=== PATIENT | female | born 1935 | race Caucasian/White ===

== ENCOUNTER → 2017-01-13 | Outpatient (CLI) | payer MEDICARE, BC ==
[2017-01-13 08:17] LABS: Basophils % (A) 0 %; CH 27.3; CHCM 31.8; Eosinophils # (A) 0.2 k/uL (0-0.7); Eosinophils % (A) 3 %; HCT 35.2 % (34.0-46.0); HDW 2.78; HGB 11.1 gm/dL (11.4-16.0); Hypochromasia Slight; Luc # (Auto) 0.14; Luc % (Auto) 2; Lymphocytes # (A) 0.8 k/uL (1.0-4.8); Lymphocytes % (A) 14 %; MCH 27.1 pg (25.0-35.0); MCHC 31.4 g/dL (31.0-37.0); MCV 86.3 fL (80.0-100.0); Mean Platelet Volume 6.9; Monocytes # (A) 0.5 k/uL (0-1.0); Monocytes % (A) 8 %; Neutrophils # (A) 4.4 k/uL (1.3-7.7); Neutrophils % (A) 73 %; RBC 4.08 m/uL (3.80-5.40); RDW 14.1 % (11.5-15.5); WBC (Perox) 6.35
[2017-01-13 08:51] LABS: ALT 25 U/L (9-52); AST 18 U/L (14-36); Alkaline Phosphatase 53 U/L (38-126); Anion Gap 14 mmol/L; Blood Urea Nitrogen 17 mg/dL (7-17); Calcium 10.2 mg/dL (8.4-10.2); Carbon Dioxide 24 mmol/L (22-30); Chloride 102 mmol/L (98-107); Cholesterol 157 mg/dL (<200); Glucose 101 mg/dL (74-99); HDL Cholesterol 43 mg/dL (40-60); Non-African American GFR(MDRD) 52 (>60 ml/min/1.73 sqM); Potassium 4.6 mmol/L (3.5-5.1); Sodium 140 mmol/L (137-145); Total Bilirubin 0.7 mg/dL (0.2-1.3); Total Protein 7.7 g/dL (6.3-8.2); Triglycerides 155 mg/dL (<150)
== END | disposition home or self-care (01) ==
LOC: LABWHC1 07:13
PROVIDERS: ATTEND Family Medicine
DX: I10 Essential (primary) hypertension (principal)
CPT/HCPCS: 36415; 80053; 80061; 85025

== ENCOUNTER → 2017-02-02 | Outpatient (CLI) | payer MEDICARE, BC ==
--- NOTE | 2017-02-02 10:25 | BD ---
EXAMINATION TYPE: MG DEXA axial skeleton. DATE OF EXAM: 02/02/2017 8:42 AM COMPARISON: 09.08.2009 DEXA bone scan report. CLINICAL HISTORY: Z78.0 ASYMPTOMATIC MENOPAUSAL STATE Height: 62 Weight: 162 FRAX RISK QUESTIONS: Alcohol (3 or more units per day): NO Family History (Parent hip fracture): NO Glucocorticoids (More than 3mos): NO (Ex: prednisone, prednisolone, methylprednisolone, dexamethasone, and hydrocortisone). History of Fracture in Adulthood: NO Secondary Osteoporosis: NO 1. Type 1 Diabetes: NO 2. Hyperthyroidism: NO 3. Menopause before 45: NO 4. Malnutrition: NO 5. Chronic liver disease: NO Rheumatoid Arthritis: NO Current Tobacco Use: NO RISK FACTORS HISTORY OF: Family History of Osteoporosis: NO Smoke tobacco: NO Drink Alcohol: NO Active: FEELS SO Diet low in dairy products/other sources of calcium: NO Postmenopausal woman: YES, HYSTERECTOMY AT AGE 45 Adrenal Insufficiency: NO MEDICATIONS: Additional Medications: BP MEDS, ANTI-ANXIETY MEDS, FISH OIL Additional History: OSTEOARTHRITIS, EXAM MEASUREMENTS: Bone mineral densitometry was performed using the Ch[employer] System. Bone mineral density as measured about the Lumbar spine is: ----- L1-L4(G/cm2): 1.263 T Score Values are as follows: ----- L1: 1.6 ----- L2: -0.2 ----- L3: 1.3 ----- L4: 0.0 ----- L1-L4: 0.7 Bone mineral density has: Increased 2.2% since study of: 09.08.2009 Bone mineral density about the R hip (g/cm2): 1.031 Bone mineral density about the L hip (g/cm2): 1.065 T Score values are as follows: -----R Neck: -0.9 -----L Neck: -0.6 -----R Intertrochanter: 0.1 -----L Intertrochanter: 0.1 Bone mineral density has: Decreased -4.4% since study of: 09.08.2009 FRAX %'S: 11.0% FOR A MAJOR OSTEOPOROTIC FX AND 2.3% FOR A HIP FX.......PROBABILITY OF FX IN 10 YRS TIME IMPRESSION: Normal (Values between +1 and -1 indicate normal bone mass FOR BOTH OF HER SCANS OF BOTH HIPS AND LUMBAR SPINE) NOTE: T-SCORE=SD OF THE YOUNG ADULT MEAN.
--- NOTE | 2017-02-03 12:31 | MM ---
Reason for exam: screening (asymptomatic). Last mammogram was performed 7 months ago. History: Patient is postmenopausal. Physical Findings: A clinical breast exam by your physician is recommended on an annual basis and results should be correlated with mammographic findings. MG 3D Screening Mammo W/Cad Bilateral CC and MLO view(s) were taken. Prior study comparison: June 22, 2016, right breast MG diagnostic mammo RT w CAD. December 17, 2015, right breast MG 3d work up w/cad RT. December 02, 2014, bilateral MG screening mammo w CAD. The breast tissue is heterogeneously dense. This may lower the sensitivity of mammography. Finding: There are vascular calcifications in the upper outer quadrant of the left breast. No significant changes in finding since June 22, 2016, December 17, 2015, and December 02, 2014. ASSESSMENT: Benign, BI-RAD 2 RECOMMENDATION: Routine screening mammogram of both breasts in 1 year.
== END | disposition home or self-care (01) ==
LOC: RADMAMWWP 07:42
PROVIDERS: ATTEND Family Medicine
DX: Z12.31 Encounter for screening mammogram for malignant neoplasm of breast (principal); Z78.0 Asymptomatic menopausal state
CPT/HCPCS: 77080; 77063; G0202

== ENCOUNTER → 2017-02-17 | Outpatient (CLI) | payer MEDICARE, BC ==
--- NOTE | 2017-02-17 11:48 | XR ---
EXAMINATION TYPE: XR chest 2V DATE OF EXAM: 02/17/2017 11:21 AM HISTORY: B34.9 viral infection. REFERENCE: Previous study dated 09/29/2016. FINDINGS: The lungs are mildly overinflated but clear. Pleural space are clear. Heart size is upper l imits of normal. IMPRESSION: 1. COPD. 2. MILD CARDIOMEGALY.
== END | disposition home or self-care (01) ==
LOC: RADXRMAIN 11:08
PROVIDERS: ATTEND Physician Assistant
DX: J44.9 Chronic obstructive pulmonary disease, unspecified (principal); I51.7 Cardiomegaly; B34.9 Viral infection, unspecified
CPT/HCPCS: 71020

== ENCOUNTER 2017-04-01 13:50 | Inpatient (IN) | payer MEDICARE, BC ==
[2017-04-01] MEDS ORDERED: SODIUM CHLORIDE 0.9% 1,000 ML IV STA (15:02)
[2017-04-01] MEDS ORDERED: SODIUM CHLORIDE 0.9% 500 ML IV STA (15:02)
[2017-04-01 15:13] LABS: Basophils % (A) 0 %; CH 27.8; CHCM 32.9; Eosinophils # (A) 0.2 k/uL (0-0.7); Eosinophils % (A) 2 %; HCT 34.6 % (34.0-46.0); HDW 2.71; HGB 11.4 gm/dL (11.4-16.0); Luc % (Auto) 2; Lymphocytes % (A) 15 %; MCH 27.9 pg (25.0-35.0); MCHC 32.8 g/dL (31.0-37.0); MCV 84.9 fL (80.0-100.0); Mean Platelet Volume 6.9; Monocytes # (A) 0.5 k/uL (0-1.0); Monocytes % (A) 8 %; Neutrophils % (A) 73 %; RBC 4.08 m/uL (3.80-5.40); RDW 15.1 % (11.5-15.5); WBC 6.8 k/uL (3.8-10.6); WBC (Perox) 7.63
[2017-04-01 15:24] LABS: ALT 24 U/L (9-52); AST 21 U/L (14-36); Alkaline Phosphatase 58 U/L (38-126); Anion Gap 13 mmol/L; Blood Urea Nitrogen 19 mg/dL (7-17); Calcium 10.4 mg/dL (8.4-10.2); Carbon Dioxide 20 mmol/L (22-30); Chloride 103 mmol/L (98-107); Glucose 123 mg/dL (74-99); Magnesium 1.9 mg/dL (1.6-2.3); Non-African American GFR(MDRD) 60 (>60 ml/min/1.73 sqM); Sodium 136 mmol/L (137-145); Total Bilirubin 0.6 mg/dL (0.2-1.3); Total Protein 7.4 g/dL (6.3-8.2)
[2017-04-01 15:33] LABS: Creatine Kinase 38 U/L (30-135)
[2017-04-01 15:45] LABS: Creatine Kinase MB 0.8 ng/mL (0.0-2.4); Troponin I <0.012 ng/mL (0.000-0.034)
[2017-04-01] MEDS ORDERED: hydrALAZINE HCL 20 MG/ML 1 ML VIAL IVP STA ×2 (16:00→16:53)
--- NOTE | 2017-04-01 16:04 | ED ---
Dizziness HPI - General Chief Complaint: Dizziness Stated Complaint: Dizzy&back pain Time Seen by Provider: 04/01/17 14:22 Source: patient, family, RN notes reviewed Mode of arrival: ambulatory Limitations: no limitations - History of Present Illness Initial Comments: This is a 81-year-old female with a history of hypertension who states she had the onset over last couple days of dizziness with lightheadedness specimen she tries get up to walk. She states her blood pressure markedly elevated systolic 220 over diastolic 79. She denies any fevers chills nausea vomiting sweats any headache blurry vision loss of function to her upper or lower extremities a recent change in health diet or medications. Also no cough no phlegm production no dysuria or hematuria. MD Complaint: dizziness, lightheadedness, other - Related Data Home Medications Medication Instructions Recorded Confirmed Aspirin [Adult Low Dose Aspirin EC] 81 mg PO DAILY 09/29/15 04/01/17 Bumetanide [Bumex] 1 mg PO DAILY 09/29/15 04/01/17 Lisinopril 40 mg PO DAILY 09/29/15 04/01/17 busPIRone HCl [Buspar] 10 mg PO BID 09/29/15 04/01/17 hydrALAZINE HCL [Apresoline] 50 mg PO TID 09/29/15 04/01/17 Atenolol [Tenormin] 50 mg PO BID 09/29/16 04/01/17 [place]-3 Fatty Acids/Fish Oil [Fish 1 cap PO DAILY 09/29/16 04/01/17 Oil 1,000 mg Softgel] Timolol 0.5% Ophth Soln [Timoptic 1 drop BOTH EYES DAILY 09/29/16 04/01/17 0.5% Ophth Soln] Doxazosin Mesylate [Cardura] 8 mg PO DAILY 04/01/17 04/01/17 Allergies Allergy/AdvReac Type Severity Reaction Status Date / Time allopurinol AdvReac Severe Nausea & Verified 04/01/17 14:39 Vomiting amlodipine besylate AdvReac Severe Nausea & Verified 04/01/17 14:39 [From Norvasc] Vomiting celecoxib [From Celebrex] AdvReac Severe Nausea & Verified 04/01/17 14:39 Vomiting clonidine HCl [From Catapres] AdvReac Severe Nausea & Verified 04/01/17 14:39 Vomiting diclofenac AdvReac Severe Nausea & Verified 04/01/17 14:39 Vomiting isosorbide AdvReac Severe Nausea & Verified 04/01/17 14:39 Vomiting methylprednisolone AdvReac Severe Nausea & Verified 04/01/17 14:39 Vomiting metoprolol tartrate AdvReac Severe Nausea & Verified 04/01/17 14:39 [From Lopressor] Vomiting misoprostol AdvReac Severe Nausea & Verified 04/01/17 14:39 Vomiting rabeprazole sodium AdvReac Severe Nausea & Verified 04/01/17 14:39 [From Aciphex] Vomiting Sulfa (Sulfonamide AdvReac Severe Nausea & Verified 04/01/17 14:39 Antibiotics) Vomiting Review of Systems ROS Statement: Those systems with pertinent positive or pertinent negative responses have been documented in the HPI. ROS Other: All systems not noted in ROS Statement are negative. Past Medical History Past Medical History: Hypertension History of Any Multi-Drug Resistant Organisms: None Reported Past Surgical History: Appendectomy Past Psychological History: No Psychological Hx Reported Smoking Status: Never smoker Past Alcohol Use History: None Reported Past Drug Use History: None Reported General Exam - General Exam Comments Initial Comments: This is a well-developed well-nourished awake alert oriented 3 female Limitations: no limitations General appearance: alert, anxious Head exam: Present: atraumatic, normocephalic, normal inspection Eye exam: Present: normal appearance, PERRL, EOMI. Absent: scleral icterus, conjunctival injection, periorbital swelling ENT exam: Present: mucous membranes dry Neck exam: Present: normal inspection. Absent: tenderness, meningismus, lymphadenopathy Respiratory exam: Present: normal lung sounds bilaterally. Absent: respiratory distress, wheezes, rales, rhonchi, stridor Cardiovascular Exam: Present: regular rate, normal rhythm, normal heart sounds. Absent: systolic murmur, diastolic murmur, rubs, gallop, clicks GI/Abdominal exam: Present: soft, normal bowel sounds. Absent: distended, tenderness, guarding, rebound, rigid Extremities exam: Present: normal inspection, full ROM, normal capillary refill. Absent: tenderness, pedal edema, joint swelling, calf tenderness Back exam: Present: normal inspection Neurological exam: Present: alert, oriented X3, CN II-XII intact Psychiatric exam: Present: normal affect, normal mood Skin exam: Present: warm, dry, intact, normal color. Absent: rash Course Vital Signs 04/01/17 04/01/17 04/01/17 14:15 15:19 16:14 Temperature 97.3 F L Pulse Rate 60 62 65 Respiratory 18 20 20 Rate Blood Pressure 220/79 220/139 227/100 O2 Sat by Pulse 97 95 91 L Oximetry 04/01/17 04/01/17 16:41 17:12 Temperature Pulse Rate 60 71 Respiratory 18 14 Rate Blood Pressure 216/91 198/84 O2 Sat by Pulse 94 L 91 L Oximetry - Reevaluation(s) Reevaluation #1: 04/01/17 16:04 The patient later complain of back pain and hip pain. This is not an initially presented at the first encounter. EKG Findings - EKG Results: EKG: interpreted by CHENG (Sinus rhythm rate 66 ME interval 194 QRS duration 88 daily since QTC of 404/423 PVCs noted) Medical Decision Making - Medical Decision Making I did discuss the findings with the patient patient blood pressure 5 responded though she has been having difficulty with walking those no neurological deficits. Her motor strength is equal and strong bilaterally. Patient will be admitted for evaluation of elevated blood pressure. Patient did relate that she believes part of her blood pressure she was because of her 's recent diagnosis of stomach cancer. - Lab Data Result diagrams: 04/01/17 15:02 04/01/17 15:02 Lab Results 04/01/17 04/01/17 04/01/17 Range/Units 15:02 15:02 15:02 WBC 6.8 (3.8-10.6) k/uL RBC 4.08 (3.80-5.40) m/uL Hgb 11.4 (11.4-16.0) gm/dL Hct 34.6 (34.0-46.0) % MCV 84.9 (80.0-100.0) fL MCH 27.9 (25.0-35.0) pg MCHC 32.8 (31.0-37.0) g/dL RDW 15.1 (11.5-15.5) % Plt Count 291 (150-450) k/uL Neutrophils % 73 % Lymphocytes % 15 % Monocytes % 8 % Eosinophils % 2 % Basophils % 0 % Neutrophils # 5.0 (1.3-7.7) k/uL Lymphocytes # 1.0 (1.0-4.8) k/uL Monocytes # 0.5 (0-1.0) k/uL Eosinophils # 0.2 (0-0.7) k/uL Basophils # 0.0 (0-0.2) k/uL Sodium 136 L (137-145) mmol/L Potassium 4.0 (3.5-5.1) mmol/L Chloride 103 (98-107) mmol/L Carbon Dioxide 20 L (22-30) mmol/L Anion Gap 13 mmol/L BUN 19 H (7-17) mg/dL Creatinine 0.90 (0.52-1.04) mg/dL Est GFR (MDRD) Af Amer >60 (>60 ml/min/1.73 sqM) Est GFR (MDRD) Non-Af 60 (>60 ml/min/1.73 sqM) Glucose 123 H (74-99) mg/dL Calcium 10.4 H (8.4-10.2) mg/dL Magnesium 1.9 (1.6-2.3) mg/dL Total Bilirubin 0.6 (0.2-1.3) mg/dL AST 21 (14-36) U/L ALT 24 (9-52) U/L Alkaline Phosphatase 58 (38-126) U/L Total Creatine Kinase 38 (30-135) U/L CK-MB (CK-2) 0.8 (0.0-2.4) ng/mL CK-MB (CK-2) Rel Index 2.1 Troponin I <0.012 (0.000-0.034) ng/mL Total Protein 7.4 (6.3-8.2) g/dL Albumin 4.0 (3.5-5.0) g/dL Urine Color Urine Appearance (Clear) Urine pH (5.0-8.0) Ur Specific [place] (1.001-1.035) Urine Protein (Negative) Urine Glucose (UA) (Negative) Urine Ketones (Negative) Urine Blood (Negative) Urine Nitrite (Negative) Urine Bilirubin (Negative) Urine Urobilinogen (<2.0) mg/dL Ur Leukocyte Esterase (Negative) Urine RBC (0-5) /hpf Urine WBC (0-5) /hpf 04/01/17 Range/Units 16:11 WBC (3.8-10.6) k/uL RBC (3.80-5.40) m/uL Hgb (11.4-16.0) gm/dL Hct (34.0-46.0) % MCV (80.0-100.0) fL MCH (25.0-35.0) pg MCHC (31.0-37.0) g/dL RDW (11.5-15.5) % Plt Count (150-450) k/uL Neutrophils % % Lymphocytes % % Monocytes % % Eosinophils % % Basophils % % Neutrophils # (1.3-7.7) k/uL Lymphocytes # (1.0-4.8) k/uL Monocytes # (0-1.0) k/uL Eosinophils # (0-0.7) k/uL Basophils # (0-0.2) k/uL Sodium (137-145) mmol/L Potassium (3.5-5.1) mmol/L Chloride (98-107) mmol/L Carbon Dioxide (22-30) mmol/L Anion Gap mmol/L BUN (7-17) mg/dL Creatinine (0.52-1.04) mg/dL Est GFR (MDRD) Af Amer (>60 ml/min/1.73 sqM) Est GFR (MDRD) Non-Af (>60 ml/min/1.73 sqM) Glucose (74-99) mg/dL Calcium (8.4-10.2) mg/dL Magnesium (1.6-2.3) mg/dL Total Bilirubin (0.2-1.3) mg/dL AST (14-36) U/L ALT (9-52) U/L Alkaline Phosphatase (38-126) U/L Total Creatine Kinase (30-135) U/L CK-MB (CK-2) (0.0-2.4) ng/mL CK-MB (CK-2) Rel Index Troponin I (0.000-0.034) ng/mL Total Protein (6.3-8.2) g/dL Albumin (3.5-5.0) g/dL Urine Color Light Yellow Urine Appearance Clear (Clear) Urine pH 6.5 (5.0-8.0) Ur Specific [place] 1.004 (1.001-1.035) Urine Protein Negative (Negative) Urine Glucose (UA) Negative (Negative) Urine Ketones Negative (Negative) Urine Blood Negative (Negative) Urine Nitrite Negative (Negative) Urine Bilirubin Negative (Negative) Urine Urobilinogen <2.0 (<2.0) mg/dL Ur Leukocyte Esterase Small H (Negative) Urine RBC 1 (0-5) /hpf Urine WBC 3 (0-5) /hpf Disposition Clinical Impression: Uncontrolled hypertension, Dehydration, Weakness Disposition: ADMITTED IP TO THIS HOSP Condition: Stable
[2017-04-01 16:23] LABS: Appearance,Urine Clear (Clear); Bilirubin,Urine Negative (Negative); Glucose,Urine (UA) Negative (Negative); Ketones,Urine Negative (Negative); Leukocyte Esterase,Urine Small (Negative); Nitrite,Urine Negative (Negative); PH, Urine 6.5 (5.0-8.0); Particle Count 575; Protein,Urine Negative (Negative); RBC,Urine 1 /hpf (0-5); Specific Gravity,Urine 1.004 (1.001-1.035); UA Billing (MACRO vs. MICRO) MICRO; Urobilinogen,Urine <2.0 mg/dL (<2.0); WBC,Urine 3 /hpf (0-5)
--- NOTE | 2017-04-01 16:38 | XR ---
EXAMINATION TYPE: XR chest 2V DATE OF EXAM: 04/01/2017 4:31 PM COMPARISON: 02/17/2017 HISTORY: Dizziness TECHNIQUE: Frontal and lateral views of the chest are obtained. FINDINGS: There is no heart failure nor confluent pneumonic infiltrate. There are no hilar masses. H eart is slightly enlarged. There is no pleural effusion. There are chest leads. IMPRESSION: Mild cardiomegaly. No heart failure. No significant change compared to old exam.
--- NOTE | 2017-04-01 16:39 | XR ---
EXAMINATION TYPE: XR pelvis AP view DATE OF EXAM: 04/01/2017 4:31 PM COMPARISON: NONE HISTORY: Dizziness back pain TECHNIQUE: Single view FINDINGS: Pelvic ring is intact. Proximal femurs and hip joints are intact. Sacroiliac joints are nor mal. IMPRESSION: Negative pelvis exam.
--- NOTE | 2017-04-01 16:41 | XR ---
EXAMINATION TYPE: XR lumbosacral spine min 4V DATE OF EXAM: 04/01/2017 4:31 PM COMPARISON: NONE HISTORY: Dizziness TECHNIQUE: 5 views FINDINGS: Lumbar vertebra have normal alignment. There is spurring of the endplates. There is no comp ression fracture. Posterior elements are intact. There is mild narrowing at L4-5 L5-S1 disc spaces. S acroiliac joints are normal. IMPRESSION: Spondylotic changes. No fracture.
[2017-04-01] MEDS ORDERED: NALOXONE 0.4 MG/ML 1 ML VIAL IV PRN (17:19)
[2017-04-01] MEDS ORDERED: LORazepam 2 MG/ML SYRINGE IV PRN (17:21)
[2017-04-01] MEDS: SODIUM CHLORIDE 0.9% 1,000 ML IV SCH (17:33)
[2017-04-01] MEDS: busPIRone HCl 10 MG TAB PO SCH (20:19)
[2017-04-01] MEDS: ATENOLOL 50 MG TAB PO SCH (20:19)
[2017-04-01] MEDS: hydrALAZINE HCL 50 MG TAB PO SCH (20:19)
[2017-04-02 00:40] VITALS: BMI 26.2
[2017-04-02] MEDS: hydrALAZINE HCL 50 MG TAB PO SCH ×3 (06:11→21:29)
[2017-04-02] MEDS: DOXAZOSIN 4 MG TAB PO SCH (06:11)
[2017-04-02] MEDS: SODIUM CHLORIDE 0.9% 1,000 ML IV SCH (06:14)
[2017-04-02] MEDS ORDERED: BUMETANIDE 1 MG TAB PO SCH (09:00)
[2017-04-02] MEDS: TIMOLOL 0.5% OPHTH DROPS 5 ML BTL BOTH EYES SCH (10:41)
[2017-04-02] MEDS: ATENOLOL 50 MG TAB PO SCH ×2 (10:42→21:29)
[2017-04-02] MEDS: busPIRone HCl 10 MG TAB PO SCH ×2 (10:42→21:29)
[2017-04-02] MEDS: ASPIRIN 81 MG CHEW PO SCH (10:42)
[2017-04-02] MEDS: LISINOPRIL 20 MG TAB PO SCH (10:42)
[2017-04-02] MEDS: HYDROCHLOROTHIAZIDE 25 MG TAB PO SCH (13:36)
[2017-04-02] MEDS ORDERED: ALPRAZolam 0.25 MG TAB PO PRN (14:23)
[2017-04-02] MEDS ORDERED: ACETAMINOPHEN TAB 500 MG TAB PO PRN (14:23)
[2017-04-02] MEDS: hydrALAZINE HCL 20 MG/ML 1 ML VIAL IVP PRN (17:51)
[2017-04-02] MEDS: MELATONIN 3 MG TABLET PO SCH (21:29)
[2017-04-03] MEDS: hydrALAZINE HCL 20 MG/ML 1 ML VIAL IVP PRN (05:34)
[2017-04-03 08:07] LABS: Basophils % (A) 0 %; CH 27.7; CHCM 32.8; Eosinophils # (A) 0.2 k/uL (0-0.7); Eosinophils % (A) 2 %; HCT 33.9 % (34.0-46.0); HDW 2.63; HGB 11.1 gm/dL (11.4-16.0); Luc # (Auto) 0.09; Luc % (Auto) 1; Lymphocytes # (A) 0.7 k/uL (1.0-4.8); Lymphocytes % (A) 9 %; MCH 27.8 pg (25.0-35.0); MCHC 32.8 g/dL (31.0-37.0); MCV 84.8 fL (80.0-100.0); Mean Platelet Volume 6.8; Monocytes # (A) 0.5 k/uL (0-1.0); Monocytes % (A) 7 %; Neutrophils # (A) 6.3 k/uL (1.3-7.7); Neutrophils % (A) 81 %; RDW 15.1 % (11.5-15.5); WBC 7.8 k/uL (3.8-10.6); WBC (Perox) 8.11
--- NOTE | 2017-04-03 08:11 | HP ---
DATE OF ADMISSION: DATE OF SERVICE: 04/02/2017 CHIEF COMPLAINT: Dizziness and hypertension. HISTORY OF PRESENT ILLNESS: This 81-year-old woman with past medical history of hearing disorder, hypertension, history of degenerative joint disease, history of appendectomy, section, cardiac catheterization, anxiety and depression, being followed by Dr. Lj Sanchez in the outpatient setting, not feeling well. Today the patient had dizziness and patient was found to have hypertension with systolic 220 and the patient was taken to [facility] and admitted for evaluation and treatment. There is no history of fever, rigors. No history of headache, loss of consciousness or seizures. The patient complains of lightheadedness while trying to walk. There is focal weakness also noted. PAST MEDICAL HISTORY: History of hypertension, DJD, history of appendectomy, section, cardiac catheterization, anxiety, depression, not otherwise specified. Medications prior to admission include home medications: 1. Hydralazine 50 mg p.o. t.i.d. 2. BuSpar 10 mg p.o. b.i.d. 3. Timolol 0.5 one drop daily. 4. Fish oil 1 p.o. daily. 5. Lisinopril 40 mg p.o. daily. 6. Cardura 8 mg p.o. daily. 7. Bumex 1 mg p.o. daily. 8. Tenormin 50 mg p.o. b.i.d. 9. Ecotrin 81 mg p.o. daily. ALLERGIES: ZYLOPRIM, AMLODIPINE, CELEBREX, CLONIDINE, DICLOFENAC, ISOSORBIDE, METHYLPREDNISONE, METOPROLOL, ( ), SULFA. FAMILY HISTORY: History of coronary artery disease, history of leukemia, history of cancer. SOCIAL HISTORY: No history smoking, no history of alcohol intake. REVIEW OF SYSTEMS: ENT: Diminished hearing, diminished vision. CARDIOVASCULAR: As mentioned earlier. RESPIRATORY: As mentioned earlier. GI: No nausea. GENITOURINARY: No dysuria. NERVOUS SYSTEM: As mentioned earlier. ALLERGY/IMMUNOLOGY: No asthma or hayfever. MUSCULOSKELETAL: As mentioned earlier. HEMATOLOGY: No history of anemia. ENDOCRINE: No history of diabetes or hypothyroidism. CONSTITUTIONAL: As mentioned earlier. DERMATOLOGY: Negative. RHEUMATOLOGY: Negative. PSYCHIATRY: As mentioned earlier. PHYSICAL EXAMINATION: Alert and oriented x3. Pulse 55, blood pressure 190/91, respirations 18, temperature 98.7, pulse ox 98% on room air. HEENT: Conjunctivae normal. Oral mucosa moist. NECK: No jugular venous distention. No carotid bruit. No lymph node enlargement. CARDIOVASCULAR: S1 and S2, muffled. RESPIRATORY: Breath sounds diminished at the bases. A few scattered rhonchi and crackles. ABDOMEN: Soft, nontender. No mass palpable. LEGS: No edema, no swelling. NERVOUS SYSTEM: Higher function as mentioned. Moves all four limbs. No focal motor deficits. LYMPHATIC: No lymphadenopathy in the neck, axillae or groin. SKIN: No ulcer, rash or bleeding. LABS: CBC within normal limits. Sodium 136. Calcium 10.4. ASSESSMENT: 1. Dizziness, possibly hypertensive urgency. 2. Hyponatremia. 3. Increased creatinine possibly secondary to dehydration. 4. Increased random blood sugar. 5. History of hearing defect. 6. Hypertension. 7. Degenerative joint disease. 8. Appendectomy. 9. History of cardiac catheterization. 10. Anxiety, depression, not otherwise specified. 11. FULL CODE. RECOMMENDATIONS AND DISCUSSION: In this 81-year-old woman who presented with multiple complex medical issues, we will monitor the patient closely. Continue the current medications and symptomatic treatment. Will resume home medications, p.r.n. medication, hydralazine. Otherwise, closely monitor. Cardiology has been consulted. Further recommendations to follow. Dr. Sanchez will follow.
--- NOTE | 2017-04-03 08:38 | P.PN ---
Subjective Principal diagnosis: htn He female admitted with the hypertension. Symptoms or dizziness. She denies any headaches blurring of vision chest discomfort undue shortness of breath. She is lying comfortably in bed. Denies any recent falls Not sure why the pelvis x-ray and the lumbar x-ray was done. No fractures noted EKG shows sinus rhythm with PACs no definite ST segment abdomen is Labs are reviewed from yesterday electrolytes are normal, liver functions are normal hemoglobin 11.1, cardiac enzyme normal On examination her blood pressure still fluctuates 198/66 this morning, 149/60 151/58 She was given IV hydralazine Heart sounds S1 and S2 are normal no murmurs or gallops Breath sounds are normal no rhonchi no crackles Extremities warm no edema Abdomen soft nontender No JVD Impression: Elderly female with Uncontrolled hypertension, essential with associated dizziness Suggest Stop IV hydralazine. Stop atenolol, she is bradycardic in the 40s Switched to clonidine patch TTS 2 starting today I discussed this with the nurse TSH level and cortisol I would use a combination of hydrochlorothiazide with potassium sparing diuretic and stop Bumex If her blood pressure is not controlled with multiple medications evaluate renal arteries/ Objective - Vital Signs Vital signs: Vital Signs Temp 98.6 F 04/03/17 07:17 Pulse 58 L 04/03/17 07:17 Resp 18 04/03/17 07:17 BP 149/60 04/03/17 07:17 Pulse Ox 96 04/03/17 07:17 Intake & Output 04/02/17 04/03/17 04/03/17 18:59 06:59 18:59 Intake Total 440 590 Balance 440 590 Weight 71.668 kg Intake: Oral 440 590 Other: Voiding Method Toilet Toilet Diaper Diaper # Voids 1 1 - Labs CBC & Chem 7: 04/03/17 07:47 04/01/17 15:02 Labs: Abnormal Lab Results - Last 24 Hours (Table) 04/03/17 Range/Units 07:47 Hgb 11.1 L (11.4-16.0) gm/dL Hct 33.9 L (34.0-46.0) % Lymphocytes # 0.7 L (1.0-4.8) k/uL
[2017-04-03] MEDS ORDERED: cloNIDine 0.2 MG/24HR PATCH 1 PATCH PATCH TRANSDERM SCH ×2 (09:00→20:00)
[2017-04-03] MEDS: DOXAZOSIN 4 MG TAB PO SCH (09:08)
[2017-04-03] MEDS: HYDROCHLOROTHIAZIDE 25 MG TAB PO SCH (09:09)
[2017-04-03] MEDS: hydrALAZINE HCL 50 MG TAB PO SCH ×3 (09:09→23:05)
[2017-04-03] MEDS: busPIRone HCl 10 MG TAB PO SCH ×2 (09:09→21:21)
[2017-04-03] MEDS: ASPIRIN 81 MG CHEW PO SCH (09:09)
[2017-04-03] MEDS: LISINOPRIL 20 MG TAB PO SCH (09:09)
[2017-04-03] MEDS: TIMOLOL 0.5% OPHTH DROPS 5 ML BTL BOTH EYES SCH (09:10)
[2017-04-03 09:12] LABS: Anion Gap 10 mmol/L; Blood Urea Nitrogen 18 mg/dL (7-17); Calcium 9.9 mg/dL (8.4-10.2); Carbon Dioxide 23 mmol/L (22-30); Chloride 102 mmol/L (98-107); Glucose 117 mg/dL (74-99); Non-African American GFR(MDRD) 58 (>60 ml/min/1.73 sqM); Potassium 3.7 mmol/L (3.5-5.1); Sodium 135 mmol/L (137-145)
[2017-04-03] MEDS: SPIRONOLACTONE 25 MG TAB PO SCH (09:46)
--- NOTE | 2017-04-03 11:11 | CONS ---
DATE OF CONSULTATION: Ms. Alcaraz is an 81-year-old female with a history of hypertension with multiple allergies to several medications was admitted through the emergency room with complaints of dizziness and lightheadedness. Patient also has been having high blood pressures with systolics of 220. Patient denied any chest pain, nausea, vomiting. He denies any blurred vision. Patient does not appear to be in any acute distress. Her blood pressure is still fluctuating in the range of 200. The patient is allergic to AMLODIPINE and also CLONIDINE. Her past medical history seems to be significant for hypertension. No history of previous myocardial infarction or strokes. Her medications prior to admission include: 1. Aspirin. 2. Lisinopril 40 mg. 3. BuSpar. 4. Hydralazine 50 mg p.o. t.i.d. 5. Atenolol 50 mg p.o. b.i.d. 6. [place] fatty acid. Her allergies include ALLOPURINOL, AMLODIPINE, CLONIDINE, ISOSORBIDE, METHYLPREDNISOLONE, METOPROLOL, and SULFA. Physical examination at this time reveals an elderly female who is alert, oriented, does not appear to be in acute distress. Neck is supple. No JVD. HEART: S1 and S2 heard. No significant murmurs or gallops heard. Lungs appear to be clear. ABDOMEN: Soft. EXTREMITIES: No significant edema. FINAL IMPRESSION: 1. Dizziness, could be related to hypertension. 2. Hypertension. PLAN: We will continue current medical therapy. We will add hydrochlorothiazide 25 mg p.o. daily. Further recommendations will depend upon the clinical course.
--- NOTE | 2017-04-03 20:39 | PN ---
DATE OF SERVICE: 04/03/2017 This 81 -year-old woman who was admitted with dizziness and possible hypertensive urgency. The patient is being closely monitor. The patient has got fluctuating blood pressures. Cardiology is following the patient. No fever. No cough. On examination, alert and oriented times three. Pulse 60. Blood pressure 133/64. Respiratory rate 16. Temperature 97.7. Pulse ox 94% on room air. HEENT: Conjunctivae normal. NECK: No jugular venous distention. CARDIOVASCULAR: S1, S2 muffled. RESPIRATORY: Breath sounds diminished at the bases. A few scattered rhonchi, no crackles. ABDOMEN: Soft, nontender. LEGS: No edema. No swelling. CENTRAL NERVOUS SYSTEM: No focal deficits. LABS: Hemoglobin 11.1, white count 7.8. Sodium is 135. Glucose 117. ASSESSMENT: 1. Dizziness, possible hypertensive urgency. 2. Hyponatremia. 3. Increased creatinine, possibly secondary dehydration with mild acute renal failure. 4. Increased random blood sugar. 5. History of hearing defect. 6. Hypertension, essential. 7. Degenerative joint disease. 8. History of appendectomy. 9. History of cardiac catheterization. 10. History of anxiety, depression, not otherwise specified. 11. FULL CODE. RECOMMENDATIONS AND DISCUSSION: In this 81-year-old woman who presented with multiple complex medical issues, we will monitor the patient closely. Otherwise monitor blood pressure closely. Closely follow with cardiology. Guarded prognosis. Further recommendations to follow. Medications will be adjusted. Dr. Lj Sanchez will follow.
[2017-04-03 21:07] LABS: Glucose,Whole Blood 107 mg/dL (75-99)
[2017-04-03] MEDS: MELATONIN 3 MG TABLET PO SCH (21:21)
[2017-04-04 06:11] LABS: Glucose,Whole Blood 113 mg/dL (75-99)
[2017-04-04 07:14] LABS: Anion Gap 12 mmol/L; Blood Urea Nitrogen 20 mg/dL (7-17); Calcium 9.6 mg/dL (8.4-10.2); Carbon Dioxide 23 mmol/L (22-30); Chloride 99 mmol/L (98-107); Glucose 115 mg/dL (74-99); Non-African American GFR(MDRD) 57 (>60 ml/min/1.73 sqM); Potassium 3.6 mmol/L (3.5-5.1); Sodium 134 mmol/L (137-145)
[2017-04-04 07:17] LABS: Basophils % (A) 0 %; CH 27.7; CHCM 33.2; Eosinophils # (A) 0.2 k/uL (0-0.7); Eosinophils % (A) 2 %; HCT 32.9 % (34.0-46.0); HDW 2.66; HGB 10.8 gm/dL (11.4-16.0); Luc # (Auto) 0.12; Luc % (Auto) 2; Lymphocytes # (A) 0.8 k/uL (1.0-4.8); Lymphocytes % (A) 10 %; MCH 27.4 pg (25.0-35.0); MCHC 32.7 g/dL (31.0-37.0); MCV 83.6 fL (80.0-100.0); Mean Platelet Volume 7.1; Monocytes # (A) 0.6 k/uL (0-1.0); Monocytes % (A) 8 %; Neutrophils # (A) 5.9 k/uL (1.3-7.7); Neutrophils % (A) 78 %; RBC 3.94 m/uL (3.80-5.40); RDW 15.1 % (11.5-15.5); WBC 7.6 k/uL (3.8-10.6); WBC (Perox) 7.53
[2017-04-04] MEDS: ASPIRIN 81 MG CHEW PO SCH (07:42)
[2017-04-04] MEDS: TIMOLOL 0.5% OPHTH DROPS 5 ML BTL BOTH EYES SCH (07:42)
[2017-04-04] MEDS: LISINOPRIL 20 MG TAB PO SCH (07:42)
[2017-04-04] MEDS: SPIRONOLACTONE 25 MG TAB PO SCH (07:43)
[2017-04-04] MEDS: HYDROCHLOROTHIAZIDE 25 MG TAB PO SCH (07:43)
[2017-04-04] MEDS: hydrALAZINE HCL 50 MG TAB PO SCH ×3 (07:43→21:35)
[2017-04-04] MEDS: busPIRone HCl 10 MG TAB PO SCH ×2 (07:44→21:35)
[2017-04-04] MEDS: DOXAZOSIN 4 MG TAB PO SCH (07:44)
--- NOTE | 2017-04-04 10:50 | P.PN ---
Subjective Patient sitting at side of bed family present. Cardiology is treating hypertension improvement noted Objective - Vital Signs Vital signs: Vital Signs Temp 96.6 F L 04/04/17 07:48 Pulse 77 04/04/17 07:49 Resp 16 04/04/17 07:49 BP 150/60 04/04/17 07:48 Pulse Ox 96 04/04/17 09:44 Intake & Output 04/03/17 04/04/17 04/04/17 18:59 06:59 18:59 Intake Total 240 0 180 Output Total 600 Balance 240 -600 180 Weight 68.9 kg Intake: IV 0 0.9 0 Oral 240 180 Output: Urine 600 Other: Voiding Method Toilet Toilet Toilet Diaper Diaper Diaper # Voids 1 1 - Constitutional General appearance: Present: average body habitus - EENT Eyes: Present: PERRLA Ears: bilateral: normal - Neck Neck: Present: normal ROM - Respiratory Respiratory: bilateral: CTA - Cardiovascular Rhythm: regular - Gastrointestinal General gastrointestinal: Present: soft - Neurologic Neurologic: Present: CNII-XII intact - Musculoskeletal Musculoskeletal: Present: generalized weakness - Psychiatric Psychiatric: Present: A&O x's 3, appropriate affect, intact judgment & insight - Labs CBC & Chem 7: 04/04/17 06:30 04/04/17 06:30 Labs: Abnormal Lab Results - Last 24 Hours (Table) 04/03/17 04/04/17 04/04/17 Range/Units 21:05 06:10 06:30 Hgb 10.8 L (11.4-16.0) gm/dL Hct 32.9 L (34.0-46.0) % Lymphocytes # 0.8 L (1.0-4.8) k/uL Sodium (137-145) mmol/L BUN (7-17) mg/dL Glucose (74-99) mg/dL POC Glucose (mg/dL) 107 H 113 H (75-99) mg/dL 04/04/17 Range/Units 06:30 Hgb (11.4-16.0) gm/dL Hct (34.0-46.0) % Lymphocytes # (1.0-4.8) k/uL Sodium 134 L (137-145) mmol/L BUN 20 H (7-17) mg/dL Glucose 115 H (74-99) mg/dL POC Glucose (mg/dL) (75-99) mg/dL - Imaging and Cardiology Chest x-ray: report reviewed Assessment and Plan Plan: Assessment Dizziness hypertensive urgency Back and hip pain nontraumatic Hyponatremia Mild dehydration acute renal failure Hearing deficit Hypertension essential Degenerative joint disease Anxiety depression Plan Continue hypertension control with cardiology consultation Monitoring medication adjustment
[2017-04-04 11:42] LABS: Glucose,Whole Blood 118 mg/dL (75-99)
--- NOTE | 2017-04-04 15:39 | P.PN ---
Subjective Principal diagnosis: Hypertension This is an 81-year-old female admitted to the hospital with symptoms of dizziness, she was significantly hypertensive and medication adjustments were made yesterday by Dr. Mcmanus. At the time of her examination today, blood pressure 140/50. Heart rate in the 60s. 99% on room air. Patient was educated regarding the importance of reducing salt intake in her diet. Cortisol level 24. Objective - Vital Signs Vital signs: Vital Signs Temp 96.7 F L 04/04/17 15:13 Pulse 73 04/04/17 15:13 Resp 16 04/04/17 15:13 BP 176/74 04/04/17 15:13 Pulse Ox 98 04/04/17 15:13 Intake & Output 04/03/17 04/04/17 04/04/17 18:59 06:59 18:59 Intake Total 240 0 360 Output Total 600 300 Balance 240 -600 60 Weight 68.9 kg Intake: IV 0 0.9 0 Oral 240 360 Output: Urine 600 300 Other: Voiding Method Toilet Toilet Toilet Diaper Diaper Diaper # Voids 1 1 1 - Exam PHYSICAL EXAMINATION: HEENT: Head is atraumatic, normocephalic. Pupils equal, round. Neck is supple. There is no elevated jugular venous pressure. HEART EXAMINATION: Heart S1, S2 normal. No murmur or gallop heard. CHEST EXAMINATION: Lungs are clear to auscultation and precussion. No chest wall tenderness is noted on palpation or with deep breathing. ABDOMEN: Soft, nontender. Bowel sounds are heard. No organomegaly noted. EXTREMITIES: 2+ peripheral pulses with no evidence of peripheral edema and no calf tenderness noted. NEUROLOGIC patient is awake, alert and oriented -3. . - Labs CBC & Chem 7: 04/04/17 06:30 04/04/17 06:30 Labs: Abnormal Lab Results - Last 24 Hours (Table) 04/03/17 04/04/17 04/04/17 Range/Units 21:05 06:10 06:30 Hgb 10.8 L (11.4-16.0) gm/dL Hct 32.9 L (34.0-46.0) % Lymphocytes # 0.8 L (1.0-4.8) k/uL Sodium (137-145) mmol/L BUN (7-17) mg/dL Glucose (74-99) mg/dL POC Glucose (mg/dL) 107 H 113 H (75-99) mg/dL 17 04/04/17 Range/Units 06:30 11:41 Hgb (11.4-16.0) gm/dL Hct (34.0-46.0) % Lymphocytes # (1.0-4.8) k/uL Sodium 134 L (137-145) mmol/L BUN 20 H (7-17) mg/dL Glucose 115 H (74-99) mg/dL POC Glucose (mg/dL) 118 H (75-99) mg/dL Assessment and Plan (1) Dizziness Status: Acute (2) Uncontrolled hypertension Status: Acute Plan: Cardiology's perspective, we'll continue the patient on her current medications here. Continue to monitor blood pressure closely. Patient also has been educated regarding the importance of decreasing the amount of sodium intake in her diet. DNP note has been reviewed, I agree with a documented findings and plan of care. Patient was seen and examined.
[2017-04-04] MEDS: MELATONIN 3 MG TABLET PO SCH (21:35)
[2017-04-05 06:54] LABS: Basophils % (A) 0 %; CH 27.8; CHCM 33.1; Eosinophils # (A) 0.2 k/uL (0-0.7); Eosinophils % (A) 2 %; HCT 33.5 % (34.0-46.0); HDW 2.78; HGB 11.1 gm/dL (11.4-16.0); Luc # (Auto) 0.15; Luc % (Auto) 3; Lymphocytes # (A) 0.6 k/uL (1.0-4.8); Lymphocytes % (A) 9 %; MCH 27.9 pg (25.0-35.0); MCV 84.3 fL (80.0-100.0); Mean Platelet Volume 6.7; Monocytes # (A) 0.6 k/uL (0-1.0); Monocytes % (A) 9 %; Neutrophils # (A) 4.8 k/uL (1.3-7.7); Neutrophils % (A) 77 %; RBC 3.97 m/uL (3.80-5.40); RDW 14.6 % (11.5-15.5); WBC 6.2 k/uL (3.8-10.6); WBC (Perox) 6.25
[2017-04-05 07:13] LABS: Anion Gap 10 mmol/L; Blood Urea Nitrogen 20 mg/dL (7-17); Calcium 9.9 mg/dL (8.4-10.2); Carbon Dioxide 24 mmol/L (22-30); Chloride 101 mmol/L (98-107); Glucose 125 mg/dL (74-99); Non-African American GFR(MDRD) >60 (>60 ml/min/1.73 sqM); Potassium 3.9 mmol/L (3.5-5.1); Sodium 135 mmol/L (137-145)
[2017-04-05] MEDS: hydrALAZINE HCL 50 MG TAB PO SCH ×3 (08:47→21:07)
[2017-04-05] MEDS: busPIRone HCl 10 MG TAB PO SCH ×2 (08:55→21:07)
[2017-04-05] MEDS: ASPIRIN 81 MG CHEW PO SCH (08:55)
[2017-04-05] MEDS: TIMOLOL 0.5% OPHTH DROPS 5 ML BTL BOTH EYES SCH (08:55)
[2017-04-05] MEDS: HYDROCHLOROTHIAZIDE 25 MG TAB PO SCH (08:56)
[2017-04-05] MEDS: SPIRONOLACTONE 25 MG TAB PO SCH (08:56)
[2017-04-05] MEDS: DOXAZOSIN 4 MG TAB PO SCH (08:56)
--- NOTE | 2017-04-05 09:38 | ECHOF ---
Referral Reason:htn MEASUREMENTS -------- HEIGHT: 165.1 cm WEIGHT: 68.5 kg BP: 136/58 RVIDd: 2.7 cm (< 3.3) IVSd: 1.2 cm (0.6 - 1.1) LVIDd: 4.1 cm (3.9 - 5.3) LVPWd: 1.5 cm (0.6 - 1.1) IVSs: 1.7 cm LVIDs: 2.5 cm LVPWs: 1.8 cm LA Diam: 3.8 cm (2.7 - 3.8) LAESV Index (A-L): 37.28 ml/m Ao Diam: 2.9 cm (2.0 - 3.7) AV Cusp: 1.5 cm (1.5 - 2.6) LA Diam: 3.7 cm (2.7 - 3.8) MV EXCURSION: 17.007 mm (> 18.000) MV EF SLOPE: 48 mm/s (70 - 150) EPSS: 0.2 cm MV E Alexx: 0.60 m/s MV DecT: 276 ms MV A Alexx: 0.77 m/s MV E/A Ratio: 0.79 RAP: 5.00 mmHg RVSP: 26.90 mmHg FINDINGS -------- Sinus rhythm. This was a technically adequate study. There is mild concentric left ventricular hypertrophy. Overall left ventricular systolic function is low-normal with, an EF between 50 - 55 %. The right ventricle is normal in size. LA is moderately dilated 34-39 ml/m2 The right atrial size is normal. There is mild aortic valve sclerosis. There is no evidence of aortic regurgitation. Mild mitral annular calcification present. Mild mitral regurgitation is present. Mild tricuspid regurgitation present. There is no evidence of pulmonary hypertension. The right ventricular systolic pressure, as measured by Doppler, is 26.90mmHg. There is no pulmonic regurgitation present. The aortic root size is normal. There is a trivial pericardial effusion present. CONCLUSIONS -------- 1. There is mild concentric left ventricular hypertrophy. 2. There is a trivial pericardial effusion present. 3. Overall left ventricular systolic function is low-normal with, an EF between 50 - 55 %. 4. LA is moderately dilated 34-39 ml/m2 5. There is mild aortic valve sclerosis. 6. Mild mitral annular calcification present. 7. Mild mitral regurgitation is present. 8. Mild tricuspid regurgitation present. 9. There is no evidence of pulmonary hypertension. 10. The right ventricular systolic pressure, as measured by Doppler, is 26.90mmHg. HYDRAULIC ROCKBREAKER OPERATOR: Soledad Adler RDCS
[2017-04-05] MEDS: LISINOPRIL 20 MG TAB PO SCH (11:39)
--- NOTE | 2017-04-05 14:13 | P.PN ---
Subjective Patient resting in bed complains of some dizziness. Blood pressure labile. We' ll hold patient one more day Objective - Vital Signs Vital signs: Vital Signs Temp 97.0 F L 04/05/17 11:40 Pulse 60 04/05/17 11:40 Resp 16 04/05/17 11:40 BP 136/64 04/05/17 11:40 Pulse Ox 97 04/05/17 11:40 Intake & Output 04/04/17 04/05/17 04/05/17 18:59 06:59 18:59 Intake Total 540 310 660 Output Total 300 900 Balance 240 -590 660 Weight 68.7 kg Intake: IV 10 0.9 10 Oral 540 300 660 Output: Urine 300 900 Other: Voiding Method Toilet Toilet Toilet Diaper Diaper Diaper # Voids 1 1 3 - Constitutional General appearance: Present: mild distress - EENT Eyes: Present: PERRLA Ears: bilateral: normal - Neck Neck: Present: normal ROM - Respiratory Respiratory: negative: CTA - Cardiovascular Rhythm: regular - Gastrointestinal General gastrointestinal: Present: soft - Integumentary Integumentary: Present: normal - Neurologic Neurologic: Present: CNII-XII intact - Musculoskeletal Musculoskeletal: Present: generalized weakness - Psychiatric Psychiatric: Present: A&O x's 3, appropriate affect, intact judgment & insight - Labs CBC & Chem 7: 04/05/17 06:17 04/05/17 06:17 Labs: Abnormal Lab Results - Last 24 Hours (Table) 04/05/17 04/05/17 Range/Units 06:17 06:17 Hgb 11.1 L (11.4-16.0) gm/dL Hct 33.5 L (34.0-46.0) % Lymphocytes # 0.6 L (1.0-4.8) k/uL Sodium 135 L (137-145) mmol/L BUN 20 H (7-17) mg/dL Glucose 125 H (74-99) mg/dL - Imaging and Cardiology Chest x-ray: report reviewed Assessment and Plan Plan: Assessment Hypertensive urgency Hyponatremia Mild acute renal failure Hypertension Degenerative joint disease back and hip pain Anxiety/depression Plan Monitor for stable blood pressure anticipated discharge tomorrow
--- NOTE | 2017-04-05 14:31 | P.PN ---
Subjective Principal diagnosis: Hypertension This is an 81-year-old female admitted to the hospital with symptoms of dizziness, she was significantly hypertensive and medication adjustments were made by Dr. Mcmanus. At the time of her examination today, blood pressure 136/50. Heart rate in the 60s. 97% on room air. Blood pressure earlier today 108/47. We'll continue the current medications that the patient is on, however we will decrease the dose of Catapres patch to 0.1 mg. Continue other medications. Follow-up with Dr. Campos on discharge. Objective - Vital Signs Vital signs: Vital Signs Temp 97.0 F L 04/05/17 11:40 Pulse 60 04/05/17 11:40 Resp 16 04/05/17 11:40 BP 136/64 04/05/17 11:40 Pulse Ox 97 04/05/17 11:40 Intake & Output 04/04/17 04/05/17 04/05/17 18:59 06:59 18:59 Intake Total 540 310 660 Output Total 300 900 Balance 240 -590 660 Weight 68.7 kg Intake: IV 10 0.9 10 Oral 540 300 660 Output: Urine 300 900 Other: Voiding Method Toilet Toilet Toilet Diaper Diaper Diaper # Voids 1 1 3 - Exam PHYSICAL EXAMINATION: HEENT: Head is atraumatic, normocephalic. Pupils equal, round. Neck is supple. There is no elevated jugular venous pressure. HEART EXAMINATION: Heart S1, S2 normal. No murmur or gallop heard. CHEST EXAMINATION: Lungs are clear to auscultation and precussion. No chest wall tenderness is noted on palpation or with deep breathing. ABDOMEN: Soft, nontender. Bowel sounds are heard. No organomegaly noted. EXTREMITIES: 2+ peripheral pulses with no evidence of peripheral edema and no calf tenderness noted. NEUROLOGIC patient is awake, alert and oriented -3. . - Labs CBC & Chem 7: 04/05/17 06:17 04/05/17 06:17 Labs: Abnormal Lab Results - Last 24 Hours (Table) 04/05/17 04/05/17 Range/Units : 06:17 Hgb 11.1 L (11.4-16.0) gm/dL Hct 33.5 L (34.0-46.0) % Lymphocytes # 0.6 L (1.0-4.8) k/uL Sodium 135 L (137-145) mmol/L BUN 20 H (7-17) mg/dL Glucose 125 H (74-99) mg/dL Assessment and Plan (1) Dizziness Status: Acute (2) Uncontrolled hypertension Status: Acute Plan: Cardiology's perspective, we'll crease a Catapres to 0.1 continue other current medications. Follow-up appointment will be made with Dr. Campos on discharge. DNP note has been reviewed, I agree with a documented findings and plan of care. Patient was seen and examined.
[2017-04-05] MEDS ORDERED: cloNIDine 0.2 MG/24HR PATCH 1 PATCH PATCH TRANSDERM SCH (15:00)
[2017-04-05] MEDS: MELATONIN 3 MG TABLET PO SCH (21:07)
[2017-04-06 07:30] VITALS: BP 138/76; PULSE 61; RESP 20; TEMP 97.2
[2017-04-06] MEDS: LISINOPRIL 20 MG TAB PO SCH (08:13)
[2017-04-06] MEDS: ASPIRIN 81 MG CHEW PO SCH (08:13)
[2017-04-06] MEDS: TIMOLOL 0.5% OPHTH DROPS 5 ML BTL BOTH EYES SCH (08:13)
[2017-04-06] MEDS: busPIRone HCl 10 MG TAB PO SCH (08:13)
[2017-04-06] MEDS: hydrALAZINE HCL 50 MG TAB PO SCH (08:13)
[2017-04-06] MEDS: HYDROCHLOROTHIAZIDE 25 MG TAB PO SCH (08:14)
[2017-04-06] MEDS: SPIRONOLACTONE 25 MG TAB PO SCH (08:14)
[2017-04-06] MEDS: DOXAZOSIN 4 MG TAB PO SCH (08:14)
[2017-04-06 09:18] LABS: Basophils % (A) 0 %; CH 27.4; CHCM 32.8; Eosinophils # (A) 0.2 k/uL (0-0.7); Eosinophils % (A) 3 %; HCT 34.7 % (34.0-46.0); HDW 2.64; HGB 11.6 gm/dL (11.4-16.0); Luc # (Auto) 0.09; Luc % (Auto) 2; Lymphocytes # (A) 0.7 k/uL (1.0-4.8); Lymphocytes % (A) 11 %; MCH 27.9 pg (25.0-35.0); MCHC 33.2 g/dL (31.0-37.0); MCV 83.8 fL (80.0-100.0); Mean Platelet Volume 7.1; Monocytes # (A) 0.3 k/uL (0-1.0); Monocytes % (A) 5 %; Neutrophils # (A) 4.7 k/uL (1.3-7.7); Neutrophils % (A) 79 %; RBC 4.15 m/uL (3.80-5.40); RDW 14.7 % (11.5-15.5); WBC (Perox) 6.06
[2017-04-06 09:38] LABS: Calcium 9.9 mg/dL (8.4-10.2)
--- NOTE | 2017-04-06 12:20 | P.DS ---
Providers Date of admission: 04/03/17 08:50 Expected date of discharge: 04/06/17 Attending physician: Lj Sanchez Consults: 04/01/17 17:20 Consult Physician Routine Consulting Provider: Tab Noel Consult Reason/Comments: Hypertension Do you want consulting provider notified?: Yes Primary care physician: Lj Sanchez [facility] Course: 81-year-old female was brought to the emergency room with complaints of dizziness found to have hypertensive urgency. The patient was admitted and evaluated by cardiology medication adjustment. Blood pressures stable at this time patient requesting discharge home Assessment Dizziness hypertensive urgency Increased creatinine mild acute renal failure Hypertension essential degenerative joint disease back and hip pain Anxiety/depression Plan Blood pressure medication adjusted discharge home follow-up with family physician and cardiology Patient Condition at Discharge: Stable Plan - Discharge Summary New Discharge Prescriptions: cloNIDine 0.2 MG/24HR PATCH [Catapres-TTS] 1 patch TRANSDERM Q7D #4 patch Hydrochlorothiazide [Hydrodiuril] 25 mg PO DAILY #30 tab Spironolactone [Aldactone] 25 mg PO DAILY #30 tab Discharge Medication List Aspirin [Adult Low Dose Aspirin EC] 81 mg PO DAILY 09/29/15 [History] Lisinopril 40 mg PO DAILY 09/29/15 [History] busPIRone HCl [Buspar] 10 mg PO BID 09/29/15 [History] hydrALAZINE HCL [Apresoline] 50 mg PO TID 09/29/15 [History] [place]-3 Fatty Acids/Fish Oil [Fish Oil 1,000 mg Softgel] 1 cap PO DAILY [History] Timolol 0.5% Ophth Soln [Timoptic 0.5% Ophth Soln] 1 drop BOTH EYES DAILY [History] Doxazosin Mesylate [Cardura] 8 mg PO DAILY 04/01/17 [History] Hydrochlorothiazide [Hydrodiuril] 25 mg PO DAILY #30 tab 04/03/17 [Rx] Spironolactone [Aldactone] 25 mg PO DAILY #30 tab 04/03/17 [Rx] cloNIDine 0.2 MG/24HR PATCH [Catapres-TTS] 1 patch TRANSDERM Q7D #4 patch [Rx] Follow up Appointment(s)/Referral(s): Lj Sanchez MD [Primary Care Provider] - 3 Days Activity/Diet/Wound Care/Special Instructions: Pending cardiology clearance. Confirm cardiology follow-up appointment prior to discharge. Diet: Cardiac Activity: Limited to follow up
[2017-04-10] MEDS ORDERED: cloNIDine 0.2 MG/24HR PATCH 1 PATCH PATCH TRANSDERM SCH (09:00)
== END 2017-04-06 12:55 | disposition home or self-care (01) | DRG 305 ==
LOC: EC 13:50 → 3SUR 17:19 → 3OBS 04-03 07:49 → OBSVTOIN 04-03 08:50 → 6SEL 04-03 19:11 → 4MS4W 04-05 14:26
PROVIDERS: ADMIT Family Medicine; ATTEND Family Medicine
DX: I16.0 Hypertensive urgency (principal); N17.9 Acute kidney failure, unspecified; E87.1 Hypo-osmolality and hyponatremia; E86.0 Dehydration; R00.1 Bradycardia, unspecified; H91.90 Unspecified hearing loss, unspecified ear; I10 Essential (primary) hypertension; M25.559 Pain in unspecified hip; M54.9 Dorsalgia, unspecified; F41.9 Anxiety disorder, unspecified; F32.9 Major depressive disorder, single episode, unspecified; H54.7 Unspecified visual loss; R73.9 Hyperglycemia, unspecified; Z79.82 Long term (current) use of aspirin; Z79.899 Other long term (current) drug therapy; Z88.8 Allergy status to other drugs, medicaments and biological substances; Z88.2 Allergy status to sulfonamides; Z82.49 Family history of ischemic heart disease and other diseases of the circulatory system
CPT/HCPCS: 36415; 71020; 72110; 72170; 80048; 80053; 81001; 82533; 82550; 82553; 83735; 84443; 84484; 85025; 93005; 93306; 94760; 96361; 96374; 96375; 96376; 99285

== ENCOUNTER 2017-04-17 19:29 | Inpatient (IN) | payer MEDICARE, BC ==
--- NOTE | 2017-04-17 19:38 | ED ---
General Adult HPI - General Chief complaint: Chest Pain Stated complaint: Chest pain Time Seen by Provider: 04/17/17 19:34 Source: patient, family, RN notes reviewed, old records reviewed Mode of arrival: wheelchair Limitations: no limitations - History of Present Illness Initial comments: This is an 81-year-old female here for evaluation. This patient comes in for evaluation of chest pain, not feeling well. Patient is a poor historian. Patient's states patient had a recent hospital admission for exact similar symptoms other blood pressure not feeling well. - Related Data Home Medications Medication Instructions Recorded Confirmed Aspirin [Adult Low Dose Aspirin EC] 81 mg PO DAILY 09/29/15 04/17/17 Lisinopril 40 mg PO DAILY 09/29/15 04/17/17 busPIRone HCl [Buspar] 10 mg PO BID 09/29/15 04/17/17 hydrALAZINE HCL [Apresoline] 50 mg PO TID 09/29/15 04/17/17 [place]-3 Fatty Acids/Fish Oil [Fish 1 cap PO DAILY 09/29/16 04/17/17 Oil 1,000 mg Softgel] Timolol 0.5% Ophth Soln [Timoptic 1 drop BOTH EYES DAILY 09/29/16 04/17/17 0.5% Ophth Soln] Doxazosin Mesylate [Cardura] 8 mg PO HS 04/01/17 04/17/17 Previous Rx's Medication Instructions Recorded Hydrochlorothiazide [Hydrodiuril] 25 mg PO DAILY #30 tab 04/03/17 Spironolactone [Aldactone] 25 mg PO DAILY #30 tab 04/03/17 Allergies Allergy/AdvReac Type Severity Reaction Status Date / Time adhesive tape AdvReac Severe Skin Verified 04/17/17 20:07 Irritation/Peeling allopurinol AdvReac Severe Nausea & Verified 04/17/17 19:33 Vomiting amlodipine besylate AdvReac Severe Nausea & Verified 04/17/17 19:33 [From Norvasc] Vomiting celecoxib [From Celebrex] AdvReac Severe Nausea & Verified 04/17/17 19:33 Vomiting clonidine HCl [From Catapres] AdvReac Severe Nausea & Verified 04/17/17 19:33 Vomiting diclofenac AdvReac Severe Nausea & Verified 04/17/17 19:33 Vomiting isosorbide AdvReac Severe Nausea & Verified 04/17/17 19:33 Vomiting methylprednisolone AdvReac Severe Nausea & Verified 04/17/17 19:33 Vomiting metoprolol tartrate AdvReac Severe Nausea & Verified 04/17/17 19:33 [From Lopressor] Vomiting misoprostol AdvReac Severe Nausea & Verified 04/17/17 19:33 Vomiting rabeprazole sodium AdvReac Severe Nausea & Verified 04/17/17 19:33 [From Aciphex] Vomiting Sulfa (Sulfonamide AdvReac Severe Nausea & Verified 04/17/17 19:33 Antibiotics) Vomiting Review of Systems ROS Statement: Those systems with pertinent positive or pertinent negative responses have been documented in the HPI. ROS Other: All systems not noted in ROS Statement are negative. Past Medical History Past Medical History: Hearing Disorder / Deafness, Hypertension, Osteoarthritis (OA) History of Any Multi-Drug Resistant Organisms: None Reported Past Surgical History: Appendectomy, Section, Heart Catheterization, Hysterectomy, Tonsillectomy Past Anesthesia/Blood Transfusion Reactions: No Reported Reaction Past Psychological History: Anxiety, Depression Smoking Status: Never smoker Past Alcohol Use History: None Reported Past Drug Use History: None Reported - Past Family History Father Family Medical History: Coronary Artery Disease (CAD) Mother Family Medical History: Coronary Artery Disease (CAD), Myocardial Infarction (AL ) Brother(s) Family Medical History: Cancer Additional Family Medical History / Comment(s): one brother leukemia. another brother CA all over internally General Exam Limitations: no limitations General appearance: alert, in no apparent distress Head exam: Present: atraumatic, normocephalic, normal inspection Eye exam: Present: normal appearance, PERRL, EOMI. Absent: scleral icterus, conjunctival injection, periorbital swelling ENT exam: Present: normal exam, mucous membranes moist Neck exam: Present: normal inspection. Absent: tenderness, meningismus, lymphadenopathy Respiratory exam: Present: normal lung sounds bilaterally. Absent: respiratory distress, wheezes, rales, rhonchi, stridor Cardiovascular Exam: Present: regular rate, normal rhythm, normal heart sounds. Absent: systolic murmur, diastolic murmur, rubs, gallop, clicks GI/Abdominal exam: Present: soft, normal bowel sounds. Absent: distended, tenderness, guarding, rebound, rigid Extremities exam: Present: normal inspection, full ROM, normal capillary refill. Absent: tenderness, pedal edema, joint swelling, calf tenderness Back exam: Present: normal inspection Neurological exam: Present: alert, oriented X3, CN II-XII intact Psychiatric exam: Present: normal affect, normal mood Skin exam: Present: warm, dry, intact, normal color. Absent: rash Course Vital Signs 04/17/17 04/17/17 19:30 20:05 Temperature 98 F Pulse Rate 73 Pulse Rate [ 65 Php Mysql Web Developer ] Respiratory 18 Rate Blood Pressure 211/89 O2 Sat by Pulse 97 Oximetry - Reevaluation(s) Reevaluation #1: 04/17/17 21:52 Prior hospitalization is reviewed, similar symptoms Reevaluation #2: 04/17/17 21:52 At this time blood pressure showing better control EKG Findings - EKG Comments: EKG Findings:: EKG shows sinus rhythm rate of 71, [place] 202, QRS 100, QTC 419 Medical Decision Making - Medical Decision Making 81 female here for evaluation of chest pain. Patient presents here today for evaluation of chest, chest pain, dizziness, not feeling well. Patient found to be having elevated blood pressure, blood pressure is controlled in the ER which does improve her pain, still feeling dizzy, patient be admitted for blood pressure control, patient's troponin is elevated which we will trend. Cardiology evaluation - Lab Data Result diagrams: 04/17/17 19:40 04/17/17 19:40 Lab Results 04/17/17 04/17/17 04/17/17 Range/Units 19:40 19:40 19:40 WBC 6.7 (3.8-10.6) k/uL RBC 4.00 (3.80-5.40) m/uL Hgb 11.2 L (11.4-16.0) gm/dL Hct 33.5 L (34.0-46.0) % MCV 83.6 (80.0-100.0) fL MCH 27.9 (25.0-35.0) pg MCHC 33.3 (31.0-37.0) g/dL RDW 14.9 (11.5-15.5) % Plt Count 301 (150-450) k/uL Neutrophils % 73 % Lymphocytes % 16 % Monocytes % 7 % Eosinophils % 3 % Basophils % 0 % Neutrophils # 4.9 (1.3-7.7) k/uL Lymphocytes # 1.0 (1.0-4.8) k/uL Monocytes # 0.5 (0-1.0) k/uL Eosinophils # 0.2 (0-0.7) k/uL Basophils # 0.0 (0-0.2) k/uL PT (9.0-12.0) sec INR (<1.1) APTT (22.0-30.0) sec Sodium 133 L (137-145) mmol/L Potassium 3.8 (3.5-5.1) mmol/L Chloride 101 (98-107) mmol/L Carbon Dioxide 22 (22-30) mmol/L Anion Gap 10 mmol/L BUN 21 H (7-17) mg/dL Creatinine 0.91 (0.52-1.04) mg/dL Est GFR (MDRD) Af Amer >60 (>60 ml/min/1.73 sqM) Est GFR (MDRD) Non-Af 59 (>60 ml/min/1.73 sqM) Glucose 125 H (74-99) mg/dL Calcium 10.0 (8.4-10.2) mg/dL Magnesium 1.8 (1.6-2.3) mg/dL Total Bilirubin 0.5 (0.2-1.3) mg/dL AST 16 (14-36) U/L ALT 26 (9-52) U/L Alkaline Phosphatase 62 (38-126) U/L Total Creatine Kinase 26 L (30-135) U/L CK-MB (CK-2) 0.6 (0.0-2.4) ng/mL CK-MB (CK-2) Rel Index 2.3 Troponin I 0.043 H* (0.000-0.034) ng/mL NT-Pro-B Natriuret Pep pg/mL Total Protein 7.2 (6.3-8.2) g/dL Albumin 4.0 (3.5-5.0) g/dL Lipase 241 (23-300) U/L 04/17/17 04/17/17 Range/Units 19:40 19:40 WBC (3.8-10.6) k/uL RBC (3.80-5.40) m/uL Hgb (11.4-16.0) gm/dL Hct (34.0-46.0) % MCV (80.0-100.0) fL MCH (25.0-35.0) pg MCHC (31.0-37.0) g/dL RDW (11.5-15.5) % Plt Count (150-450) k/uL Neutrophils % % Lymphocytes % % Monocytes % % Eosinophils % % Basophils % % Neutrophils # (1.3-7.7) k/uL Lymphocytes # (1.0-4.8) k/uL Monocytes # (0-1.0) k/uL Eosinophils # (0-0.7) k/uL Basophils # (0-0.2) k/uL PT 10.4 (9.0-12.0) sec INR 1.0 (<1.1) APTT 25.0 (22.0-30.0) sec Sodium (137-145) mmol/L Potassium (3.5-5.1) mmol/L Chloride (98-107) mmol/L Carbon Dioxide (22-30) mmol/L Anion Gap mmol/L BUN (7-17) mg/dL Creatinine (0.52-1.04) mg/dL Est GFR (MDRD) Af Amer (>60 ml/min/1.73 sqM) Est GFR (MDRD) Non-Af (>60 ml/min/1.73 sqM) Glucose (74-99) mg/dL Calcium (8.4-10.2) mg/dL Magnesium (1.6-2.3) mg/dL Total Bilirubin (0.2-1.3) mg/dL AST (14-36) U/L ALT (9-52) U/L Alkaline Phosphatase (38-126) U/L Total Creatine Kinase (30-135) U/L CK-MB (CK-2) (0.0-2.4) ng/mL CK-MB (CK-2) Rel Index Troponin I (0.000-0.034) ng/mL NT-Pro-B Natriuret Pep 648 pg/mL Total Protein (6.3-8.2) g/dL Albumin (3.5-5.0) g/dL Lipase (23-300) U/L - Radiology Data Radiology results: report reviewed (Chest x-ray is negative for acute disease), image reviewed Critical Care Time Critical Care Time: Yes Total Critical Care Time: 31 Disposition Clinical Impression: Uncontrolled hypertension, Dizziness, Chest pain, NSTEMI (non-ST elevated myocardial infarction) Disposition: ADMITTED IP TO THIS [facility] Condition: Fair Referrals: Lj Sanchez MD [Primary Care Provider] - 1-2 days
[2017-04-17] MEDS ORDERED: ENALAPRILAT 1.25 MG/ML 1 ML VIAL IVP STA (19:54)
[2017-04-17 19:55] LABS: Basophils % (A) 0 %; CHCM 33.6; Eosinophils # (A) 0.2 k/uL (0-0.7); Eosinophils % (A) 3 %; HCT 33.5 % (34.0-46.0); HDW 2.63; HGB 11.2 gm/dL (11.4-16.0); Luc # (Auto) 0.12; Luc % (Auto) 2; Lymphocytes % (A) 16 %; MCH 27.9 pg (25.0-35.0); MCHC 33.3 g/dL (31.0-37.0); MCV 83.6 fL (80.0-100.0); Monocytes # (A) 0.5 k/uL (0-1.0); Monocytes % (A) 7 %; Neutrophils # (A) 4.9 k/uL (1.3-7.7); Neutrophils % (A) 73 %; RDW 14.9 % (11.5-15.5); WBC 6.7 k/uL (3.8-10.6); WBC (Perox) 6.86
[2017-04-17 20:04] LABS: ALT 26 U/L (9-52); AST 16 U/L (14-36); Alkaline Phosphatase 62 U/L (38-126); Anion Gap 10 mmol/L; Blood Urea Nitrogen 21 mg/dL (7-17); Carbon Dioxide 22 mmol/L (22-30); Chloride 101 mmol/L (98-107); Glucose 125 mg/dL (74-99); Magnesium 1.8 mg/dL (1.6-2.3); Non-African American GFR(MDRD) 59 (>60 ml/min/1.73 sqM); Potassium 3.8 mmol/L (3.5-5.1); Sodium 133 mmol/L (137-145); Total Bilirubin 0.5 mg/dL (0.2-1.3); Total Protein 7.2 g/dL (6.3-8.2)
--- NOTE | 2017-04-17 20:06 | XR ---
EXAMINATION TYPE: XR chest 2V DATE OF EXAM: 04/17/2017 7:59 PM COMPARISON: 04/01/2017 HISTORY: Chest pain TECHNIQUE: Frontal and lateral views of the chest are obtained. FINDINGS: There is no heart failure nor confluent pneumonic infiltrate. There is some coarsening of interstitial markings. There are chest leads. Costophrenic angles are clear. IMPRESSION: No active cardiopulmonary disease. Inspiration is less than last exam.
[2017-04-17 20:07] LABS: Prothrombin Time 10.4 sec (9.0-12.0)
[2017-04-17] MEDS ORDERED: ONDANSETRON 4 MG/2 ML VIAL IVP STA (20:12)
[2017-04-17] MEDS ORDERED: PANTOPRAZOLE 40 MG/10 ML VIAL IVP STA (20:12)
[2017-04-17 20:28] LABS: Creatine Kinase MB 0.6 ng/mL (0.0-2.4)
[2017-04-17 20:39] LABS: Troponin I 0.043 ng/mL (0.000-0.034)
[2017-04-17] MEDS ORDERED: ASPIRIN 81 MG CHEW PO STA (21:49)
[2017-04-17] MEDS ORDERED: NITROGLYCERIN SL TABS 0.4 MG TAB SUBLINGUAL PRN (21:49)
[2017-04-17] MEDS ORDERED: HEPARIN SODIUM,PORCINE 5,000 UNIT/ML 1 ML VIAL IV ONE (21:49)
[2017-04-17] MEDS ORDERED: HEPARIN SODIUM,PORCINE 5,000 UNIT/ML 1 ML VIAL IV PRN (21:49)
[2017-04-17] MEDS ORDERED: hydrALAZINE HCL 20 MG/ML 1 ML VIAL IVP PRN (21:50)
[2017-04-17] MEDS ORDERED: HEPARIN SODIUM,PORCINE/D5W PMX 25,000 UNIT in DEXTROSE/WATER 1 500ML.BAG IV SCH (22:00)
[2017-04-18 03:00] LABS: Creatine Kinase MB 16.6 ng/mL (0.0-2.4); Troponin I 4.03 ng/mL (0.000-0.034)
[2017-04-18 07:39] LABS: Mean Platelet Volume 7.1
[2017-04-18] MEDS ORDERED: ONDANSETRON 4 MG/2 ML VIAL IVP PRN (07:53)
[2017-04-18 08:04] LABS: Cholesterol 144 mg/dL (<200); HDL Cholesterol 43 mg/dL (40-60); Triglycerides 156 mg/dL (<150)
[2017-04-18 08:26] LABS: Creatine Kinase MB 23.3 ng/mL (0.0-2.4)
[2017-04-18 08:27] LABS: Troponin I 5.98 ng/mL (0.000-0.034)
[2017-04-18] MEDS ORDERED: ALPRAZolam 0.25 MG TAB PO PRN (08:36)
[2017-04-18] MEDS ORDERED: SODIUM CHLORIDE 0.9% 1,000 ML in EMPTY BAG 1 BAG IV ONE (08:36)
[2017-04-18] MEDS ORDERED: ASPIRIN 325 MG TAB PO STA (08:36)
[2017-04-18] MEDS ORDERED: ALPRAZolam 0.5 MG TAB PO PRN (08:36)
[2017-04-18] MEDS ORDERED: ATORVASTATIN 80 MG TAB PO STA (08:36)
[2017-04-18] MEDS ORDERED: NITROGLYCERIN SL TABS 0.4 MG TAB SUBLINGUAL PRN (08:36)
[2017-04-18] MEDS ORDERED: LIDOCAINE 2% INJ 20 MG/ML SQ ONE ×2 (08:43→11:10)
[2017-04-18] MEDS ORDERED: ASPIRIN 325 MG TAB PO SCH (09:00)
--- NOTE | 2017-04-18 09:06 | CONS ---
DATE OF CONSULTATION: CHIEF COMPLAINT: Chest pain. Kelsey is an 81-year-old lady with history of hypertension who presented to the hospital complaining of chest pain. She was getting ready to go to bed last night and had precordial chest pressure 5 out 10 intensity, came on at rest with some radiation to left arm. She was concerned, came to the ER had elevated blood pressures and was admitted to hospital. Initial EKG was normal. Subsequent EKG showed anterolateral T-wave changes suggestive of myocardial ischemia. She has had cardiac enzymes that came back elevated at 4 and 5.9. At the time of my evaluation this morning, she is pain free and hemodynamically stable. Her past medical history is significant for hypertension, chronic anxiety. Medications at home include: 1. Apresoline. 2. Aldactone. 3. Lisinopril. 4. HydroDIURIL. 5. Cardura. 6. Aspirin. SHE HAS MULTIPLE ALLERGIES CHARTED AND I REVIEWED THEM. FAMILY HISTORY: Negative for premature coronary artery disease. SOCIAL HISTORY: Negative for smoking, ETOH abuse, or drug abuse. REVIEW OF SYSTEMS: HEENT: Unremarkable. CARDIAC: As described above. RESPIRATORY: Negative. GI: Negative. DERM: Negative. GENITOURINARY: Negative. MUSCULOSKELETAL: Significant for arthritis. PSYCHOSOCIAL: Negative. CONSTITUTIONAL: Negative. Oncological: Negative. MUSCULOSKELETAL: Significant joint pain. Rest of the system review is not relevant. On exam, comfortable at rest, afebrile. Heart rate is 68, blood pressure one 50%, respirations 18, O2 sat is 98%. There is no jugular venous distention. Carotid upstroke is normal. There is no bruit. Chest exam reveals good air entry bilaterally. Heart exam reveals first and second heart sounds. No gallop. No murmur, no rub. ABDOMEN: Soft, nontender. Exam of the extremities did not reveal any edema. Peripheral pulses are felt. BUSINESS ARCHITECT exam did not reveal focal neurological deficits. Labs show a hemoglobin of 11.2. Creatinine is 0.9. Tropes are elevated at 0.44 and 5.9. LDL cholesterol is 70. ASSESSMENT: 1. Non-ST segment elevation myocardial infarction. 2. Uncontrolled hypertension. PLAN: I advised the patient undergo cardiac catheterization to evaluate her coronary anatomy. She had been explained of risks, benefits, and alternatives, understood and accepted. I am also going to perform a 2-D echo to evaluate LV function.
[2017-04-18] MEDS ORDERED: IV FLUID CONTINUATION 1,000 ML IV ONE ×2 (09:25→10:54)
[2017-04-18] MEDS ORDERED: MIDAZOLAM 2 MG/2 ML VIAL IV ONE (09:41)
[2017-04-18] MEDS ORDERED: IODIXANOL 320 MG/ML 100 ML INTRAARTER ONE ×2 (10:03→12:00)
--- NOTE | 2017-04-18 10:19 | CC ---
DATE OF SERVICE: INDICATION: Non-ST segment elevation GA. PROCEDURE NOTE: After obtaining informed consent, left heart catheterization and coronary angiogram are performed via the right femoral artery using standard Dario catheters. Patient tolerated the procedure well without any obvious immediate complications. FINDINGS: 1. HEMODYNAMICS: Left ventricular end-diastolic pressure is 16 mm. There is no significant gradient across the aortic valve. 2. LEFT VENTRICULOGRAM: Left ventriculogram is not performed. 3. ANGIOGRAPHIC DATA: LEFT MAIN CORONARY ARTERY: Left main coronary artery is a normal size vessel and is free of stenosis. It divides into left anterior descending coronary artery and circumflex coronary artery. Circumflex coronary artery is a small, nondominant vessel and has mild disease. LAD is a large vessel that gives off a large-caliber diagonal branch. Proximal LAD shows a 95% stenosis. In the mid to distal LAD, there is another 70% stenosis. Diagonal branch has a 90% ostial stenosis. Right coronary artery is a large dominant vessel that shows mild to moderate atherosclerotic plaque in the proximal and distal portion and the PDA has a 40% to 50% stenosis. CONCLUSION: Three-vessel coronary artery disease as described above with critical stenosis involving proximal left anterior descending, ostial diagonal and mid left anterior descending coronary artery. PLAN: Patient will undergo angioplasty with stent placement of the LAD. 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 She is really not a candidate for surgical revascularization at this time. We will do catheter-based revascularization and see how her symptoms evolve.
[2017-04-18] MEDS ORDERED: BIVALIRUDIN BOLUS 250 MG/50 ML IV ONE (11:13)
[2017-04-18] MEDS ORDERED: BIVALIRUDIN 250 MG in SODIUM CHLORIDE 0.9% 50 ML IV ONE (11:14)
[2017-04-18] MEDS: NITROGLYCERIN 1000MCG/10ML SYRINGE INTRACORON ONE ×2 (11:42→11:58)
[2017-04-18] MEDS ORDERED: ZOLPIDEM 5 MG TAB PO PRN (12:06)
[2017-04-18] MEDS ORDERED: ATROPINE SULFATE 0.1 MG/ML 10ML SYRINGE IV PRN (12:06)
[2017-04-18] MEDS ORDERED: RX INFO: IV CONTRAST WAS GIVEN 1 EACH MISC MISCELLANE PRN (12:06)
[2017-04-18] MEDS ORDERED: MAG HYDROX/AL HYDROX/SIMETH 30 ML CUP PO PRN (12:06)
[2017-04-18] MEDS ORDERED: CLOPIDOGREL 75 MG TAB PO ONE (12:08)
[2017-04-18 14:25] VITALS: BMI 26.0
[2017-04-18] MEDS: SODIUM CHLORIDE 0.9% 1,000 ML IV SCH ×2 (14:37→20:53)
[2017-04-18] MEDS ORDERED: MELATONIN 5 MG TABLET PO PRN (14:58)
[2017-04-18] MEDS: hydrALAZINE HCL 50 MG TAB PO SCH ×2 (15:45→20:52)
--- NOTE | 2017-04-18 19:27 | HP ---
DATE OF ADMISSION: 04/17/2017 I am covering for Dr. Lj Sanchez. CHIEF COMPLAINT: Chest pain. HISTORY OF PRESENT ILLNESS: This 81-year-old woman with a past medical history of multiple medical problems, admitted with complaints of chest pain, felt in the anterior part of the chest. The patient was evaluated closely. The pain was not radiating anywhere. The patient was not feeling well. There is no symptoms and the patient was evaluated. Troponin was found to be 0.043, 0.03 and 5.0 indicating acute non-ST elevation myocardial infarction. The patient admitted to the hospital for further evaluation and treatment. The patient underwent a cardiac catheterization and stents at this time. The details are being awaited. There is no history of fever, rigors or chills. No history of headache, loss of consciousness or seizures. PAST MEDICAL HISTORY: History of hearing defect, history of hypertension, history of history of cardiac catheterization, history of anxiety, depression not otherwise specified. Medications prior to admission include home medications are: 1. Alprazolam 50 mg p.o. t.i.d. 2. BuSpar 10 mg p.o. b.i.d. 3. Timoptic 0.5/one drop daily. 4. Aldactone 25 mg p.o. daily. 5. Fish oil 1 capsule p.o. daily. 6. Lisinopril 40 mg daily. 7. HydroDIURIL 25 mg p.o. daily. 8. Cardura 8 mg at bedtime. 9. Ecotrin 81 p.o. daily. ALLERGIES: MULTIPLE, ADHESIVE TAPES, ALLOPURINOL, AMLODIPINE, CELEBREX, CLONIDINE, DICLOFENAC, ISOSORBIDE AND METHYLPREDNISOLONE, METOPROLOL, ( ), ACIPHEX AND SULFA. FAMILY HISTORY: History of coronary artery disease one brother leukemia and another brother cancer. SOCIAL HISTORY: No history of smoking, no history of alcohol. REVIEW OF SYSTEMS: ENT: Diminishing hearing. Diminished vision. CARDIOVASCULAR SYSTEM: As mentioned earlier. RESPIRATORY: As mentioned earlier. GI: No nausea. : No dysuria. Nervous system: No numbness or weakness. Allergy/immunology: No asthma or hayfever. MUSCULOSKELETAL: As mentioned earlier. HEMATOLOGY/ONCOLOGY: No history of anemia. ENDOCRINE: No history of diabetes or hypothyroidism. CONSTITUTIONAL: As mentioned earlier. DERMATOLOGY: Negative. RHEUMATOLOGY: Negative. PSYCHIATRY: As mentioned earlier. PHYSICAL EXAMINATION: The patient is alert and oriented times three. Pulse is 58, blood pressure 130/68, respiratory rate 18, temperature 97.8, pulse ox 94% on room air. HEENT: Conjunctivae normal. NECK: No jugular venous distention. CARDIOVASCULAR: S1, S2 muffled. RESPIRATORY: Breath sounds diminished at the bases. A few scattered rhonchi and crackles. ABDOMEN: Soft, nontender. No mass palpable. LEGS: No edema. No swelling. Nervous system: Higher functions as mentioned earlier. Moves all four limbs. LYMPHATICS: No lymph nodes palpable in the neck, axillae or groin. SKIN: No ulcer, rash or bleeding. LABS: WBC 6.7. Hemoglobin 11.7, Sodium 133, troponins ntd ASSESSMENT: 1. Acute non-ST segment elevation myocardial infarction status post cardiac catheterization and stenting. 2. Hyponatremia. 3. Increased random blood sugar. 4. Anemia, normocytic anemia of chronic disease. 5. History of hearing disorder, deafness. 6. Hypertension. 7. History of degenerative joint disease. 8. History of section. 9. History of anxiety, depression, not otherwise specified. 10. FULL CODE. RECOMMENDATIONS AND DISCUSSION: In this 81-year-old woman who presented with the multiple complex medical issues, we will monitor the patient closely. Continue the current medications, continue with the symptomatic treatment. Continue antiplatelet agents, continue with raj inhibitors, beta blockers. Closely follow with cardiology. DVT prophylaxis, post stent protocol. Further recommendations to follow. See orders for further details. Home medications were reviewed and reconciled. Copy of dictation being forwarded to Dr. Lj Sanchez who is the primary physician. ABEL
[2017-04-18] MEDS: busPIRone HCl 10 MG TAB PO SCH (20:52)
[2017-04-18] MEDS: METOPROLOL TARTRATE 12.5 MG TAB PO SCH (20:52)
[2017-04-18] MEDS ORDERED: DOXAZOSIN 4 MG TAB PO SCH (21:00)
[2017-04-19 06:47] LABS: Basophils % (A) 0 %; CH 27.9; CHCM 32.9; Eosinophils # (A) 0.1 k/uL (0-0.7); Eosinophils % (A) 2 %; HCT 30.4 % (34.0-46.0); HDW 2.58; HGB 9.8 gm/dL (11.4-16.0); Luc # (Auto) 0.07; Luc % (Auto) 1; Lymphocytes # (A) 0.6 k/uL (1.0-4.8); Lymphocytes % (A) 9 %; MCH 27.4 pg (25.0-35.0); MCHC 32.2 g/dL (31.0-37.0); MCV 85.1 fL (80.0-100.0); Mean Platelet Volume 6.7; Monocytes # (A) 0.5 k/uL (0-1.0); Monocytes % (A) 7 %; Neutrophils # (A) 5.7 k/uL (1.3-7.7); Neutrophils % (A) 81 %; RBC 3.57 m/uL (3.80-5.40); RDW 14.9 % (11.5-15.5); WBC (Perox) 7.47
[2017-04-19 06:54] LABS: Anion Gap 5 mmol/L; Blood Urea Nitrogen 17 mg/dL (7-17); Calcium 9.2 mg/dL (8.4-10.2); Carbon Dioxide 24 mmol/L (22-30); Chloride 105 mmol/L (98-107); Glucose 90 mg/dL (74-99); Non-African American GFR(MDRD) 55 (>60 ml/min/1.73 sqM); Potassium 4.1 mmol/L (3.5-5.1); Sodium 134 mmol/L (137-145)
--- NOTE | 2017-04-19 06:59 | PTCA ---
DATE OF SERVICE: 04/18/2017 PROCEDURE: 1. PTCA and stenting of 2 complex lesions in the proximal and mid left anterior descending coronary artery. 2. PTCA of major diagonal branch. PERFORMED BY: Dr. Pavan Elliott. CLINICAL INFORMATION: Mrs. Kelsey Alcaraz is a 81-year-old lady with a history of hypertension, hyperlipidemia who presented to the hospital with chest pain and had troponin elevation suggestive of a non-ST elevation [place]. She underwent cardiac cath performed by Dr. Noel, which revealed a 95% proximal LAD lesion and 90% diagonal lesion and the origin of the diagonal seem to be before the LAD lesion. There was also another mid LAD lesion of about 80% to 85% after the second diagonal branch. There was one diagonal branch that was probably occluded, seen as a stump. The entire LAD beyond the 2 lesions had mild diffuse disease. She had a nondominant circumflex system, which had only minor irregularities. The right coronary artery did not have significant lesions. PROCEDURE NOTE: The existing 6 Tajik introducer in the right femoral artery was used to perform the procedure. A 3.5 curved left Dario-type guide catheter of 6 Tajik caliber was used to cannulate the left coronary artery. A BMW wire was used to cross the lesion in the LAD and wire was kept distally. Another BMW wire was used and advanced and positioned in the first diagonal branch. A [place] Trek balloon of 2.5 caliber, 8 mm length was used to dilate the proximal LAD lesion. The same balloon was used to dilate the mid LAD lesion as well. I then used a 2.75 caliber, 8 mm long Xience stent and deployed this in the proximal LAD with excellent angiographic result. I then used a 2.5 caliber, 12 mm long Xience stent and deployed this in the mid LAD lesion with excellent angiographic result. I used a 2.25 caliber, 12 mm balloon and dilated the diagonal branch that seemed to come off from the LAD just before the proximal lesion. Good angiographic result was achieved of the diagonal. I gave the patient Angiomax bolus and infusion as per protocol and 600 mg of Plavix was also given. The patient tolerated procedure well. Excellent angiographic result without complication was achieved. The sheath was taken out and Angio-Seal device used to secure hemostasis and she was sent to the room in a stable condition. There was no family members available immediately for me to talk to, but however, after the procedure when the family members came to the home the findings were discussed by the pharmaceutical laboratory technician supervisor air conditioning installer and images were also reviewed. This patient tolerated the procedure well without complication. Conscious sedation was provided for a total duration of 45 minutes with a combination of Versed and Benadryl. Oxygen saturation was monitored closely. The patient received Angiomax and bolus as per protocol. Excellent angiographic result without complication was achieved.
--- NOTE | 2017-04-19 07:03 | LTR ---
April 18, 2017 LJ BYERS MD RE: Kelsey Alcaraz Dear Lj: Thank you for the opportunity to participate in the care of Mrs. Kelsey Alcaraz. This lady underwent stenting of 2 lesions in the LAD with a drug-eluting stent and I dilated the diagonal branch. Excellent angiographic result was achieved. She presented with a non-ST elevation PA. Please find enclosed my cardiac cath report and PTCA report for your records. If she remains stable, she will be discharged in next 24 to 48 hours. Thank you for your referral and please call for questions. With kindest regards. Sincerely yours, SAM ALEXANDER MD
[2017-04-19] MEDS: busPIRone HCl 10 MG TAB PO SCH (08:43)
[2017-04-19] MEDS: hydrALAZINE HCL 50 MG TAB PO SCH (08:43)
[2017-04-19] MEDS: METOPROLOL TARTRATE 12.5 MG TAB PO SCH (08:44)
[2017-04-19] MEDS ORDERED: NON-FORMULARY DRUG (Aspirin [Adult Low Dose Aspirin Ec] 81 MG) PO SCH (09:00)
[2017-04-19] MEDS ORDERED: ASPIRIN 81 MG CHEW PO SCH (09:00)
[2017-04-19] MEDS ORDERED: HYDROCHLOROTHIAZIDE 25 MG TAB PO SCH (09:00)
[2017-04-19] MEDS ORDERED: ASPIRIN 325 MG TAB PO SCH (09:00)
[2017-04-19] MEDS ORDERED: NON-FORMULARY DRUG (Omega-3 Fatty Acids/Fish Oil [Fish Oil 1,000 Mg Softgel] 1 CAP) PO SCH (09:00)
[2017-04-19] MEDS ORDERED: LISINOPRIL 20 MG TAB PO SCH (09:00)
[2017-04-19] MEDS ORDERED: TIMOLOL 0.5% OPHTH DROPS 5 ML BTL BOTH EYES SCH (09:00)
[2017-04-19] MEDS ORDERED: SPIRONOLACTONE 25 MG TAB PO SCH (09:00)
[2017-04-19] MEDS ORDERED: CLOPIDOGREL 75 MG TAB PO SCH (12:00)
[2017-04-19 12:16] VITALS: BP 170/72; PULSE 69; RESP 18; TEMP 96.2
--- NOTE | 2017-04-19 14:26 | P.PN ---
Subjective Principal diagnosis: non-STEMI this is an 81-year-old female with history of hypertension, who presented to the hospital with a non-Q-wave myocardial infarction. She was taken to the cardiac catheterization lab or she underwent angioplasty and stenting of the LAD as well as PTCA of the diuretic.. The patient was seen and examined this morning, denies any chest pain or difficulty in breathing. Hemodynamically stable. EKG shows normal sinus rhythm with anterior lateral T- wave inversions. Objective - Vital Signs Vital signs: Vital Signs Temp 96.2 F L 04/19/17 12:10 Pulse 69 04/19/17 12:10 Resp 18 04/19/17 12:10 BP 170/72 04/19/17 12:10 Pulse Ox 96 04/19/17 12:10 Intake & Output 04/18/17 04/19/17 04/19/17 18:59 06:59 18:59 Intake Total 663.48 825 480 Output Total 200 300 Balance 463.48 525 480 Weight 68.9 kg 69.4 kg Intake: IV 443.48 825 0.9 210 825 Heparin Sodium,Porcine/ 24.48 D5w Pmx 25,000 unit In Dextrose/Water 1 500ml. bag @ 12 UNITS/KG/HR 16. 32 mls/hr IV .Q24H ALICE Rx #:[id number] Oral 220 480 Output: Urine 200 300 Other: Voiding Method Toilet # Voids 1 - Exam PHYSICAL EXAMINATION: HEENT: [Head is atraumatic, normocephalic. Pupils equal, round. Neck is supple. There is no elevated jugular venous pressure.] HEART EXAMINATION: [Heart S1, S2 normal. No murmur or gallop heard.] CHEST EXAMINATION:[ Lungs are clear to auscultation and precussion. No chest wall tenderness is noted on palpation or with deep breathing.] ABDOMEN: [ Soft, nontender. Bowel sounds are heard. No organomegaly noted]. right groin soft, no evidence of any hematoma. EXTREMITIES:[ 2+ peripheral pulses with no evidence of peripheral edema and no calf tenderness noted]. NEUROLOGIC [patient is awake, alert and oriented -3.] . - Labs CBC & Chem 7: 04/19/17 05:58 04/19/17 05:58 Labs: Abnormal Lab Results - Last 24 Hours (Table) 04/19/17 04/19/17 Range/Units 05:58 05:58 RBC 3.57 L (3.80-5.40) m/uL Hgb 9.8 L (11.4-16.0) gm/dL Hct 30.4 L (34.0-46.0) % Lymphocytes # 0.6 L (1.0-4.8) k/uL Sodium 134 L (137-145) mmol/L Assessment and Plan (1) HTN (hypertension) Status: Acute (2) Presence of stent in LAD coronary artery Status: Acute (3) NSTEMI (non-ST elevated myocardial infarction) Status: Acute Plan: patient presented to the hospital with a non-ST elevation [place], underwent angioplasty with stenting of the LAD as well as PTCA of the Diag. She may be able to be discharged home today from cardiology's perspective. A follow-up appointment will be made with Dr. Noel in the office in one week.patient will be discharged home on aspirin 81 mg daily, Lipitor 80 mg daily, Plavix 75 mg daily, hydralazine 50 mg 3 times a day, hydrochlorothiazide 25 mg daily, Zestril 40 mg daily, metoprolol tartrate 12-1/2 mg by mouth twice a day, and sublingual nitroglycerin as needed for chest pain. Patient has been provided prescriptions for all of the above medications. DNP note has been reviewed, I agree with a documented findings and plan of care. Patient was seen and examined.
--- NOTE | 2017-04-19 18:35 | P.DS ---
Providers Date of admission: 04/17/17 21:49 Attending physician: Vinicius Munoz Consults: 04/17/17 21:49 Consult Physician Urgent Consulting Provider: Santiago Polanco Consult Reason/Comments: cp,htn Do you want consulting provider notified?: Yes 04/18/17 12:06 Consult Physician Routine Consulting Provider: [facility] Consult Reason/Comments: Post Interventional patient Do you want consulting provider notified?: Already Contacted Primary care physician: Lj Sanchez Hospital Course: 81-year-old female with history of hypertension, who presented to the hospital with a non-Q-wave myocardial infarction. She was taken to the cardiac catheterization lab or she underwent angioplasty and stenting of the LAD as well as PTCA of the diuretic.. The patient was seen and examined this morning, denies any chest pain or difficulty in breathing. Hemodynamically stable. EKG shows normal sinus rhythm with anterior lateral T-wave inversions. On the day of discharge was ambulating well no abnormal telemetry events were noted groin appeared birnak - Exam PHYSICAL EXAMINATION: HEENT: [Head is atraumatic, normocephalic. Pupils equal, round. Neck is supple. There is no elevated jugular venous pressure.] HEART EXAMINATION: [Heart S1, S2 normal. No murmur or gallop heard.] CHEST EXAMINATION:[ Lungs are clear to auscultation and precussion. No chest wall tenderness is noted on palpation or with deep breathing.] ABDOMEN: [ Soft, nontender. Bowel sounds are heard. No organomegaly noted]. right groin soft, no evidence of any hematoma. EXTREMITIES:[ 2+ peripheral pulses with no evidence of peripheral edema and no calf tenderness noted]. NEUROLOGIC [patient is awake, alert and oriented -3.] . Assessment and Plan (1) HTN (hypertension), accelerated. Status: Acute (2) Presence of stent in LAD coronary artery Status: Acute (3) NSTEMI (non-ST elevated myocardial infarction) Plan: MEdications were reconciled DAPT, ACEI, B poly Anti HTN medications statin discharged home in a stable condition. Patient Condition at Discharge: Fair Plan - Discharge Summary New Discharge Prescriptions: New Atorvastatin [Lipitor] 40 mg PO HS #30 tab Clopidogrel [Plavix] 75 mg PO DAILY #30 tab Metoprolol Tartrate [Lopressor] 12.5 mg PO BID #60 tab Nitroglycerin Sl Tabs [Nitrostat] 0.4 mg SUBLINGUAL Q5M PRN #25 tab PRN Reason: Chest Pain Continue busPIRone HCl [Buspar] 10 mg PO BID Lisinopril 40 mg PO DAILY Aspirin [Adult Low Dose Aspirin EC] 81 mg PO DAILY hydrALAZINE HCL [Apresoline] 50 mg PO TID Timolol 0.5% Ophth Soln [Timoptic 0.5% Ophth Soln] 1 drop BOTH EYES DAILY [place]-3 Fatty Acids/Fish Oil [Fish Oil 1,000 mg Softgel] 1 cap PO DAILY Doxazosin Mesylate [Cardura] 8 mg PO HS Spironolactone [Aldactone] 25 mg PO DAILY #30 tab Discontinued Hydrochlorothiazide [Hydrodiuril] 25 mg PO DAILY #30 tab Discharge Medication List Aspirin [Adult Low Dose Aspirin EC] 81 mg PO DAILY 09/29/15 [History] Lisinopril 40 mg PO DAILY 09/29/15 [History] busPIRone HCl [Buspar] 10 mg PO BID 09/29/15 [History] hydrALAZINE HCL [Apresoline] 50 mg PO TID 09/29/15 [History] [place]-3 Fatty Acids/Fish Oil [Fish Oil 1,000 mg Softgel] 1 cap PO DAILY [History] Timolol 0.5% Ophth Soln [Timoptic 0.5% Ophth Soln] 1 drop BOTH EYES DAILY [History] Doxazosin Mesylate [Cardura] 8 mg PO HS 04/01/17 [History] Spironolactone [Aldactone] 25 mg PO DAILY #30 tab 04/03/17 [Rx] Atorvastatin [Lipitor] 40 mg PO HS #30 tab 04/19/17 [Rx] Clopidogrel [Plavix] 75 mg PO DAILY #30 tab 04/19/17 [Rx] Metoprolol Tartrate [Lopressor] 12.5 mg PO BID #60 tab 04/19/17 [Rx] Nitroglycerin Sl Tabs [Nitrostat] 0.4 mg SUBLINGUAL Q5M PRN #25 tab 04/19/17 [Rx ] Follow up Appointment(s)/Referral(s): Lj Sanchez MD [Primary Care Provider] - 04/20/17 8:30 am Tab Noel MD [STAFF PHYSICIAN] - 04/25/17 5:00 pm Patient Instructions/Handouts: *Surgery [facility] - After Heart Catheterization - Telecommunication Lines Repairer Instructions, Angina (DC), Myocardial Infarction (DC) Discharge Disposition: HOME SELF-CARE
[2017-04-19] MEDS ORDERED: ATORVASTATIN 40 MG TAB PO SCH (21:00)
== END 2017-04-19 15:13 | disposition home or self-care (01) | DRG 247 ==
LOC: EC 19:29 → 6SEL 21:49
PROVIDERS: ADMIT Hospitalist; ATTEND Hospitalist
PROC: B2111ZZ Fluoroscopy of Multiple Coronary Arteries using Low Osmolar Contrast (ICD-10-PCS; principal; 2017-04-18 09:30)
PROC: 4A023N7 Measurement of Cardiac Sampling and Pressure, Left Heart, Percutaneous Approach (ICD-10-PCS; principal; 2017-04-18 09:30)
PROC: 027035Z Dilation of Coronary Artery, One Artery with Two Drug-eluting Intraluminal Devices, Percutaneous Approach (ICD-10-PCS; 2017-04-18 11:00)
DX: I21.4 Non-ST elevation (NSTEMI) myocardial infarction (principal); E87.1 Hypo-osmolality and hyponatremia; D63.8 Anemia in other chronic diseases classified elsewhere; E78.5 Hyperlipidemia, unspecified; H91.90 Unspecified hearing loss, unspecified ear; I10 Essential (primary) hypertension; I25.10 Atherosclerotic heart disease of native coronary artery without angina pectoris; Z79.82 Long term (current) use of aspirin; Z79.899 Other long term (current) drug therapy; Z82.49 Family history of ischemic heart disease and other diseases of the circulatory system; Z88.2 Allergy status to sulfonamides; Z88.8 Allergy status to other drugs, medicaments and biological substances
CPT/HCPCS: 36415; 71020; 80048; 80053; 80061; 82550; 82553; 83690; 83735; 83880; 84484; 85025; 85049; 85610; 85730; 92921; 93005; 93458; 96374; 96375; 96376; 99291

== ENCOUNTER → 2017-07-19 | Outpatient (CLI) | payer MEDICARE, BC ==
[2017-07-19 07:44] LABS: Basophils % (A) 1 %; CH 27.7; CHCM 32.9; Eosinophils # (A) 0.2 k/uL (0-0.7); Eosinophils % (A) 4 %; HCT 33.3 % (34.0-46.0); HDW 2.73; HGB 11.1 gm/dL (11.4-16.0); Luc # (Auto) 0.14; Luc % (Auto) 3; Lymphocytes # (A) 0.6 k/uL (1.0-4.8); Lymphocytes % (A) 11 %; MCH 28.3 pg (25.0-35.0); MCHC 33.4 g/dL (31.0-37.0); MCV 84.8 fL (80.0-100.0); Mean Platelet Volume 7.1; Monocytes # (A) 0.5 k/uL (0-1.0); Monocytes % (A) 10 %; Neutrophils # (A) 3.8 k/uL (1.3-7.7); Neutrophils % (A) 72 %; RBC 3.93 m/uL (3.80-5.40); RDW 14.4 % (11.5-15.5); WBC 5.3 k/uL (3.8-10.6); WBC (Perox) 5.35
[2017-07-19 07:59] LABS: ALT 45 U/L (9-52); AST 26 U/L (14-36); Alkaline Phosphatase 68 U/L (38-126); Anion Gap 10 mmol/L; Blood Urea Nitrogen 14 mg/dL (7-17); Carbon Dioxide 24 mmol/L (22-30); Chloride 102 mmol/L (98-107); Cholesterol 99 mg/dL (<200); Glucose 106 mg/dL (74-99); HDL Cholesterol 43 mg/dL (40-60); Non-African American GFR(MDRD) 58 (>60 ml/min/1.73 sqM); Potassium 4.1 mmol/L (3.5-5.1); Sodium 136 mmol/L (137-145); Total Bilirubin 0.8 mg/dL (0.2-1.3); Total Protein 7.1 g/dL (6.3-8.2)
[2017-07-19 08:44] LABS: Hemoglobin A1C 6.1 % (4.2-6.1)
== END | disposition home or self-care (01) ==
LOC: LABWHC1 06:36
PROVIDERS: ATTEND Family Medicine
DX: R73.9 Hyperglycemia, unspecified (principal); I10 Essential (primary) hypertension
CPT/HCPCS: 36415; 80053; 80061; 83036; 85025

== ENCOUNTER 2018-01-28 05:18 | Inpatient (IN) | payer MEDICARE, BC ==
--- NOTE | 2018-01-28 05:48 | ED ---
General Adult HPI - General Chief complaint: Chest Pain Stated complaint: Chest Pain Time Seen by Provider: 01/28/18 05:23 Source: patient, RN notes reviewed, old records reviewed Mode of arrival: ambulatory Limitations: no limitations - History of Present Illness Initial comments: This is an 82-year-old female to the ER for evaluation patient presents today for evaluation regards to chest pain severe left-sided chest pain. Patient is recent history of stents, multiple recent admissions for chest pain. Patient states that he was left-sided but minimal. No nausea vomiting no diaphoresis. Patient became concerned for the chest pain was persistent. At this time patient has no patient has no chest pain - Related Data Home Medications Medication Instructions Recorded Confirmed busPIRone HCl [Buspar] 10 mg PO BID 09/29/15 01/28/18 Timolol 0.5% Ophth Soln [Timoptic 1 drop BOTH EYES DAILY 09/29/16 01/28/18 0.5% Ophth Soln] Previous Rx's Medication Instructions Recorded Atorvastatin [Lipitor] 40 mg PO HS #30 tab 04/19/17 Clopidogrel [Plavix] 75 mg PO DAILY #30 tab 04/19/17 Acetaminophen Tab [Tylenol] 650 mg PO Q6HR PRN tab 11/03/17 Doxazosin [Cardura] 4 mg PO DAILY #30 tab 11/03/17 hydrALAZINE HCL [Apresoline] 100 mg PO QID #0 11/03/17 Apixaban [Eliquis] 2.5 mg PO BID #60 tab 11/16/17 Famotidine [Pepcid] 20 mg PO DAILY #30 tab 11/16/17 Losartan [Cozaar] 50 mg PO BID #30 tab 11/16/17 Magnesium Oxide [Mag-Ox] 400 mg PO DAILY #30 tab 11/16/17 Metoprolol Tartrate [Lopressor] 12.5 mg PO DAILY #30 tab 11/16/17 Spironolactone [Aldactone] 25 mg PO BID@0900,1600 #30 tab 11/16/17 cloNIDine HCL [Catapres] 0.2 mg PO TID #30 tab 11/16/17 Allergies Allergy/AdvReac Type Severity Reaction Status Date / Time adhesive tape AdvReac Severe Skin Verified 11/12/17 07:08 Irritation/Peeling allopurinol AdvReac Severe Nausea & Verified 11/12/17 07:08 Vomiting amlodipine besylate AdvReac Severe Nausea & Verified 11/12/17 07:08 [From Norvasc] Vomiting celecoxib [From Celebrex] AdvReac Severe Nausea & Verified 11/12/17 07:08 Vomiting clonidine HCl [From Catapres] AdvReac Severe Nausea & Verified 11/12/17 07:08 Vomiting diclofenac AdvReac Severe Nausea & Verified 11/12/17 07:08 Vomiting isosorbide AdvReac Severe Nausea & Verified 11/12/17 07:08 Vomiting methylprednisolone AdvReac Severe Nausea & Verified 11/12/17 07:08 Vomiting metoprolol tartrate AdvReac Severe Nausea & Verified 11/12/17 07:08 [From Lopressor] Vomiting misoprostol AdvReac Severe Nausea & Verified 11/12/17 07:08 Vomiting rabeprazole sodium AdvReac Severe Nausea & Verified 11/12/17 07:08 [From Aciphex] Vomiting Sulfa (Sulfonamide AdvReac Severe Nausea & Verified 11/12/17 07:08 Antibiotics) Vomiting Review of Systems ROS Statement: Those systems with pertinent positive or pertinent negative responses have been documented in the HPI. ROS Other: All systems not noted in ROS Statement are negative. Past Medical History Past Medical History: Hearing Disorder / Deafness, Hypertension, Osteoarthritis (OA) Additional Past Medical History / Comment(s): left ear deaf History of Any Multi-Drug Resistant Organisms: None Reported Past Surgical History: Appendectomy, Section, Heart Catheterization, Hysterectomy, Tonsillectomy Past Anesthesia/Blood Transfusion Reactions: No Reported Reaction Past Psychological History: Anxiety, Depression Smoking Status: Never smoker - Past Family History Father Family Medical History: Coronary Artery Disease (CAD) Mother Family Medical History: Coronary Artery Disease (CAD), Myocardial Infarction ([place] ) Brother(s) Family Medical History: Cancer Additional Family Medical History / Comment(s): one brother leukemia. another brother CA all over internally General Exam Limitations: no limitations General appearance: alert, in no apparent distress, anxious Head exam: Present: atraumatic, normocephalic, normal inspection Eye exam: Present: normal appearance, PERRL, EOMI. Absent: scleral icterus, conjunctival injection, periorbital swelling ENT exam: Present: normal exam, mucous membranes moist Neck exam: Present: normal inspection. Absent: tenderness, meningismus, lymphadenopathy Respiratory exam: Present: normal lung sounds bilaterally. Absent: respiratory distress, wheezes, rales, rhonchi, stridor Cardiovascular Exam: Present: regular rate, normal rhythm, normal heart sounds. Absent: systolic murmur, diastolic murmur, rubs, gallop, clicks GI/Abdominal exam: Present: soft, normal bowel sounds. Absent: distended, tenderness, guarding, rebound, rigid Extremities exam: Present: normal inspection, full ROM, normal capillary refill. Absent: tenderness, pedal edema, joint swelling, calf tenderness Back exam: Present: normal inspection Neurological exam: Present: alert, oriented X3, CN II-XII intact Psychiatric exam: Present: normal affect, normal mood Skin exam: Present: warm, dry, intact, normal color. Absent: rash Course Vital Signs 01/28/18 01/28/18 01/28/18 05:20 06:21 07:07 Temperature 98.9 F Pulse Rate 84 65 72 Respiratory 20 18 18 Rate Blood Pressure 196/84 156/68 169/72 O2 Sat by Pulse 96 94 L 92 L Oximetry - Reevaluation(s) Reevaluation #1: 01/28/18 06:37 Patient's chest pain is returned full, significant pain with vomiting EKG Findings - EKG Comments: EKG Findings:: EKG shows sinus rhythm rate of 72, AL 266, QRS 90, QTc 418 Medical Decision Making - Lab Data Result diagrams: 01/28/18 06:02 01/28/18 06:02 Lab Results 01/28/18 01/28/18 01/28/18 Range/Units 06:02 06:02 06:02 WBC 6.3 (3.8-10.6) k/uL RBC 3.29 L (3.80-5.40) m/uL Hgb 9.7 L (11.4-16.0) gm/dL Hct 28.5 L (34.0-46.0) % MCV 86.7 (80.0-100.0) fL MCH 29.6 (25.0-35.0) pg MCHC 34.1 (31.0-37.0) g/dL RDW 14.5 (11.5-15.5) % Plt Count 291 (150-450) k/uL Neutrophils % 80 % Lymphocytes % 8 % Monocytes % 8 % Eosinophils % 3 % Basophils % 0 % Neutrophils # 5.0 (1.3-7.7) k/uL Lymphocytes # 0.5 L (1.0-4.8) k/uL Monocytes # 0.5 (0-1.0) k/uL Eosinophils # 0.2 (0-0.7) k/uL Basophils # 0.0 (0-0.2) k/uL PT (9.0-12.0) sec INR (<1.2) APTT (22.0-30.0) sec Sodium 137 (137-145) mmol/L Potassium 4.0 (3.5-5.1) mmol/L Chloride 104 (98-107) mmol/L Carbon Dioxide 21 L (22-30) mmol/L Anion Gap 12 mmol/L BUN 24 H (7-17) mg/dL Creatinine 0.90 (0.52-1.04) mg/dL Est GFR (CKD-EPI)AfAm 68 (>60 ml/min/1.73 sqM) Est GFR (CKD-EPI)NonAf 59 (>60 ml/min/1.73 sqM) Glucose 129 H (74-99) mg/dL Calcium 10.2 (8.4-10.2) mg/dL Magnesium 1.6 (1.6-2.3) mg/dL Total Bilirubin 0.5 (0.2-1.3) mg/dL AST 20 (14-36) U/L ALT 22 (9-52) U/L Alkaline Phosphatase 85 (38-126) U/L Total Creatine Kinase 21 L (30-135) U/L CK-MB (CK-2) 0.3 (0.0-2.4) ng/mL CK-MB (CK-2) Rel Index 1.4 Troponin I <0.012 (0.000-0.034) ng/mL NT-Pro-B Natriuret Pep pg/mL Total Protein 6.7 (6.3-8.2) g/dL Albumin 3.7 (3.5-5.0) g/dL Lipase 117 (23-300) U/L 01/28/18 01/28/18 Range/Units 06:02 06:02 WBC (3.8-10.6) k/uL RBC (3.80-5.40) m/uL Hgb (11.4-16.0) gm/dL Hct (34.0-46.0) % MCV (80.0-100.0) fL MCH (25.0-35.0) pg MCHC (31.0-37.0) g/dL RDW (11.5-15.5) % Plt Count (150-450) k/uL Neutrophils % % Lymphocytes % % Monocytes % % Eosinophils % % Basophils % % Neutrophils # (1.3-7.7) k/uL Lymphocytes # (1.0-4.8) k/uL Monocytes # (0-1.0) k/uL Eosinophils # (0-0.7) k/uL Basophils # (0-0.2) k/uL PT 10.2 (9.0-12.0) sec INR 1.0 (<1.2) APTT 25.7 (22.0-30.0) sec Sodium (137-145) mmol/L Potassium (3.5-5.1) mmol/L Chloride (98-107) mmol/L Carbon Dioxide (22-30) mmol/L Anion Gap mmol/L BUN (7-17) mg/dL Creatinine (0.52-1.04) mg/dL Est GFR (CKD-EPI)AfAm (>60 ml/min/1.73 sqM) Est GFR (CKD-EPI)NonAf (>60 ml/min/1.73 sqM) Glucose (74-99) mg/dL Calcium (8.4-10.2) mg/dL Magnesium (1.6-2.3) mg/dL Total Bilirubin (0.2-1.3) mg/dL AST (14-36) U/L ALT (9-52) U/L Alkaline Phosphatase (38-126) U/L Total Creatine Kinase (30-135) U/L CK-MB (CK-2) (0.0-2.4) ng/mL CK-MB (CK-2) Rel Index Troponin I (0.000-0.034) ng/mL NT-Pro-B Natriuret Pep 718 pg/mL Total Protein (6.3-8.2) g/dL Albumin (3.5-5.0) g/dL Lipase (23-300) U/L Disposition Clinical Impression: Chest pain Disposition: ADMITTED IP TO THIS HOSP Condition: Undetermined Referrals: Lj Sanchez MD [Primary Care Provider] - 1-2 days
[2018-01-28] MEDS ORDERED: ONDANSETRON 4 MG/2 ML VIAL IVP STA (06:00)
[2018-01-28] MEDS ORDERED: MORPHINE SULFATE 4 MG/ML SYRINGE IVP STA (06:02)
[2018-01-28] MEDS ORDERED: MORPHINE SULFATE 4 MG/ML SYRINGE IVP PRN (06:02)
[2018-01-28] MEDS ORDERED: RX INFO: IV CONTRAST WAS GIVEN 1 EACH MISC MISCELLANE PRN (06:02)
[2018-01-28] MEDS ORDERED: LABETALOL 5 MG/ML VIAL MDV IVP STA (06:03)
[2018-01-28 06:22] LABS: Basophils % (A) 0 %; Eosinophils # (A) 0.2 k/uL (0-0.7); Eosinophils % (A) 3 %; HCT 28.5 % (34.0-46.0); HGB 9.7 gm/dL (11.4-16.0); Lymphocytes # (A) 0.5 k/uL (1.0-4.8); Lymphocytes % (A) 8 %; MCH 29.6 pg (25.0-35.0); MCHC 34.1 g/dL (31.0-37.0); MCV 86.7 fL (80.0-100.0); Monocytes # (A) 0.5 k/uL (0-1.0); Monocytes % (A) 8 %; Neutrophils % (A) 80 %; Platelet Count 291 k/uL (150-450); RBC 3.29 m/uL (3.80-5.40); RDW 14.5 % (11.5-15.5); WBC 6.3 k/uL (3.8-10.6)
[2018-01-28] MEDS ORDERED: SODIUM CHLORIDE 0.9% 500 ML IV ONE (06:25)
[2018-01-28 06:29] LABS: Partial Thromboplastin Time 25.7 sec (22.0-30.0); Prothrombin Time 10.2 sec (9.0-12.0)
[2018-01-28 06:43] LABS: Albumin 3.7 g/dL (3.5-5.0); Calcium 10.2 mg/dL (8.4-10.2); Magnesium 1.6 mg/dL (1.6-2.3); Total Bilirubin 0.5 mg/dL (0.2-1.3); Total Protein 6.7 g/dL (6.3-8.2)
[2018-01-28 06:49] LABS: Creatine Kinase 21 U/L (30-135)
[2018-01-28 07:01] LABS: Creatine Kinase MB 0.3 ng/mL (0.0-2.4); Troponin I <0.012 ng/mL (0.000-0.034)
[2018-01-28] MEDS ORDERED: NITROGLYCERIN SL TABS 0.4 MG TAB SUBLINGUAL PRN (07:13)
[2018-01-28] MEDS ORDERED: ASPIRIN 81 MG PO STA (07:13)
--- NOTE | 2018-01-28 07:32 | CT ---
EXAMINATION TYPE: CT angio chest DATE OF EXAM: 01/28/2018 COMPARISON: NONE HISTORY: chest pain CT DLP: 392.30 mGycm. Automated Exposure Control for Dose Reduction was Utilized. CONTRAST: CTA scan of the thorax is performed with IV Contrast, patient injected with 67 mL of Omnipaque 350, p ulmonary embolism protocol. MIP Images are created on CT scanner and reviewed. FINDINGS: LUNGS: The lungs are predominantly clear as there is some dependent atelectasis in both lower lobes. There is no suspicious focal consolidation. No suspicious parenchymal nodule or mass is present bilat erally. No pleural effusion or pneumothorax is seen. Tracheobronchial tree is patent. MEDIASTINUM: There is satisfactory enhancement of the pulmonary artery and its branches, there is no CT evidence for pulmonary embolism. There are no greater than 1 cm hilar or mediastinal lymph nodes. No significant pericardial effusion is seen. There is cardiomegaly with moderate biatrial dilatati on. There are enlarged right and left pulmonary arteries, CT finding suggesting underlying pulmonary artery hypertension. There is calcification at level of mitral valve. There is fairly moderate to sev ere coronary artery calcifications most prominent in the LAD, which is noted marker for coronary justice ry disease OTHER: Some cortical thinning in both kidneys is present. Spine is straightened on sagittal images. IMPRESSION: 1. No CTA evidence for pulmonary embolism. 2. Cardiomegaly without suspicious acute pulmonary process.
[2018-01-28 12:26] LABS: Creatine Kinase MB 2.2 ng/mL (0.0-2.4)
[2018-01-28 12:30] LABS: Troponin I 0.499 ng/mL (0.000-0.034)
[2018-01-28] MEDS: hydrALAZINE HCL 50 MG TAB PO SCH ×2 (13:38→16:46)
--- NOTE | 2018-01-28 14:23 | P.CRDCN ---
History of Present Illness History of present illness: Patient presenting with left-sided shoulder pain and left arm numbness. Today she started developing chest discomfort with left-sidedsymptoms On examination pulse rate in the 50s, blood pressure 134/58 mmHg No JVD no thyromegaly no carotid bruits Heart sounds S1 and S2 normal no murmurs or gallops no rub Breath sounds are normal no rhonchi no crackles Abdomen soft nontender Extremities are warm no edema This twelve-lead ECG shows ST depression in leads V4-V6 as well as leads 1 and aVL and on the second EKG, this has resolved Impression Chest discomfort consistent with angina Abnormal cardiac enzymes up to 0.499 consistent with acute myocardial injury Known CAD status post coronary stenting History of atrial fibrillation on ELIQUIS Suggest IV heparin, nitroglycerin, statins, aspirin Hypertension management Past Medical History Past Medical History: Hearing Disorder / Deafness, Hypertension, Osteoarthritis (OA) Additional Past Medical History / Comment(s): left ear deaf History of Any Multi-Drug Resistant Organisms: None Reported Past Surgical History: Appendectomy, Section, Heart Catheterization, Hysterectomy, Tonsillectomy Past Anesthesia/Blood Transfusion Reactions: No Reported Reaction Past Psychological History: Anxiety, Depression Smoking Status: Never smoker - Past Family History Father Family Medical History: Coronary Artery Disease (CAD) Mother Family Medical History: Coronary Artery Disease (CAD), Myocardial Infarction (MS ) Brother(s) Family Medical History: Cancer Additional Family Medical History / Comment(s): one brother leukemia. another brother CA all over internally Medications and Allergies Home Medications Medication Instructions Recorded Confirmed Type busPIRone HCl [Buspar] 10 mg PO BID 09/29/15 01/28/18 History Timolol 0.5% Ophth Soln [Timoptic 1 drop BOTH EYES DAILY 09/29/16 01/28/18 History 0.5% Ophth Soln] Atorvastatin [Lipitor] 40 mg PO HS #30 tab 04/19/17 01/28/18 Rx Clopidogrel [Plavix] 75 mg PO DAILY #30 tab 04/19/17 01/28/18 Rx Acetaminophen Tab [Tylenol] 650 mg PO Q6HR PRN tab 11/03/17 01/28/18 Rx Doxazosin [Cardura] 4 mg PO DAILY #30 tab 11/03/17 01/28/18 Rx hydrALAZINE HCL [Apresoline] 100 mg PO QID #0 11/03/17 01/28/18 Rx Apixaban [Eliquis] 2.5 mg PO BID #60 tab 11/16/17 01/28/18 Rx Famotidine [Pepcid] 20 mg PO DAILY #30 tab 11/16/17 01/28/18 Rx Losartan [Cozaar] 50 mg PO BID #30 tab 11/16/17 01/28/18 Rx Magnesium Oxide [Mag-Ox] 400 mg PO DAILY #30 tab 11/16/17 01/28/18 Rx Metoprolol Tartrate [Lopressor] 12.5 mg PO DAILY #30 tab 11/16/17 01/28/18 Rx Spironolactone [Aldactone] 25 mg PO BID@0900,1600 #30 tab 11/16/17 01/28/18 Rx cloNIDine HCL [Catapres] 0.2 mg PO TID #30 tab 11/16/17 01/28/18 Rx Allergies Allergy/AdvReac Type Severity Reaction Status Date / Time adhesive tape AdvReac Severe Skin Verified 01/28/18 07:37 Irritation/Peeling allopurinol AdvReac Severe Nausea & Verified 01/28/18 07:37 Vomiting amlodipine besylate AdvReac Severe Nausea & Verified 01/28/18 07:37 [From Norvasc] Vomiting celecoxib [From Celebrex] AdvReac Severe Nausea & Verified 01/28/18 07:37 Vomiting clonidine HCl [From Catapres] AdvReac Severe Nausea & Verified 01/28/18 07:37 Vomiting diclofenac AdvReac Severe Nausea & Verified 01/28/18 07:37 Vomiting isosorbide AdvReac Severe Nausea & Verified 01/28/18 07:37 Vomiting methylprednisolone AdvReac Severe Nausea & Verified 01/28/18 07:37 Vomiting metoprolol tartrate AdvReac Severe Nausea & Verified 01/28/18 07:37 [From Lopressor] Vomiting misoprostol AdvReac Severe Nausea & Verified 01/28/18 07:37 Vomiting rabeprazole sodium AdvReac Severe Nausea & Verified 01/28/18 07:37 [From Aciphex] Vomiting Sulfa (Sulfonamide AdvReac Severe Nausea & Verified 01/28/18 07:37 Antibiotics) Vomiting Physical Exam Vitals: Vital Signs Temp Pulse Resp BP Pulse Ox 01/28/18 13:51 50 L 18 170/76 98 01/28/18 12:44 56 L 18 124/60 98 01/28/18 11:48 50 L 20 134/58 97 01/28/18 10:04 55 L 18 161/71 98 01/28/18 07:07 72 18 169/72 92 L 01/28/18 06:21 65 18 156/68 94 L 01/28/18 05:20 98.9 F 84 20 196/84 96 Intake and Output 01/27/18 01/28/18 01/28/18 21:59 06:59 14:59 Other: Weight Results 01/28/18 06:02 01/28/18 06:02 Cardiac Enzymes 01/28/18 01/28/18 01/28/18 Range/Units 06:02 06:02 11:33 AST 20 (14-36) U/L CK-MB (CK-2) 0.3 2.2 (0.0-2.4) ng/mL Troponin I <0.012 0.499 H* (0.000-0.034) ng/mL Coagulation 01/28/18 Range/Units 06:02 PT 10.2 (9.0-12.0) sec APTT 25.7 (22.0-30.0) sec CBC 01/28/18 Range/Units 06:02 WBC 6.3 (3.8-10.6) k/uL RBC 3.29 L (3.80-5.40) m/uL Hgb 9.7 L (11.4-16.0) gm/dL Hct 28.5 L (34.0-46.0) % Plt Count 291 (150-450) k/uL Comprehensive Metabolic Panel 01/28/18 Range/Units 06:02 Sodium 137 (137-145) mmol/L Potassium 4.0 (3.5-5.1) mmol/L Chloride 104 (98-107) mmol/L Carbon Dioxide 21 L (22-30) mmol/L BUN 24 H (7-17) mg/dL Creatinine 0.90 (0.52-1.04) mg/dL Glucose 129 H (74-99) mg/dL Calcium 10.2 (8.4-10.2) mg/dL AST 20 (14-36) U/L ALT 22 (9-52) U/L Alkaline Phosphatase 85 (38-126) U/L Total Protein 6.7 (6.3-8.2) g/dL Albumin 3.7 (3.5-5.0) g/dL Current Medications Generic Name Dose Route Start Last Admin Trade Name Freq PRN Reason Stop Dose Admin Apixaban 2.5 mg 01/28/18 21:00 Eliquis PO BID [facility] Aspirin 325 mg 01/29/18 09:00 Aspirin PO DAILY [facility] Atorvastatin Calcium 40 mg 01/28/18 21:00 Lipitor PO HS [facility] Buspirone HCl 10 mg 01/28/18 21:00 Buspar PO BID [facility] Clonidine 0.2 mg 01/28/18 16:00 Catapres PO TID [facility] Clopidogrel Bisulfate 75 mg 01/29/18 09:00 Plavix PO DAILY [facility] Doxazosin Mesylate 4 mg 01/29/18 09:00 Cardura PO DAILY [facility] Famotidine 20 mg 01/29/18 09:00 Pepcid PO DAILY [facility] Hydralazine HCl 100 mg 01/28/18 13:00 01/28/18 13:38 Apresoline PO Not Given QID [facility] Losartan Potassium 50 mg 01/28/18 21:00 Cozaar PO BID [facility] Magnesium Oxide 400 mg 01/29/18 09:00 Mag-Ox PO DAILY [facility] Metoprolol Tartrate 12.5 mg 01/29/18 09:00 Lopressor PO DAILY [facility] Miscellaneous Information 1 each 01/28/18 06:02 01/28/18 06:26 Rx Info: Iv Contrast Was Given MISCELLANE 01/30/18 06:02 1 each DAILY PRN Administration Per Protocol Morphine Sulfate 4 mg 01/28/18 06:02 Morphine Sulfate (Inj) IVP Q4HR PRN Pain Nitroglycerin 0.4 mg 01/28/18 07:13 Nitrostat SUBLINGUAL Q5M PRN Chest Pain Spironolactone 25 mg 01/28/18 21:00 Aldactone PO BID [facility] Timolol Maleate 1 drops 01/29/18 09:00 Timoptic BOTH EYES DAILY [facility] Intake and Output 01/27/18 01/28/18 01/28/18 21:59 06:59 14:59 Other: Weight 01/28/18 06:02 01/28/18 06:02
[2018-01-28] MEDS: cloNIDine HCL 0.2 MG TAB PO SCH (16:46)
[2018-01-28] MEDS: SPIRONOLACTONE 25 MG TAB PO SCH (16:46)
[2018-01-28 18:24] LABS: Creatine Kinase MB 3.3 ng/mL (0.0-2.4)
[2018-01-28 18:25] LABS: Troponin I 1.1 ng/mL (0.000-0.034)
--- NOTE | 2018-01-28 18:32 | HP ---
HISTORY AND PHYSICAL DATE OF SERVICE: 01/28/2018. CHIEF COMPLAINT: Chest pain. BRIEF HISTORY: An 82-year-old female patient with past medical history of hypertension, presents to the ED with complaint of chest pain which is graded at severe left-sided chest pain. Patient does have history of coronary artery disease and has had stent placement with multiple admissions with further chest pain. She claimed the pain was getting progressively worse so she decided to come to the ED. PAST MEDICAL HISTORY: Significant for deafness, hypertension, osteoarthritis. PAST SURGICAL HISTORY: Significant for appendectomy, section, heart catheterization, hysterectomy, tonsillectomy. SOCIAL HISTORY: Patient denies any history of smoking or alcohol abuse. FAMILY HISTORY: Significant for coronary artery disease in both parents and history of leukemia in 1 brother. MEDICATIONS: 1. Patient is on Buspar 10 mg b.i.d. 2. Lipitor 40 mg at bedtime. 3. Plavix 75 mg daily. 4. Tylenol 650 mg every 6 hours p.r.n. 5. Cardura 4 mg p.o. daily. 6. Hydralazine 100 mg p.o. q.i.d. 7. Eliquis 2.5 mg b.i.d. 8. Pepcid 20 mg daily. 9. Losartan 50 mg b.i.d. 10.Mag-Ox 400 mg daily. 11.Metoprolol 12.5 mg daily. 12.Aldactone 25 mg b.i.d. 13.Clonidine 0.2 mg t.i.d. ALLERGIES: ADHESIVE TAPE. REVIEW OF SYSTEMS: HEENT: Patient denies any deafness or vision changes. Constitutional: No fever or chills. CVS: No chest pain or palpitations. Respiratory: No shortness of breath. No cough. Abdomen/GI: No nausea, vomiting, diarrhea. Genitourinary: No hematuria and dysuria. Extremities/musculoskeletal: No skin, joint, or muscle deformities. Neurological: Patient is alert and oriented x3. No gross motor or sensory deficits. Cranial nerves 2-12 grossly intact. Psychiatric examination: Normal affect and mood. LABS: CBC: White blood count of 6.3, hemoglobin 9.7 hematocrit 28.5, and platelet count of 291,000. Chemical profile: Sodium 137, potassium 4.2, chloride 104, bicarb 29, BUN 24, creatinine 0.9, glucose 129. CK of 21, CK-MB 0.3. Troponin bumped up to 0.49. ASSESSMENT: 1. Chest pain, unstable angina, possible acute myocardial infarction. 2. History of coronary artery disease, status post stenting. 3. History of atrial fibrillation. Patient is on Eliquis. The patient is started on IV heparin and nitroglycerin, statins and aspirin are reinstated. 4. Hypertension. PLAN: Continue to monitor blood pressure closely and adjust medications if needed. Consult Cardiology for further recommendation. Schedule 2D echocardiogram or any further testing per Cardiology recommendations. MMODL / IJN: [id number] /
[2018-01-28] MEDS ORDERED: APIXABAN 2.5 MG TABLET PO SCH (21:00)
[2018-01-28] MEDS ORDERED: SPIRONOLACTONE 25 MG TAB PO SCH (21:00)
[2018-01-28] MEDS: ATORVASTATIN 40 MG TAB PO SCH (21:18)
[2018-01-28] MEDS: busPIRone HCl 10 MG TAB PO SCH (21:18)
[2018-01-28] MEDS: LOSARTAN 50 MG TAB PO SCH (21:19)
[2018-01-29] MEDS ORDERED: HEPARIN SODIUM,PORCINE 5,000 UNIT/ML 1 ML VIAL IV ONE (00:24)
[2018-01-29] MEDS ORDERED: HEPARIN SODIUM,PORCINE 5,000 UNIT/ML 1 ML VIAL IV PRN (00:24)
[2018-01-29] MEDS: HEPARIN SOD,PORK IN 0.45% NACL 25,000 UNIT in 0.45% NACL 1 500ML.BAG IV SCH (00:42)
[2018-01-29 00:59] LABS: Basophils % (A) 0 %; Eosinophils # (A) 0.1 k/uL (0-0.7); Eosinophils % (A) 3 %; HCT 27.7 % (34.0-46.0); Lymphocytes # (A) 0.6 k/uL (1.0-4.8); Lymphocytes % (A) 11 %; MCH 28.9 pg (25.0-35.0); MCHC 32.3 g/dL (31.0-37.0); MCV 89.6 fL (80.0-100.0); Mean Platelet Volume 8.2; Monocytes # (A) 0.5 k/uL (0-1.0); Monocytes % (A) 10 %; Neutrophils % (A) 75 %; Platelet Count 263 k/uL (150-450); RBC 3.09 m/uL (3.80-5.40); RDW 14.8 % (11.5-15.5); WBC 5.4 k/uL (3.8-10.6)
[2018-01-29] MEDS: hydrALAZINE HCL 50 MG TAB PO SCH ×5 (01:02→22:15)
[2018-01-29] MEDS: cloNIDine HCL 0.2 MG TAB PO SCH ×4 (01:03→22:38)
[2018-01-29 01:10] LABS: INR 1.1 (<1.2); Partial Thromboplastin Time 25.8 sec (22.0-30.0); Prothrombin Time 10.4 sec (9.0-12.0)
[2018-01-29 07:54] LABS: Cholesterol 80 mg/dL (<200); HDL Cholesterol 35 mg/dL (40-60); LDL Cholesterol,Calculated 28 mg/dL (0-99); Triglycerides 84 mg/dL (<150)
[2018-01-29] MEDS: TIMOLOL 0.5% OPHTH DROPS 5 ML BTL BOTH EYES SCH (08:27)
[2018-01-29] MEDS: CLOPIDOGREL 75 MG TAB PO SCH (08:28)
[2018-01-29] MEDS: ATORVASTATIN 40 MG TAB PO SCH (08:28)
[2018-01-29] MEDS ORDERED: SODIUM CHLORIDE 0.9% 1,000 ML IV ONE (08:56)
[2018-01-29] MEDS ORDERED: ASPIRIN 325 MG TAB PO SCH (09:00)
[2018-01-29] MEDS ORDERED: MIDAZOLAM 2 MG/2 ML VIAL ONE (09:00)
[2018-01-29] MEDS ORDERED: LIDOCAINE 2% INJ 20 MG/ML (20 ML MDV) ONE (09:04)
[2018-01-29] MEDS ORDERED: MIDAZOLAM 2 MG/2 ML VIAL IVP ONE (09:19)
[2018-01-29] MEDS ORDERED: LIDOCAINE 2% INJ 20 MG/ML SQ ONE (09:20)
[2018-01-29] MEDS ORDERED: ENALAPRILAT 1.25 MG/ML 1 ML VIAL ONE (09:24)
[2018-01-29] MEDS ORDERED: ENALAPRILAT 1.25 MG/ML 1 ML VIAL IVP ONE (09:27)
[2018-01-29] MEDS ORDERED: BIVALIRUDIN BOLUS 250 MG/50 ML IV ONE (09:48)
[2018-01-29] MEDS ORDERED: BIVALIRUDIN 250 MG in SODIUM CHLORIDE 0.9% 50 ML IV ONE (09:48)
[2018-01-29] MEDS: NITROGLYCERIN 1000MCG/10ML SYRINGE INTRACORON ONE ×2 (10:26→10:40)
[2018-01-29] MEDS ORDERED: IOHEXOL 350 MG/ML 125ML BOTTLE INJ ONE (10:55)
[2018-01-29] MEDS ORDERED: ZOLPIDEM 5 MG TAB PO PRN (10:58)
[2018-01-29] MEDS ORDERED: RX INFO: IV CONTRAST WAS GIVEN 1 EACH MISC MISCELLANE PRN (10:58)
[2018-01-29] MEDS ORDERED: NITROGLYCERIN SL TABS 0.4 MG TAB SUBLINGUAL PRN (10:58)
[2018-01-29] MEDS ORDERED: ATROPINE SULFATE 0.1 MG/ML 10ML SYRINGE IV PRN (10:58)
[2018-01-29] MEDS ORDERED: MAG HYDROX/AL HYDROX/SIMETH 30 ML CUP PO PRN (10:58)
[2018-01-29] MEDS ORDERED: CLOPIDOGREL 75 MG TAB ONE (10:59)
[2018-01-29] MEDS ORDERED: CLOPIDOGREL 75 MG TAB PO ONE (11:10)
[2018-01-29] MEDS: METOPROLOL TARTRATE 12.5 MG TAB PO SCH (11:23)
[2018-01-29] MEDS: LOSARTAN 50 MG TAB PO SCH ×2 (11:23→22:15)
[2018-01-29] MEDS: busPIRone HCl 10 MG TAB PO SCH ×2 (11:23→22:38)
[2018-01-29] MEDS: DOXAZOSIN 4 MG TAB PO SCH (11:24)
[2018-01-29] MEDS: SODIUM CHLORIDE 0.9% 1,000 ML IV SCH (11:28)
[2018-01-29] MEDS: SPIRONOLACTONE 25 MG TAB PO SCH ×2 (11:28→16:51)
[2018-01-29] MEDS: FAMOTIDINE 20 MG TAB PO SCH (11:28)
--- NOTE | 2018-01-29 11:36 | CC ---
CARDIAC CATHETERIZATION REPORT INDICATION: Non ST-segment elevation VA. PROCEDURE NOTE: After obtaining informed consent, left heart catheterization and coronary angiogram were performed via the right femoral artery using standard Dario catheters. Patient tolerated the procedure well without any obvious immediate complications. Patient received moderate conscious sedation. Total sedation time was 15 minutes. Patient has known CAD and had prior angioplasty with stent placement of mid LAD and balloon angioplasty of the diagonal branch. FINDINGS: 1. HEMODYNAMICS: Left ventricular end-diastolic pressure is 14 to 16 mm. There is no significant gradient across the aortic valve. 2. LEFT VENTRICULOGRAM: Left ventriculogram is not performed. 3. ANGIOGRAPHIC DATA: 4. LEFT MAIN CORONARY ARTERY: Left main coronary artery is a normal-sized vessel and is free of stenosis. Divides into left anterior descending coronary artery and circumflex coronary artery. 5. CIRCUMFLEX CORONARY ARTERY; This is a small nondominant vessel and is free of significant stenosis. 6. LAD is a large vessel that wraps around the apex of the heart, the is the previously stented segment appears patent. In the proximal LAD, there is irregular ectatic areas at its worse and tight stenosis at its worse seems to be 80% to 90% stenosis. There is a diagonal branch that shows an ostial stenosis 95%. Mid LAD also shows a 60% to 70% stenosis. 7. RIGHT CORONARY ARTERY is a large dominant vessel that shows mild atherosclerotic plaque involving mid and distal RCA. CONCLUSION: Severe coronary artery disease, primarily involving proximal left anterior descending artery and the diagonal branch. PLAN: Angiographic data was reviewed by Dr. Pavan Elliott, the on-call powder truck driver who performed her angioplasty last time. We will attempt angioplasty of the proximal LAD. MMODL / IJN: [id number] /
--- NOTE | 2018-01-29 12:42 | LTR ---
DATE OF SERVICE: 01/29/2018 RE: Lissa Kelsey Dear Lj; Thank you for allowing me to participate in the care of Mrs. Alcaraz. I am pleased to report to you that she had a good angiographic result. Her proximal stent had a restenotic lesion. This was addressed as well as the intervening area was also stented with a slightly larger drug-eluting stent. I expect she will do well and hopefully will be discharged in the next 24 to 48 hours. Thank you for your referral and please call for questions. With kindest regards. Sincerely yours, MD ABRAHAM Infante / ABRANN: [id number] /
--- NOTE | 2018-01-29 13:21 | PTCA ---
PERCUTANEOUSTRANS CORORONARY ANGIOGRAPHY DATE OF SERVICE: 01/29/2018 PROCEDURE: PTCA and stenting of a restenotic lesion in the proximal and mid LAD with drug-eluting stents. PERFORMED BY: Dr. Manuel Elliott. MODERATE CONSCIOUS SEDATION TIME: 69 minutes. CLINICAL INFORMATION: Mrs. Kelsey Alcaraz is an 82-year-old lady with history of hypertension, hyperlipidemia, previous anterior CA in March of 2017 when she presented with a myocardial infarction, underwent stenting of the LAD in 2 areas, both proximal and mid and the diagonal was also jailed at that time with a proximal stent. She presents now with a non-ST elevation CA with a significant lesion involving the proximal portion of the proximal stent. The distal stent was widely patent. She was advised intervention in the same setting that was performed. PROCEDURE NOTE: The existing 6-Azeri introducer in the femoral artery was used to perform procedure. I used a 3.5 left Dario guide catheter of 6-Azeri caliber. Initially, a run-through wire was advanced and positioned in the distal LAD. I tried 2 different wires to get access through the LAD into the diagonal, but was unsuccessful. I then decided to just stent the restenotic lesion as well as another lesion before the distal stent as well. I used 2 wires because of some difficulty in advancing the stents. Predilatation was performed using a 2.25 caliber 12 mm long NC trek balloon. The entire area was pre- dilated. I then advanced a 2.75 caliber 15 mm long Xience stent and deployed this in the distal area with excellent angiographic result. I then used a 3.0 caliber 12 mm long Xience stent and deployed this in the proximal lesion. Excellent angiographic result was achieved without complication. The patient had mild chest discomfort and precordial T-wave prominence. Excellent angiographic result was achieved. She received 225 mg of Plavix additionally. She received Angiomax bolus and infusion as per protocol. The sheath was taken out and Angio-Seal device used to secure hemostasis and she was sent to the room in stable condition. MMODL / IJN: [id number] /
[2018-01-29 13:30] VITALS: BMI 25.7
[2018-01-29] MEDS ORDERED: Acetaminophen-Codeine 300-30mg TAB PO PRN (15:15)
[2018-01-29] MEDS: MAGNESIUM OXIDE 400 MG TAB PO SCH (16:50)
--- NOTE | 2018-01-29 17:16 | P.PN ---
Subjective 82-year-old female is post cardiac cath with angioplasty stent to the LAD. Complains of some nausea improving. Also complained of some right shoulder Objective - Vital Signs Vital signs: Vital Signs Temp 97.8 F 01/29/18 15:33 Pulse 62 01/29/18 15:33 Resp 12 01/29/18 15:33 BP 137/65 01/29/18 15:33 Pulse Ox 99 01/29/18 15:33 Intake & Output 01/28/18 01/29/18 01/29/18 18:59 06:59 18:59 Intake Total 50 1590 Balance 50 1590 Weight 68.492 kg 68.1 kg 68.1 kg Intake: IV 650 Amount of Fluid Infused ( 50 ml) Intake, IV Titration 300 Amount Sodium Chloride 0.9% 1, 300 000 ml @ 75 mls/hr IV . [id number] ALICE Rx#:[id number] Oral 640 Other: # Voids 1 # Bowel Movements 1 - Constitutional General appearance: Present: mild distress - EENT Eyes: Present: PERRLA Ears: bilateral: normal - Neck Neck: Present: normal ROM - Respiratory Respiratory: bilateral: CTA - Cardiovascular Rhythm: regular - Gastrointestinal General gastrointestinal: Present: soft - Integumentary Integumentary: Present: normal - Neurologic Neurologic: Present: CNII-XII intact - Psychiatric Psychiatric: Present: A&O x's 3, appropriate affect, intact judgment & insight - Labs CBC & Chem 7: 01/29/18 00:42 01/28/18 06:02 Labs: Abnormal Lab Results - Last 24 Hours (Table) 01/28/18 01/29/18 01/29/18 Range/Units 17:38 00:42 06:19 RBC 3.09 L (3.80-5.40) m/uL Hgb 9.0 L (11.4-16.0) gm/dL Hct 27.7 L (34.0-46.0) % Lymphocytes # 0.6 L (1.0-4.8) k/uL APTT (22.0-30.0) sec CK-MB (CK-2) 3.3 H* (0.0-2.4) ng/mL Troponin I 1.100 H* (0.000-0.034) ng/mL HDL Cholesterol 35 L (40-60) mg/dL 01/29/18 Range/Units 06:19 RBC (3.80-5.40) m/uL Hgb (11.4-16.0) gm/dL Hct (34.0-46.0) % Lymphocytes # (1.0-4.8) k/uL APTT 72.4 H (22.0-30.0) sec CK-MB (CK-2) (0.0-2.4) ng/mL Troponin I (0.000-0.034) ng/mL HDL Cholesterol (40-60) mg/dL - Imaging and Cardiology CT scan - chest: report reviewed Assessment and Plan Plan: Assessment Chest pain acute myocardial infarction History of coronary disease with stenting Post cardiac cath with stent to LAD History of atrial fibrillation patient requests Hypertension Plan Continued consultation with cardiology
--- NOTE | 2018-01-29 17:21 | CONS ---
CONSULTATION DATE OF SERVICE: 01/28/2018. HISTORY: Kelsey Alcaraz was seen in the emergency room on Monday, I am dictating the final dictation on Monday. I saw her on the January. The patient came in complaining of recurrent left-sided shoulder pain, left arm numbness, and then later developed an uncomfortable sensation in the left side of the chest. PAST HISTORY: Hypertension, CAD, coronary stenting. PAST SURGICAL HISTORY: Appendectomy, section, coronary stenting, hysterectomy, tonsillectomy. SOCIAL HISTORY: No history of smoking or alcohol. FAMILY HISTORY: Coronary artery disease. MEDICATIONS: At home were listed and include Lipitor, Plavix, Cardura, hydralazine, Eliquis, losartan, metoprolol, Aldactone, clonidine. ALLERGIES: ADHESIVE TAPE. REVIEW OF SYSTEMS: No fevers, chills, rigors. No cough or expectoration. No nausea, vomiting, diarrhea, hematuria, dysuria. No strokes, seizures or skin lesions. No musculoskeletal complaints. PHYSICAL EXAMINATION: Heart rate and blood pressure within normal range. Initially on examination her blood pressure was elevated at 156/68 mmHg, pulse rate in the 60s, afebrile. Heart sounds are normal. Breath sounds are clear. Normal S1, normal S2. No murmurs, no gallops. No rub. Abdomen is soft, nontender. Extremities are warm, no edema. LABORATORY DATA: Labs reviewed, troponins are abnormal. IMPRESSION AND PLAN: Please see impression and plan separately. MMODL / IJN: [id number] /
[2018-01-29] MEDS ORDERED: ONDANSETRON 4 MG/2 ML VIAL IVP PRN (19:07)
[2018-01-30] MEDS: HEPARIN SOD,PORK IN 0.45% NACL 25,000 UNIT in 0.45% NACL 1 500ML.BAG IV SCH (01:59)
[2018-01-30] MEDS: SODIUM CHLORIDE 0.9% 1,000 ML IV SCH (02:14)
[2018-01-30 07:10] LABS: Basophils % (A) 0 %; Eosinophils # (A) 0.1 k/uL (0-0.7); Eosinophils % (A) 1 %; HCT 24.4 % (34.0-46.0); HGB 7.7 gm/dL (11.4-16.0); Lymphocytes # (A) 0.6 k/uL (1.0-4.8); Lymphocytes % (A) 8 %; MCH 28.8 pg (25.0-35.0); MCHC 31.7 g/dL (31.0-37.0); MCV 90.8 fL (80.0-100.0); Mean Platelet Volume 7.6; Monocytes # (A) 0.7 k/uL (0-1.0); Monocytes % (A) 10 %; Neutrophils # (A) 5.5 k/uL (1.3-7.7); Neutrophils % (A) 79 %; Platelet Count 251 k/uL (150-450); RBC 2.69 m/uL (3.80-5.40); RDW 14.7 % (11.5-15.5)
[2018-01-30 07:22] LABS: Calcium 9.2 mg/dL (8.4-10.2); Potassium 4.3 mmol/L (3.5-5.1)
[2018-01-30] MEDS: LOSARTAN 50 MG TAB PO SCH ×2 (08:00→20:12)
[2018-01-30] MEDS: DOXAZOSIN 4 MG TAB PO SCH (08:00)
[2018-01-30] MEDS: CLOPIDOGREL 75 MG TAB PO SCH (08:00)
[2018-01-30] MEDS: hydrALAZINE HCL 50 MG TAB PO SCH ×4 (08:00→20:12)
[2018-01-30] MEDS: FAMOTIDINE 20 MG TAB PO SCH (08:00)
[2018-01-30] MEDS: ASPIRIN 81 MG PO SCH (08:01)
[2018-01-30] MEDS: METOPROLOL TARTRATE 12.5 MG TAB PO SCH (08:01)
[2018-01-30] MEDS: TIMOLOL 0.5% OPHTH DROPS 5 ML BTL BOTH EYES SCH (08:01)
[2018-01-30] MEDS: SPIRONOLACTONE 25 MG TAB PO SCH ×2 (08:01→15:43)
[2018-01-30] MEDS: busPIRone HCl 10 MG TAB PO SCH ×2 (08:01→20:12)
--- NOTE | 2018-01-30 09:00 | CDI ---
Last Revision, October 2017 Documentation Clarification Form Date: 01/30/18 0857 From: Shalonda Kumar RN, CCDS Admit Date: 01/28/2018 7:13:00 AM Patient Name: Lissa Monk Visit Number: [id number] ATTENTION: The Clinical Documentation Specialists (CDI) and [facility] Coding Staff appreciate your assistance in clarifying documentation. Please respond to the clarification below the line at the bottom and electronically sign. The CDI & [facility] Coding staff will review the response and follow-up if needed. Please note: Queries are made part of the Legal Health Record. If you have any questions, please contact the author of this message via ITS. Dr. Lj Sanchez/ Kateryna IRWIN Atrial fibrillation is documented in the H&P and requires further Specificity. History/Risk Factors: HTN, Atrial Fib Clinical Indicators: 01/28 H&P: History of atrial fibrillation. Patient is on Eliquis. The patient is started on IV heparin and nitroglycerin, statins and aspirin are reinstated. " EKG/telemetry: 01/28 EC Note: "EKG shows sinus rhythm rate of 72, MO 266, QRS 90, QTc 418." Treatment: Consults: Cardiology Eliquis 2.5 mg PO BID Cardura 4 mg PO QD Lopressor 12.5 mg PO QD In your professional opinion, can you please clarify the type of atrial fibrillation, if known? Chronic/Permanent Paroxysmal Persistent Other, please specify Unable to determine Please continue to document in your progress notes and discharge summary in order to capture severity of illness and risk of mortality. Include clinical findings that support your diagnosis. MTDD
--- NOTE | 2018-01-30 11:01 | P.PN ---
Subjective Patient is doing well. No chest discomfort no shortness of breath groin is healed well She's afebrile 97% degrees Fahrenheit pulse rate in the 80s afebrile Blood pressure 121/56. His mercury Heart sounds S1 and S2 are normal Soft systolic murmur no gallop Abdomen is soft nontender Extremities are warm no edema Impression Non-Q wave myocardial infarction Status post coronary stenting Hypertension Continue medical treatment for CAD and hypertension May go home from a cardiac standpoint in the next 24-48 hours and follow up with Dr. Ritchie Objective - Vital Signs Vital signs: Vital Signs Temp 97.7 F 01/30/18 08:03 Pulse 88 01/30/18 08:03 Resp 16 01/30/18 08:03 BP 168/70 01/30/18 08:03 Pulse Ox 95 01/30/18 08:03 Intake & Output 01/29/18 01/30/18 01/30/18 18:59 06:59 18:59 Intake Total 1710 0 180 Output Total 600 1200 Balance 1110 -1200 180 Weight 68.1 kg 68.5 kg Intake: IV 650 Intake, IV Titration 300 Amount Sodium Chloride 0.9% 1, 300 000 ml @ 75 mls/hr IV . [id number] [facility]ICE Rx#:[id number] Oral 760 0 180 Output: Urine 600 1200 Other: # Voids 1 1 # Bowel Movements 1 1 - Labs CBC & Chem 7: 01/30/18 06:19 01/30/18 06:19 Labs: Abnormal Lab Results - Last 24 Hours (Table) 01/30/18 01/30/18 Range/Units 06:19 06:19 RBC 2.69 L (3.80-5.40) m/uL Hgb 7.7 L (11.4-16.0) gm/dL Hct 24.4 L (34.0-46.0) % Lymphocytes # 0.6 L (1.0-4.8) k/uL Chloride 108 H (98-107) mmol/L BUN 27 H (7-17) mg/dL Creatinine 1.27 H (0.52-1.04) mg/dL Glucose 105 H (74-99) mg/dL
--- NOTE | 2018-01-30 11:17 | P.PN ---
Subjective Patient resting in bed without complaint. States right shoulder pain improved. States nausea improved. Consult from cardiology states she should be able to be released in 24-48 hours Objective - Vital Signs Vital signs: Vital Signs Temp 97.7 F 01/30/18 08:03 Pulse 88 01/30/18 08:03 Resp 16 01/30/18 08:03 BP 168/70 01/30/18 08:03 Pulse Ox 95 01/30/18 08:03 Intake & Output 01/29/18 01/30/18 01/30/18 18:59 06:59 18:59 Intake Total 1710 0 180 Output Total 600 1200 Balance 1110 -1200 180 Weight 68.1 kg 68.5 kg Intake: IV 650 Intake, IV Titration 300 Amount Sodium Chloride 0.9% 1, 300 000 ml @ 75 mls/hr IV . [id number] [facility] Rx#:[id number] Oral 760 0 180 Output: Urine 600 1200 Other: # Voids 1 1 # Bowel Movements 1 1 - Constitutional General appearance: Present: average body habitus - EENT Eyes: Present: PERRLA Ears: bilateral: normal - Neck Neck: Present: normal ROM - Respiratory Respiratory: bilateral: CTA - Cardiovascular Rhythm: regular - Gastrointestinal General gastrointestinal: Present: soft - Integumentary Integumentary: Present: normal - Neurologic Neurologic: Present: CNII-XII intact - Musculoskeletal Musculoskeletal: Present: generalized weakness - Psychiatric Psychiatric: Present: A&O x's 3, appropriate affect, intact judgment & insight - Labs CBC & Chem 7: 01/30/18 06:19 01/30/18 06:19 Labs: Abnormal Lab Results - Last 24 Hours (Table) 01/30/18 01/30/18 Range/Units 06:19 06:19 RBC 2.69 L (3.80-5.40) m/uL Hgb 7.7 L (11.4-16.0) gm/dL Hct 24.4 L (34.0-46.0) % Lymphocytes # 0.6 L (1.0-4.8) k/uL Chloride 108 H (98-107) mmol/L BUN 27 H (7-17) mg/dL Creatinine 1.27 H (0.52-1.04) mg/dL Glucose 105 H (74-99) mg/dL Assessment and Plan Plan: Assessment Chest pain acute ID non-Q wave Post cardiac cath with stents to LAD History of atrial fibrillation intermittent paroxysmal on Eliquis Hypertension Plan Continue with cardiology consultation hopeful discharge in 24-48 hours
[2018-01-30] MEDS: cloNIDine HCL 0.2 MG TAB PO SCH ×3 (11:33→20:13)
[2018-01-30] MEDS: MAGNESIUM OXIDE 400 MG TAB PO SCH (11:34)
[2018-01-30] MEDS ORDERED: MORPHINE ORAL SOLN 10 MG/5 ML CUP PO PRN (15:39)
[2018-01-30] MEDS: ATORVASTATIN 40 MG TAB PO SCH (20:12)
[2018-01-30 20:46] LABS: Glucose,Whole Blood 198 mg/dL (75-99)
[2018-01-30] MEDS ORDERED: ENALAPRILAT 1.25 MG/ML 1 ML VIAL IVP PRN (22:19)
[2018-01-31] MEDS: HEPARIN SOD,PORK IN 0.45% NACL 25,000 UNIT in 0.45% NACL 1 500ML.BAG IV SCH (04:52)
[2018-01-31] MEDS: cloNIDine HCL 0.2 MG TAB PO SCH ×3 (06:31→22:41)
[2018-01-31] MEDS: METOPROLOL TARTRATE 12.5 MG TAB PO SCH (06:55)
[2018-01-31] MEDS: DOXAZOSIN 4 MG TAB PO SCH (06:55)
[2018-01-31] MEDS: hydrALAZINE HCL 50 MG TAB PO SCH ×4 (06:55→22:41)
[2018-01-31] MEDS: LOSARTAN 50 MG TAB PO SCH ×2 (06:55→20:12)
[2018-01-31 07:28] LABS: Basophils % (A) 0 %; Eosinophils # (A) 0.1 k/uL (0-0.7); Eosinophils % (A) 2 %; HCT 24.5 % (34.0-46.0); HGB 7.8 gm/dL (11.4-16.0); Lymphocytes # (A) 0.4 k/uL (1.0-4.8); Lymphocytes % (A) 7 %; MCH 28.6 pg (25.0-35.0); MCHC 31.8 g/dL (31.0-37.0); MCV 89.7 fL (80.0-100.0); Mean Platelet Volume 7.7; Monocytes # (A) 0.5 k/uL (0-1.0); Monocytes % (A) 8 %; Neutrophils # (A) 4.9 k/uL (1.3-7.7); Neutrophils % (A) 81 %; Platelet Count 245 k/uL (150-450); RBC 2.73 m/uL (3.80-5.40); RDW 14.6 % (11.5-15.5)
[2018-01-31] MEDS: FAMOTIDINE 20 MG TAB PO SCH (07:31)
[2018-01-31] MEDS: SPIRONOLACTONE 25 MG TAB PO SCH ×2 (07:31→16:08)
[2018-01-31] MEDS: ASPIRIN 81 MG PO SCH (07:31)
[2018-01-31] MEDS: busPIRone HCl 10 MG TAB PO SCH ×2 (07:31→20:12)
[2018-01-31] MEDS: CLOPIDOGREL 75 MG TAB PO SCH (07:31)
[2018-01-31] MEDS: TIMOLOL 0.5% OPHTH DROPS 5 ML BTL BOTH EYES SCH (07:32)
[2018-01-31] MEDS: MAGNESIUM OXIDE 400 MG TAB PO SCH (07:32)
--- NOTE | 2018-01-31 11:43 | P.PN ---
Subjective Patient is lying comfortably in bed. She is upset that she cannot go home. Her blood pressure is elevated she underwent coronary stenting successfully. On examination pulse rate is in the 70s and 80s, blood pressure 166/74, 186/78 and 201/79 mmHg Afebrile normal respirations Breath sounds are clear no rhonchi no crackles Abdomen soft nontender No lower extremity edema Normal heart sounds are normal S1 normal S2 soft systolic murmur no gallops Impression Coronary artery disease Non-Q wave myocardial infarction Status post coronary stenting Hypertension Plan Continue aspirin and statins Switched from metoprolol to carvedilol for better blood pressure control Increase losartan to 75 mg twice daily Continue current medications Avoid IV Vasotec Control of blood pressure prior to discharge Objective - Vital Signs Vital signs: Vital Signs Temp 97.6 F 01/31/18 07:33 Pulse 80 01/31/18 07:33 Resp 16 01/31/18 07:33 BP 201/79 01/31/18 07:33 Pulse Ox 97 01/31/18 07:33 Intake & Output 01/30/18 01/31/18 01/31/18 18:59 06:59 18:59 Intake Total 360 Output Total 0 Balance 360 Weight 68.6 kg Intake: Oral 360 Output: Urine 0 Other: # Voids 1 2 - Labs CBC & Chem 7: 01/31/18 06:58 01/30/18 06:19 Labs: Abnormal Lab Results - Last 24 Hours (Table) 01/30/18 01/31/18 Range/Units 20:43 06:58 RBC 2.73 L (3.80-5.40) m/uL Hgb 7.8 L (11.4-16.0) gm/dL Hct 24.5 L (34.0-46.0) % Lymphocytes # 0.4 L (1.0-4.8) k/uL POC Glucose (mg/dL) 198 H (75-99) mg/dL
--- NOTE | 2018-01-31 11:51 | P.PN ---
Subjective Patient persists with hypertension. Changes were made to medication through cardiology. Hopeful discharge when a blood pressure controlled. Patient denies any headache chest pain comfortable at this time Objective - Vital Signs Vital signs: Vital Signs Temp 97.6 F 01/31/18 07:33 Pulse 80 01/31/18 07:33 Resp 16 01/31/18 07:33 BP 201/79 01/31/18 07:33 Pulse Ox 97 01/31/18 07:33 Intake & Output 01/30/18 01/31/18 01/31/18 18:59 06:59 18:59 Intake Total 360 Output Total 0 Balance 360 Weight 68.6 kg Intake: Oral 360 Output: Urine 0 Other: # Voids 1 2 - Constitutional General appearance: Present: obese - EENT Eyes: Present: PERRLA Ears: bilateral: normal - Neck Neck: Present: normal ROM - Respiratory Respiratory: right: wheezing, bilateral: CTA - Cardiovascular Rhythm: regular - Gastrointestinal General gastrointestinal: Present: soft - Integumentary Integumentary: Present: normal - Neurologic Neurologic: Present: CNII-XII intact - Musculoskeletal Musculoskeletal: Present: generalized weakness - Psychiatric Psychiatric: Present: A&O x's 3, appropriate affect, intact judgment & insight - Labs CBC & Chem 7: 01/31/18 06:58 01/30/18 06:19 Labs: Abnormal Lab Results - Last 24 Hours (Table) 01/30/18 01/31/18 Range/Units 20:43 06:58 RBC 2.73 L (3.80-5.40) m/uL Hgb 7.8 L (11.4-16.0) gm/dL Hct 24.5 L (34.0-46.0) % Lymphocytes # 0.4 L (1.0-4.8) k/uL POC Glucose (mg/dL) 198 H (75-99) mg/dL Assessment and Plan Plan: Assessment Chest pain acute myocardial infarction post cardiac cath with stents LAD History of intermittent paroxysmal atrial fibrillation on no requests Hypertension Plan Continue consultation with cardiology regarding hypertension
[2018-01-31] MEDS: CARVEDILOL 3.125 MG TAB PO SCH (16:08)
[2018-01-31] MEDS: ATORVASTATIN 40 MG TAB PO SCH (20:12)
[2018-01-31 21:31] VITALS: PULSE 74
[2018-02-01 06:20] LABS: Basophils % (A) 0 %; Eosinophils # (A) 0.2 k/uL (0-0.7); Eosinophils % (A) 3 %; HCT 23.6 % (34.0-46.0); HGB 7.7 gm/dL (11.4-16.0); Lymphocytes # (A) 0.5 k/uL (1.0-4.8); Lymphocytes % (A) 10 %; MCH 29.1 pg (25.0-35.0); MCHC 32.8 g/dL (31.0-37.0); MCV 88.8 fL (80.0-100.0); Mean Platelet Volume 7.1; Monocytes # (A) 0.5 k/uL (0-1.0); Monocytes % (A) 9 %; Neutrophils # (A) 4.1 k/uL (1.3-7.7); Neutrophils % (A) 76 %; Platelet Count 241 k/uL (150-450); RBC 2.66 m/uL (3.80-5.40); RDW 14.3 % (11.5-15.5); WBC 5.3 k/uL (3.8-10.6)
[2018-02-01] MEDS: CARVEDILOL 3.125 MG TAB PO SCH (06:33)
[2018-02-01] MEDS: FAMOTIDINE 20 MG TAB PO SCH (07:29)
[2018-02-01] MEDS: CLOPIDOGREL 75 MG TAB PO SCH (07:29)
[2018-02-01] MEDS: ASPIRIN 81 MG PO SCH (07:29)
[2018-02-01] MEDS: DOXAZOSIN 4 MG TAB PO SCH (07:29)
[2018-02-01] MEDS: busPIRone HCl 10 MG TAB PO SCH (07:30)
[2018-02-01] MEDS: cloNIDine HCL 0.2 MG TAB PO SCH (07:30)
[2018-02-01] MEDS: hydrALAZINE HCL 50 MG TAB PO SCH ×2 (07:30→11:47)
[2018-02-01] MEDS: SPIRONOLACTONE 25 MG TAB PO SCH (07:30)
[2018-02-01] MEDS: MAGNESIUM OXIDE 400 MG TAB PO SCH (07:30)
[2018-02-01] MEDS: TIMOLOL 0.5% OPHTH DROPS 5 ML BTL BOTH EYES SCH (07:30)
[2018-02-01 07:39] VITALS: RESP 19
[2018-02-01] MEDS: LOSARTAN 50 MG TAB PO SCH (08:37)
--- NOTE | 2018-02-01 12:00 | P.PN ---
Subjective Progress Note Date: 02/01/18 Principal diagnosis: Non-STEMI, hypertension This is a pleasant 82-year-old female who presented to the hospital with a non-ST elevation myocardial infarction. She was taken to the cardiac catheterization lab by Dr. Noel, subsequently underwent PTCA and stenting of a restenotic lesion in the proximal and mid LAD. Postprocedure, patient was doing well, denies any chest pain or difficulty in breathing. She was significantly hypertensive, medication adjustments were made yesterday and for this reason her discharge was held until today. This morning she was seen and evaluated, denied any chest discomfort, breathing overall is stable. Initial blood pressure before her medications were given this morning was 170/75, repeat blood pressure after medication administration 128/54 with a heart rate in the 70s, 96% on room air. White blood cell count 5.3, hemoglobin 7.7, platelet count 241. Objective - Vital Signs Vital signs: Vital Signs Temp 97.7 F 02/01/18 07:34 Pulse 74 02/01/18 07:34 Resp 19 02/01/18 07:34 BP 128/54 02/01/18 09:02 Pulse Ox 96 02/01/18 07:34 Intake & Output 01/31/18 02/01/18 02/01/18 18:59 06:59 18:59 Intake Total 180 120 Output Total 375 Balance -195 120 Weight 68.5 kg Intake: Oral 180 120 Output: Urine 375 Other: Voiding Method Toilet Toilet # Voids 1 1 - Exam PHYSICAL EXAMINATION: HEENT: Head is atraumatic, normocephalic. Pupils equal, round. Neck is supple. There is no elevated jugular venous pressure. HEART EXAMINATION: Heart S1, S2 normal. No murmur or gallop heard. CHEST EXAMINATION: Lungs are clear to auscultation and precussion. No chest wall tenderness is noted on palpation or with deep breathing. ABDOMEN: Soft, nontender. Bowel sounds are heard. No organomegaly noted. EXTREMITIES: 2+ peripheral pulses with no evidence of peripheral edema and no calf tenderness noted. NEUROLOGIC patient is awake, alert and oriented -3. . - Labs CBC & Chem 7: 02/01/18 05:54 01/30/18 06:19 Labs: Abnormal Lab Results - Last 24 Hours (Table) 02/01/18 Range/Units 05:54 RBC 2.66 L (3.80-5.40) m/uL Hgb 7.7 L (11.4-16.0) gm/dL Hct 23.6 L (34.0-46.0) % Lymphocytes # 0.5 L (1.0-4.8) k/uL Assessment and Plan Plan: Assessment and plan #1 non-ST elevation myocardial infarction, status post angioplasty and stenting of a restenotic lesion in the LAD. #2 known CAD with prior stenting #3 paroxysmal atrial fibrillation on Eliquis for anticoagulation #4 accelerated hypertension # 5 hyperlipidemia Plan From cardiology's perspective, patient may be able to be discharged home today. We'll make her a follow-up appointment to see Dr. Noel in the office post discharge. Patient will be discharged home on aspirin 81 mg daily, Lipitor 40 mg daily, Coreg 3.125 mg twice a day, clonidine 0.2 mg 3 times a day, Plavix 75 mg daily, Cardura 4 mg daily, losartan 75 mg by mouth twice a day, Aldactone 25 mg one tablet by mouth twice a day and sublingual nitroglycerin as needed for chest pain. DNP note has been reviewed, I agree with a documented findings and plan of care. Patient was seen and examined.
--- NOTE | 2018-02-01 12:01 | P.DS ---
Providers Date of admission: 01/28/18 07:13 Expected date of discharge: 02/01/18 Attending physician: Lj Sanchez Consults: 01/28/18 07:13 Consult Physician Urgent Consulting Provider: David Mejia Consult Reason/Comments: cp Do you want consulting provider notified?: Yes 01/29/18 10:58 Consult Physician Routine Consulting Provider: [facility] Consult Reason/Comments: Post Interventional patient Do you want consulting provider notified?: Already Contacted Primary care physician: Lj Sanchez Hospital Course: 82-year-old female was admitted to the emergency room with complaints of chest pain. Patient was taken to the Protective Services Case Worker and send it to the LAD. Patient was diagnosed as acute myocardial infarction. Hypertension uncontrolled medication adjustment per cardiology. Assessment chest pain acute myocardial infarction post cardiac cath was stent to LAD history of atrial fibrillation paroxysmal hypertension Plan discharge home with follow up to cardiology and family physician Dr. Sanchez medication adjusted for hypertension Patient Condition at Discharge: Stable Plan - Discharge Summary Discharge Rx Participant: Yes New Discharge Prescriptions: New Aspirin 81 mg PO DAILY chew Carvedilol [Coreg] 3.125 mg PO BID-W/MEALS 30 Days #60 tab Continue busPIRone HCl [Buspar] 10 mg PO BID Timolol 0.5% Ophth Soln [Timoptic 0.5% Ophth Soln] 1 drop BOTH EYES DAILY Atorvastatin [Lipitor] 40 mg PO HS #30 tab Clopidogrel [Plavix] 75 mg PO DAILY #30 tab Acetaminophen Tab [Tylenol] 650 mg PO Q6HR PRN tab PRN Reason: Fever And/ Or Pain Doxazosin [Cardura] 4 mg PO DAILY #30 tab hydrALAZINE HCL [Apresoline] 100 mg PO QID #0 cloNIDine HCL [Catapres] 0.2 mg PO TID #30 tab Famotidine [Pepcid] 20 mg PO DAILY #30 tab Losartan [Cozaar] 50 mg PO BID #30 tab Magnesium Oxide [Mag-Ox] 400 mg PO DAILY #30 tab Spironolactone [Aldactone] 25 mg PO BID@0900,1600 #30 tab Discontinued Metoprolol Tartrate [Lopressor] 12.5 mg PO DAILY #30 tab Apixaban [Eliquis] 2.5 mg PO BID #60 tab Discharge Medication List busPIRone HCl [Buspar] 10 mg PO BID 09/29/15 [History] Timolol 0.5% Ophth Soln [Timoptic 0.5% Ophth Soln] 1 drop BOTH EYES DAILY [History] Atorvastatin [Lipitor] 40 mg PO HS #30 tab 04/19/17 [Rx] Clopidogrel [Plavix] 75 mg PO DAILY #30 tab 04/19/17 [Rx] Acetaminophen Tab [Tylenol] 650 mg PO Q6HR PRN tab 11/03/17 [Rx] Doxazosin [Cardura] 4 mg PO DAILY #30 tab 11/03/17 [Rx] hydrALAZINE HCL [Apresoline] 100 mg PO QID #0 11/03/17 [Rx] Famotidine [Pepcid] 20 mg PO DAILY #30 tab 11/16/17 [Rx] Losartan [Cozaar] 50 mg PO BID #30 tab 11/16/17 [Rx] Magnesium Oxide [Mag-Ox] 400 mg PO DAILY #30 tab 11/16/17 [Rx] Spironolactone [Aldactone] 25 mg PO BID@0900,1600 #30 tab 11/16/17 [Rx] cloNIDine HCL [Catapres] 0.2 mg PO TID #30 tab 11/16/17 [Rx] Aspirin 81 mg PO DAILY chew 02/01/18 [Rx] Carvedilol [Coreg] 3.125 mg PO BID-W/MEALS 30 Days #60 tab 02/01/18 [Rx] Follow up Appointment(s)/Referral(s): Lj Sanchez MD [Primary Care Provider] - 02/08/18 9:30 am () Tab Noel MD [STAFF PHYSICIAN] - 02/06/18 3:45 pm (monday) Patient Instructions/Handouts: *Surgery [facility] - After Heart Catheterization - [employer]er Instructions, Heart Healthy Diet (DC), Coronary Intravascular Stent Placement (DC)
[2018-02-01 13:19] VITALS: BP 143/63; TEMP 97.6
== END 2018-02-01 13:52 | disposition home or self-care (01) | DRG 247 ==
LOC: EC 05:18 → OBSVTOIN 07:13 → 3OBS 07:13 → 6SEL 12:38
PROVIDERS: ADMIT Family Medicine; ATTEND Family Medicine
PROC: B2111ZZ Fluoroscopy of Multiple Coronary Arteries using Low Osmolar Contrast (ICD-10-PCS; 2018-01-29)
PROC: 027035Z Dilation of Coronary Artery, One Artery with Two Drug-eluting Intraluminal Devices, Percutaneous Approach (ICD-10-PCS; principal; 2018-01-29 08:45)
PROC: 4A023N7 Measurement of Cardiac Sampling and Pressure, Left Heart, Percutaneous Approach (ICD-10-PCS; 2018-01-29 08:45)
DX: I21.4 Non-ST elevation (NSTEMI) myocardial infarction (principal); T82.855A Stenosis of coronary artery stent, initial encounter; I48.0 Paroxysmal atrial fibrillation; E78.5 Hyperlipidemia, unspecified; H91.92 Unspecified hearing loss, left ear; I10 Essential (primary) hypertension; I25.2 Old myocardial infarction; F32.9 Major depressive disorder, single episode, unspecified; F41.9 Anxiety disorder, unspecified; M19.90 Unspecified osteoarthritis, unspecified site; R01.1 Cardiac murmur, unspecified; I25.10 Atherosclerotic heart disease of native coronary artery without angina pectoris; Z79.01 Long term (current) use of anticoagulants; Z79.02 Long term (current) use of antithrombotics/antiplatelets; Z79.899 Other long term (current) drug therapy; Z88.1 Allergy status to other antibiotic agents; Z88.8 Allergy status to other drugs, medicaments and biological substances; Z91.048 Other nonmedicinal substance allergy status; Z90.710 Acquired absence of both cervix and uterus; Z82.49 Family history of ischemic heart disease and other diseases of the circulatory system
CPT/HCPCS: 36415; 71275; 80048; 80053; 80061; 82550; 82553; 83690; 83735; 83880; 84484; 85025; 85610; 85730; 93005; 93458; 96361; 96374; 96375; 99285

== ENCOUNTER → 2018-02-27 | Outpatient (CLI) | payer MEDICARE, BC ==
--- NOTE | 2018-03-02 09:16 | MM ---
Reason for exam: screening (asymptomatic). Last mammogram was performed 1 year and 1 month ago. History: Patient is postmenopausal. Physical Findings: A clinical breast exam by your physician is recommended on an annual basis and results should be correlated with mammographic findings. MG 3D Screening Mammo W/Cad Bilateral CC and MLO view(s) were taken. Prior study comparison: February 02, 2017, bilateral MG 3d screening mammo w/cad. June 22, 2016, right breast MG diagnostic mammo RT w CAD. The breast tissue is heterogeneously dense. This may lower the sensitivity of mammography. Finding: There are typically benign dystrophic, round, diffuse/scattered and grouped calcifications in both breasts. There is a chronic nodularity in the right breast. There is no discrete abnormality. Grouped indeterminate calcifications middle depth outer aspect left breast. New finding and increase in number of calcifications since February 02, 2017 and June 22, 2016. ASSESSMENT: Incomplete: need additional imaging evaluation, BI-RAD 0 RECOMMENDATION: Special view mammogram of the left breast. [facility] will attempt to contact patient to return for supplemental views.
== END | disposition home or self-care (01) ==
LOC: RADMAMWWP 08:47
PROVIDERS: ATTEND Family Medicine
DX: Z12.31 Encounter for screening mammogram for malignant neoplasm of breast (principal)
CPT/HCPCS: 77063; 77067

== ENCOUNTER → 2018-03-12 | Outpatient (CLI) | payer MEDICARE, BC ==
--- NOTE | 2018-03-13 08:56 | MM ---
Reason for exam: additional evaluation requested from abnormal screening. Last mammogram was performed less than 1 month ago. History: Patient is postmenopausal. Physical Findings: Nurse did not find any significant physical abnormalities on exam. MG 3D Work Up W/Cad LT CC with magnification, ML with magnification, and ML view(s) were taken of the left breast. Prior study comparison: February 27, 2018, bilateral MG 3d screening mammo w/cad. February 02, 2017, bilateral MG 3d screening mammo w/cad. The breast tissue is heterogeneously dense. This may lower the sensitivity of mammography. There is a 3mm group of coarse heterogeneous calcifications in the lower outer quadrant at middle depth unchanged from 02/02/17 but new from 06/22/16. These results were verbally communicated with the patient and result sheet given to the patient on 03/12/18. ASSESSMENT: Probably benign, BI-RAD 3 RECOMMENDATION: Follow-up diagnostic mammogram of the left breast in 6 months. (mag views)
== END | disposition home or self-care (01) ==
LOC: RADMAMWWP 09:10
PROVIDERS: ATTEND Family Medicine
DX: R92.8 Other abnormal and inconclusive findings on diagnostic imaging of breast (principal)
CPT/HCPCS: 77065; G0279

== ENCOUNTER 2018-06-25 13:53 | Emergency (ER) | payer MEDICARE, BC ==
[2018-06-25] MEDS ORDERED: hydrALAZINE HCL 20 MG/ML 1 ML VIAL IVP STA ×2 (15:45→17:22)
[2018-06-25 16:03] LABS: Albumin 4.4 g/dL (3.5-5.0); Calcium 10.1 mg/dL (8.4-10.2); Potassium 4.6 mmol/L (3.5-5.1); Total Bilirubin 0.4 mg/dL (0.2-1.3); Total Protein 7.4 g/dL (6.3-8.2)
[2018-06-25 16:06] LABS: Basophils % (A) 0 %; Creatine Kinase 46 U/L (30-135); Eosinophils # (A) 0.1 k/uL (0-0.7); Eosinophils % (A) 2 %; HGB 9.2 gm/dL (11.4-16.0); Lymphocytes # (A) 0.4 k/uL (1.0-4.8); Lymphocytes % (A) 6 %; MCH 27.4 pg (25.0-35.0); MCHC 31.6 g/dL (31.0-37.0); MCV 86.6 fL (80.0-100.0); Mean Platelet Volume 6.9; Monocytes # (A) 0.5 k/uL (0-1.0); Monocytes % (A) 8 %; Neutrophils # (A) 5.1 k/uL (1.3-7.7); Neutrophils % (A) 82 %; Platelet Count 270 k/uL (150-450); RBC 3.35 m/uL (3.80-5.40); RDW 14.2 % (11.5-15.5); WBC 6.2 k/uL (3.8-10.6)
[2018-06-25 16:12] LABS: INR 1.1 (<1.2); Prothrombin Time 10.4 sec (9.0-12.0)
--- NOTE | 2018-06-25 16:12 | ED ---
General Adult HPI - General Chief complaint: Recheck/Abnormal Lab/Rx Stated complaint: High BP/not feeling well-sent by Time Seen by Provider: 06/25/18 15:44 Source: patient, RN notes reviewed Mode of arrival: wheelchair Limitations: no limitations - History of Present Illness Initial comments: 83-year-old female presents to the emergency for multiple complaints. Patient states she had high blood pressure and her doctor sent her over. Patient also states her upper legs have felt cold since last night. Patient states her feet feel warm however. Patient states this happened once last week and resolved until last night. Patient denies any trauma to the legs. Patient also admits to mild nausea. Patient denies vomiting. Patient denies nausea at this time. Patient has no other complaints at this time including shortness of breath, chest pain, abdominal pain, nausea or vomiting, headache, or visual changes. - Related Data Home Medications Medication Instructions Recorded Confirmed busPIRone HCl [Buspar] 10 mg PO BID 09/29/15 06/25/18 Timolol 0.5% Ophth Soln [Timoptic 1 drop BOTH EYES DAILY 09/29/16 06/25/18 0.5% Ophth Soln] Apixaban [Eliquis] 2.5 mg PO BID 02/01/18 06/25/18 Carvedilol [Coreg] 3.125 mg PO AC-BID 06/25/18 06/25/18 Previous Rx's Medication Instructions Recorded Atorvastatin [Lipitor] 40 mg PO HS #30 tab 04/19/17 Clopidogrel [Plavix] 75 mg PO DAILY #30 tab 04/19/17 Acetaminophen Tab [Tylenol] 650 mg PO Q6HR PRN tab 11/03/17 Doxazosin [Cardura] 4 mg PO DAILY #30 tab 11/03/17 hydrALAZINE HCL [Apresoline] 100 mg PO QID #0 11/03/17 Famotidine [Pepcid] 20 mg PO DAILY #30 tab 11/16/17 Losartan [Cozaar] 50 mg PO BID #30 tab 11/16/17 Magnesium Oxide [Mag-Ox] 400 mg PO DAILY #30 tab 11/16/17 Spironolactone [Aldactone] 25 mg PO BID@0900,1600 #30 tab 11/16/17 cloNIDine HCL [Catapres] 0.2 mg PO TID #30 tab 12/28/17 Aspirin 81 mg PO DAILY chew 02/01/18 Allergies Allergy/AdvReac Type Severity Reaction Status Date / Time clindamycin Allergy Unknown Verified 06/25/18 16:13 prednisone Allergy Unknown Verified 06/25/18 16:13 adhesive tape AdvReac Severe Skin Verified 06/25/18 16:13 Irritation/Peeling allopurinol AdvReac Severe Nausea & Verified 06/25/18 16:13 Vomiting amlodipine besylate AdvReac Severe Nausea & Verified 06/25/18 16:13 [From Norvasc] Vomiting celecoxib [From Celebrex] AdvReac Severe Nausea & Verified 06/25/18 16:13 Vomiting clonidine HCl [From Catapres] AdvReac Severe Nausea & Verified 06/25/18 16:13 Vomiting diclofenac AdvReac Severe Nausea & Verified 06/25/18 16:13 Vomiting isosorbide AdvReac Severe Nausea & Verified 06/25/18 16:13 Vomiting methylprednisolone AdvReac Severe Nausea & Verified 06/25/18 16:13 Vomiting metoprolol tartrate AdvReac Severe Nausea & Verified 06/25/18 16:13 [From Lopressor] Vomiting misoprostol AdvReac Severe Nausea & Verified 06/25/18 16:13 Vomiting rabeprazole sodium AdvReac Severe Nausea & Verified 06/25/18 16:13 [From Aciphex] Vomiting Sulfa (Sulfonamide AdvReac Severe Nausea & Verified 06/25/18 16:13 Antibiotics) Vomiting Review of Systems ROS Statement: Those systems with pertinent positive or pertinent negative responses have been documented in the HPI. ROS Other: All systems not noted in ROS Statement are negative. Past Medical History Past Medical History: Hearing Disorder / Deafness, Hypertension, Osteoarthritis (OA) Additional Past Medical History / Comment(s): left ear deaf History of Any Multi-Drug Resistant Organisms: None Reported Past Surgical History: Appendectomy, Section, Heart Catheterization, Hysterectomy, Tonsillectomy Past Anesthesia/Blood Transfusion Reactions: No Reported Reaction Past Psychological History: Anxiety, Depression Smoking Status: Never smoker Past Alcohol Use History: None Reported Past Drug Use History: None Reported - Past Family History Father Family Medical History: Coronary Artery Disease (CAD) Mother Family Medical History: Coronary Artery Disease (CAD), Myocardial Infarction ([place] ) Brother(s) Family Medical History: Cancer Additional Family Medical History / Comment(s): one brother leukemia. another brother CA all over internally General Exam Limitations: no limitations General appearance: alert, in no apparent distress Head exam: Present: atraumatic, normocephalic, normal inspection Eye exam: Present: normal appearance. Absent: scleral icterus, conjunctival injection ENT exam: Present: normal exam, normal oropharynx, mucous membranes moist, TM's normal bilaterally, normal external ear exam Neck exam: Present: normal inspection, full ROM. Absent: tenderness, meningismus, lymphadenopathy Respiratory exam: Present: normal lung sounds bilaterally. Absent: respiratory distress, wheezes, rales, rhonchi, stridor Cardiovascular Exam: Present: regular rate, normal rhythm, normal heart sounds. Absent: systolic murmur, diastolic murmur, rubs, gallop, clicks GI/Abdominal exam: Present: soft, normal bowel sounds. Absent: distended, tenderness, guarding, rebound, rigid Extremities exam: Present: full ROM (Full range of motion of lower extremities bilaterally), normal capillary refill (Capillary refill less than 2 seconds and pedal pulse 2+ in lower extremities bilaterally. Both legs feel warm to touch) , other (Sensation intact in lower extremities bilaterally). Absent: tenderness (No tenderness in the lower extremities bilaterally), pedal edema, joint swelling, calf tenderness Course Vital Signs 06/25/18 06/25/18 14:19 16:35 Temperature 97.7 F 97.7 F Pulse Rate 67 60 Respiratory 20 18 Rate Blood Pressure 216/72 191/82 O2 Sat by Pulse 96 97 Oximetry EKG Findings - EKG Comments: EKG Findings:: NSR with 1st degree AV block, vent rate 69, pr interval 214, QRS duration 96 Medical Decision Making - Medical Decision Making 83-year-old female presents to the emergency department for a chief complaint of high blood pressure and legs feeling cold. Patient denies any headache shortness of breath or chest pain at this time. On exam patient has warm extremities bilaterally with pedal pulses 2+. EKG shows sinus rhythm with a first-degree block. No evidence of ST elevation or depression. Patient has a hemoglobin of 9.2 which is increased from last month. Creatinine 1.35 which is also consistent with past readings. BNP 750. Troponin less than 0.012 and cardiac profile negative. No evidence of infection in the urine. Patient's blood pressure decreased from 216/72-174/76 with hydralazine. At this time patient's blood pressure is more controlled. Patient denies any headache shortness of breath or chest pain. She will follow up with primary care in 1-2 days. She is to continue her blood pressure medications until that time. She is to return to the emergency department if she has any worsening symptoms. - Lab Data Result diagrams: 06/25/18 15:38 06/25/18 15:38 Lab Results 06/25/18 06/25/18 06/25/18 Range/Units 15:38 15:38 15:38 WBC 6.2 (3.8-10.6) k/uL RBC 3.35 L (3.80-5.40) m/uL Hgb 9.2 L (11.4-16.0) gm/dL Hct 29.0 L (34.0-46.0) % MCV 86.6 (80.0-100.0) fL MCH 27.4 (25.0-35.0) pg MCHC 31.6 (31.0-37.0) g/dL RDW 14.2 (11.5-15.5) % Plt Count 270 (150-450) k/uL Neutrophils % 82 % Lymphocytes % 6 % Monocytes % 8 % Eosinophils % 2 % Basophils % 0 % Neutrophils # 5.1 (1.3-7.7) k/uL Lymphocytes # 0.4 L (1.0-4.8) k/uL Monocytes # 0.5 (0-1.0) k/uL Eosinophils # 0.1 (0-0.7) k/uL Basophils # 0.0 (0-0.2) k/uL PT (9.0-12.0) sec INR (<1.2) APTT (22.0-30.0) sec Sodium 133 L (137-145) mmol/L Potassium 4.6 (3.5-5.1) mmol/L Chloride 103 (98-107) mmol/L Carbon Dioxide 19 L (22-30) mmol/L Anion Gap 11 mmol/L BUN 33 H (7-17) mg/dL Creatinine 1.35 H (0.52-1.04) mg/dL Est GFR (CKD-EPI)AfAm 42 (>60 ml/min/1.73 sqM) Est GFR (CKD-EPI)NonAf 36 (>60 ml/min/1.73 sqM) Glucose 118 H (74-99) mg/dL Calcium 10.1 (8.4-10.2) mg/dL Total Bilirubin 0.4 (0.2-1.3) mg/dL AST 21 (14-36) U/L ALT 28 (9-52) U/L Alkaline Phosphatase 74 (38-126) U/L Total Creatine Kinase 46 (30-135) U/L CK-MB (CK-2) 0.9 (0.0-2.4) ng/mL CK-MB (CK-2) Rel Index 2.0 Troponin I <0.012 (0.000-0.034) ng/mL NT-Pro-B Natriuret Pep pg/mL Total Protein 7.4 (6.3-8.2) g/dL Albumin 4.4 (3.5-5.0) g/dL Amylase 56 (30-110) U/L Lipase 233 (23-300) U/L Urine Color Urine Appearance (Clear) Urine pH (5.0-8.0) Ur Specific Dewey (1.001-1.035) Urine Protein (Negative) Urine Glucose (UA) (Negative) Urine Ketones (Negative) Urine Blood (Negative) Urine Nitrite (Negative) Urine Bilirubin (Negative) Urine Urobilinogen (<2.0) mg/dL Ur Leukocyte Esterase (Negative) Urine RBC (0-5) /hpf Urine WBC (0-5) /hpf Urine Mucus (None) /hpf 06/25/18 06/25/18 06/25/18 Range/Units 15:38 15:38 17:47 WBC (3.8-10.6) k/uL RBC (3.80-5.40) m/uL Hgb (11.4-16.0) gm/dL Hct (34.0-46.0) % MCV (80.0-100.0) fL MCH (25.0-35.0) pg MCHC (31.0-37.0) g/dL RDW (11.5-15.5) % Plt Count (150-450) k/uL Neutrophils % % Lymphocytes % % Monocytes % % Eosinophils % % Basophils % % Neutrophils # (1.3-7.7) k/uL Lymphocytes # (1.0-4.8) k/uL Monocytes # (0-1.0) k/uL Eosinophils # (0-0.7) k/uL Basophils # (0-0.2) k/uL PT 10.4 (9.0-12.0) sec INR 1.1 (<1.2) APTT 29.0 (22.0-30.0) sec Sodium (137-145) mmol/L Potassium (3.5-5.1) mmol/L Chloride (98-107) mmol/L Carbon Dioxide (22-30) mmol/L Anion Gap mmol/L BUN (7-17) mg/dL Creatinine (0.52-1.04) mg/dL Est GFR (CKD-EPI)AfAm (>60 ml/min/1.73 sqM) Est GFR (CKD-EPI)NonAf (>60 ml/min/1.73 sqM) Glucose (74-99) mg/dL Calcium (8.4-10.2) mg/dL Total Bilirubin (0.2-1.3) mg/dL AST (14-36) U/L ALT (9-52) U/L Alkaline Phosphatase (38-126) U/L Total Creatine Kinase (30-135) U/L CK-MB (CK-2) (0.0-2.4) ng/mL CK-MB (CK-2) Rel Index Troponin I (0.000-0.034) ng/mL NT-Pro-B Natriuret Pep 750 pg/mL Total Protein (6.3-8.2) g/dL Albumin (3.5-5.0) g/dL Amylase (30-110) U/L Lipase (23-300) U/L Urine Color Light Yellow Urine Appearance Clear (Clear) Urine pH 5.5 (5.0-8.0) Ur Specific [place]wey 1.007 (1.001-1.035) Urine Protein Negative (Negative) Urine Glucose (UA) Negative (Negative) Urine Ketones Negative (Negative) Urine Blood Negative (Negative) Urine Nitrite Negative (Negative) Urine Bilirubin Negative (Negative) Urine Urobilinogen <2.0 (<2.0) mg/dL Ur Leukocyte Esterase Trace H (Negative) Urine RBC 1 (0-5) /hpf Urine WBC 2 (0-5) /hpf Urine Mucus Rare H (None) /hpf Disposition Clinical Impression: Hypertension Disposition: HOME SELF-CARE Condition: Good Instructions: Hypertension (ED), Low Sodium Diet (ED) Additional Instructions: Please continue to take blood pressure medications as directed, including tonight. Please follow-up with primary care provider in one to 2 days. Return to the emergency department if you have any worsening symptoms. Is patient prescribed a controlled substance at d/c from ED?: No Referrals: Lj Sanchez MD [Primary Care Provider] - 1-2 days Time of Disposition: 18:53
[2018-06-25 16:19] LABS: Creatine Kinase MB 0.9 ng/mL (0.0-2.4); Troponin I <0.012 ng/mL (0.000-0.034)
[2018-06-25 18:07] LABS: Appearance,Urine Clear (Clear); Bilirubin,Urine Negative (Negative); Blood,Urine Negative (Negative); Color,Urine Light Yellow; Glucose,Urine (UA) Negative (Negative); Ketones,Urine Negative (Negative); Leukocyte Esterase,Urine Trace (Negative); Mucus,Urine Rare /hpf; Nitrite,Urine Negative (Negative); PH, Urine 5.5 (5.0-8.0); Protein,Urine Negative (Negative); RBC,Urine 1 /hpf (0-5); Specific Gravity,Urine 1.007 (1.001-1.035); Urobilinogen,Urine <2.0 mg/dL (<2.0); WBC,Urine 2 /hpf (0-5)
--- NOTE | 2018-06-25 18:54 | XR ---
EXAMINATION: XR chest 2V DATE AND TIME: 06/25/2018 6:01 PM ORDERING PROVIDER: Maik Mcarthur CLINICAL INDICATION: Pain TECHNIQUE: AP and lateral COMPARISON: 11/12/2017 DESCRIPTION: The lungs are clear. The pleural spaces are negative. The cardiac silhouette is not enlarged. The mediastinal and pleural silhouettes are unremarkable. The skeletal structures are intact without focal findings. The soft tissues are unremarkable. IMPRESSION: NO ACUTE PROCESS.
[2018-06-25 19:15] VITALS: BP 170/78; PULSE 82; RESP 16; TEMP 98.2
== END 2018-06-25 19:00 | disposition home or self-care (01) ==
LOC: EC 13:53
DX: I10 Essential (primary) hypertension (principal); I44.0 Atrioventricular block, first degree; H91.90 Unspecified hearing loss, unspecified ear; F41.9 Anxiety disorder, unspecified; F32.9 Major depressive disorder, single episode, unspecified; Z79.01 Long term (current) use of anticoagulants; Z79.899 Other long term (current) drug therapy; Z88.1 Allergy status to other antibiotic agents; Z88.2 Allergy status to sulfonamides; Z88.6 Allergy status to analgesic agent; Z88.8 Allergy status to other drugs, medicaments and biological substances; Z91.048 Other nonmedicinal substance allergy status; Z82.49 Family history of ischemic heart disease and other diseases of the circulatory system
CPT/HCPCS: 36415; 93005; 83880; 80053; 82150; 82550; 82553; 83690; 84484; 85025; 85610; 85730; 81001; 71046; 99284; 96374; J0360

== ENCOUNTER 2018-09-13 07:43 | Observation (INO) | payer MEDICARE, BC ==
[2018-09-13] MEDS ORDERED: ONDANSETRON 4 MG/2 ML VIAL IVP STA (08:01)
[2018-09-13] MEDS ORDERED: ASPIRIN 81 MG PO STA (08:01)
--- NOTE | 2018-09-13 08:07 | ED ---
General Adult HPI - General Chief complaint: Shortness of Breath Stated complaint: SOB Time Seen by Provider: 09/13/18 07:53 Source: patient, family Mode of arrival: ambulatory Limitations: no limitations - History of Present Illness Initial comments: Patient is a pleasant 83-year-old female presenting to the emergency department with complaints of left arm feel funny. Onset of symptoms was this morning. Patient denies any chest discomfort. Patient did have similar arm, leg years ago associated with her heart attack however she had chest discomfort at that time. Patient does admit to having some associated nausea. Patient states sometimes he feels nauseous from taking her medications. Patient did take some of her medications this morning. Patient has been having exertional dyspnea for the past couple of months. No dyspnea at rest. No leg pain or leg swelling. No fevers or cough. - Related Data Home Medications Medication Instructions Recorded Confirmed busPIRone HCl [Buspar] 10 mg PO BID 09/29/15 09/13/18 Timolol 0.5% Ophth Soln [Timoptic 1 drop BOTH EYES DAILY 09/29/16 09/13/18 0.5% Ophth Soln] Apixaban [Eliquis] 2.5 mg PO BID 02/01/18 09/13/18 Carvedilol [Coreg] 3.125 mg PO AC-BID 06/25/18 09/13/18 Previous Rx's Medication Instructions Recorded Atorvastatin [Lipitor] 40 mg PO HS #30 tab 04/19/17 Clopidogrel [Plavix] 75 mg PO DAILY #30 tab 04/19/17 Doxazosin [Cardura] 4 mg PO DAILY #30 tab 11/03/17 hydrALAZINE HCL [Apresoline] 100 mg PO QID #0 11/03/17 Famotidine [Pepcid] 20 mg PO DAILY #30 tab 11/16/17 Losartan [Cozaar] 50 mg PO BID #30 tab 11/16/17 Magnesium Oxide [Mag-Ox] 400 mg PO DAILY #30 tab 11/16/17 Spironolactone [Aldactone] 25 mg PO BID@0900,1600 #30 tab 11/16/17 cloNIDine HCL [Catapres] 0.2 mg PO TID #30 tab 11/16/17 Aspirin 81 mg PO DAILY chew 02/01/18 Allergies Allergy/AdvReac Type Severity Reaction Status Date / Time clindamycin Allergy Unknown Verified 09/13/18 08:53 prednisone Allergy Unknown Verified 09/13/18 08:53 adhesive tape AdvReac Severe Skin Verified 09/13/18 08:53 Irritation/Peeling allopurinol AdvReac Severe Nausea & Verified 09/13/18 08:53 Vomiting amlodipine besylate AdvReac Severe Nausea & Verified 09/13/18 08:53 [From Norvasc] Vomiting celecoxib [From Celebrex] AdvReac Severe Nausea & Verified 09/13/18 08:53 Vomiting clonidine HCl [From Catapres] AdvReac Severe Nausea & Verified 09/13/18 08:53 Vomiting diclofenac AdvReac Severe Nausea & Verified 09/13/18 08:53 Vomiting isosorbide AdvReac Severe Nausea & Verified 09/13/18 08:53 Vomiting methylprednisolone AdvReac Severe Nausea & Verified 09/13/18 08:53 Vomiting metoprolol tartrate AdvReac Severe Nausea & Verified 09/13/18 08:53 [From Lopressor] Vomiting misoprostol AdvReac Severe Nausea & Verified 09/13/18 08:53 Vomiting rabeprazole sodium AdvReac Severe Nausea & Verified 09/13/18 08:53 [From Aciphex] Vomiting Sulfa (Sulfonamide AdvReac Severe Nausea & Verified 09/13/18 08:53 Antibiotics) Vomiting oseltamivir AdvReac Unknown Verified 09/13/18 08:53 Review of Systems ROS Statement: Those systems with pertinent positive or pertinent negative responses have been documented in the HPI. ROS Other: All systems not noted in ROS Statement are negative. Constitutional: Denies: fever Eyes: Denies: eye pain ENT: Denies: ear pain Respiratory: Reports: dyspnea (Exertional). Denies: cough Cardiovascular: Denies: chest pain Endocrine: Denies: fatigue Gastrointestinal: Reports: nausea. Denies: abdominal pain Genitourinary: Denies: dysuria Musculoskeletal: Denies: back pain Skin: Denies: rash Neurological: Denies: weakness Past Medical History Past Medical History: Coronary Artery Disease (CAD), Hearing Disorder / Deafness , Hypertension, Osteoarthritis (OA) Additional Past Medical History / Comment(s): left ear deaf History of Any Multi-Drug Resistant Organisms: None Reported Past Surgical History: Appendectomy, Section, Heart Catheterization, Heart Catheterization With Stent, Hysterectomy, Tonsillectomy Past Anesthesia/Blood Transfusion Reactions: No Reported Reaction Past Psychological History: Anxiety, Depression Smoking Status: Never smoker Past Alcohol Use History: None Reported Past Drug Use History: None Reported - Past Family History Father Family Medical History: Coronary Artery Disease (CAD) Mother Family Medical History: Coronary Artery Disease (CAD), Myocardial Infarction ([place] ) Brother(s) Family Medical History: Cancer Additional Family Medical History / Comment(s): one brother leukemia. another brother CA all over internally General Exam Limitations: no limitations General appearance: alert, in no apparent distress Head exam: Present: atraumatic Eye exam: Present: normal appearance, PERRL, EOMI ENT exam: Present: normal oropharynx Neck exam: Present: normal inspection Respiratory exam: Present: normal lung sounds bilaterally. Absent: chest wall tenderness Cardiovascular Exam: Present: regular rate, irregular rhythm Expanded Peripheral pulses: 2+: Radial (R), Radial (L), Posterior Tibialis (R), Posterior Tibialis (L) GI/Abdominal exam: Present: soft, normal bowel sounds. Absent: distended, tenderness, pulsatile mass Extremities exam: Present: normal inspection. Absent: pedal edema, calf tenderness Neurological exam: Present: alert, oriented X3, CN II-XII intact. Absent: motor sensory deficit Expanded Cranial nerves: EOM's Intact: Normal Sensory exam: Upper Extremity Light Touch: Normal, Lower Extremity Light Touch: Normal Motor strength exam: RUE: 5, LUE: 5, RLE: 5, LLE: 5 Eye Response: (4) open spontaneously Motor Response: (6) obeys commands Verbal Response: (5) oriented Psychiatric exam: Present: normal affect, normal mood Skin exam: Present: normal color Course Vital Signs 09/13/18 09/13/18 07:46 08:30 Temperature 97.6 F Pulse Rate 78 70 Respiratory 16 25 H Rate Blood Pressure 195/77 152/78 O2 Sat by Pulse 98 98 Oximetry EKG Findings - EKG Comments: EKG Findings:: A. fib with rate of 81. QRS 84. QT 372. QTC 432. Normal axis. Normal QRS. No acute ST change. Medical Decision Making - Medical Decision Making Patient reevaluated and updated. Case discussed with linda Avendaño for Dr. Sanchez, who will admit for cardiac evaluation. - Lab Data Result diagrams: 09/13/18 09:01 09/13/18 08:04 Lab Results 09/13/18 09/13/18 09/13/18 Range/Units 08:04 08:04 08:04 WBC (3.8-10.6) k/uL RBC (3.80-5.40) m/uL Hgb (11.4-16.0) gm/dL Hct (34.0-46.0) % MCV (80.0-100.0) fL MCH (25.0-35.0) pg MCHC (31.0-37.0) g/dL RDW (11.5-15.5) % Plt Count (150-450) k/uL Neutrophils % % Lymphocytes % % Monocytes % % Eosinophils % % Basophils % % Neutrophils # (1.3-7.7) k/uL Lymphocytes # (1.0-4.8) k/uL Monocytes # (0-1.0) k/uL Eosinophils # (0-0.7) k/uL Basophils # (0-0.2) k/uL PT 10.2 (9.0-12.0) sec INR 1.0 (<1.2) APTT 26.5 (22.0-30.0) sec Sodium 135 L (137-145) mmol/L Potassium (3.5-5.1) mmol/L Chloride 107 (98-107) mmol/L Carbon Dioxide 17 L (22-30) mmol/L Anion Gap 11 mmol/L BUN 31 H (7-17) mg/dL Creatinine 1.29 H (0.52-1.04) mg/dL Est GFR (CKD-EPI)AfAm 44 (>60 ml/min/1.73 sqM) Est GFR (CKD-EPI)NonAf 38 (>60 ml/min/1.73 sqM) Glucose 104 H (74-99) mg/dL Calcium 10.2 (8.4-10.2) mg/dL Magnesium 1.7 (1.6-2.3) mg/dL Total Bilirubin 0.5 (0.2-1.3) mg/dL AST 23 (14-36) U/L ALT 28 (9-52) U/L Alkaline Phosphatase 65 (38-126) U/L Total Creatine Kinase 29 L (30-135) U/L CK-MB (CK-2) 0.7 (0.0-2.4) ng/mL CK-MB (CK-2) Rel Index 2.4 Troponin I <0.012 (0.000-0.034) ng/mL NT-Pro-B Natriuret Pep pg/mL Total Protein 7.6 (6.3-8.2) g/dL Albumin 4.1 (3.5-5.0) g/dL Amylase 69 (30-110) U/L Lipase 203 (23-300) U/L 09/13/18 09/13/18 Range/Units 09:01 09:01 WBC 7.0 (3.8-10.6) k/uL RBC 3.16 L (3.80-5.40) m/uL Hgb 9.1 L (11.4-16.0) gm/dL Hct 28.5 L (34.0-46.0) % MCV 90.3 (80.0-100.0) fL MCH 28.7 (25.0-35.0) pg MCHC 31.8 (31.0-37.0) g/dL RDW 14.6 (11.5-15.5) % Plt Count 295 (150-450) k/uL Neutrophils % 81 % Lymphocytes % 8 % Monocytes % 7 % Eosinophils % 2 % Basophils % 0 % Neutrophils # 5.7 (1.3-7.7) k/uL Lymphocytes # 0.6 L (1.0-4.8) k/uL Monocytes # 0.5 (0-1.0) k/uL Eosinophils # 0.1 (0-0.7) k/uL Basophils # 0.0 (0-0.2) k/uL PT (9.0-12.0) sec INR (<1.2) APTT (22.0-30.0) sec Sodium (137-145) mmol/L Potassium (3.5-5.1) mmol/L Chloride (98-107) mmol/L Carbon Dioxide (22-30) mmol/L Anion Gap mmol/L BUN (7-17) mg/dL Creatinine (0.52-1.04) mg/dL Est GFR (CKD-EPI)AfAm (>60 ml/min/1.73 sqM) Est GFR (CKD-EPI)NonAf (>60 ml/min/1.73 sqM) Glucose (74-99) mg/dL Calcium (8.4-10.2) mg/dL Magnesium (1.6-2.3) mg/dL Total Bilirubin (0.2-1.3) mg/dL AST (14-36) U/L ALT (9-52) U/L Alkaline Phosphatase (38-126) U/L Total Creatine Kinase (30-135) U/L CK-MB (CK-2) (0.0-2.4) ng/mL CK-MB (CK-2) Rel Index Troponin I (0.000-0.034) ng/mL NT-Pro-B Natriuret Pep 2210 pg/mL Total Protein (6.3-8.2) g/dL Albumin (3.5-5.0) g/dL Amylase (30-110) U/L Lipase (23-300) U/L - Radiology Data Radiology results: image reviewed (Chest x-ray shows no acute process) Disposition Clinical Impression: Exertional dyspnea Disposition: ADMITTED IP TO THIS HOSP Is patient prescribed a controlled substance at d/c from ED?: No Referrals: Lj Sanchez MD [Primary Care Provider] - 1-2 days Decision Time: 10:27
[2018-09-13 09:01] LABS: Partial Thromboplastin Time 26.5 sec (22.0-30.0); Prothrombin Time 10.2 sec (9.0-12.0)
--- NOTE | 2018-09-13 09:02 | XR ---
EXAMINATION TYPE: XR chest 2V DATE OF EXAM: 09/13/2018 COMPARISON: June 25, 2018 HISTORY: Shortness of breath TECHNIQUE: Frontal and lateral views of the chest are obtained. FINDINGS: Scattered senescent parenchymal changes noted. No evidence for infiltrate. No evidence for atelectasis. Heart size is stable. Mediastinal structures are stable and grossly unremarkable. No evidence for hilar prominence. Degenerative changes dorsal spine. IMPRESSION: 1. No evidence for acute pulmonary disease.
[2018-09-13 09:16] LABS: Basophils % (A) 0 %; Eosinophils # (A) 0.1 k/uL (0-0.7); Eosinophils % (A) 2 %; HCT 28.5 % (34.0-46.0); HGB 9.1 gm/dL (11.4-16.0); Lymphocytes # (A) 0.6 k/uL (1.0-4.8); Lymphocytes % (A) 8 %; MCH 28.7 pg (25.0-35.0); MCHC 31.8 g/dL (31.0-37.0); MCV 90.3 fL (80.0-100.0); Mean Platelet Volume 6.7; Monocytes # (A) 0.5 k/uL (0-1.0); Monocytes % (A) 7 %; Neutrophils # (A) 5.7 k/uL (1.3-7.7); Neutrophils % (A) 81 %; Platelet Count 295 k/uL (150-450); RBC 3.16 m/uL (3.80-5.40); RDW 14.6 % (11.5-15.5)
[2018-09-13 09:25] LABS: Creatine Kinase 29 U/L (30-135)
[2018-09-13 09:38] LABS: Creatine Kinase MB 0.7 ng/mL (0.0-2.4); Troponin I <0.012 ng/mL (0.000-0.034)
[2018-09-13 09:39] LABS: Albumin 4.1 g/dL (3.5-5.0); Calcium 10.2 mg/dL (8.4-10.2); Magnesium 1.7 mg/dL (1.6-2.3); Total Bilirubin 0.5 mg/dL (0.2-1.3); Total Protein 7.6 g/dL (6.3-8.2)
[2018-09-13] MEDS: hydrALAZINE HCL 50 MG TAB PO SCH ×3 (12:33→22:32)
--- NOTE | 2018-09-13 12:53 | P.CONS ---
History of Present Illness - History of Present Illness 83-year-old female presented to family practice physician with complaints of left arm pain and nausea. Patient has a history of atrial fibrillation coronary disease with stents Review of Systems Respiratory: Reports dyspnea Gastrointestinal: Reports nausea Musculoskeletal: Reports arm numbness/tingling Past Medical History Past Medical History: Coronary Artery Disease (CAD), Eye Disorder, Hearing Disorder / Deafness, Hyperlipidemia, Hypertension, Myocardial Infarction ([place]), Osteoarthritis (OA) Additional Past Medical History / Comment(s): Bilateral glaucoma, left ear deaf Last Myocardial Infarction Date:: 01/29/18 History of Any Multi-Drug Resistant Organisms: None Reported Past Surgical History: Appendectomy, Section, Heart Catheterization, Heart Catheterization With Stent, Hysterectomy, Tonsillectomy Additional Past Surgical History / Comment(s): PCI with stent 01/29/18, colonoscopy Past Anesthesia/Blood Transfusion Reactions: Postoperative Nausea & Vomiting ( PONV) Date of Last Stent Placement:: 01/29/18 Smoking Status: Never smoker - Past Family History Father Family Medical History: Coronary Artery Disease (CAD) Additional Family Medical History / Comment(s): Father was healthy. He after his spouse's "he just gave up on life." Mother Family Medical History: Coronary Artery Disease (CAD), Myocardial Infarction ([place] ) Additional Family Medical History / Comment(s): Mother of a Mi at the age of 62 or 63yrs. Brother(s) Family Medical History: Cancer Additional Family Medical History / Comment(s): one brother leukemia. another brother metastatic CA Medications and Allergies Home Medications Medication Instructions Recorded Confirmed Type busPIRone HCl [Buspar] 10 mg PO BID 09/29/15 09/13/18 History Timolol 0.5% Ophth Soln [Timoptic 1 drop BOTH EYES DAILY 09/29/16 09/13/18 History 0.5% Ophth Soln] Atorvastatin [Lipitor] 40 mg PO HS #30 tab 04/19/17 09/13/18 Rx Clopidogrel [Plavix] 75 mg PO DAILY #30 tab 04/19/17 09/13/18 Rx Doxazosin [Cardura] 4 mg PO DAILY #30 tab 11/03/17 09/13/18 Rx hydrALAZINE HCL [Apresoline] 100 mg PO QID #0 11/03/17 09/13/18 Rx Famotidine [Pepcid] 20 mg PO DAILY #30 tab 11/16/17 09/13/18 Rx Losartan [Cozaar] 50 mg PO BID #30 tab 11/16/17 09/13/18 Rx Magnesium Oxide [Mag-Ox] 400 mg PO DAILY #30 tab 11/16/17 09/13/18 Rx Spironolactone [Aldactone] 25 mg PO BID@0900,1600 #30 tab 11/16/17 09/13/18 Rx cloNIDine HCL [Catapres] 0.2 mg PO TID #30 tab 11/16/17 09/13/18 Rx Apixaban [Eliquis] 2.5 mg PO BID 02/01/18 09/13/18 History Aspirin 81 mg PO DAILY chew 02/01/18 09/13/18 Rx Carvedilol [Coreg] 3.125 mg PO AC-BID 06/25/18 09/13/18 History Allergies Allergy/AdvReac Type Severity Reaction Status Date / Time clindamycin Allergy Unknown Verified 09/13/18 08:53 prednisone Allergy Unknown Verified 09/13/18 08:53 adhesive tape AdvReac Severe Skin Verified 09/13/18 08:53 Irritation/Peeling allopurinol AdvReac Severe Nausea & Verified 09/13/18 08:53 Vomiting amlodipine besylate AdvReac Severe Nausea & Verified 09/13/18 08:53 [From Norvasc] Vomiting celecoxib [From Celebrex] AdvReac Severe Nausea & Verified 09/13/18 08:53 Vomiting clonidine HCl [From Catapres] AdvReac Severe Nausea & Verified 09/13/18 08:53 Vomiting diclofenac AdvReac Severe Nausea & Verified 09/13/18 08:53 Vomiting isosorbide AdvReac Severe Nausea & Verified 09/13/18 08:53 Vomiting methylprednisolone AdvReac Severe Nausea & Verified 09/13/18 08:53 Vomiting metoprolol tartrate AdvReac Severe Nausea & Verified 09/13/18 08:53 [From Lopressor] Vomiting misoprostol AdvReac Severe Nausea & Verified 09/13/18 08:53 Vomiting rabeprazole sodium AdvReac Severe Nausea & Verified 09/13/18 08:53 [From Aciphex] Vomiting Sulfa (Sulfonamide AdvReac Severe Nausea & Verified 09/13/18 08:53 Antibiotics) Vomiting oseltamivir AdvReac Unknown Verified 09/13/18 08:53 Physical Exam Vitals: Vital Signs Temp Pulse Pulse Resp BP BP Pulse Ox 09/13/18 11:47 97.6 F 78 16 151/69 99 09/13/18 11:11 97.1 F L 71 18 144/73 98 09/13/18 10:30 89 15 148/78 98 09/13/18 10:00 80 16 150/70 09/13/18 09:30 74 13 143/78 09/13/18 08:30 70 25 H 152/78 98 09/13/18 07:46 97.6 F 78 16 195/77 98 Intake and Output 09/12/18 09/13/18 09/13/18 22:59 06:59 14:59 Other: Voiding Method Toilet Weight 69.4 kg - Constitutional General appearance: mild distress - EENT Eyes: PERRLA ENT: hard of hearing - Neck Neck: normal ROM - Respiratory Respiratory: bilateral: CTA - Cardiovascular Rhythm: irregularly irregular - Gastrointestinal General gastrointestinal: soft - Integumentary Integumentary: normal - Neurologic Neurologic: CNII-XII intact - Musculoskeletal Musculoskeletal: generalized weakness - Psychiatric Psychiatric: A&O x's 3, appropriate affect, intact judgment & insight Results CBC & Chem 7: 09/13/18 09:01 09/13/18 08:04 Labs: Abnormal Lab Results - Last 24 Hours (Table) 09/13/18 09/13/18 09/13/18 Range/Units 08:04 08:04 09:01 RBC 3.16 L (3.80-5.40) m/uL Hgb 9.1 L (11.4-16.0) gm/dL Hct 28.5 L (34.0-46.0) % Lymphocytes # 0.6 L (1.0-4.8) k/uL Sodium 135 L (137-145) mmol/L Carbon Dioxide 17 L (22-30) mmol/L BUN 31 H (7-17) mg/dL Creatinine 1.29 H (0.52-1.04) mg/dL Glucose 104 H (74-99) mg/dL Total Creatine Kinase 29 L (30-135) U/L Chest x-ray: report reviewed Assessment and Plan Plan: Assessment Exertional dyspnea History of atrial fibrillation Coronary disease with stents Patient's hard of hearing Hypertension Osteoarthritis Plan Cardiology consultation
[2018-09-13 14:05] LABS: Creatine Kinase 24 U/L (30-135)
--- NOTE | 2018-09-13 14:11 | P.CRDCN ---
History of Present Illness History of present illness: Mrs. Alcaraz is a pleasant 83-year-old male past medical history significant for coronary artery disease s/p stenting 01/2018, dyslipidemia, hypertension, paroxysmal atrial fibrillation on lobsterman anticoagulation and gastroesophageal reflux disease. Earlier this year, 01/2018, she underwent catheterization which revealed in-stent restenosis of proximal and mid LAD segments that were originally stented 03/2017. She underwent repeat angioplasty at that time. She follows with Dr. Noel in the office. We have been asked to see her in consultation for exertional dyspnea. She states for the previous 2-3 months she has noticed her breathing becoming more and more labored with exertion. For example when she walks up the stairs she has to stop to take a breath skilled nursing up, which is new for her. She also complains of a burning sensation in the epigastric region with some associated nausea. The symptoms of burning are not associated with oral intake. She denies actual vomiting. She denies chest pain, palpitations or dizziness. She also denies PND or orthopnea. EKG reveals atrial fibrillation with controlled ventricular response. Chest x-ray is negative for acute cardiopulmonary process. Laboratory data reviewed, hemoglobin 9.1, WBC 7, platelets 295, sodium 135, creatinine 1.29, magnesium 1.7, cardiac enzymes negative 1, NT proBNP 2210. Current cardiac medications include Plavix 75 mg daily, aspirin 81 mg daily, Eliquis 2.5 mg twice a day, hydralazine 100 mg 4 times a day, clonidine 0.2 mg 3 times a day, Aldactone 25 mg twice a day, losartan 50 mg twice a day, doxazosin 4 mg daily, carvedilol 3.125 mg twice a day atorvastatin 40 mg daily. Most recent echocardiogram obtained in the office March 2018 reveals preserved left ventricular systolic function with ejection fraction 60%, mild to moderate MR and a moderately dilated left atrium. At the time of my exam: CONSTITUTIONAL: Denies fever. Denies chills. EYES: Denies blurred vision. Denies vision changes. Denies eye pain. EARS, NOSE, MOUTH & THROAT: Denies headache. Denies sore throat. Denies ear pain. CARDIOVASCULAR: Denies chest pain. Denies shortness of breath. Denies orthopnea. Denies PND. Denies palpitations. RESPIRATORY: Denies cough. GASTROINTESTINAL: Complains of epigastric discomfort. Denies abdominal pain. Denies diarrhea. Denies constipation. Denies nausea. Denies vomiting. MUSCULOSKELETAL: Denies myalgias. INTEGUMENTARY: Denies pruitis. Denies rash. NEUROLOGIC: Denies numbness. Denies tingling. Denies weakness. PSYCHIATRIC: Denies anxiety. Denies depression. ENDOCRINE: Denies fatigue. Denies weight change. Denies polydipsia. Denies polyurina. GENITOURINARY: Denies burning, hematuria or urgency with micturation. HEMATOLOGIC: Denies history of anemia. Denies bleeding. Blood pressure 151/69 heart rate 78 afebrile maintaining oxygen saturation on room air GENERAL: This is a 83-year-old female in no apparent distress at the time of my examination. HEENT: Head is atraumatic, normocephalic. Pupils are equal, round. Sclerae anicteric. Conjunctivae are clear. Mucous membranes of the mouth are moist. Neck is supple. There is no jugular venous distention. No carotid bruit is heard. LUNGS: Clear to auscultation no wheezes, rales or rhonchi. No chest wall tenderness is noted on palpation or with deep breathing. HEART: Irregular rate and rhythm with systolic ejection murmurs apex, no rubs or gallops. S1 and S2 heard. ABDOMEN: Soft, nontender. Bowel sounds are heard. No organomegaly noted. EXTREMITIES: No evidence of peripheral edema and no calf tenderness noted. VASCULAR: Radial and dorsalis pedis pulses palpated, no evidence of clubbing. NEUROLOGIC: Patient is awake, alert and oriented x3. ASSESSMENT Exertional dyspnea with epigastric discomfort. History of coronary artery disease status post angioplasty January 2018, currently on dual antiplatelet therapy Paroxysmal atrial fibrillation on long-term anticoagulation Hypertension Dyslipidemia Mitral insufficiency PLAN Continue to obtain serial cardiac enzymes to rule out an acute coronary event. Symptoms are not suggestive of angina or acute coronary syndrome. Obtain 2-D echocardiogram and Doppler study to assess cardiac structure and function. She is currently receiving aspirin 81 mg daily, Plavix 75 mg daily and Eliquis 2.5 mg twice a day. Aspirin can be discontinued and Plavix and Eliquis should be continued. Further recommendations to follow based upon clinical course. Thank you kindly for this consultation. Nurse Practitioner note has been reviewed, I agree with a documented findings and plan of care. Patient was seen and examined. Past Medical History Past Medical History: Coronary Artery Disease (CAD), Eye Disorder, Hearing Disorder / Deafness, Hyperlipidemia, Hypertension, Myocardial Infarction ([place]), Osteoarthritis (OA) Additional Past Medical History / Comment(s): Bilateral glaucoma, left ear deaf Last Myocardial Infarction Date:: 01/29/18 History of Any Multi-Drug Resistant Organisms: None Reported Past Surgical History: Appendectomy, Section, Heart Catheterization, Heart Catheterization With Stent, Hysterectomy, Tonsillectomy Additional Past Surgical History / Comment(s): PCI with stent 01/29/18, colonoscopy Past Anesthesia/Blood Transfusion Reactions: Postoperative Nausea & Vomiting ( PONV) Date of Last Stent Placement:: 01/29/18 Smoking Status: Never smoker - Past Family History Father Family Medical History: Coronary Artery Disease (CAD) Additional Family Medical History / Comment(s): Father was healthy. He after his spouse's "he just gave up on life." Mother Family Medical History: Coronary Artery Disease (CAD), Myocardial Infarction (CT ) Additional Family Medical History / Comment(s): Mother of a Mi at the age of 62 or 63yrs. Brother(s) Family Medical History: Cancer Additional Family Medical History / Comment(s): one brother leukemia. another brother metastatic CA Medications and Allergies Home Medications Medication Instructions Recorded Confirmed Type busPIRone HCl [Buspar] 10 mg PO BID 09/29/15 09/13/18 History Timolol 0.5% Ophth Soln [Timoptic 1 drop BOTH EYES DAILY 09/29/16 09/13/18 History 0.5% Ophth Soln] Atorvastatin [Lipitor] 40 mg PO HS #30 tab 04/19/17 09/13/18 Rx Clopidogrel [Plavix] 75 mg PO DAILY #30 tab 04/19/17 09/13/18 Rx Doxazosin [Cardura] 4 mg PO DAILY #30 tab 11/03/17 09/13/18 Rx hydrALAZINE HCL [Apresoline] 100 mg PO QID #0 11/03/17 09/13/18 Rx Famotidine [Pepcid] 20 mg PO DAILY #30 tab 11/16/17 09/13/18 Rx Losartan [Cozaar] 50 mg PO BID #30 tab 12/28/17 10/25/18 Rx Magnesium Oxide [Mag-Ox] 400 mg PO DAILY #30 tab 11/16/17 09/13/18 Rx Spironolactone [Aldactone] 25 mg PO BID@0900,1600 #30 tab 11/16/17 09/13/18 Rx cloNIDine HCL [Catapres] 0.2 mg PO TID #30 tab 11/16/17 09/13/18 Rx Apixaban [Eliquis] 2.5 mg PO BID 02/01/18 09/13/18 History Aspirin 81 mg PO DAILY chew 02/01/18 09/13/18 Rx Carvedilol [Coreg] 3.125 mg PO AC-BID 06/25/18 09/13/18 History Allergies Allergy/AdvReac Type Severity Reaction Status Date / Time clindamycin Allergy Unknown Verified 09/13/18 08:53 prednisone Allergy Unknown Verified 09/13/18 08:53 adhesive tape AdvReac Severe Skin Verified 09/13/18 08:53 Irritation/Peeling allopurinol AdvReac Severe Nausea & Verified 09/13/18 08:53 Vomiting amlodipine besylate AdvReac Severe Nausea & Verified 09/13/18 08:53 [From Norvasc] Vomiting celecoxib [From Celebrex] AdvReac Severe Nausea & Verified 09/13/18 08:53 Vomiting clonidine HCl [From Catapres] AdvReac Severe Nausea & Verified 09/13/18 08:53 Vomiting diclofenac AdvReac Severe Nausea & Verified 09/13/18 08:53 Vomiting isosorbide AdvReac Severe Nausea & Verified 09/13/18 08:53 Vomiting methylprednisolone AdvReac Severe Nausea & Verified 09/13/18 08:53 Vomiting metoprolol tartrate AdvReac Severe Nausea & Verified 09/13/18 08:53 [From Lopressor] Vomiting misoprostol AdvReac Severe Nausea & Verified 09/13/18 08:53 Vomiting rabeprazole sodium AdvReac Severe Nausea & Verified 09/13/18 08:53 [From Aciphex] Vomiting Sulfa (Sulfonamide AdvReac Severe Nausea & Verified 09/13/18 08:53 Antibiotics) Vomiting oseltamivir AdvReac Unknown Verified 09/13/18 08:53 Physical Exam Vitals: Vital Signs Temp Pulse Pulse Resp BP BP Pulse Ox 09/13/18 11:47 97.6 F 78 16 151/69 99 09/13/18 11:11 97.1 F L 71 18 144/73 98 09/13/18 10:30 89 15 148/78 98 09/13/18 10:00 80 16 150/70 09/13/18 09:30 74 13 143/78 09/13/18 08:30 70 25 H 152/78 98 09/13/18 07:46 97.6 F 78 16 195/77 98 Intake and Output 09/12/18 09/13/18 09/13/18 22:59 06:59 14:59 Other: Voiding Method Toilet Weight 69.4 kg Results 09/13/18 09:01 09/13/18 08:04 Cardiac Enzymes 09/13/18 09/13/18 Range/Units 08:04 08:04 AST 23 (14-36) U/L CK-MB (CK-2) 0.7 (0.0-2.4) ng/mL Troponin I <0.012 (0.000-0.034) ng/mL Coagulation 09/13/18 Range/Units 08:04 PT 10.2 (9.0-12.0) sec APTT 26.5 (22.0-30.0) sec CBC 09/13/18 Range/Units 09:01 WBC 7.0 (3.8-10.6) k/uL RBC 3.16 L (3.80-5.40) m/uL Hgb 9.1 L (11.4-16.0) gm/dL Hct 28.5 L (34.0-46.0) % Plt Count 295 (150-450) k/uL Comprehensive Metabolic Panel 09/13/18 Range/Units 08:04 Sodium 135 L (137-145) mmol/L Potassium (3.5-5.1) mmol/L Chloride 107 (98-107) mmol/L Carbon Dioxide 17 L (22-30) mmol/L BUN 31 H (7-17) mg/dL Creatinine 1.29 H (0.52-1.04) mg/dL Glucose 104 H (74-99) mg/dL Calcium 10.2 (8.4-10.2) mg/dL AST 23 (14-36) U/L ALT 28 (9-52) U/L Alkaline Phosphatase 65 (38-126) U/L Total Protein 7.6 (6.3-8.2) g/dL Albumin 4.1 (3.5-5.0) g/dL Current Medications Generic Name Dose Route Start Last Admin Trade Name Michelle PRN Reason Stop Dose Admin Apixaban 2.5 mg 09/13/18 21:00 Eliquis PO BID [facility] Aspirin 81 mg 09/14/18 09:00 Aspirin PO DAILY [facility] Atorvastatin Calcium 40 mg 09/13/18 21:00 Lipitor PO HS [facility] Buspirone HCl 10 mg 09/13/18 21:00 Buspar PO BID [facility] Carvedilol 3.125 mg 09/13/18 17:30 Coreg PO AC-BID [facility] Clonidine 0.2 mg 09/13/18 16:00 Catapres PO TID [facility] Doxazosin Mesylate 4 mg 09/14/18 09:00 Cardura PO DAILY [facility] Famotidine 20 mg 09/14/18 09:00 Pepcid PO DAILY [facility] Hydralazine HCl 100 mg 09/13/18 13:00 09/13/18 12:33 Apresoline PO Not Given QID [facility] Losartan Potassium 50 mg 09/13/18 21:00 Cozaar PO BID [facility] Magnesium Oxide 400 mg 09/14/18 09:00 Mag-Ox PO DAILY [facility] Sodium Chloride 10 ml 09/13/18 21:00 Saline Flush IV BID [facility] Spironolactone 25 mg 09/13/18 16:00 Aldactone PO BID@0900,1600 [facility] Timolol Maleate 1 drops 09/14/18 09:00 Timoptic BOTH EYES DAILY [facility] Intake and Output 09/12/18 09/13/18 09/13/18 22:59 06:59 14:59 Other: Voiding Method Toilet Weight 69.4 kg Patient Weight 09/14/18 06:59 Weight 69.4 kg 09/13/18 09:01 09/13/18 08:04
[2018-09-13 14:27] LABS: Creatine Kinase MB 0.7 ng/mL (0.0-2.4); Troponin I <0.012 ng/mL (0.000-0.034)
[2018-09-13] MEDS: SPIRONOLACTONE 25 MG TAB PO SCH (15:53)
[2018-09-13] MEDS: cloNIDine HCL 0.2 MG TAB PO SCH ×2 (15:53→22:32)
[2018-09-13] MEDS: CARVEDILOL 3.125 MG TAB PO SCH (17:07)
--- NOTE | 2018-09-13 19:37 | ECHOF ---
Referral Reason:cp MEASUREMENTS -------- HEIGHT: 160.0 cm WEIGHT: 69.4 kg BP: IVSd: 1.2 cm (0.6 - 1.1) LVIDd: 4.6 cm (3.9 - 5.3) LVPWd: 0.9 cm (0.6 - 1.1) IVSs: 1.6 cm LVIDs: 2.9 cm LVPWs: 1.2 cm LA Diam: 4.6 cm (2.7 - 3.8) LAESV Index (A-L): 57.04 ml/m Ao Diam: 3.1 cm (2.0 - 3.7) LA Diam: 4.1 cm (2.7 - 3.8) AV Cusp: 1.2 cm (1.5 - 2.6) EPSS: 0.3 cm MV E Alexx: 0.99 m/s MV DecT: 207 ms MV A Alexx: 0.31 m/s MV E/A Ratio: 3.22 RAP: 5.00 mmHg RVSP: 22.31 mmHg MV EF SLOPE: 58.27 mm/s (70 - 150) MV EXCURSION: 0.98 cm (> 18.000) FINDINGS -------- Sinus rhythm. This was a technically good study. The left ventricular size is normal. There is mild concentric left ventricular hypertrophy. Overa ll left ventricular systolic function is low-normal with, an EF between 50 - 55 %. The right ventricle is normal in size. The left atrium is markedly dilated. LA is severely dilated >40 ml/m2 The right atrial size is normal. There is mild aortic valve sclerosis. Mild mitral annular calcification present. No mitral regurgitation. Mild tricuspid regurgitation present. There is no evidence of pulmonary hypertension. The right v entricular systolic pressure, as measured by Doppler, is 22.31mmHg. There is no pulmonic regurgitation present. The aortic root size is normal. There is no pericardial effusion. CONCLUSIONS -------- 1. Sinus rhythm. 2. This was a technically good study. 3. The left ventricular size is normal. 4. There is mild concentric left ventricular hypertrophy. 5. Overall left ventricular systolic function is low-normal with, an EF between 50 - 55 %. 6. The right ventricle is normal in size. 7. The left atrium is markedly dilated. 8. LA is severely dilated >40 ml/m2 9. The right atrial size is normal. 10. There is mild aortic valve sclerosis. 11. Mild mitral annular calcification present. 12. No mitral regurgitation. 13. Mild tricuspid regurgitation present. 14. There is no evidence of pulmonary hypertension. 15. The right ventricular systolic pressure, as measured by Doppler, is 22.31mmHg. 16. There is no pulmonic regurgitation present. 17. The aortic root size is normal. 18. There is no pericardial effusion. RADIO STATION OPERATOR: Soledad Adler RDCS
[2018-09-13 21:41] LABS: Creatine Kinase MB 0.5 ng/mL (0.0-2.4); Troponin I 0.012 ng/mL (0.000-0.034)
[2018-09-13] MEDS: LOSARTAN 50 MG TAB PO SCH (22:17)
[2018-09-13] MEDS: ATORVASTATIN 40 MG TAB PO SCH (22:18)
[2018-09-13] MEDS: APIXABAN 2.5 MG TABLET PO SCH (22:32)
[2018-09-13] MEDS: busPIRone HCl 10 MG TAB PO SCH (22:32)
[2018-09-14] MEDS ORDERED: ASPIRIN 81 MG PO SCH (09:00)
[2018-09-14] MEDS ORDERED: ASPIRIN 325 MG TAB PO SCH (09:00)
[2018-09-14] MEDS ORDERED: FAMOTIDINE 20 MG TAB PO SCH (09:00)
[2018-09-14 09:57] LABS: Calcium 10.2 mg/dL (8.4-10.2)
[2018-09-14] MEDS: APIXABAN 2.5 MG TABLET PO SCH ×2 (11:04→20:58)
[2018-09-14] MEDS: SPIRONOLACTONE 25 MG TAB PO SCH ×2 (12:03→16:32)
[2018-09-14] MEDS: CARVEDILOL 3.125 MG TAB PO SCH ×2 (12:03→17:09)
[2018-09-14] MEDS: CLOPIDOGREL 75 MG TAB PO SCH (12:03)
[2018-09-14] MEDS: MAGNESIUM OXIDE 400 MG TAB PO SCH (12:03)
[2018-09-14] MEDS: LOSARTAN 50 MG TAB PO SCH ×2 (12:04→20:59)
[2018-09-14] MEDS: DOXAZOSIN 4 MG TAB PO SCH (12:04)
[2018-09-14] MEDS: busPIRone HCl 10 MG TAB PO SCH ×2 (12:04→20:58)
[2018-09-14] MEDS: cloNIDine HCL 0.2 MG TAB PO SCH ×3 (12:04→20:58)
[2018-09-14] MEDS: hydrALAZINE HCL 50 MG TAB PO SCH ×4 (12:04→20:58)
[2018-09-14] MEDS: TIMOLOL 0.5% OPHTH DROPS 5 ML BTL BOTH EYES SCH (12:11)
--- NOTE | 2018-09-14 13:28 | P.CONS ---
History of Present Illness - Reason for Consult Consult date: 09/14/18 Epigastric discomfort nausea Requesting physician: Micky E Sheet - Chief Complaint Left arm discomfort nausea - History of Present Illness 83-year-old female with a history of paroxysmal atrial fibrillation maintained on Eliquis, GERD, CAD with PCI stent January 2018 maintained on ASA/Plavix, dyslipidemia, and hypertension. Patient presents with left arm discomfort as well as nausea. Nausea has been present for about 2 weeks without emesis diarrhea or constipation. Denies hematemesis hematochezia melena fever chills or weight loss. Denies epigastric pain. Appetite has not been affected. No new medications. Does not take GI prophylaxis. No NSAIDs or alcohol. No history of peptic ulcer disease or EGD. Colonoscopy in [address] Tello reported within normal limits. Incidentally patient was noted to be anemic on admission hemoglobin 9.1. MCV 90. Platelet 295. INR 1.0. BUN 31. Creatinine 1.2. Troponin 3 less than 0.012. ProBNP 2210. Amylase lipase within normal limits. Transaminases bilirubin unremarkable. Upon review of medical records patient's hemoglobin has decreased since October 2017 most often in the 8-9 range it was previously in the 11-12 range. Iron indices March 2018 iron 52. TIBC 286. Iron saturation ferritin not obtained. Review of Systems Constitutional: Denies fever, chills, sweats, weight gain, or loss. HEENT: Negative for migraines, blurred vision or loss, earaches, drainage, tinnitus, oral mucosal lesions, dysphagia, or odynophagia. CARDIAC: Negative for chest pain, arrhythmias, or palpitation. RESPIRATORY: Negative for shortness of breath, hemoptysis, cough, or sputum production. GI: See HPI for pertinent findings. : Negative for hematuria, urgency, frequency, polyuria, or dysuria. GYNc: Denies possibility of . Negative vaginal discharge. MUSCULOSKELETAL: Negative for muscle aches, swelling, arthritis, and arthralgias. NEUROLOGIC: Negative for stroke or TIA. ENDOCRINE: Negative for thyroid problems. SKIN: Negative for rash or itching. PSYCHIATRIC: Negative history for depression and anxiety Past Medical History Past Medical History: Coronary Artery Disease (CAD), Eye Disorder, Hearing Disorder / Deafness, Hyperlipidemia, Hypertension, Myocardial Infarction ([place]), Osteoarthritis ([place]) Additional Past Medical History / Comment(s): Bilateral glaucoma, left ear deaf Last Myocardial Infarction Date:: 01/29/18 History of Any Multi-Drug Resistant Organisms: None Reported Past Surgical History: Appendectomy, Section, Heart Catheterization, Heart Catheterization With Stent, Hysterectomy, Tonsillectomy Additional Past Surgical History / Comment(s): PCI with stent 01/29/18, colonoscopy Past Anesthesia/Blood Transfusion Reactions: Postoperative Nausea & Vomiting ( PONV) Date of Last Stent Placement:: 01/29/18 Smoking Status: Never smoker - Past Family History Father Family Medical History: Coronary Artery Disease (CAD) Additional Family Medical History / Comment(s): Father was healthy. He after his spouse's "he just gave up on life." Mother Family Medical History: Coronary Artery Disease (CAD), Myocardial Infarction ([place] ) Additional Family Medical History / Comment(s): Mother of a Mi at the age of 62 or 63yrs. Brother(s) Family Medical History: Cancer Additional Family Medical History / Comment(s): one brother leukemia. another brother metastatic CA Medications and Allergies Home Medications Medication Instructions Recorded Confirmed Type busPIRone HCl [Buspar] 10 mg PO BID 09/29/15 09/13/18 History Timolol 0.5% Ophth Soln [Timoptic 1 drop BOTH EYES DAILY 09/29/16 09/13/18 History 0.5% Ophth Soln] Atorvastatin [Lipitor] 40 mg PO HS #30 tab 04/19/17 09/13/18 Rx Clopidogrel [Plavix] 75 mg PO DAILY #30 tab 04/19/17 09/13/18 Rx Doxazosin [Cardura] 4 mg PO DAILY #30 tab 11/03/17 09/13/18 Rx hydrALAZINE HCL [Apresoline] 100 mg PO QID #0 11/03/17 09/13/18 Rx Famotidine [Pepcid] 20 mg PO DAILY #30 tab 11/16/17 09/13/18 Rx Losartan [Cozaar] 50 mg PO BID #30 tab 11/16/17 09/13/18 Rx Magnesium Oxide [Mag-Ox] 400 mg PO DAILY #30 tab 11/16/17 09/13/18 Rx Spironolactone [Aldactone] 25 mg PO BID@0900,1600 #30 tab 11/16/17 09/13/18 Rx cloNIDine HCL [Catapres] 0.2 mg PO TID #30 tab 11/16/17 09/13/18 Rx Apixaban [Eliquis] 2.5 mg PO BID 02/01/18 09/13/18 History Aspirin 81 mg PO DAILY chew 02/01/18 09/13/18 Rx Carvedilol [Coreg] 3.125 mg PO AC-BID 06/25/18 09/13/18 History Allergies Allergy/AdvReac Type Severity Reaction Status Date / Time clindamycin Allergy Unknown Verified 09/13/18 08:53 prednisone Allergy Unknown Verified 09/13/18 08:53 adhesive tape AdvReac Severe Skin Verified 09/13/18 08:53 Irritation/Peeling allopurinol AdvReac Severe Nausea & Verified 09/13/18 08:53 Vomiting amlodipine besylate AdvReac Severe Nausea & Verified 09/13/18 08:53 [From Norvasc] Vomiting celecoxib [From Celebrex] AdvReac Severe Nausea & Verified 09/13/18 08:53 Vomiting clonidine HCl [From Catapres] AdvReac Severe Nausea & Verified 09/13/18 08:53 Vomiting diclofenac AdvReac Severe Nausea & Verified 09/13/18 08:53 Vomiting isosorbide AdvReac Severe Nausea & Verified 09/13/18 08:53 Vomiting methylprednisolone AdvReac Severe Nausea & Verified 09/13/18 08:53 Vomiting metoprolol tartrate AdvReac Severe Nausea & Verified 09/13/18 08:53 [From Lopressor] Vomiting misoprostol AdvReac Severe Nausea & Verified 09/13/18 08:53 Vomiting rabeprazole sodium AdvReac Severe Nausea & Verified 09/13/18 08:53 [From Aciphex] Vomiting Sulfa (Sulfonamide AdvReac Severe Nausea & Verified 09/13/18 08:53 Antibiotics) Vomiting oseltamivir AdvReac Unknown Verified 09/13/18 08:53 Physical Exam Vitals: Vital Signs Temp Pulse Pulse Resp BP Pulse Ox 09/14/18 12:00 18 09/14/18 11:27 98.1 F 115 H 18 138/58 97 09/14/18 10:28 95 09/14/18 08:00 78 80 16 09/14/18 07:45 98.1 F 80 18 145/72 97 09/14/18 04:00 16 09/14/18 03:59 98.3 F 80 16 113/64 98 09/14/18 00:00 98.7 F 74 16 105/53 98 09/13/18 23:45 16 09/13/18 20:00 98.5 F 66 16 115/60 96 09/13/18 16:00 98.2 F 69 18 137/70 97 Intake and Output 09/13/18 09/14/18 09/14/18 22:59 06:59 14:59 Intake Total 440 Balance 440 Intake: Oral 440 Other: Voiding Method Toilet Toilet Toilet # Voids 2 1 General appearance: The patient is alert, oriented, in no acute distress. HET: Head is normocephalic and atraumatic. Pupils are equal and reactive. Oropharynx is clear without lesions. Neck: Supple without lymphadenopathy. Trachea midline. Heart: S1 S2. Regular rate and rhythm. Lungs: No crackles or wheezes are heard. Abdomen: Soft, nontender, nondistended with bowel sounds. No peritoneal signs. No palpable organomegaly or masses. Extremities: Normal skin color and turgor. No cyanosis, rash, ulceration, clubbing, or edema. Radial and pedal pulses are 2/4 bilaterally. Neurological: No focal deficits. Strength and sensation are grossly intact. Results CBC & Chem 7: 09/13/18 09:01 09/14/18 08:49 Labs: Abnormal Lab Results - Last 24 Hours (Table) 09/13/18 09/13/18 09/14/18 Range/Units 13:00 20:52 08:49 Sodium 135 L (137-145) mmol/L Carbon Dioxide 20 L (22-30) mmol/L BUN 36 H (7-17) mg/dL Creatinine 1.57 H (0.52-1.04) mg/dL Glucose 118 H (74-99) mg/dL Total Creatine Kinase 24 L 21 L (30-135) U/L HDL Cholesterol 31 L (40-60) mg/dL Assessment and Plan (1) Nausea Narrative/Plan: 83-year-old female admitted with left arm discomfort nausea 2 weeks without emesis or bleeding. Possible GERD. Patient has a history of coronary artery disease with PCI stent as well as paroxysmal atrial fibrillation maintained on triple therapy aspirin Plavix Eliquis. Current Visit: Yes Status: Acute Code(s): R11.0 - NAUSEA SNOMED Code(s): 541830315 (2) Anemia Narrative/Plan: Anemia chronic 1 year duration normocytic without overt bleeding. Current Visit: Yes Status: Acute Code(s): D64.9 - ANEMIA, UNSPECIFIED SNOMED Code(s): 276676788 (3) Paroxysmal A-fib Current Visit: Yes Status: Acute Code(s): I48.0 - PAROXYSMAL ATRIAL FIBRILLATION SNOMED Code(s): 513237251 (4) CAD (coronary artery disease) Current Visit: Yes Status: Acute Code(s): I25.10 - ATHSCL HEART DISEASE OF [place] CORONARY ARTERY W/O ANG PCTRS SNOMED Code(s): 83375998 (5) Stented coronary artery Current Visit: Yes Status: Acute Code(s): Z95.5 - PRESENCE OF CORONARY ANGIOPLASTY IMPLANT AND GRAFT SNOMED Code(s): 286512634 Plan: 1. Iron indices. EGD evaluation recommended for anemia colonoscopy 2 years ago reported as normal. Anticoagulation on hold. Will allow a bland healthy heart diet today if tolerated she may be discharged if agreeable with applications consultant staff and follow-up in the outpatient setting next week for outpatient EGD scheduled MondaySeptember 18. May resume Eliquis and hold 48 hours prior to EGD. If patient is unable to tolerate her diet today we'll proceed with EGD evaluation in the a.m. Pepcid 20 mg mg twice daily; ALLERGY to PPI. We'll follow closely with you. The guest relations officer has discussed the risks, benefits and alternative therapies for the above-mentioned procedure and for both sedation/analgesia as well as necessary blood product administration, if indicated, as they pertain to this patient. The patient has indicated understanding and acceptance of the risks and procedures discussed. Thank you for this kind referral and the opportunity to participate in the care of your patient. This consultation was discussed with Dr. Pearson. The impression and plan of care have been directed as dictated.
[2018-09-14] MEDS ORDERED: DEXTROSE 5%-0.9% NACL 1,000 ML IV SCH (14:30)
--- NOTE | 2018-09-14 14:34 | P.PN ---
Subjective On-call hospitalist covering for Dr. Sanchez This is a pleasant 83 years old female with history of coronary artery disease, status post CABG, hypertension, hyperlipidemia, history of chronic atrial fibrillation, history of stroke with no residual weakness, who presents because of left upper extremity numbness. As per patient she came to the hospital because she was feeling funny in her left upper extremity, rather than numbness of 1-2 days duration. Which is gone completely now as per patient. Patient denies chest pain. She denies shortness of breath. Patient told me she got only shortness of breath when she goes upstairs. Usually she can walk and goes to the grocery store without any breathing difficulty or exertional dyspnea, and that the last time she went to her grocery store was about a week ago. Patient when I saw her was alert awake and oriented to time place and person. And she knows why she came to the hospital because of his left upper extremity numbness which is resolved now. Patient denies exertional dyspnea or chest pain. As above patient has been evaluated by home office representative who cleared her for discharge. However he recommended to stop the aspirin upon this chart 12 continue with Plavix and Eliquis. Patient also was free-flowing groggy which comes and goes in her epigastric area. With no overt nausea or vomiting. No epigastric pain or discomfort. No change in bowel or urine habits. And no fever. Patient asked to see a stave cutting supervisor: Recommended EGD/colonoscopy which can be done as inpatient or outpatient as her hemoglobin and vitals were stable although weeks and months. Patient creatinine increased slightly from 1.2 to 1.5, we will start gentle hydration Objective - Vital Signs Vital signs: Vital Signs Temp 98.1 F 09/14/18 11:27 Pulse 115 H 09/14/18 11:27 Resp 18 09/14/18 12:00 BP 138/58 09/14/18 11:27 Pulse Ox 97 09/14/18 11:27 Intake & Output 09/13/18 09/14/18 09/14/18 18:59 06:59 18:59 Intake Total 440 Balance 440 Weight 69.4 kg Intake: Oral 440 Other: Voiding Method Toilet Toilet Toilet # Voids 2 1 - Exam GENERAL: The patient is alert and oriented x3, not in any acute distress. Well developed, well nourished. HEENT: Pupils are round and equally reacting to light. EOMI. No scleral icterus. No conjunctival pallor. Normocephalic, atraumatic. No pharyngeal erythema. No thyromegaly. CARDIOVASCULAR: S1 and S2 present. No murmurs, rubs, or gallops. PULMONARY: Chest is clear to auscultation, no wheezing or crackles. ABDOMEN: Soft, nontender, nondistended, normoactive bowel sounds. No palpable organomegaly. MUSCULOSKELETAL: No joint swelling or deformity. EXTREMITIES: No cyanosis, clubbing, or pedal edema. NEUROLOGICAL: Gross neurological examination did not reveal any focal deficits. SKIN: No rashes. - Labs CBC & Chem 7: 09/13/18 09:01 09/14/18 08:49 Labs: Abnormal Lab Results - Last 24 Hours (Table) 09/13/18 09/14/18 Range/Units 20:52 08:49 Sodium 135 L (137-145) mmol/L Carbon Dioxide 20 L (22-30) mmol/L BUN 36 H (7-17) mg/dL Creatinine 1.57 H (0.52-1.04) mg/dL Glucose 118 H (74-99) mg/dL Total Creatine Kinase 21 L (30-135) U/L HDL Cholesterol 31 L (40-60) mg/dL Assessment and Plan Assessment: Left arm numbness, resolved. Etiology rule out acute coronary event Possible acute kidney injury Possible acute blood loss anem History of atrial fibrillationia History of Coronary disease with stents Patient's hard of hearing Hypertension Osteoarthritis Plan: This is a pleasant 83 years old female who presents with left arm numbness which is resolved, with some nausea suspicious for acute blood loss anemia. Contract Consultant evaluated the patient and planning for EGD/colonoscopy. Patient on Eliquis for A. fib which could be held prior to procedure. Patient continue with Pepcid. Continue with IV fluid. Cardiology and gastroenterology consultation is appreciated.Labs and medication were resumed. Continue same treatment. Continue with symptomatic treatment. Resume home medication. Monitor lytes and vitals. DVT and GI prophylaxis. Further recommendationsof the clinical course of the patient DVT prophylaxis: on eliquis GI Prophylaxis: Pepcid PT/OT: Pending Prognosis is guarded
[2018-09-14] MEDS: FAMOTIDINE 20 MG TAB PO SCH (20:58)
[2018-09-14] MEDS: ATORVASTATIN 40 MG TAB PO SCH (20:58)
[2018-09-15 02:36] LABS: Iron Saturation 21.38 (12.00-45.00)
[2018-09-15 07:41] LABS: Calcium 9.6 mg/dL (8.4-10.2)
[2018-09-15 08:15] LABS: Basophils % (A) 0 %; Eosinophils # (A) 0.2 k/uL (0-0.7); Eosinophils % (A) 4 %; HCT 26.2 % (34.0-46.0); HGB 8.4 gm/dL (11.4-16.0); Hypochromasia Slight; Lymphocytes # (A) 0.7 k/uL (1.0-4.8); Lymphocytes % (A) 14 %; MCH 29.5 pg (25.0-35.0); MCHC 32.2 g/dL (31.0-37.0); MCV 91.7 fL (80.0-100.0); Monocytes # (A) 0.5 k/uL (0-1.0); Monocytes % (A) 9 %; Neutrophils # (A) 3.5 k/uL (1.3-7.7); Neutrophils % (A) 71 %; Platelet Count 291 k/uL (150-450); RBC 2.86 m/uL (3.80-5.40); RDW 14.7 % (11.5-15.5)
--- NOTE | 2018-09-15 08:35 | PN ---
PROGRESS NOTE Mrs. Alcaraz is an 83-year-old female with a known history of coronary artery disease, history of paroxysmal atrial fibrillation and history of hypertension who presented because of symptoms of dyspnea. She is feeling better this morning. Her breathing is stable. She has no symptoms of chest pain. She denies any dizziness or palpitations. She denies any nausea. She continues to be at this time on Eliquis 2.5 mg twice a day, Lipitor 4 mg daily, buspirone, Coreg 3.125 mg twice a day, clonidine 0.2 mg 3 times a day, Plavix 75 mg daily, doxazosin 4 mg daily, Pepcid 20 mg twice a day, hydralazine 100 mg 4 times a day, losartan 50 mg twice a day and spironolactone 25 mg twice a day. PHYSICAL EXAMINATION: Blood pressure running in the 140s to 150s with a heart rate in 70s. LUNGS: Clear. Heart irregularly irregular, S1, S2. No S3 with systolic murmur. No diastolic murmur and no rub. ABDOMEN: Soft nontender. EXTREMITIES: No edema. Echocardiogram revealed a preserved systolic function with no significant valvular disease. LAB DATA: Showed BUN and creatinine 39, 1.51, potassium 5.0. Her cholesterol is 91, LDL of 35. Troponin less than 0.012. IMPRESSION: 1. Symptoms of dyspnea improved. 2. Epigastric discomfort. Workup in progress. 3. History of coronary artery disease. 4. Atrial fibrillation. RECOMMENDATION: From the cardiac standpoint, she should be able to be discharged home today. Her blood pressure will be followed as an outpatient. I have asked to follow her blood pressure home and keep the trend and inform Dr. Noel . She will be seen by Dr. Noel as an outpatient. MMODL / IJN: [id number] / MTDD
[2018-09-15] MEDS: FAMOTIDINE 20 MG TAB PO SCH (08:41)
[2018-09-15] MEDS: cloNIDine HCL 0.2 MG TAB PO SCH (08:41)
[2018-09-15] MEDS: APIXABAN 2.5 MG TABLET PO SCH ×2 (08:41→21:23)
[2018-09-15] MEDS: CLOPIDOGREL 75 MG TAB PO SCH (08:41)
[2018-09-15] MEDS: MAGNESIUM OXIDE 400 MG TAB PO SCH (08:41)
[2018-09-15] MEDS: SPIRONOLACTONE 25 MG TAB PO SCH (08:41)
[2018-09-15] MEDS: busPIRone HCl 10 MG TAB PO SCH ×2 (08:41→21:23)
[2018-09-15] MEDS: CARVEDILOL 3.125 MG TAB PO SCH ×2 (08:42→18:48)
[2018-09-15] MEDS: TIMOLOL 0.5% OPHTH DROPS 5 ML BTL BOTH EYES SCH (08:45)
[2018-09-15] MEDS: hydrALAZINE HCL 50 MG TAB PO SCH (10:45)
[2018-09-15] MEDS: DOXAZOSIN 4 MG TAB PO SCH (11:27)
[2018-09-15] MEDS: LOSARTAN 50 MG TAB PO SCH (11:27)
[2018-09-15 11:34] LABS: Calcium 9.5 mg/dL (8.4-10.2); Potassium 4.6 mmol/L (3.5-5.1)
[2018-09-15] MEDS ORDERED: FAMOTIDINE 20 MG TAB PO SCH (12:50)
--- NOTE | 2018-09-15 14:50 | P.NPCON ---
History of Present Illness - Reason for Consult Consult date: 09/15/18 (Nephrology) acute renal failure - Chief Complaint Left hand numbness - History of Present Illness Coming to the hospital with left hand numbness. Denies history of chronic kidney disease. On admission creatinine was 1.29 MG per DL got worse to 1.5 MG per DL for the last 2 days. Currently on 0.9 and D5 water at 50 ML's an hour. She has history of hypertension on multiple antihypertensive medications including hydralazine 100 mg 4 times a day, losartan 50 mg twice a day, spironolactone 25 twice a day, clonidine 0.2 mg 3 times a day and Coreg 3.125 mg twice a day. She does have history of atrial fibrillation on telemetry course and also has diastolic heart failure. No nausea vomiting diarrhea. No recent contrast studies. No NSAIDs use. During the hospital stay she has low blood pressures with systolics as low as 90s. Feels better today no dizziness lightheadedness or syncopal episodes. Review of Systems Constitutional: Reports as per HPI Past Medical History Past Medical History: Coronary Artery Disease (CAD), Eye Disorder, Hearing Disorder / Deafness, Hyperlipidemia, Hypertension, Myocardial Infarction ([place]), Osteoarthritis (OA) Additional Past Medical History / Comment(s): Bilateral glaucoma, left ear deaf Last Myocardial Infarction Date:: 01/29/18 History of Any Multi-Drug Resistant Organisms: None Reported Past Surgical History: Appendectomy, Section, Heart Catheterization, Heart Catheterization With Stent, Hysterectomy, Tonsillectomy Additional Past Surgical History / Comment(s): PCI with stent 01/29/18, colonoscopy Past Anesthesia/Blood Transfusion Reactions: Postoperative Nausea & Vomiting ( PONV) Date of Last Stent Placement:: 01/29/18 Smoking Status: Never smoker - Past Family History Father Family Medical History: Coronary Artery Disease (CAD) Additional Family Medical History / Comment(s): Father was healthy. He after his spouse's "he just gave up on life." Mother Family Medical History: Coronary Artery Disease (CAD), Myocardial Infarction ([place] ) Additional Family Medical History / Comment(s): Mother of a Mi at the age of 62 or 63yrs. Brother(s) Family Medical History: Cancer Additional Family Medical History / Comment(s): one brother leukemia. another brother metastatic CA Medications and Allergies Home Medications Medication Instructions Recorded Confirmed Type busPIRone HCl [Buspar] 10 mg PO BID 09/29/15 09/13/18 History Timolol 0.5% Ophth Soln [Timoptic 1 drop BOTH EYES DAILY 09/29/16 09/13/18 History 0.5% Ophth Soln] Atorvastatin [Lipitor] 40 mg PO HS #30 tab 04/19/17 09/13/18 Rx Clopidogrel [Plavix] 75 mg PO DAILY #30 tab 04/19/17 09/13/18 Rx Doxazosin [Cardura] 4 mg PO DAILY #30 tab 11/03/17 09/13/18 Rx hydrALAZINE HCL [Apresoline] 100 mg PO QID #0 11/03/17 09/13/18 Rx Famotidine [Pepcid] 20 mg PO DAILY #30 tab 11/16/17 09/13/18 Rx Losartan [Cozaar] 50 mg PO BID #30 tab 11/16/17 09/13/18 Rx Magnesium Oxide [Mag-Ox] 400 mg PO DAILY #30 tab 11/16/17 09/13/18 Rx Spironolactone [Aldactone] 25 mg PO BID@0900,1600 #30 tab 11/16/17 09/13/18 Rx cloNIDine HCL [Catapres] 0.2 mg PO TID #30 tab 11/16/17 09/13/18 Rx Apixaban [Eliquis] 2.5 mg PO BID 02/01/18 09/13/18 History Aspirin 81 mg PO DAILY chew 02/01/18 09/13/18 Rx Carvedilol [Coreg] 3.125 mg PO AC-BID 06/25/18 09/13/18 History Allergies Allergy/AdvReac Type Severity Reaction Status Date / Time clindamycin Allergy Unknown Verified 09/13/18 08:53 prednisone Allergy Unknown Verified 09/13/18 08:53 adhesive tape AdvReac Severe Skin Verified 09/13/18 08:53 Irritation/Peeling allopurinol AdvReac Severe Nausea & Verified 09/13/18 08:53 Vomiting amlodipine besylate AdvReac Severe Nausea & Verified 09/13/18 08:53 [From Norvasc] Vomiting celecoxib [From Celebrex] AdvReac Severe Nausea & Verified 09/13/18 08:53 Vomiting clonidine HCl [From Catapres] AdvReac Severe Nausea & Verified 09/13/18 08:53 Vomiting diclofenac AdvReac Severe Nausea & Verified 09/13/18 08:53 Vomiting isosorbide AdvReac Severe Nausea & Verified 09/13/18 08:53 Vomiting methylprednisolone AdvReac Severe Nausea & Verified 09/13/18 08:53 Vomiting metoprolol tartrate AdvReac Severe Nausea & Verified 09/13/18 08:53 [From Lopressor] Vomiting misoprostol AdvReac Severe Nausea & Verified 09/13/18 08:53 Vomiting rabeprazole sodium AdvReac Severe Nausea & Verified 09/13/18 08:53 [From Aciphex] Vomiting Sulfa (Sulfonamide AdvReac Severe Nausea & Verified 09/13/18 08:53 Antibiotics) Vomiting oseltamivir AdvReac Unknown Verified 09/13/18 08:53 Physical Exam Vitals: Vital Signs Temp Pulse Pulse Pulse Resp BP BP 09/15/18 12:00 97.8 F 66 16 100/55 09/15/18 10:26 117/66 09/15/18 09:00 79 145/59 09/15/18 08:00 98.0 F 88 16 136/72 09/15/18 04:00 98.1 F 70 18 156/71 09/15/18 01:00 145/70 09/14/18 23:36 18 09/14/18 23:33 97.9 F 59 L 18 94/49 09/14/18 20:00 97.8 F 79 16 134/61 09/14/18 15:53 97.9 F 82 18 108/62 09/14/18 15:27 78 18 Pulse Ox 09/15/18 12:00 98 09/15/18 10:26 09/15/18 09:00 09/15/18 08:00 97 09/15/18 04:00 98 09/15/18 01:00 09/14/18 23:36 09/14/18 23:33 95 09/14/18 20:00 98 09/14/18 15:53 98 09/14/18 15:27 Intake and Output 09/14/18 09/15/18 09/15/18 22:59 06:59 14:59 Intake Total 100 Balance 100 Intake: Oral 100 Other: Voiding Method Toilet Toilet Toilet # Voids 1 1 Lying in bed no acute distress S1-S2 heard Lungs clear No edema Results - Lab Results Most recent lab results Calcium 9.5 mg/dL (8.4-10.2) 09/15/18 10:59 Magnesium 1.7 mg/dL (1.6-2.3) 09/13/18 08:04 09/15/18 06:54 09/15/18 10:59 Assessment and Plan Assessment: #1 acute kidney injury suspect hemodynamic ATN from low blood pressures. #2 history of hypertension currently hypotensive #3 left hand numbness #4 metabolic acidosis Plan: #1 stop Aldactone and losartan for now. Decrease hydralazine to 25 mg 3 times a day and clonidine to 0.1 mg twice a day. #2 maintain systolic blood pressure with the goal of 140-150/90. #3 check urine analysis #4 change D5 0.9 2.9 at 75 ML's an hour #5 repeat labs in the morning. Ultrasound for renal size #6 bladder scan to rule out urinary retention
[2018-09-15 16:14] LABS: Appearance,Urine Clear (Clear); Bacteria,Urine Rare /hpf; Bilirubin,Urine Negative (Negative); Blood,Urine Negative (Negative); Color,Urine Light Yellow; Glucose,Urine (UA) Negative (Negative); Ketones,Urine Negative (Negative); Leukocyte Esterase,Urine Small (Negative); Nitrite,Urine Negative (Negative); Protein,Urine Negative (Negative); Specific Gravity,Urine 1.006 (1.001-1.035); Squamous Epithelial Cell,Urine <1 /hpf (0-4); Urobilinogen,Urine <2.0 mg/dL (<2.0); WBC,Urine 5 /hpf (0-5)
--- NOTE | 2018-09-15 16:30 | US ---
EXAMINATION TYPE: US kidneys/renal and bladder DATE OF EXAM: 09/15/2018 COMPARISON: NONE CLINICAL HISTORY: renal failure. EXAM MEASUREMENTS: Right Kidney: 9.8 x 3.4 x 4.1 cm Left Kidney: 10.5 x 3.8 x 4.9 cm Limited due to patient's ability to hold breath and overlying bowel gas. Right Kidney: Decreased corticomedullary differentiation and decreased overall echogenicity. Upper po le: hypoechoic area likely simple cyst (1.5 x 1.3x 1.3cm) Lower pole: hyperechoic area possible angio myolipoma vs other etiology (1.1 x 0.7 x 0.9cm) Left Kidney: Decreased corticomedullary differentiation and decreased overall echogenicity. Cortical Upper pole: hypoechoic area likely simple cyst (1.2 x 1.0 x 1.2 cm) Bladder: wnl Ureteral jets are seen. There is no evidence for hydronephrosis at this point in time. No nephrolithiasis is seen. Some hyp oechoic areas are identified likely cysts. Also an echogenic area that may correlate with an angiomyo lipoma versus other etiology. The urinary bladder is anechoic. Bilateral ureteral jets are seen. IMPRESSION: Small renal cortical cysts. Symmetric renal cortical atrophy. Otherwise negative exam. No obstruction .
[2018-09-15] MEDS: SODIUM CHLORIDE 0.9% 1,000 ML IV SCH (17:28)
--- NOTE | 2018-09-15 17:43 | P.PN ---
Subjective On-call hospitalist covering for Dr. Sanchez This is a pleasant 83 years old female with history of coronary artery disease, status post CABG, hypertension, hyperlipidemia, history of chronic atrial fibrillation, history of stroke with no residual weakness, who presents because of left upper extremity numbness. As per patient she came to the hospital because she was feeling funny in her left upper extremity, rather than numbness of 1-2 days duration. Which is gone completely now as per patient. Patient denies chest pain. She denies shortness of breath. Patient told me she got only shortness of breath when she goes upstairs. Usually she can walk and goes to the grocery store without any breathing difficulty or exertional dyspnea, and that the last time she went to her grocery store was about a week ago. Patient when I saw her was alert awake and oriented to time place and person. And she knows why she came to the hospital because of his left upper extremity numbness which is resolved now. Patient denies exertional dyspnea or chest pain. As above patient has been evaluated by [facility] pp consultant who cleared her for discharge. However he recommended to stop the aspirin upon this chart 12 continue with Plavix and Eliquis. Patient also was free-flowing groggy which comes and goes in her epigastric area. With no overt nausea or vomiting. No epigastric pain or discomfort. No change in bowel or urine habits. And no fever. Patient asked to see a detonator maker: Recommended EGD/colonoscopy which can be done as inpatient or outpatient as her hemoglobin and vitals were stable although weeks and months. Patient creatinine increased slightly from 1.2 to 1.5, we will start gentle hydration 09/15/18 pt looks the same clinically , she looks tired and weak generally . no chest pain or dyspnea , her hb dropped mildly to 8.4 which is within baseline, vital are stable , no abd pain and abd exam is benign. pt has persistant elevated creatine to 1.5 nephrology consult is called and renal US. cold press loader recommended to chagne BP medication for higher BP level. hold aldactone and lisinopril as they may contribute to the HEIDY, check UA and monitor labs Objective - Vital Signs Vital signs: Vital Signs Temp 97.9 F 09/15/18 16:00 Pulse 73 09/15/18 16:00 Resp 18 09/15/18 16:00 BP 159/75 09/15/18 16:00 Pulse Ox 98 09/15/18 16:00 Intake & Output 09/14/18 09/15/18 09/15/18 18:59 06:59 18:59 Intake Total 100 Balance 100 Intake: Oral 100 Other: Voiding Method Toilet Toilet Toilet # Voids 1 1 1 - Exam GENERAL: The patient is alert and oriented x3, not in any acute distress. Well developed, well nourished. HEENT: Pupils are round and equally reacting to light. EOMI. No scleral icterus. No conjunctival pallor. Normocephalic, atraumatic. No pharyngeal erythema. No thyromegaly. CARDIOVASCULAR: S1 and S2 present. No murmurs, rubs, or gallops. PULMONARY: Chest is clear to auscultation, no wheezing or crackles. ABDOMEN: Soft, nontender, nondistended, normoactive bowel sounds. No palpable organomegaly. MUSCULOSKELETAL: No joint swelling or deformity. EXTREMITIES: No cyanosis, clubbing, or pedal edema. NEUROLOGICAL: Gross neurological examination did not reveal any focal deficits. SKIN: No rashes. - Labs CBC & Chem 7: 09/15/18 06:54 09/15/18 10:59 Labs: Abnormal Lab Results - Last 24 Hours (Table) 09/15/18 09/15/18 09/15/18 Range/Units 06:54 06:54 10:59 RBC 2.86 L (3.80-5.40) m/uL Hgb 8.4 L (11.4-16.0) gm/dL Hct 26.2 L (34.0-46.0) % Lymphocytes # 0.7 L (1.0-4.8) k/uL Sodium 135 L 135 L (137-145) mmol/L Chloride 108 H (98-107) mmol/L Carbon Dioxide 18 L 19 L (22-30) mmol/L BUN 39 H 37 H (7-17) mg/dL Creatinine 1.51 H 1.51 H (0.52-1.04) mg/dL Glucose 125 H 131 H (74-99) mg/dL Ur Leukocyte Esterase (Negative) Urine Bacteria (None) /hpf 09/15/18 Range/Units 15:46 RBC (3.80-5.40) m/uL Hgb (11.4-16.0) gm/dL Hct (34.0-46.0) % Lymphocytes # (1.0-4.8) k/uL Sodium (137-145) mmol/L Chloride (98-107) mmol/L Carbon Dioxide (22-30) mmol/L BUN (7-17) mg/dL Creatinine (0.52-1.04) mg/dL Glucose (74-99) mg/dL Ur Leukocyte Esterase Small H (Negative) Urine Bacteria Rare H (None) /hpf Assessment and Plan Assessment: Left arm numbness, resolved. Etiology rule out acute coronary event acute kidney injury Possible acute blood loss anem History of atrial fibrillationia History of Coronary disease with stents Patient's hard of hearing Hypertension, fluctuation , could be realted to blood loss anemia Osteoarthritis Plan: This is a pleasant 83 years old female who presents with left arm numbness which is resolved, with some nausea suspicious for acute blood loss anemia. Shipyard Helper evaluated the patient and planning for EGD/colonoscopy. Patient on Eliquis for A. fib which could be held prior to procedure. Patient continue with Pepcid. Continue with IV fluid. Cardiology and gastroenterology consultation is appreciated.Labs and medication were resumed. Continue same treatment. Continue with symptomatic treatment. Resume home medication. Monitor lytes and vitals. DVT and GI prophylaxis. Further recommendationsof the clinical course of the patient DVT prophylaxis: on eliquis GI Prophylaxis: Pepcid PT/OT: Pending Prognosis is guarded
[2018-09-15 19:53] VITALS: RESP 16
[2018-09-15] MEDS: cloNIDine HCL 0.1 MG TAB PO SCH (20:39)
[2018-09-15] MEDS: hydrALAZINE HCL 25 MG TAB PO SCH (20:39)
[2018-09-15] MEDS: ATORVASTATIN 40 MG TAB PO SCH (20:39)
[2018-09-16] MEDS: SODIUM CHLORIDE 0.9% 1,000 ML IV SCH (04:33)
[2018-09-16 08:06] LABS: Basophils % (A) 0 %; Eosinophils # (A) 0.1 k/uL (0-0.7); Eosinophils % (A) 3 %; HCT 27.5 % (34.0-46.0); HGB 8.9 gm/dL (11.4-16.0); Lymphocytes # (A) 0.5 k/uL (1.0-4.8); Lymphocytes % (A) 13 %; MCH 29.2 pg (25.0-35.0); MCHC 32.3 g/dL (31.0-37.0); MCV 90.5 fL (80.0-100.0); Mean Platelet Volume 7.2; Monocytes # (A) 0.4 k/uL (0-1.0); Monocytes % (A) 10 %; Neutrophils # (A) 3.1 k/uL (1.3-7.7); Neutrophils % (A) 73 %; Platelet Count 280 k/uL (150-450); RBC 3.04 m/uL (3.80-5.40); RDW 14.7 % (11.5-15.5); WBC 4.2 k/uL (3.8-10.6)
[2018-09-16 08:13] LABS: Calcium 9.9 mg/dL (8.4-10.2); Potassium 4.7 mmol/L (3.5-5.1)
[2018-09-16] MEDS: MAGNESIUM OXIDE 400 MG TAB PO SCH (08:23)
[2018-09-16] MEDS: CARVEDILOL 3.125 MG TAB PO SCH (08:23)
[2018-09-16] MEDS: cloNIDine HCL 0.1 MG TAB PO SCH (08:23)
[2018-09-16] MEDS: busPIRone HCl 10 MG TAB PO SCH (08:23)
[2018-09-16] MEDS: CLOPIDOGREL 75 MG TAB PO SCH (08:23)
[2018-09-16] MEDS: hydrALAZINE HCL 25 MG TAB PO SCH (08:23)
[2018-09-16] MEDS: DOXAZOSIN 4 MG TAB PO SCH (08:23)
[2018-09-16] MEDS: TIMOLOL 0.5% OPHTH DROPS 5 ML BTL BOTH EYES SCH (08:42)
--- NOTE | 2018-09-16 08:46 | P.PN ---
Subjective Progress Note Date: 09/16/18 (Nephrology) Principal diagnosis: Acute kidney injury Seen and examined for the follow-up of acute kidney injury. Yesterday her antihypertensive medications were adjusted and she was on normal saline at 75 mL an hour. Feels better today. Blood pressures are around 150-170 systolic. No nausea vomiting or diarrhea. Creatinine decreased from 1.5-1.3 MG per DL. Objective - Vital Signs Vital signs: Vital Signs Temp 98.6 F 09/16/18 08:00 Pulse 99 09/16/18 08:00 Resp 16 09/16/18 08:00 BP 173/74 09/16/18 08:00 Pulse Ox 98 09/16/18 08:00 Intake & Output 09/15/18 09/16/18 09/16/18 18:59 06:59 18:59 Intake Total 300 Balance 300 Intake: IV 300 Sodium Chloride 0.9% 1, 300 000 ml @ 75 mls/hr IV . [id number] [facility] Rx#:[id number] Other: Voiding Method Toilet Toilet # Voids 1 1 - Exam Lying in bed no acute distress S1-S2 heard Lungs clear No edema - Labs CBC & Chem 7: 09/16/18 07:17 09/16/18 07:17 Labs: Abnormal Lab Results - Last 24 Hours (Table) 09/15/18 09/15/18 09/16/18 Range/Units 10:59 15:46 07:17 RBC (3.80-5.40) m/uL Hgb (11.4-16.0) gm/dL Hct (34.0-46.0) % Lymphocytes # (1.0-4.8) k/uL Sodium 135 L (137-145) mmol/L Chloride 110 H (98-107) mmol/L Carbon Dioxide 19 L 18 L (22-30) mmol/L BUN 37 H 27 H (7-17) mg/dL Creatinine 1.51 H 1.30 H (0.52-1.04) mg/dL Glucose 131 H 141 H (74-99) mg/dL Ur Leukocyte Esterase Small H (Negative) Urine Bacteria Rare H (None) /hpf 09/16/18 Range/Units 07:17 RBC 3.04 L (3.80-5.40) m/uL Hgb 8.9 L (11.4-16.0) gm/dL Hct 27.5 L (34.0-46.0) % Lymphocytes # 0.5 L (1.0-4.8) k/uL Sodium (137-145) mmol/L Chloride (98-107) mmol/L Carbon Dioxide (22-30) mmol/L BUN (7-17) mg/dL Creatinine (0.52-1.04) mg/dL Glucose (74-99) mg/dL Ur Leukocyte Esterase (Negative) Urine Bacteria (None) /hpf Assessment and Plan Assessment: #1 acute kidney injury suspect hemodynamic ATN from low blood pressures. -UA [place], ultrasound no hydronephrosis. #2 history of hypertension currently, blood pressure slightly high after adjusting the medications. #3 left hand numbness resolved #4 metabolic acidosis secondary to acute kidney injury Plan: #1 Aldactone and losartan continue to stop at discharge. hydralazine decreased to 25 mg 3 times a day and clonidine to 0.1 mg twice a day. -Continue to maintain on this antihypertensive regimen with a goal blood pressure of 140-150/90. #2 advised to monitor blood pressures at home and follow up in the office for further adjustment of medications and monitoring of kidney function #3 stable from nephrology point of view to be discharged to be followed up with Dr. Garcia/Dr. Paula as outpatient in the office. #4 stop IV fluids
[2018-09-16] MEDS ORDERED: SODIUM BICARBONATE TAB 650 MG TAB PO SCH (09:00)
[2018-09-16 12:06] VITALS: BP 160/64; PULSE 77; TEMP 98.3
[2018-09-16] MEDS: APIXABAN 2.5 MG TABLET PO SCH (12:06)
[2018-09-16] MEDS ORDERED: hydrALAZINE HCL 25 MG TAB PO SCH (16:00)
--- NOTE | 2018-09-16 18:40 | P.DS ---
Providers Date of admission: 09/13/18 10:28 On-call hospitalist covering for Dr. Sanchez This is a pleasant 83 years old female with history of coronary artery disease, status post CABG, hypertension, hyperlipidemia, history of chronic atrial fibrillation, history of stroke with no residual weakness, who presents because of left upper extremity numbness. As per patient she came to the hospital because she was feeling funny in her left upper extremity, rather than numbness of 1-2 days duration. Which is gone completely now as per patient. Patient denies chest pain. She denies shortness of breath. Patient told me she got only shortness of breath when she goes upstairs. Usually she can walk and goes to the grocery store without any breathing difficulty or exertional dyspnea, and that the last time she went to her grocery store was about a week ago. Patient when I saw her was alert awake and oriented to time place and person. And she knows why she came to the hospital because of his left upper extremity numbness which is resolved now. Patient denies exertional dyspnea or chest pain. As above patient has been evaluated by teleprinter installer who cleared her for discharge. However he recommended to stop the aspirin upon this chart 12 continue with Plavix and Eliquis. Patient also was free-flowing groggy which comes and goes in her epigastric area. With no overt nausea or vomiting. No epigastric pain or discomfort. No change in bowel or urine habits. And no fever. Patient asked to see a prime broker: Recommended EGD/colonoscopy which can be done as inpatient or outpatient as her hemoglobin and vitals were stable although weeks and months. Patient creatinine increased slightly from 1.2 to 1.5, we will start gentle hydration , development lead evaluated pt and adjusted her BP medication , her BP and creatinine improved , pt herself felt much better and her weakness improved and felt she can be discharge home. pt was cleared by nephrology for discharge. i had long discussion with pt and family at bed side per pt request ( and daughter) and they understand she will need EGD/Colonoscopy done as outpt and that as per GI note she is scheduled for these procedures on this coming Monday09/18/2018, and I instructed them to call tomorrow and confirm appointment and they agree, also they understand Eliquis needs to be held till the procedure and resume after that after discussing it with her doctor. I explained to them the risks of holding eliquis is thrombosis, stroke, and /or . and they verbalized understanding and acceptance . however i think keeping the eliquis and postponding the EGD has more risks for both bleeding and thrombosis , so I think holding eliquis has more benefits than risks. BP medication are adjusted and pt informed. also they informed of stopping aspirin as per teleprinter installer recommendation and to continue with palix and Eliquis ( except it is on hold temporarily) on the day of discharge pt showed interval improvment , with weakness significantly improved, no chest pain , no dyspnea, no epigastric upset , no n/v , tolerating diet well Pt and family were instructed about the problems and management plan and Pt verbalized understanding and acceptance Pt is found stable and can be discharged to the community but needs follow up as outpt. appointment with nephrology could not be done for weekend and she agrees to make one for herself, however they agree with pcp and GI appointments and timing Discharge exam Gen.: Patient alert awake and oriented X 3, NOT IN DISTRESS CVS: s1-s2, RRR, no murmur CHEST:bilateral CTA, no wheezing or crepitation Abdomen: Soft, no tenderness, no distention, positive bowel sounds Extremities: No leg edema or induration time spent : more than 35 min Attending physician: Lj Sanchez Consults: 09/13/18 10:28 Consult Physician Urgent Consulting Provider: Demian Perez Consult Reason/Comments: Exertional dyspnea, cardiac evaluation Do you want consulting provider notified?: Yes 09/14/18 08:30 Consult Physician Urgent Consulting Provider: Jose Pearson Consult Reason/Comments: nausea/vomiting/abdominal pain Do you want consulting provider notified?: Yes 09/15/18 13:44 Consult Physician Routine Consulting Provider: Alyse Lorenzo Consult Reason/Comments: elevated bun/creatinine Do you want consulting provider notified?: Yes Primary care physician: Lj Sanchez Plan - Discharge Summary Discharge Rx Participant: No New Discharge Prescriptions: New cloNIDine HCL [Catapres] 0.1 mg PO BID #60 tab hydrALAZINE HCL [Apresoline] 25 mg PO TID #90 tab Sodium Bicarbonate Tab 650 mg PO BID #30 tab Continue busPIRone HCl [Buspar] 10 mg PO BID Timolol 0.5% Ophth Soln [Timoptic 0.5% Ophth Soln] 1 drop BOTH EYES DAILY Atorvastatin [Lipitor] 40 mg PO HS #30 tab Clopidogrel [Plavix] 75 mg PO DAILY #30 tab Doxazosin [Cardura] 4 mg PO DAILY #30 tab Famotidine [Pepcid] 20 mg PO DAILY #30 tab Magnesium Oxide [Mag-Ox] 400 mg PO DAILY #30 tab Apixaban [Eliquis] 2.5 mg PO BID Carvedilol [Coreg] 3.125 mg PO AC-BID Discontinued hydrALAZINE HCL [Apresoline] 100 mg PO QID #0 cloNIDine HCL [Catapres] 0.2 mg PO TID #30 tab Losartan [Cozaar] 50 mg PO BID #30 tab Spironolactone [Aldactone] 25 mg PO BID@0900,1600 #30 tab Aspirin 81 mg PO DAILY chew Discharge Medication List busPIRone HCl [Buspar] 10 mg PO BID 09/29/15 [History] Timolol 0.5% Ophth Soln [Timoptic 0.5% Ophth Soln] 1 drop BOTH EYES DAILY [History] Atorvastatin [Lipitor] 40 mg PO HS #30 tab 04/19/17 [Rx] Clopidogrel [Plavix] 75 mg PO DAILY #30 tab 04/19/17 [Rx] Doxazosin [Cardura] 4 mg PO DAILY #30 tab 11/03/17 [Rx] Famotidine [Pepcid] 20 mg PO DAILY #30 tab 11/16/17 [Rx] Magnesium Oxide [Mag-Ox] 400 mg PO DAILY #30 tab 11/16/17 [Rx] Apixaban [Eliquis] 2.5 mg PO BID 02/01/18 [History] Carvedilol [Coreg] 3.125 mg PO AC-BID 06/25/18 [History] Sodium Bicarbonate Tab 650 mg PO BID #30 tab 09/16/18 [Rx] cloNIDine HCL [Catapres] 0.1 mg PO BID #60 tab 09/16/18 [Rx] hydrALAZINE HCL [Apresoline] 25 mg PO TID #90 tab 09/16/18 [Rx] Follow up Appointment(s)/Referral(s): Lj Sanchez MD [Primary Care Provider] - 09/21/18 9:30 am Alyse Lorenzo MD [STAFF PHYSICIAN] - 1 Week (Call office to make appointment with Kidney doctor for follow up) Jose Pearson MD [STAFF PHYSICIAN] - 09/18/18 8:00 am (for EGD/Colonoscopy) Patient Instructions/Handouts: Angina (DC), Upper Endoscopy (DC) Activity/Diet/Wound Care/Special Instructions: Last dose of eliquis on Monday night. continue to hold Eliquis till you have the EGD on Monday09/18/2018, then resume it with the supervision of your doctor Upper endoscopy/EGD scheduled for Monday as outpatient- Dr. Pearson office to call and confirm appointment date and time with patient on Monday 09/17 cardiac diet activity is limited till you see your doctor recheck your Blood pressure with your doctor Discharge Disposition: HOME SELF-CARE
== END 2018-09-16 14:31 | disposition home or self-care (01) ==
LOC: EC 07:43 → 3SCARD 10:28 → 1SOBS 10:57
PROVIDERS: ADMIT Family Medicine; ATTEND Family Medicine
DX: R10.13 Epigastric pain (principal); R20.0 Anesthesia of skin; R06.09 Other forms of dyspnea; R11.0 Nausea; M79.602 Pain in left arm; D64.9 Anemia, unspecified; I95.9 Hypotension, unspecified; E87.2 Acidosis; N17.9 Acute kidney failure, unspecified; I25.10 Atherosclerotic heart disease of native coronary artery without angina pectoris; E78.5 Hyperlipidemia, unspecified; I48.2 Chronic atrial fibrillation; I25.2 Old myocardial infarction; I50.32 Chronic diastolic (congestive) heart failure; I11.0 Hypertensive heart disease with heart failure; I34.0 Nonrheumatic mitral (valve) insufficiency; K21.9 Gastro-esophageal reflux disease without esophagitis; F41.9 Anxiety disorder, unspecified; F32.9 Major depressive disorder, single episode, unspecified; Z95.1 Presence of aortocoronary bypass graft; M19.90 Unspecified osteoarthritis, unspecified site; H91.92 Unspecified hearing loss, left ear; H40.9 Unspecified glaucoma; Z86.73 Personal history of transient ischemic attack (TIA), and cerebral infarction without residual deficits; Z79.01 Long term (current) use of anticoagulants; Z79.02 Long term (current) use of antithrombotics/antiplatelets; Z79.899 Other long term (current) drug therapy; Z79.82 Long term (current) use of aspirin; Z88.1 Allergy status to other antibiotic agents; Z88.2 Allergy status to sulfonamides; Z88.8 Allergy status to other drugs, medicaments and biological substances; Z91.048 Other nonmedicinal substance allergy status; Z95.5 Presence of coronary angioplasty implant and graft; Z80.6 Family history of leukemia; Z80.9 Family history of malignant neoplasm, unspecified
CPT/HCPCS: 96374; 99285; 96361 ×2; 36415; 93005; 93306; 97161; 97165; 83880; 80061; 80053; 80048 ×3; 82728; 82150; 82550; 82553; 83540; 83550; 83690; 83735; 84484; 85025 ×3; 85610; 85730; 81001; 71046; 76770; G0378 ×4; J2405

== ENCOUNTER 2018-09-18 08:08 | Day surgery (SDC) | payer MEDICARE, BC ==
[2018-09-17 08:23] VITALS: BMI 27.1
[~2018-09-18 08:08] MED LIST: LACTATED RINGERS 1,000 ML IV SCH; LIDOCAINE 1% 20 ML VIAL (10MG/ML) FOR IV START INTRADERMA PRN
[2018-09-18 08:25] VITALS: TEMP 97.5
[2018-09-18] MEDS ORDERED: PROPOFOL 10 MG/ML 20 ML VIAL IV ONE (09:21)
[2018-09-18] MEDS ORDERED: LIDOCAINE 1% INJ 10MG/ML (20 ML MDV) ONE (09:21)
[2018-09-18 09:56] VITALS: RESP 16
--- NOTE | 2018-09-18 10:05 | P.PCN ---
Date of Procedure: 09/18/18 Description of Procedure: BRIEF HISTORY: Patient is a 83-year-old, pleasant, with multiple medical comorbidities including coronary artery on Plavix therapy, osteoarthritis, hypertension, dyslipidemia and GERD on Zantac therapy who presents with complaints of nausea. The patient reports frequent episodes of nausea, usually associated with waking up in the morning. The patient denies PPI use and is on an H2 poly. She has multiple ALLERGIC reactions to medications including nausea and vomiting. PROCEDURE PERFORMED: Esophagogastroduodenoscopy with biopsy. PREOPERATIVE DIAGNOSIS: History of GERD, nausea. ESTIMATED BLOOD LOSS: Minimal. IV sedation per anesthesia. PROCEDURE: After informed consent was obtained, the patient was brought into the endoscopy unit. IV sedation was administered by Anesthesia under continuous monitoring. Initially the Olympus GIF-190 video endoscope was inserted into the mouth. Esophagus intubated without any difficulty. It was gradually advanced into the stomach and duodenum and carefully examined. The bulb and the second part of the duodenum appeared grossly normal, however diffuse melanosis of villi was noted. Biopsies were taken of the duodenum. The scope at this time was withdrawn to the stomach, adequately insufflated with air, and upon careful examination, mucosa of the antrum, body, cardia and the fundus appeared grossly normal with no visualized anatomic defects or ulcers. There was moderate diffuse gastritis characterized by superficial erosions in the antrum and body which was biopsied. The scope was then withdrawn into the esophagus. The GE junction was located at 34 cm from the incisors. A small hiatal hernia was noted. The esophagus appeared normal, with the finding of a widely patent distal Schatzki ring. There were no erosions or ulcerations seen and the patient tolerated the procedure well. IMPRESSION: 1. Gastritis, biopsied. 2. Duodenal biopsies. 3. Widely patent Schatzki ring and small hiatal hernia. RECOMMENDATIONS: The findings of this examination were discussed with the patient and her family. Okay for diet. Will discuss increasing Pepcid to twice a day. Would recommend follow-up in gastroenterology clinic if symptoms persist. Okay to restart Eliquis and Plavix tomorrow morning.
[2018-09-18 10:07] VITALS: BP 138/75; PULSE 87
== END 2018-09-18 12:33 | disposition home or self-care (01) ==
LOC: ORWHC2ENDO 08:08
PROVIDERS: ATTEND Internal Medicine
DX: K29.50 Unspecified chronic gastritis without bleeding (principal); K44.9 Diaphragmatic hernia without obstruction or gangrene; L81.4 Other melanin hyperpigmentation; I25.10 Atherosclerotic heart disease of native coronary artery without angina pectoris; I10 Essential (primary) hypertension; K21.9 Gastro-esophageal reflux disease without esophagitis; I25.2 Old myocardial infarction; M19.90 Unspecified osteoarthritis, unspecified site; H40.9 Unspecified glaucoma; D64.9 Anemia, unspecified; I48.91 Unspecified atrial fibrillation; E78.5 Hyperlipidemia, unspecified; Z79.01 Long term (current) use of anticoagulants; Z79.02 Long term (current) use of antithrombotics/antiplatelets; Z79.899 Other long term (current) drug therapy; Z88.1 Allergy status to other antibiotic agents; Z88.2 Allergy status to sulfonamides; Z88.8 Allergy status to other drugs, medicaments and biological substances
CPT/HCPCS: 88305; 88313; 88342; 43239; J2001; J2704

== ENCOUNTER → 2018-09-19 | Outpatient (CLI) | payer MEDICARE, BC ==
--- NOTE | 2018-09-20 09:44 | MM ---
Reason for exam: follow-up at short interval from prior study. Last mammogram was performed 6 months ago. History: Patient is postmenopausal. Physical Findings: Nurse did not find any significant physical abnormalities on exam. MG 3D Diag Mammo W/Cad LT CC, MLO, CC with magnification, and LM with magnification view(s) were taken of the left breast. Prior study comparison: March 12, 2018, left breast MG 3d work up w/cad LT. February 27, 2018, bilateral MG 3d screening mammo w/cad. The breast tissue is heterogeneously dense. This may lower the sensitivity of mammography. Stable microcalcifications lower outer left breast, continued follow up. No significant new findings when compared with previous films. These results were verbally communicated with the patient and result sheet given to the patient on 09/19/18. ASSESSMENT: Probably benign, BI-RAD 3 RECOMMENDATION: Follow-up diagnostic mammogram of both breasts in 6 months.
== END | disposition home or self-care (01) ==
LOC: RADMAMWWP 08:40
PROVIDERS: ATTEND Family Medicine
DX: N64.89 Other specified disorders of breast (principal)
CPT/HCPCS: 77065; G0279; 77061

== ENCOUNTER → 2019-03-21 | Outpatient (CLI) | payer MEDICARE, BC ==
--- NOTE | 2019-03-21 09:20 | MM ---
Reason for exam: follow-up at short interval from prior study. Last mammogram was performed 6 months ago. History: Patient is postmenopausal. Physical Findings: Nurse did not find any significant physical abnormalities on exam. MG 3D Diag Mammo W/Cad XIOMARA Bilateral CC and MLO view(s) were taken. Prior study comparison: September 19, 2018, left breast MG 3d diag mammo w/cad LT. March 12, 2018, left breast MG 3d work up w/cad LT. The breast tissue is heterogeneously dense. This may lower the sensitivity of mammography. The left upper inner quadrant calcifications again appear stable. 1 year follow up diagnostic would satisfy 2 years of stability. If stable on the next exam, these could be considered benign. Other benign appearing bilateral calcifications. These results were verbally communicated with the patient and result sheet given to the patient on 03/21/19. ASSESSMENT: Probably benign, BI-RAD 3 RECOMMENDATION: Follow-up diagnostic mammogram of both breasts in 1 year.
== END ==
LOC: RADMAMWWP 08:08
PROVIDERS: ATTEND Family Medicine
DX: R92.8 Other abnormal and inconclusive findings on diagnostic imaging of breast (principal)
CPT/HCPCS: 77066; G0279; 77062

== ENCOUNTER 2019-03-22 07:19 | Emergency (ER) | payer MEDICARE, BC ==
--- NOTE | 2019-03-22 08:23 | ED ---
ENT HPI - General Chief complaint: ENT Stated complaint: ENT Time Seen by Provider: 03/22/19 08:09 Source: patient, RN notes reviewed Mode of arrival: ambulatory Limitations: no limitations - History of Present Illness Initial comments: 83-year-old female presents emergency from for right ear pain. Patient had difficulty with hearing on-and-off for a while. Patient states that she's had to place her right ear and she has no hearing of her left ear. Patient states that her ear is muffled and she's noticed a small amount of drainage from his had no pain no fever or chills. Denies any pain around her ear no headache no dizziness. Patient states she has an appointment with her ENT coming up. - Related Data Home Medications Medication Instructions Recorded Confirmed busPIRone HCl [Buspar] 10 mg PO BID 09/29/15 03/22/19 Timolol 0.5% Ophth Soln [Timoptic 1 drop BOTH EYES DAILY 09/29/16 03/22/19 0.5% Ophth Soln] Apixaban [Eliquis] 2.5 mg PO BID 02/01/18 03/22/19 Carvedilol [Coreg] 3.125 mg PO AC-BID 06/25/18 03/22/19 cloNIDine HCL [Catapres] 0.1 mg PO TID 03/22/19 03/22/19 Previous Rx's Medication Instructions Recorded Atorvastatin [Lipitor] 40 mg PO HS #30 tab 04/19/17 Clopidogrel [Plavix] 75 mg PO DAILY #30 tab 04/19/17 Doxazosin [Cardura] 4 mg PO DAILY #30 tab 11/03/17 Famotidine [Pepcid] 20 mg PO DAILY #30 tab 11/16/17 Magnesium Oxide [Mag-Ox] 400 mg PO DAILY #30 tab 11/16/17 Sodium Bicarbonate Tab 650 mg PO BID #30 tab 09/16/18 hydrALAZINE HCL [Apresoline] 25 mg PO TID #90 tab 09/16/18 Ofloxacin 0.3% Otic Soln [Floxin 10 drops RIGHT EAR BID #10 ml 03/22/19 0.3% Otic Soln] Allergies Allergy/AdvReac Type Severity Reaction Status Date / Time clindamycin Allergy Unknown Verified 03/22/19 08:10 prednisone Allergy Unknown Verified 03/22/19 08:10 adhesive tape AdvReac Severe Skin Verified 03/22/19 08:10 Irritation/Peeling allopurinol AdvReac Severe Nausea & Verified 03/22/19 08:10 Vomiting amlodipine besylate AdvReac Severe Nausea & Verified 03/22/19 08:10 [From Norvasc] Vomiting celecoxib [From Celebrex] AdvReac Severe Nausea & Verified 03/22/19 08:10 Vomiting clonidine HCl [From Catapres] AdvReac Severe Nausea & Verified 03/22/19 08:10 Vomiting diclofenac AdvReac Severe Nausea & Verified 03/22/19 08:10 Vomiting isosorbide AdvReac Severe Nausea & Verified 03/22/19 08:10 Vomiting methylprednisolone AdvReac Severe Nausea & Verified 03/22/19 08:10 Vomiting metoprolol tartrate AdvReac Severe Nausea & Verified 03/22/19 08:10 [From Lopressor] Vomiting misoprostol AdvReac Severe Nausea & Verified 03/22/19 08:10 Vomiting rabeprazole sodium AdvReac Severe Nausea & Verified 03/22/19 08:10 [From Aciphex] Vomiting Sulfa (Sulfonamide AdvReac Severe Nausea & Verified 03/22/19 08:10 Antibiotics) Vomiting oseltamivir AdvReac Unknown Verified 03/22/19 08:10 Review of Systems ROS Statement: Those systems with pertinent positive or pertinent negative responses have been documented in the HPI. ROS Other: All systems not noted in ROS Statement are negative. Past Medical History Past Medical History: Coronary Artery Disease (CAD), Eye Disorder, GERD/Reflux, Hearing Disorder / Deafness, Hyperlipidemia, Hypertension, Myocardial Infarction ([place]), Osteoarthritis (OA) Additional Past Medical History / Comment(s): Bilateral glaucoma, left ear deaf Last Myocardial Infarction Date:: 01/29/18 History of Any Multi-Drug Resistant Organisms: None Reported Past Surgical History: Appendectomy, Section, Heart Catheterization, Heart Catheterization With Stent, Hysterectomy, Tonsillectomy Additional Past Surgical History / Comment(s): PCI with stent 01/29/18, colonoscopy Past Anesthesia/Blood Transfusion Reactions: Postoperative Nausea & Vomiting (PONV) Date of Last Stent Placement:: 01/29/18 Past Psychological History: Anxiety Smoking Status: Never smoker Past Alcohol Use History: None Reported Past Drug Use History: None Reported - Past Family History Father Family Medical History: Coronary Artery Disease (CAD) Additional Family Medical History / Comment(s): Father was healthy. He after his spouse's "he just gave up on life." Mother Family Medical History: Coronary Artery Disease (CAD), Myocardial Infarction ([place]) Additional Family Medical History / Comment(s): Mother of a Mi at the age of 62 or 63yrs. Brother(s) Family Medical History: Cancer Additional Family Medical History / Comment(s): one brother leukemia. another brother metastatic CA General Exam Limitations: no limitations General appearance: alert, in no apparent distress Head exam: Present: atraumatic, normocephalic, normal inspection Eye exam: Present: normal appearance, PERRL, EOMI. Absent: scleral icterus, conjunctival injection, periorbital swelling ENT exam: Present: normal exam, normal oropharynx, mucous membranes moist, normal external ear exam (Mild cerumen noted in the right EAC), other (No mastoid tenderness no prior record tenderness). Absent: TM's normal bilaterally (Tube noted in the right TM, left unremarkable) Neck exam: Present: normal inspection, full ROM, other. Absent: tenderness, meningismus, lymphadenopathy Respiratory exam: Present: normal lung sounds bilaterally. Absent: respiratory distress, wheezes, rales, rhonchi, stridor Cardiovascular Exam: Present: regular rate, normal rhythm, normal heart sounds. Absent: systolic murmur, diastolic murmur, rubs, gallop, clicks Neurological exam: Present: alert, oriented X3, CN II-XII intact Course Vital Signs 03/22/19 07:28 Temperature 98.6 F Pulse Rate 98 Respiratory 18 Rate Blood Pressure 207/106 O2 Sat by Pulse 98 Oximetry Medical Decision Making - Medical Decision Making 83-year-old female presents emergency from for right ear issues. Patient has cerumen impaction and there is some mild erythema of the before meals with no surrounding tenderness or edema. Patient we given ofloxacin eardrops. Patient will not have irrigation of her right ear canal secondary to prior to placement. Patient will follow-up with ENT for mechanical removal Disposition Clinical Impression: Cerumen impaction, Otitis externa Disposition: HOME SELF-CARE Condition: Stable Instructions (If sedation given, give patient instructions): Cerumen Impaction (ED) Additional Instructions: Follow-up with ENT as directed.Please return to the Emergency Department if symptoms worsen or any other concerns. Prescriptions: Ofloxacin 0.3% Otic Soln [Floxin 0.3% Otic Soln] 10 drops RIGHT EAR BID #10 ml Is patient prescribed a controlled substance at d/c from ED?: No Referrals: Lj Sanchez MD [Primary Care Provider] - 1-2 days Time of Disposition: 08:22
[2019-03-22 08:40] VITALS: BP 179/92; PULSE 79; RESP 20; TEMP 98
== END 2019-03-22 08:40 | disposition home or self-care (01) ==
LOC: EC 07:19
DX: H61.21 Impacted cerumen, right ear (principal); H60.91 Unspecified otitis externa, right ear; H91.92 Unspecified hearing loss, left ear; I25.10 Atherosclerotic heart disease of native coronary artery without angina pectoris; I10 Essential (primary) hypertension; I25.2 Old myocardial infarction; H40.9 Unspecified glaucoma; F41.9 Anxiety disorder, unspecified; Z88.1 Allergy status to other antibiotic agents; Z88.2 Allergy status to sulfonamides; Z88.3 Allergy status to other anti-infective agents; Z88.6 Allergy status to analgesic agent; Z88.8 Allergy status to other drugs, medicaments and biological substances; Z91.048 Other nonmedicinal substance allergy status; Z79.01 Long term (current) use of anticoagulants; Z79.899 Other long term (current) drug therapy; Z95.5 Presence of coronary angioplasty implant and graft; Z96.20 Presence of otological and audiological implant, unspecified
CPT/HCPCS: 99283

== ENCOUNTER 2019-04-19 10:22 | Emergency (ER) | payer MEDICARE, BC ==
[2019-04-19 10:38] VITALS: TEMP 97.4
[2019-04-19] MEDS ORDERED: hydrALAZINE HCL 20 MG/ML 1 ML VIAL IVP STA ×2 (11:13→13:44)
--- NOTE | 2019-04-19 11:15 | ED ---
General Adult HPI - General Chief complaint: Recheck/Abnormal Lab/Rx Stated complaint: High BP Time Seen by Provider: 04/19/19 10:56 Source: patient, RN notes reviewed Mode of arrival: ambulatory Limitations: no limitations - History of Present Illness Initial comments: Patient is a pleasant 83-year-old female presenting to the emergency department with hypertension. Patient did follow-up with her ENT today and blood pressure was high there. Patient then went to her primary care physician and blood pressure was still high. Patient was advised to come to the emergency department. Patient is unclear how high her blood pressure was. Patient denies any new symptoms. Patient denies any headache or confusion or weakness. No chest pain or dyspnea. Patient does have history of chronic hypertension. Patient did take her medications this morning. - Related Data Home Medications Medication Instructions Recorded Confirmed busPIRone HCl [Buspar] 10 mg PO BID 09/29/15 04/19/19 Timolol 0.5% Ophth Soln [Timoptic 1 drop BOTH EYES DAILY 09/29/16 04/19/19 0.5% Ophth Soln] Apixaban [Eliquis] 2.5 mg PO BID 02/01/18 04/19/19 Carvedilol [Coreg] 3.125 mg PO AC-BID 06/25/18 04/19/19 cloNIDine HCL [Catapres] 0.1 mg PO TID 03/22/19 04/19/19 Atorvastatin [Lipitor] 40 mg PO DAILY@1700 04/19/19 04/19/19 Famotidine [Pepcid] 20 mg PO BID 04/19/19 04/19/19 Previous Rx's Medication Instructions Recorded Clopidogrel [Plavix] 75 mg PO DAILY #30 tab 04/19/17 Doxazosin [Cardura] 4 mg PO DAILY #30 tab 11/03/17 Magnesium Oxide [Mag-Ox] 400 mg PO DAILY #30 tab 11/16/17 Sodium Bicarbonate Tab 650 mg PO BID #30 tab 09/16/18 hydrALAZINE HCL [Apresoline] 25 mg PO TID #90 tab 09/16/18 Allergies Allergy/AdvReac Type Severity Reaction Status Date / Time clindamycin Allergy Unknown Verified 04/19/19 11:23 prednisone Allergy Unknown Verified 04/19/19 11:23 adhesive tape AdvReac Severe Skin Verified 04/19/19 11:23 Irritation/Peeling allopurinol AdvReac Severe Nausea & Verified 04/19/19 11:23 Vomiting amlodipine besylate AdvReac Severe Nausea & Verified 04/19/19 11:23 [From Norvasc] Vomiting celecoxib [From Celebrex] AdvReac Severe Nausea & Verified 04/19/19 11:23 Vomiting clonidine HCl [From Catapres] AdvReac Severe Nausea & Verified 04/19/19 11:23 Vomiting diclofenac AdvReac Severe Nausea & Verified 04/19/19 11:23 Vomiting isosorbide AdvReac Severe Nausea & Verified 04/19/19 11:23 Vomiting methylprednisolone AdvReac Severe Nausea & Verified 04/19/19 11:23 Vomiting metoprolol tartrate AdvReac Severe Nausea & Verified 04/19/19 11:23 [From Lopressor] Vomiting misoprostol AdvReac Severe Nausea & Verified 04/19/19 11:23 Vomiting rabeprazole sodium AdvReac Severe Nausea & Verified 04/19/19 11:23 [From Aciphex] Vomiting Sulfa (Sulfonamide AdvReac Severe Nausea & Verified 04/19/19 11:23 Antibiotics) Vomiting oseltamivir AdvReac Unknown Verified 04/19/19 11:23 Review of Systems ROS Statement: Those systems with pertinent positive or pertinent negative responses have been documented in the HPI. ROS Other: All systems not noted in ROS Statement are negative. Constitutional: Denies: fever Eyes: Denies: eye pain ENT: Reports: other (Ringing in her ears that has been persistent for over a month and patient has seen ENT). Denies: ear pain Respiratory: Denies: cough, dyspnea Cardiovascular: Denies: chest pain Endocrine: Denies: fatigue Gastrointestinal: Denies: abdominal pain Genitourinary: Denies: dysuria Musculoskeletal: Denies: back pain Skin: Denies: rash Neurological: Denies: headache, weakness, confusion Past Medical History Past Medical History: Atrial Fibrillation (Paroxysmal), Coronary Artery Disease (CAD), Eye Disorder, GERD/Reflux, Hearing Disorder / Deafness, Hyperlipidemia, Hypertension, Myocardial Infarction ([place]), Osteoarthritis ([place]) Additional Past Medical History / Comment(s): Bilateral glaucoma, left ear deaf Last Myocardial Infarction Date:: 01/29/18 History of Any Multi-Drug Resistant Organisms: None Reported Past Surgical History: Appendectomy, Section, Heart Catheterization, Heart Catheterization With Stent, Hysterectomy, Tonsillectomy Additional Past Surgical History / Comment(s): PCI with stent 01/29/18, colonoscopy Past Anesthesia/Blood Transfusion Reactions: Postoperative Nausea & Vomiting (PONV) Date of Last Stent Placement:: 01/29/18 Past Psychological History: Anxiety Smoking Status: Never smoker Past Alcohol Use History: None Reported Past Drug Use History: None Reported - Past Family History Father Family Medical History: Coronary Artery Disease (CAD) Additional Family Medical History / Comment(s): Father was healthy. He after his spouse's "he just gave up on life." Mother Family Medical History: Coronary Artery Disease (CAD), Myocardial Infarction ([place]) Additional Family Medical History / Comment(s): Mother of a Mi at the age of 62 or 63yrs. Brother(s) Family Medical History: Cancer Additional Family Medical History / Comment(s): one brother leukemia. another brother metastatic CA General Exam Limitations: no limitations General appearance: alert, in no apparent distress Head exam: Present: atraumatic Eye exam: Present: normal appearance, PERRL ENT exam: Present: normal oropharynx Neck exam: Present: normal inspection Respiratory exam: Present: normal lung sounds bilaterally Cardiovascular Exam: Present: regular rate, irregular rhythm Expanded Peripheral pulses: 2+: Radial (R), Radial (L), Posterior Tibialis (R), Posterior Tibialis (L) GI/Abdominal exam: Present: soft. Absent: tenderness Extremities exam: Present: normal inspection. Absent: pedal edema, calf tenderness Neurological exam: Present: alert, CN II-XII intact. Absent: motor sensory de ficit Expanded Cranial nerves: EOM's Intact: Normal Sensory exam: Upper Extremity Light Touch: Normal, Lower Extremity Light Touch: Normal Motor strength exam: RUE: 5, LUE: 5, RLE: 5, LLE: 5 Eye Response: (4) open spontaneously Motor Response: (6) obeys commands Verbal Response: (5) oriented Psychiatric exam: Present: normal affect, normal mood Skin exam: Present: normal color Course Vital Signs 04/19/19 04/19/19 04/19/19 10:35 12:20 13:30 Temperature 97.4 F L Pulse Rate 98 82 93 Respiratory 16 18 Rate Blood Pressure 215/105 203/96 190/88 O2 Sat by Pulse 98 98 Oximetry 04/19/19 14:47 Temperature Pulse Rate 76 Respiratory 18 Rate Blood Pressure 168/85 O2 Sat by Pulse 97 Oximetry EKG Findings - EKG Comments: EKG Findings:: A. fib with a rate of 85. QRS 86. QT 374. QTC 445. Normal axis. Normal QRS. No acute ST change. Medical Decision Making - Medical Decision Making Patient reevaluated and resting comfortably in bed. Blood pressure has improved to 165/89. Patient and family updated on results and need for follow-up. Patient is advised if she checks her blood pressure and it is running high that she may take an additional dose of her hydralazine until follow-up. Patient does have follow-up arty scheduled in the beginning of the week with Dr. Sanchez. - Lab Data Result diagrams: 04/19/19 11:58 04/19/19 11:58 Lab Results 04/19/19 04/19/19 04/19/19 Range/Units 11:58 11:58 12:00 WBC 6.0 (3.8-10.6) k/uL RBC 4.45 (3.80-5.40) m/uL Hgb 11.6 (11.4-16.0) gm/dL Hct 36.9 (34.0-46.0) % MCV 83.0 (80.0-100.0) fL MCH 26.1 (25.0-35.0) pg MCHC 31.5 (31.0-37.0) g/dL RDW 15.7 H (11.5-15.5) % Plt Count 271 (150-450) k/uL Neutrophils % 77 % Lymphocytes % 9 % Monocytes % 8 % Eosinophils % 3 % Basophils % 0 % Neutrophils # 4.6 (1.3-7.7) k/uL Lymphocytes # 0.6 L (1.0-4.8) k/uL Monocytes # 0.5 (0-1.0) k/uL Eosinophils # 0.2 (0-0.7) k/uL Basophils # 0.0 (0-0.2) k/uL Sodium 140 (137-145) mmol/L Potassium 4.3 (3.5-5.1) mmol/L Chloride 108 H (98-107) mmol/L Carbon Dioxide 23 (22-30) mmol/L Anion Gap 9 mmol/L BUN 21 H (7-17) mg/dL Creatinine 0.93 (0.52-1.04) mg/dL Est GFR (CKD-EPI)AfAm 65 (>60 ml/min/1.73 sqM) Est GFR (CKD-EPI)NonAf 57 (>60 ml/min/1.73 sqM) Glucose 129 H (74-99) mg/dL Calcium 10.5 H (8.4-10.2) mg/dL Total Bilirubin 0.8 (0.2-1.3) mg/dL AST 26 (14-36) U/L ALT 30 (9-52) U/L Alkaline Phosphatase 97 (38-126) U/L Total Protein 7.9 (6.3-8.2) g/dL Albumin 4.5 (3.5-5.0) g/dL Urine Color Light Yellow Urine Appearance Clear (Clear) Urine pH 7.0 (5.0-8.0) Ur Specific Rayle 1.007 (1.001-1.035) Urine Protein Negative (Negative) Urine Glucose (UA) Negative (Negative) Urine Ketones Negative (Negative) Urine Blood Negative (Negative) Urine Nitrite Negative (Negative) Urine Bilirubin Negative (Negative) Urine Urobilinogen <2.0 (<2.0) mg/dL Ur Leukocyte Esterase Negative (Negative) - Radiology Data Radiology results: image reviewed (Chest x-ray shows mild cardiomegaly.) Disposition Clinical Impression: Hypertension Disposition: HOME SELF-CARE Condition: Stable Instructions (If sedation given, give patient instructions): Hypertension (ED) Additional Instructions: Please follow-up with Dr. Sanchez in the being the week as planned. If blood p ressure is running high U may take a single extra dose of your hydralazine. Return for headache or confusion, weakness, chest pain, worsening symptoms or other concerns. Is patient prescribed a controlled substance at d/c from ED?: No Referrals: Lj Sanchez MD [Primary Care Provider] - 1-2 days Time of Disposition: 14:59
[2019-04-19 12:20] LABS: Appearance,Urine Clear (Clear); Bilirubin,Urine Negative (Negative); Blood,Urine Negative (Negative); Color,Urine Light Yellow; Glucose,Urine (UA) Negative (Negative); Ketones,Urine Negative (Negative); Leukocyte Esterase,Urine Negative (Negative); Nitrite,Urine Negative (Negative); Protein,Urine Negative (Negative); Specific Gravity,Urine 1.007 (1.001-1.035); Urobilinogen,Urine <2.0 mg/dL (<2.0)
[2019-04-19 12:21] LABS: Basophils % (A) 0 %; Eosinophils # (A) 0.2 k/uL (0-0.7); Eosinophils % (A) 3 %; HCT 36.9 % (34.0-46.0); HGB 11.6 gm/dL (11.4-16.0); Lymphocytes # (A) 0.6 k/uL (1.0-4.8); Lymphocytes % (A) 9 %; MCH 26.1 pg (25.0-35.0); MCHC 31.5 g/dL (31.0-37.0); Mean Platelet Volume 6.7; Monocytes # (A) 0.5 k/uL (0-1.0); Monocytes % (A) 8 %; Neutrophils # (A) 4.6 k/uL (1.3-7.7); Neutrophils % (A) 77 %; Platelet Count 271 k/uL (150-450); RBC 4.45 m/uL (3.80-5.40); RDW 15.7 % (11.5-15.5)
[2019-04-19 12:26] LABS: Albumin 4.5 g/dL (3.5-5.0); Calcium 10.5 mg/dL (8.4-10.2); Potassium 4.3 mmol/L (3.5-5.1); Total Bilirubin 0.8 mg/dL (0.2-1.3); Total Protein 7.9 g/dL (6.3-8.2)
--- NOTE | 2019-04-19 13:02 | XR ---
EXAMINATION TYPE: XR chest 2V DATE OF EXAM: 04/19/2019 COMPARISON: Chest x-ray September 13, 2018 HISTORY: History of hypertension. TECHNIQUE: Frontal and lateral views of the chest are obtained. FINDINGS: Overlying EKG leads are seen. There is no focal air space opacity, pleural effusion, or pne umothorax seen. The cardiac silhouette size is mildly enlarged. The osseous structures are intact. IMPRESSION: Mild cardiomegaly without acute pulmonary process.
[2019-04-19 13:45] VITALS: RESP 18
[2019-04-19 15:31] VITALS: BP 174/79; PULSE 79
== END 2019-04-19 15:27 | disposition home or self-care (01) ==
LOC: EC 10:22
DX: I11.9 Hypertensive heart disease without heart failure (principal); I49.9 Cardiac arrhythmia, unspecified; I25.10 Atherosclerotic heart disease of native coronary artery without angina pectoris; E78.5 Hyperlipidemia, unspecified; H40.9 Unspecified glaucoma; H91.92 Unspecified hearing loss, left ear; K21.9 Gastro-esophageal reflux disease without esophagitis; I25.2 Old myocardial infarction; F41.9 Anxiety disorder, unspecified; Z88.1 Allergy status to other antibiotic agents; Z88.2 Allergy status to sulfonamides; Z88.6 Allergy status to analgesic agent; Z88.8 Allergy status to other drugs, medicaments and biological substances; Z91.048 Other nonmedicinal substance allergy status; Z79.01 Long term (current) use of anticoagulants; Z79.899 Other long term (current) drug therapy; Z95.5 Presence of coronary angioplasty implant and graft; Z82.49 Family history of ischemic heart disease and other diseases of the circulatory system
CPT/HCPCS: 36415; 93005; 80053; 85025; 81003; 71046; 99283; 96374; 96376; J0360

== ENCOUNTER 2019-04-23 07:15 | Emergency (ER) | payer MEDICARE, BC ==
[2019-04-23 07:23] VITALS: RESP 18; TEMP 97.8
[2019-04-23] MEDS ORDERED: ONDANSETRON ODT 4 MG TAB PO STA (07:46)
[2019-04-23] MEDS ORDERED: FAMOTIDINE 20 MG TAB PO STA (07:46)
--- NOTE | 2019-04-23 07:50 | ED ---
General Adult HPI - General Chief complaint: Recheck/Abnormal Lab/Rx Stated complaint: hyptertension, nausea Time Seen by Provider: 04/23/19 07:35 Source: patient, family, RN notes reviewed Mode of arrival: ambulatory Limitations: no limitations - History of Present Illness Initial comments: Patient is a pleasant 83-year-old female presenting to the emergency Department with complaints of nausea. Onset of symptoms was this morning. Patient has been on clindamycin now for 3 days for her right ear. Patient has been having right ear problems for several weeks or months now. Patient has seen ENT and has seen ENT recently with this. Patient did not take her blood pressure medication this morning. Her pressure this morning was 200 systolic. Systolic blood pressure over the weekend was between 150 and 160. No new complaints other than nausea and upset stomach. No abdominal pain. No constipation or diarrhea. No vomiting. No confusion. No weakness. - Related Data Home Medications Medication Instructions Recorded Confirmed busPIRone HCl [Buspar] 10 mg PO BID 09/29/15 04/23/19 Timolol 0.5% Ophth Soln [Timoptic 1 drop BOTH EYES DAILY 09/29/16 04/23/19 0.5% Ophth Soln] Apixaban [Eliquis] 2.5 mg PO BID 02/01/18 04/23/19 Carvedilol [Coreg] 3.125 mg PO AC-BID 06/25/18 04/23/19 cloNIDine HCL [Catapres] 0.1 mg PO TID 03/22/19 04/23/19 Atorvastatin [Lipitor] 40 mg PO DAILY@1700 04/19/19 04/23/19 Famotidine [Pepcid] 20 mg PO BID 04/19/19 04/23/19 Previous Rx's Medication Instructions Recorded Clopidogrel [Plavix] 75 mg PO DAILY #30 tab 04/19/17 Doxazosin [Cardura] 4 mg PO DAILY #30 tab 11/03/17 Magnesium Oxide [Mag-Ox] 400 mg PO DAILY #30 tab 11/16/17 Sodium Bicarbonate Tab 650 mg PO BID #30 tab 09/16/18 hydrALAZINE HCL [Apresoline] 25 mg PO TID #90 tab 09/16/18 Ondansetron Odt [Zofran Odt] 4 mg PO Q8HR PRN #10 tab 04/23/19 Allergies Allergy/AdvReac Type Severity Reaction Status Date / Time clindamycin Allergy Unknown Verified 04/23/19 07:52 prednisone Allergy Unknown Verified 04/23/19 07:52 adhesive tape AdvReac Severe Skin Verified 04/23/19 07:52 Irritation/Peeling allopurinol AdvReac Severe Nausea & Verified 04/23/19 07:52 Vomiting amlodipine besylate AdvReac Severe Nausea & Verified 04/23/19 07:52 [From Norvasc] Vomiting celecoxib [From Celebrex] AdvReac Severe Nausea & Verified 04/23/19 07:52 Vomiting clonidine HCl [From Catapres] AdvReac Severe Nausea & Verified 04/23/19 07:52 Vomiting diclofenac AdvReac Severe Nausea & Verified 04/23/19 07:52 Vomiting isosorbide AdvReac Severe Nausea & Verified 04/23/19 07:52 Vomiting methylprednisolone AdvReac Severe Nausea & Verified 04/23/19 07:52 Vomiting metoprolol tartrate AdvReac Severe Nausea & Verified 04/23/19 07:52 [From Lopressor] Vomiting misoprostol AdvReac Severe Nausea & Verified 04/23/19 07:52 Vomiting rabeprazole sodium AdvReac Severe Nausea & Verified 04/23/19 07:52 [From Aciphex] Vomiting Sulfa (Sulfonamide AdvReac Severe Nausea & Verified 04/23/19 07:52 Antibiotics) Vomiting oseltamivir AdvReac Unknown Verified 04/23/19 07:52 Review of Systems ROS Statement: Those systems with pertinent positive or pertinent negative responses have been documented in the HPI. ROS Other: All systems not noted in ROS Statement are negative. Constitutional: Denies: fever Eyes: Denies: eye pain ENT: Reports: as per HPI, ear pain Respiratory: Denies: cough, dyspnea Cardiovascular: Denies: chest pain Endocrine: Denies: fatigue Gastrointestinal: Reports: nausea. Denies: abdominal pain, vomiting, diarrhea, constipation Genitourinary: Denies: dysuria Musculoskeletal: Denies: back pain Skin: Denies: rash Neurological: Denies: headache, weakness, confusion Past Medical History Past Medical History: Atrial Fibrillation, Coronary Artery Disease (CAD), Eye Disorder, GERD/Reflux, Hearing Disorder / Deafness, Hyperlipidemia, Hypertension, Myocardial Infarction ([place]), Osteoarthritis ([place]) Additional Past Medical History / Comment(s): Bilateral glaucoma, left ear deaf Last Myocardial Infarction Date:: 01/29/18 History of Any Multi-Drug Resistant Organisms: None Reported Past Surgical History: Appendectomy, Section, Heart Catheterization, Heart Catheterization With Stent, Hysterectomy, Tonsillectomy Additional Past Surgical History / Comment(s): PCI with stent 01/29/18, colonoscopy Past Anesthesia/Blood Transfusion Reactions: Postoperative Nausea & Vomiting (PONV) Date of Last Stent Placement:: 01/29/18 Past Psychological History: Anxiety Smoking Status: Never smoker Past Alcohol Use History: None Reported Past Drug Use History: None Reported - Past Family History Father Family Medical History: Coronary Artery Disease (CAD) Additional Family Medical History / Comment(s): Father was healthy. He after his spouse's "he just gave up on life." Mother Family Medical History: Coronary Artery Disease (CAD), Myocardial Infarction ([place]) Additional Family Medical History / Comment(s): Mother of a Mi at the age of 62 or 63yrs. Brother(s) Family Medical History: Cancer Additional Family Medical History / Comment(s): one brother leukemia. another brother metastatic CA General Exam Limitations: no limitations General appearance: alert, in no apparent distress Head exam: Present: atraumatic Eye exam: Present: normal appearance, PERRL ENT exam: Present: normal oropharynx Neck exam: Present: normal inspection Respiratory exam: Present: normal lung sounds bilaterally Cardiovascular Exam: Present: regular rate, normal rhythm GI/Abdominal exam: Present: soft. Absent: distended, tenderness, guarding, rebound, rigid, pulsatile mass Extremities exam: Present: normal inspection Neurological exam: Present: alert. Absent: motor sensory deficit Expanded Motor strength exam: RUE: 5, LUE: 5, RLE: 5, LLE: 5 Psychiatric exam: Present: normal affect, normal mood Skin exam: Present: normal color Course Vital Signs 04/23/19 04/23/19 04/23/19 07:20 07:50 08:10 Temperature 97.8 F Pulse Rate 99 75 Respiratory 18 18 18 Rate Blood Pressure 211/92 200/91 194/95 O2 Sat by Pulse 98 97 96 Oximetry 04/23/19 08:36 Temperature Pulse Rate 77 Respiratory 18 Rate Blood Pressure 174/73 O2 Sat by Pulse 98 Oximetry Medical Decision Making - Medical Decision Making Patient reevaluated and symptom-free. Blood pressure has improved to 149/73. Patient and family updated on results and need for follow-up. Patient does have an appointment with her doctor today at 2. Disposition Clinical Impression: HTN (hypertension), Nausea Disposition: HOME SELF-CARE Condition: Stable Instructions (If sedation given, give patient instructions): Acute Nausea and Vomiting (ED), Hypertension (ED) Additional Instructions: Please follow-up with primary care physician today or 2 as planned. Please continue to check blood pressure and follow-up to regarding this. Prescription for nausea medicine as needed. Return for uncontrolled blood pressure, vomiting, pain, worsening or changing symptoms or other concerns. You may hold clindamycin until follow-up today. Prescriptions: Ondansetron Odt [Zofran Odt] 4 mg PO Q8HR PRN #10 tab PRN Reason: Nausea Is patient prescribed a controlled substance at d/c from ED?: No Referrals: Lj Sanchez MD [Primary Care Provider] - 1-2 days Time of Disposition: 09:17
[2019-04-23 08:36] VITALS: PULSE 77
[2019-04-23 09:36] VITALS: BP 149/87
== END 2019-04-23 09:45 | disposition home or self-care (01) ==
LOC: EC 07:15
DX: I10 Essential (primary) hypertension (principal); R11.0 Nausea; I48.91 Unspecified atrial fibrillation; I25.10 Atherosclerotic heart disease of native coronary artery without angina pectoris; K21.9 Gastro-esophageal reflux disease without esophagitis; E78.5 Hyperlipidemia, unspecified; I25.2 Old myocardial infarction; H91.92 Unspecified hearing loss, left ear; M19.90 Unspecified osteoarthritis, unspecified site; H40.9 Unspecified glaucoma; F41.9 Anxiety disorder, unspecified; Z79.01 Long term (current) use of anticoagulants; Z79.899 Other long term (current) drug therapy; Z88.1 Allergy status to other antibiotic agents; Z88.2 Allergy status to sulfonamides; Z88.8 Allergy status to other drugs, medicaments and biological substances; Z88.6 Allergy status to analgesic agent; Z91.048 Other nonmedicinal substance allergy status; Z95.5 Presence of coronary angioplasty implant and graft
CPT/HCPCS: 99283

== ENCOUNTER → 2019-07-17 | Outpatient (CLI) | payer MEDICARE, BC ==
--- NOTE | 2019-07-17 20:53 | BD ---
EXAMINATION TYPE: Axial Bone Density DATE OF EXAM: 07/17/2019 COMPARISON: 02/02/2017 CLINICAL HISTORY: Height: 61.2 IN Weight: 163 LBS RISK FACTORS HISTORY OF: Active: YES Diet low in dairy products/other sources of calcium: YES Postmenopausal woman: PARTIAL HYST AGE 48 MEDICATIONS: Additional Medications: BLOOD PRESSURE MEDS, HEART MEDS EXAM MEASUREMENTS: Bone mineral densitometry was performed using the [employer]. Bone mineral density as measured about the Lumbar spine is: ----- L1-L4(G/cm2): 1.240 T Score Values are as follows: ----- L2: 0.2 ----- L3: 0.8 ----- L4: -0.3 ----- L1-L4: 0.8 Bone mineral density has: Decreased -1.6% since study of: 02/02/2017 Bone mineral density about the R hip (g/cm2): 0.842 Bone mineral density about the L hip (g/cm2): 0.864 T Score values are as follows: -----R Neck: -1.4 -----L Neck: -1.3 -----R Total: -0.1 -----L Total: 0.1 Bone mineral density has: Decreased -3.8% since study of: 02/02/2017 IMPRESSION: Osteopenia (T Score between -2.5 and -1). There is slightly increased risk of fracture and the patient may be considered for treatment. Re-Screen 2-5 years. NOTE: T-SCORE=SD OF THE YOUNG ADULT MEAN.
== END | disposition home or self-care (01) ==
LOC: RADBDWWP 10:29
PROVIDERS: ATTEND Family Medicine
DX: M85.80 Other specified disorders of bone density and structure, unspecified site (principal); Z78.0 Asymptomatic menopausal state
CPT/HCPCS: 77080

== ENCOUNTER → 2020-08-07 | Outpatient (CLI) | payer MEDICARE, BC ==
[2020-08-07 09:13] LABS: Basophils % (A) 0 %; Eosinophils # (A) 0.2 k/uL (0-0.7); Eosinophils % (A) 3 %; HCT 38.2 % (34.0-46.0); HGB 12.3 gm/dL (11.4-16.0); Lymphocytes # (A) 0.8 k/uL (1.0-4.8); Lymphocytes % (A) 12 %; MCH 27.7 pg (25.0-35.0); MCHC 32.3 g/dL (31.0-37.0); Monocytes # (A) 0.5 k/uL (0-1.0); Monocytes % (A) 8 %; Neutrophils # (A) 4.8 k/uL (1.3-7.7); Neutrophils % (A) 75 %; Platelet Count 267 k/uL (150-450); RBC 4.45 m/uL (3.80-5.40); RDW 15.1 % (11.5-15.5); WBC 6.3 k/uL (3.8-10.6)
[2020-08-07 16:56] LABS: Hemoglobin A1C 7.3 % (4.0-6.0)
[2020-08-07 18:27] LABS: African American GFR (CKD) 58.7 (60.0-200.0); Albumin 4.4 g/dL (3.80-4.90); Albumin/Globulin Ratio 1.76 (1.60-3.17); Anion Gap 10.1 mmol/L (4.00-12.00); Calcium 9.9 mg/dL (8.7-10.3); Carbon Dioxide 22.9 mmol/L (21.6-31.8); Chol/HDL Ratio 2.79; Globulin 2.5 g/dL (1.6-3.3); LDL Cholesterol,Calculated 36.2 mg/dL (0.0-131.0); Non-African American GFR(CKD) 50.6 (60.0-200.0); Potassium 4.1 mmol/L (3.5-5.5); Total Bilirubin 0.9 mg/dL (0.3-1.2); Total Protein 6.9 g/dL (6.2-8.2); VLDL Calculation 22.8 mg/dL (5.00-40.00)
== END | disposition home or self-care (01) ==
LOC: LABWHC1 08:30
PROVIDERS: ATTEND Family Medicine
DX: E11.9 Type 2 diabetes mellitus without complications (principal)
CPT/HCPCS: 36415; 80053; 80061; 83036; 85025

== ENCOUNTER → 2020-11-03 | Outpatient (CLI) | payer MEDICARE, BC ==
[2020-11-03 07:46] LABS: Basophils % (A) 0 %; Eosinophils # (A) 0.2 k/uL (0-0.7); Eosinophils % (A) 3 %; HCT 39.2 % (34.0-46.0); HGB 12.7 gm/dL (11.4-16.0); Lymphocytes # (A) 0.8 k/uL (1.0-4.8); Lymphocytes % (A) 13 %; MCH 27.8 pg (25.0-35.0); MCHC 32.3 g/dL (31.0-37.0); MCV 86.1 fL (80.0-100.0); Mean Platelet Volume 7.3; Monocytes # (A) 0.5 k/uL (0-1.0); Monocytes % (A) 8 %; Neutrophils # (A) 4.7 k/uL (1.3-7.7); Neutrophils % (A) 74 %; Platelet Count 284 k/uL (150-450); RBC 4.55 m/uL (3.80-5.40); RDW 14.6 % (11.5-15.5); WBC 6.3 k/uL (3.8-10.6)
[2020-11-03 13:56] LABS: African American GFR (CKD) 52.3 (60.0-200.0); Albumin 4.6 g/dL (3.80-4.90); Albumin/Globulin Ratio 1.84 (1.60-3.17); Anion Gap 11.1 mmol/L (4.00-12.00); BUN/Creat Ratio 18.18 Ratio (12.00-20.00); Calcium 10.1 mg/dL (8.7-10.3); Carbon Dioxide 21.9 mmol/L (21.6-31.8); Chol/HDL Ratio 2.9; Globulin 2.5 g/dL (1.6-3.3); Non-African American GFR(CKD) 45.1 (60.0-200.0); Potassium 4.6 mmol/L (3.5-5.5); Total Bilirubin 0.8 mg/dL (0.3-1.2); Total Protein 7.1 g/dL (6.2-8.2)
[2020-11-03 15:07] LABS: Hemoglobin A1C 7.2 % (4.0-6.0)
== END | disposition home or self-care (01) ==
LOC: LABWHC1 07:11
PROVIDERS: ATTEND Family Medicine
DX: E11.9 Type 2 diabetes mellitus without complications (principal)
CPT/HCPCS: 36415; 80053; 80061; 83036; 85025

== ENCOUNTER → 2021-03-09 | Outpatient (CLI) | payer MEDICARE, BC ==
[2021-03-09 14:45] LABS: Basophils # (A) 0.02 X 10*3/uL (0.00-0.10); Basophils % (A) 0.3 %; Eosinophils # (A) 0.22 X 10*3/uL (0.04-0.35); Eosinophils % (A) 3.3 %; HCT 38.4 % (37.2-46.3); HGB 11.8 g/dL (12.0-15.0); Lymphocytes # (A) 0.89 X 10*3/uL (0.90-5.00); Lymphocytes % (A) 13.3 %; MCH 26.6 pg (27.0-32.0); MCHC 30.7 g/dL (32.0-37.0); MCV 86.5 fL (80.0-97.0); Mean Platelet Volume 10.5 fL (9.5-12.2); Monocytes # (A) 0.77 X 10*3/uL (0.20-1.00); Monocytes % (A) 11.5 %; Neutrophils # (A) 4.74 X 10*3/uL (1.80-7.70); Neutrophils % (A) 71.2 %; Platelet Count 272 X 10*3/uL (140-440); RBC 4.44 X 10*6/uL (4.10-5.20); RDW 15.1 % (11.5-14.5); WBC 6.67 X 10*3/uL (4.50-10.00)
[2021-03-09 18:30] LABS: Hemoglobin A1C 7.7 % (4.0-6.0)
[2021-03-10 03:47] LABS: African American GFR (CKD) 52.3 (60.0-200.0); Albumin 4.6 g/dL (3.80-4.90); Albumin/Globulin Ratio 1.92 (1.60-3.17); Anion Gap 8.2 mmol/L (4.00-12.00); BUN/Creat Ratio 20.91 Ratio (12.00-20.00); Carbon Dioxide 22.8 mmol/L (21.6-31.8); Globulin 2.4 g/dL (1.6-3.3); Non-African American GFR(CKD) 45.1 (60.0-200.0); Potassium 4.2 mmol/L (3.5-5.5); Total Bilirubin 0.7 mg/dL (0.3-1.2)
== END | disposition home or self-care (01) ==
LOC: LABWHC1 07:21
PROVIDERS: ATTEND Family Medicine
DX: E11.9 Type 2 diabetes mellitus without complications (principal)
CPT/HCPCS: 36415; 80053; 83036; 85025

== ENCOUNTER 2021-06-18 08:09 | Emergency (ER) | payer MEDICARE, BC ==
[2021-06-18 08:13] VITALS: TEMP 98.3
[2021-06-18 08:32] VITALS: RESP 18
--- NOTE | 2021-06-18 08:55 | ED ---
General Adult HPI - General Chief complaint: Abdominal Pain Stated complaint: Unable to Poop Time Seen by Provider: 06/18/21 08:10 Source: patient Mode of arrival: ambulatory Limitations: no limitations - History of Present Illness Initial comments: Patient is an 86-year-old female with past medical history of A. fib, coronary artery disease, hypertension who presents emergency Department stating that she has been constipated. Patient normally goes every few days regularly. Denies frequent constipation. States that she has not had a bowel movement in "a few days. She is starting to feel bloated. She has pain in her rectum. She took a Senna tablet this morning and gave herself an enema. She was not able to pass any stool continues to have discomfort and therefore came into the emergency department for evaluation. Denies any vomiting. No fevers or chills. No anterior abdominal pain. Denies history of bowel obstruction. Denies any a bdominal surgeries however history reports that she has had an appendectomy, hysterectomy. Patient states that she is not passing gas at this time. No other alleviating, precipitating or modifying factors - Related Data Home Medications Medication Instructions Recorded Confirmed busPIRone HCl [Buspar] 10 mg PO BID 09/29/15 04/23/19 Timolol 0.5% Ophth Soln [Timoptic 1 drop BOTH EYES DAILY 09/29/16 04/23/19 0.5% Ophth Soln] Apixaban [Eliquis] 2.5 mg PO BID 02/01/18 04/23/19 carvediloL [Coreg] 3.125 mg PO AC-BID 06/25/18 04/23/19 cloNIDine HCL [Catapres] 0.1 mg PO TID 03/22/19 04/23/19 Atorvastatin [Lipitor] 40 mg PO DAILY@1700 04/19/19 04/23/19 Famotidine [Pepcid] 20 mg PO BID 04/19/19 04/23/19 Previous Rx's Medication Instructions Recorded Clopidogrel [Plavix] 75 mg PO DAILY #30 tab 04/19/17 Doxazosin [Cardura] 4 mg PO DAILY #30 tab 11/03/17 Magnesium Oxide [Mag-Ox] 400 mg PO DAILY #30 tab 11/16/17 Sodium Bicarbonate Tab 650 mg PO BID #30 tab 09/16/18 hydrALAZINE HCL [Apresoline] 25 mg PO TID #90 tab 09/16/18 Ondansetron Odt [Zofran Odt] 4 mg PO Q8HR PRN #10 tab 04/23/19 Allergies Allergy/AdvReac Type Severity Reaction Status Date / Time clindamycin Allergy Unknown Verified 06/18/21 08:14 prednisone Allergy Unknown Verified 06/18/21 08:14 adhesive tape AdvReac Severe Skin Verified 06/18/21 08:14 Irritation/Peeling allopurinol AdvReac Severe Nausea & Verified 06/18/21 08:14 Vomiting amlodipine besylate AdvReac Severe Nausea & Verified 06/18/21 08:14 [From Norvasc] Vomiting celecoxib [From Celebrex] AdvReac Severe Nausea & Verified 06/18/21 08:14 Vomiting clonidine HCl [From Catapres] AdvReac Severe Nausea & Verified 06/18/21 08:14 Vomiting diclofenac AdvReac Severe Nausea & Verified 06/18/21 08:14 Vomiting isosorbide AdvReac Severe Nausea & Verified 06/18/21 08:14 Vomiting methylprednisolone AdvReac Severe Nausea & Verified 06/18/21 08:14 Vomiting metoprolol tartrate AdvReac Severe Nausea & Verified 06/18/21 08:14 [From Lopressor] Vomiting misoprostol AdvReac Severe Nausea & Verified 06/18/21 08:14 Vomiting rabeprazole sodium AdvReac Severe Nausea & Verified 06/18/21 08:14 [From Aciphex] Vomiting Sulfa (Sulfonamide AdvReac Severe Nausea & Verified 06/18/21 08:14 Antibiotics) Vomiting oseltamivir AdvReac Unknown Verified 06/18/21 08:14 Review of Systems ROS Statement: Those systems with pertinent positive or pertinent negative responses have been documented in the HPI. ROS Other: All systems not noted in ROS Statement are negative. Past Medical History Past Medical History: Atrial Fibrillation, Coronary Artery Disease (CAD), Eye Disorder, GERD/Reflux, Hearing Disorder / Deafness, Hyperlipidemia, Hypertension, Myocardial Infarction ([place]), Osteoarthritis (OA) Additional Past Medical History / Comment(s): Bilateral glaucoma, left ear deaf Last Myocardial Infarction Date:: 01/29/18 History of Any Multi-Drug Resistant Organisms: CRE, Other MDRO Date of last positivie culture/infection: 08/11/20 MDRO Source:: MDRO URINE Past Surgical History: Appendectomy, Section, Heart Catheterization, Heart Catheterization With Stent, Hysterectomy, Tonsillectomy Additional Past Surgical History / Comment(s): PCI with stent 01/29/18, colonoscopy Past Anesthesia/Blood Transfusion Reactions: Postoperative Nausea & Vomiting (PONV) Date of Last Stent Placement:: 01/29/18 Past Psychological History: Anxiety Smoking Status: Never smoker Past Alcohol Use History: None Reported Past Drug Use History: None Reported - Past Family History Father Family Medical History: Coronary Artery Disease (CAD) Additional Family Medical History / Comment(s): Father was healthy. He after his spouse's "he just gave up on life." Mother Family Medical History: Coronary Artery Disease (CAD), Myocardial Infarction ([place]) Additional Family Medical History / Comment(s): Mother of a Mi at the age of 62 or 63yrs. Brother(s) Family Medical History: Cancer Additional Family Medical History / Comment(s): one brother leukemia. another brother metastatic CA General Exam Limitations: no limitations General appearance: alert, in no apparent distress Head exam: Present: atraumatic, normocephalic, normal inspection Eye exam: Present: normal appearance, PERRL, EOMI. Absent: scleral icterus, conjunctival injection, periorbital swelling ENT exam: Present: normal exam, mucous membranes moist Neck exam: Present: normal inspection. Absent: tenderness, meningismus, lymphadenopathy Respiratory exam: Present: normal lung sounds bilaterally. Absent: respiratory distress, wheezes, rales, rhonchi, stridor Cardiovascular Exam: Present: regular rate, normal rhythm, normal heart sounds. Absent: systolic murmur, diastolic murmur, rubs, gallop, clicks GI/Abdominal exam: Present: soft, normal bowel sounds. Absent: distended, tenderness, guarding, rebound, rigid Extremities exam: Present: normal inspection, full ROM, normal capillary refill. Absent: tenderness, pedal edema, joint swelling, calf tenderness Back exam: Present: normal inspection Neurological exam: Present: alert, oriented X3, CN II-XII intact Psychiatric exam: Present: normal affect, normal mood Skin exam: Present: warm, dry, intact, normal color. Absent: rash Course Vital Signs 07/30/21 07/30/21 07/30/21 08:11 08:30 10:43 Temperature 98.3 F Pulse Rate 92 89 73 Respiratory 22 18 18 Rate Blood Pressure 204/81 177/87 194/101 O2 Sat by Pulse 99 97 98 Oximetry Medical Decision Making - Medical Decision Making Upon arrival patient is placed into room 21. A thorough history and physical exam was performed. An x-ray is performed of the patient's abdomen which demonstrates that she has moderate stool burden. The patient is given a soapsuds enema. She does have a significant bowel movement. Patient feels comfortable for discharge at this time. I did discuss with the patient that she should take stool softeners to provide more frequent and smooth bowel movements. I recommend Colace. Patient states she will buy [id number]. She is to see her doctor within 2-4 days. She does have some hypertension emergency room for which she is to follow-up with her primary care doctor to have reevaluated. She states her blood pressure is normally very well controlled. If she has any new or worsening symptoms she should return to the emergency room. Patient was discharged home in stable condition Disposition Clinical Impression: Constipation, HTN (hypertension) Disposition: HOME SELF-CARE Condition: Stable Instructions (If sedation given, give patient instructions): Constipation (ED) Additional Instructions: Please follow up with your PCP in 2-4 days. Take Colace daily. Return to the ED for any new or worsening symptoms. Is patient prescribed a controlled substance at d/c from ED?: No Referrals: Lj Sanchez MD [Primary Care Provider] - 1-2 days Time of Disposition: 10:42
--- NOTE | 2021-06-18 09:23 | XR ---
EXAMINATION TYPE: XR KUB DATE OF EXAM: 06/18/2021 Comparison: None Clinical History: 86-year-old female constipation Findings: Lung bases are clear. Scattered moderate stool burden. Calcifications left upper quadrant suggestive of some splenic artery calcifications. Abdominal aortic calcifications also noted in the mid abdomen. No evidence for free intraperitoneal air. No dilated small bowel or air-fluid levels. Mild degenerative change of the left hip. Impression: Moderate stool burden. No evidence for free air or bowel obstruction.
[2021-06-18 10:46] VITALS: BP 194/101; PULSE 73
== END 2021-06-18 10:51 | disposition home or self-care (01) ==
LOC: EC 08:09
DX: K59.00 Constipation, unspecified (principal); I10 Essential (primary) hypertension; R10.9 Unspecified abdominal pain; E78.5 Hyperlipidemia, unspecified; I25.10 Atherosclerotic heart disease of native coronary artery without angina pectoris; I25.2 Old myocardial infarction; I48.91 Unspecified atrial fibrillation; K21.9 Gastro-esophageal reflux disease without esophagitis; M19.90 Unspecified osteoarthritis, unspecified site; Z79.01 Long term (current) use of anticoagulants; Z79.02 Long term (current) use of antithrombotics/antiplatelets; Z88.2 Allergy status to sulfonamides; Z88.6 Allergy status to analgesic agent; Z90.49 Acquired absence of other specified parts of digestive tract; Z95.5 Presence of coronary angioplasty implant and graft; Z88.1 Allergy status to other antibiotic agents; Z88.8 Allergy status to other drugs, medicaments and biological substances; Z91.09 Other allergy status, other than to drugs and biological substances; Z79.899 Other long term (current) drug therapy
CPT/HCPCS: 74018; 99283

== ENCOUNTER 2022-02-14 13:48 | Inpatient (IN) | payer MEDICARE, BC ==
[2022-02-14] MEDS ORDERED: SODIUM CHLORIDE 0.9% 500 ML 500 ML IV STA (14:52)
[2022-02-14] MEDS ORDERED: ONDANSETRON 4 MG/2 ML VIAL IVP STA ×2 (15:06→17:42)
[2022-02-14 15:07] LABS: Basophils % (A) 0 %; Eosinophils # (A) 0.2 k/uL (0-0.7); Eosinophils % (A) 3 %; HCT 39.6 % (34.0-46.0); HGB 12.7 gm/dL (11.4-16.0); Lymphocytes # (A) 0.7 k/uL (1.0-4.8); Lymphocytes % (A) 10 %; MCH 28.1 pg (25.0-35.0); MCHC 32.1 g/dL (31.0-37.0); MCV 87.4 fL (80.0-100.0); Mean Platelet Volume 7.9; Monocytes # (A) 0.6 k/uL (0-1.0); Monocytes % (A) 8 %; Neutrophils # (A) 5.7 k/uL (1.3-7.7); Neutrophils % (A) 78 %; Platelet Count 284 k/uL (150-450); RBC 4.53 m/uL (3.80-5.40); RDW 14.6 % (11.5-15.5); WBC 7.3 k/uL (3.8-10.6)
[2022-02-14] MEDS ORDERED: hydrALAZINE HCL 20 MG/ML 1 ML VIAL IVP STA (15:07)
[2022-02-14 15:15] LABS: Albumin 4.4 g/dL (3.5-5.0); Potassium 4.3 mmol/L (3.5-5.1); Total Protein 7.9 g/dL (6.3-8.2)
[2022-02-14 15:22] LABS: Partial Thromboplastin Time 31.8 sec (22.0-30.0)
--- NOTE | 2022-02-14 15:30 | ED ---
General Adult HPI - General Chief complaint: Abdominal Pain Stated complaint: Nausea Time Seen by Provider: 02/14/22 14:58 Source: patient Mode of arrival: ambulatory Limitations: no limitations - History of Present Illness Initial comments: Patient is an 86-year-old female who presents to the emergency department with a chief complaint of nausea. Patient reports that today she started to feel "warm inside" and nauseous. Patient denies vomiting. Patient has no other concerns at this time including fever, chills, headache, shortness of breath, cough, chest pain, palpitations, dizziness, lightheadedness, abdominal pain, vomiting, and burning with urination. - Related Data Home Medications Medication Instructions Recorded Confirmed busPIRone HCl [Buspar] 10 mg PO BID 09/29/15 02/14/22 Timolol 0.5% Ophth Soln [Timoptic 1 drop BOTH EYES DAILY 09/29/16 02/14/22 0.5% Ophth Soln] Apixaban [Eliquis] 2.5 mg PO BID 02/01/18 02/14/22 carvediloL [Coreg] 3.125 mg PO AC-BID 06/25/18 02/14/22 Atorvastatin [Lipitor] 40 mg PO DAILY 04/19/19 02/14/22 Famotidine [Pepcid] 20 mg PO BID 04/19/19 02/14/22 cloNIDine HCL [Catapres] 0.3 mg PO TID 02/14/22 02/14/22 hydrALAZINE HCL [Apresoline] 50 mg PO TID 02/14/22 02/14/22 metFORMIN HCL [Glucophage] 500 mg PO DAILY 02/14/22 02/14/22 Previous Rx's Medication Instructions Recorded Clopidogrel [Plavix] 75 mg PO DAILY #30 tab 04/19/17 Doxazosin [Cardura] 4 mg PO DAILY #30 tab 11/03/17 Magnesium Oxide [Mag-Ox] 400 mg PO DAILY #30 tab 11/16/17 Sodium Bicarbonate Tab 650 mg PO BID #30 tab 09/16/18 Allergies Allergy/AdvReac Type Severity Reaction Status Date / Time clindamycin Allergy Unknown Verified 02/14/22 17:59 prednisone Allergy Unknown Verified 02/14/22 17:59 adhesive tape AdvReac Severe Skin Verified 02/14/22 17:59 Irritation/Peeling allopurinol AdvReac Severe Nausea & Verified 02/14/22 17:59 Vomiting amlodipine besylate AdvReac Severe Nausea & Verified 02/14/22 17:59 [From Norvasc] Vomiting celecoxib [From Celebrex] AdvReac Severe Nausea & Verified 02/14/22 17:59 Vomiting clonidine HCl [From Catapres] AdvReac Severe Nausea & Verified 02/14/22 17:59 Vomiting diclofenac AdvReac Severe Nausea & Verified 02/14/22 17:59 Vomiting isosorbide AdvReac Severe Nausea & Verified 02/14/22 17:59 Vomiting methylprednisolone AdvReac Severe Nausea & Verified 02/14/22 17:59 Vomiting metoprolol tartrate AdvReac Severe Nausea & Verified 02/14/22 17:59 [From Lopressor] Vomiting misoprostol AdvReac Severe Nausea & Verified 02/14/22 17:59 Vomiting rabeprazole sodium AdvReac Severe Nausea & Verified 02/14/22 17:59 [From Aciphex] Vomiting Sulfa (Sulfonamide AdvReac Severe Nausea & Verified 02/14/22 17:59 Antibiotics) Vomiting oseltamivir AdvReac Unknown Verified 02/14/22 17:59 Review of Systems ROS Statement: Those systems with pertinent positive or pertinent negative responses have been documented in the HPI. ROS Other: All systems not noted in ROS Statement are negative. Past Medical History Past Medical History: Atrial Fibrillation, Coronary Artery Disease (CAD), Eye Disorder, GERD/Reflux, Hearing Disorder / Deafness, Hyperlipidemia, Hypertension, Myocardial Infarction ([place]), Osteoarthritis ([place]) Additional Past Medical History / Comment(s): Bilateral glaucoma, left ear deaf Last Myocardial Infarction Date:: 01/29/18 History of Any Multi-Drug Resistant Organisms: CRE, Other MDRO Date of last positivie culture/infection: 08/11/20 MDRO Source:: MDRO URINE Past Surgical History: Appendectomy, Section, Heart Catheterization, Heart Catheterization With Stent, Hysterectomy, Tonsillectomy Additional Past Surgical History / Comment(s): PCI with stent 01/29/18, colonoscopy Past Anesthesia/Blood Transfusion Reactions: Postoperative Nausea & Vomiting (PONV) Date of Last Stent Placement:: 01/29/18 Past Psychological History: Anxiety Smoking Status: Never smoker Past Alcohol Use History: None Reported Past Drug Use History: None Reported - Past Family History Father Family Medical History: Coronary Artery Disease (CAD) Additional Family Medical History / Comment(s): Father was healthy. He after his spouse's "he just gave up on life." Mother Family Medical History: Coronary Artery Disease (CAD), Myocardial Infarction ([place]) Additional Family Medical History / Comment(s): Mother of a Mi at the age of 62 or 63yrs. Brother(s) Family Medical History: Cancer Additional Family Medical History / Comment(s): one brother leukemia. another brother metastatic CA General Exam Limitations: no limitations General appearance: alert, in no apparent distress Head exam: Present: atraumatic, normocephalic, normal inspection Eye exam: Present: normal appearance, PERRL, EOMI. Absent: scleral icterus, conjunctival injection, periorbital swelling Neck exam: Present: normal inspection, full ROM Respiratory exam: Present: normal lung sounds bilaterally. Absent: respiratory distress, wheezes, rales, rhonchi, stridor Cardiovascular Exam: Present: regular rate, irregular rhythm (Patient has known atrial fibrillation) GI/Abdominal exam: Present: soft, distended, tenderness (epigastric region), normal bowel sounds. Absent: guarding, rebound, rigid Neurological exam: Present: alert, oriented X3, CN II-XII intact Skin exam: Present: warm, dry, intact, normal color. Absent: rash, pallor Course Vital Signs 02/14/22 02/14/22 02/14/22 13:52 15:30 16:23 Temperature 98.6 F Pulse Rate 97 86 96 Respiratory 20 16 16 Rate Blood Pressure 241/130 219/108 196/95 O2 Sat by Pulse 97 96 94 L Oximetry 02/14/22 02/14/22 16:49 17:30 Temperature Pulse Rate 103 H 90 Respiratory 16 16 Rate Blood Pressure 190/80 169/81 O2 Sat by Pulse 95 95 Oximetry EKG Findings - EKG Comments: EKG Findings:: EKG taken at 14:00. Atrial fibrillation, borderline right axis deviation, moderate intraventricular conduction delay. Particular rate 86. QRS duration 113. QTC 389 Medical Decision Making - Medical Decision Making This is an 86-year-old female who presents with nausea. Thorough history and examination were performed. Blood pressure 241/130. The abdomen is distended and patient is tender with palpation of the epigastric region although she denies abdominal pain. She is nauseous with no vomiting. Pulses are present and equal in both upper and lower extremities. She is in atrial fibrillation. Rate is controlled. She has no chest pain. She has an HEIDY. CT of the abdomen and pelvis was ordered without contrast due to acute kidney injury which was unremarkable. Hydralazine, Zofran, and fluid bolus were given. Repeat blood pressure was 196/95. Carvedilol was given. Case discussed with Roxie Winkler NP. Patient will be admitted to her service for hypertension and HEIDY. Results discussed with patient and daughter and I informed them of plan. They're agreeable. Dr. Rea is my attending. - Lab Data Result diagrams: 02/14/22 14:52 02/14/22 14:52 Lab Results 02/14/22 02/14/22 02/14/22 Range/Units 14:52 14:52 14:52 WBC 7.3 (3.8-10.6) k/uL RBC 4.53 (3.80-5.40) m/uL Hgb 12.7 (11.4-16.0) gm/dL Hct 39.6 (34.0-46.0) % MCV 87.4 (80.0-100.0) fL MCH 28.1 (25.0-35.0) pg MCHC 32.1 (31.0-37.0) g/dL RDW 14.6 (11.5-15.5) % Plt Count 284 (150-450) k/uL MPV 7.9 Neutrophils % 78 % Lymphocytes % 10 % Monocytes % 8 % Eosinophils % 3 % Basophils % 0 % Neutrophils # 5.7 (1.3-7.7) k/uL Lymphocytes # 0.7 L (1.0-4.8) k/uL Monocytes # 0.6 (0-1.0) k/uL Eosinophils # 0.2 (0-0.7) k/uL Basophils # 0.0 (0-0.2) k/uL PT 11.0 (9.0-12.0) sec INR 1.0 (<1.2) APTT 31.8 H (22.0-30.0) sec Sodium 132 L (137-145) mmol/L Potassium 4.3 (3.5-5.1) mmol/L Chloride 100 (98-107) mmol/L Carbon Dioxide 22 (22-30) mmol/L Anion Gap 10 mmol/L BUN 21 H (7-17) mg/dL Creatinine 1.43 H (0.52-1.04) mg/dL Est GFR (CKD-EPI)AfAm 38 (>60 ml/min/1.73 sqM) Est GFR (CKD-EPI)NonAf 33 (>60 ml/min/1.73 sqM) Glucose 143 H (74-99) mg/dL Calcium 10.0 (8.4-10.2) mg/dL Total Bilirubin 1.0 (0.2-1.3) mg/dL AST 25 (14-36) U/L ALT 17 (4-34) U/L Alkaline Phosphatase 101 (38-126) U/L Troponin I (0.000-0.034) ng/mL Total Protein 7.9 (6.3-8.2) g/dL Albumin 4.4 (3.5-5.0) g/dL Amylase 60 (30-110) U/L Lipase 159 (23-300) U/L Urine Color Urine Appearance (Clear) Urine pH (5.0-8.0) Ur Specific [place] (1.001-1.035) Urine Protein (Negative) Urine Glucose (UA) (Negative) Urine Ketones (Negative) Urine Blood (Negative) Urine Nitrite (Negative) Urine Bilirubin (Negative) Urine Urobilinogen (<2.0) mg/dL Ur Leukocyte Esterase (Negative) Coronavirus (PCR) (Not Detectd) 02/14/22 02/14/22 02/14/22 Range/Units 14:53 15:19 17:41 WBC (3.8-10.6) k/uL RBC (3.80-5.40) m/uL Hgb (11.4-16.0) gm/dL Hct (34.0-46.0) % MCV (80.0-100.0) fL MCH (25.0-35.0) pg MCHC (31.0-37.0) g/dL RDW (11.5-15.5) % Plt Count (150-450) k/uL MPV Neutrophils % % Lymphocytes % % Monocytes % % Eosinophils % % Basophils % % Neutrophils # (1.3-7.7) k/uL Lymphocytes # (1.0-4.8) k/uL Monocytes # (0-1.0) k/uL Eosinophils # (0-0.7) k/uL Basophils # (0-0.2) k/uL PT (9.0-12.0) sec INR (<1.2) APTT (22.0-30.0) sec Sodium (137-145) mmol/L Potassium (3.5-5.1) mmol/L Chloride (98-107) mmol/L Carbon Dioxide (22-30) mmol/L Anion Gap mmol/L BUN (7-17) mg/dL Creatinine (0.52-1.04) mg/dL Est GFR (CKD-EPI)AfAm (>60 ml/min/1.73 sqM) Est GFR (CKD-EPI)NonAf (>60 ml/min/1.73 sqM) Glucose (74-99) mg/dL Calcium (8.4-10.2) mg/dL Total Bilirubin (0.2-1.3) mg/dL AST (14-36) U/L ALT (4-34) U/L Alkaline Phosphatase (38-126) U/L Troponin I <0.012 (0.000-0.034) ng/mL Total Protein (6.3-8.2) g/dL Albumin (3.5-5.0) g/dL Amylase (30-110) U/L Lipase (23-300) U/L Urine Color Light Yellow Urine Appearance Clear (Clear) Urine pH 7.0 (5.0-8.0) Ur Specific [place] 1.007 (1.001-1.035) Urine Protein Negative (Negative) Urine Glucose (UA) Negative (Negative) Urine Ketones Negative (Negative) Urine Blood Negative (Negative) Urine Nitrite Negative (Negative) Urine Bilirubin Negative (Negative) Urine Urobilinogen <2.0 (<2.0) mg/dL Ur Leukocyte Esterase Negative (Negative) Coronavirus (PCR) Not Detected (Not Detectd) Disposition Clinical Impression: Hypertension, Acute kidney injury Disposition: ADMITTED IP TO THIS [facility] Condition: Good Decision Time: 17:09
[2022-02-14 15:32] LABS: Appearance,Urine Clear (Clear); Bilirubin,Urine Negative (Negative); Blood,Urine Negative (Negative); Color,Urine Light Yellow; Glucose,Urine (UA) Negative (Negative); Ketones,Urine Negative (Negative); Leukocyte Esterase,Urine Negative (Negative); Nitrite,Urine Negative (Negative); Protein,Urine Negative (Negative); Specific Gravity,Urine 1.007 (1.001-1.035); Urobilinogen,Urine <2.0 mg/dL (<2.0)
--- NOTE | 2022-02-14 15:45 | XR ---
EXAMINATION TYPE: XR chest 2V DATE OF EXAM: 02/14/2022 COMPARISON: 04/19/2019 HISTORY: 86-year-old female with chills TECHNIQUE: AP and lateral views FINDINGS: The heart is upper limits of normal in size. Increased interstitial and peribronchial density. There may be some mild patchy right infrahilar opacity. No pleural effusion. IMPRESSION: 1. Borderline heart size. 2. Increased interstitial changes compared to prior exam. Correlate for bronchitis or atypical pneumo nias. 2. Additional possible developing patchy infiltrate right infrahilar region.
--- NOTE | 2022-02-14 16:34 | CT ---
EXAMINATION TYPE: CT abdomen pelvis wo con DATE OF EXAM: 02/14/2022 COMPARISON: Unavailable HISTORY: Epigastric abdominal distention and pain. CT DLP: 497.1 mGycm Automated exposure control for dose reduction was used. TECHNIQUE: Helical acquisition of images was performed from the lung bases through the pelvis. FINDINGS: LUNG BASES: Bilateral basal septal thickening and prominent interstitial lung markings probably relat ed to incomplete lung expansion or pulmonary edema, please correlate clinically. Left atrial enlargem ent. LIVER/GB: Suspected cirrhotic hepatic changes, please correlate with liver function tests and hepatic viral serology. No definite hepatic focal lesion by this nonenhanced CT scan. No signs of acute chol ecystitis. PANCREAS: Small without definite lesion. SPLEEN: No significant abnormality is seen. ADRENALS: Diffusely thickened adrenals, nonspecific. KIDNEYS: Bilateral renal cysts, suboptimally assessed by this CT scan. Bilateral renal cortical thinn ing with prominent renal hilar fat which could be related to chronic medical renal disease. 2 mm nono bstructing calculus at the lower pole of the right kidney. No hydroureter or hydronephrosis. FREE AIR: No free air is visualized RETROPERITONEAL ADENOPATHY: None visualized REPRODUCTIVE ORGANS: Previous hysterectomy. No gross adnexal mass. URINARY BLADDER: Grossly unremarkable. PELVIC ADENOPATHY: None visualized. OSSEOUS STRUCTURES: Degenerative changes at L5-S1 level. No gross aggressive bone lesion. BOWEL: Unremarkable stomach. Suspected second part of the duodenum diverticulum. Subtle abnormality at that location cannot be excluded. Unremarkable remainder of the duodenum and small bowel. Fecal lo ading of the rectum. Diverticulosis most evident involving the sigmoid colon and descending colon wit h wall thickening of the sigmoid colon. No convincing evidence of acute colitis or diverticulitis. OTHER: Arterial atherosclerotic calcifications. No sizable ascites. IMPRESSION: Suspected second part of the duodenum diverticulum. Subtle duodenal abnormality at that location wolfgang ot be excluded. No other definite acute abnormality seen in the abdomen or the pelvis by this nonenha nced CT scan. Incidental findings as detailed above.
[2022-02-14] MEDS ORDERED: carvediloL 3.125 MG TAB PO STA (16:36)
[2022-02-14] MEDS ORDERED: SODIUM CHLORIDE 0.9% 2,000 ML IV STA (16:58)
[2022-02-14] MEDS ORDERED: FAMOTIDINE 20 MG TAB PO SCH (21:00)
[2022-02-14] MEDS: hydrALAZINE HCL 50 MG TAB PO SCH (21:59)
[2022-02-14] MEDS: busPIRone HCl 10 MG TAB PO SCH (21:59)
[2022-02-14] MEDS: SODIUM BICARBONATE TAB 650 MG TAB PO SCH (21:59)
[2022-02-14] MEDS: APIXABAN 2.5 MG TABLET PO SCH (21:59)
[2022-02-14] MEDS: cloNIDine HCL 0.1 MG TAB PO SCH (21:59)
[2022-02-14] MEDS: INSULIN ASPART (NovoLOG) 100 UNIT/ML VIAL SQ SCH (22:03)
[2022-02-14 22:05] LABS: Glucose,Whole Blood 138 mg/dL (75-99)
[2022-02-15] MEDS: hydrALAZINE HCL 50 MG TAB PO SCH ×3 (04:56→21:42)
[2022-02-15 06:50] LABS: Glucose,Whole Blood 173 mg/dL (75-99)
[2022-02-15] MEDS: INSULIN ASPART (NovoLOG) 100 UNIT/ML VIAL SQ SCH ×4 (06:54→21:42)
[2022-02-15] MEDS: carvediloL 3.125 MG TAB PO SCH ×2 (06:54→15:59)
[2022-02-15] MEDS: FAMOTIDINE 20 MG TAB PO SCH (08:10)
[2022-02-15] MEDS: busPIRone HCl 10 MG TAB PO SCH ×2 (08:10→21:42)
[2022-02-15] MEDS: SODIUM BICARBONATE TAB 650 MG TAB PO SCH ×2 (08:10→21:42)
[2022-02-15] MEDS: DOXAZOSIN 4 MG TAB PO SCH (08:10)
[2022-02-15] MEDS: MAGNESIUM OXIDE 400 MG TAB PO SCH (08:10)
[2022-02-15] MEDS: CLOPIDOGREL 75 MG TAB PO SCH (08:10)
[2022-02-15] MEDS: APIXABAN 2.5 MG TABLET PO SCH ×2 (08:10→21:42)
[2022-02-15] MEDS: cloNIDine HCL 0.1 MG TAB PO SCH ×3 (08:10→21:42)
[2022-02-15] MEDS: ATORVASTATIN 40 MG TAB PO SCH (08:10)
[2022-02-15 09:34] LABS: Basophils % (A) 0 %; Eosinophils # (A) 0.2 k/uL (0-0.7); Eosinophils % (A) 3 %; HCT 36.3 % (34.0-46.0); HGB 11.5 gm/dL (11.4-16.0); Lymphocytes # (A) 0.5 k/uL (1.0-4.8); Lymphocytes % (A) 9 %; MCH 28.2 pg (25.0-35.0); MCHC 31.8 g/dL (31.0-37.0); MCV 88.5 fL (80.0-100.0); Mean Platelet Volume 7.5; Monocytes # (A) 0.5 k/uL (0-1.0); Monocytes % (A) 9 %; Neutrophils # (A) 4.3 k/uL (1.3-7.7); Neutrophils % (A) 77 %; Platelet Count 268 k/uL (150-450); RDW 14.6 % (11.5-15.5); WBC 5.6 k/uL (3.8-10.6)
[2022-02-15 09:44] LABS: Calcium 9.3 mg/dL (8.4-10.2); Potassium 3.7 mmol/L (3.5-5.1)
[2022-02-15 11:26] LABS: Glucose,Whole Blood 175 mg/dL (75-99)
[2022-02-15] MEDS: TIMOLOL 0.5% OPHTH DROPS 5 ML BTL BOTH EYES SCH (12:10)
--- NOTE | 2022-02-15 16:14 | P.HPIM ---
History of Present Illness H&P Date: 02/15/22 Chief Complaint: hypertension Patient is a very pleasant 86-year-old female that presented to the emergency room with nausea and elevated blood pressure. Patient has an extensive medical history that includes atrial fib on Eliquis, diabetes type 2, GERD, hypertension, hyperlipidemia, bilateral glaucoma, anxiety, history of coronary artery disease. Chest x-ray showed borderline heart size, increased interstitial changes compared to prior exam. Abdominal CT shows nothing acute. Kidney function was slightly off with at BUN 21 and creatinine 1.4. Troponin was negative. Patient was admitted for hypertension and acute kidney injury. Cardiology was consulted. We'll continue to monitor for nausea and abdominal pain. Repeat labs from today show improvement in kidney function with BUN of 16 and creatinine of 0.9. Awaiting cardiology recommendation for blood pressure control as patient has multiple drug ALLERGIES. Review of Systems Constitutional: Denies chills, Denies fever Ears, nose, mouth and throat: Denies dysphagia, Denies nasal discharge Cardiovascular: Reports high blood pressure, Denies dyspnea on exertion, Denies shortness of breath, Denies syncope Gastrointestinal: Denies abdominal pain, Denies nausea Genitourinary: Denies dysuria, Denies urgency Musculoskeletal: Denies arm numbness/tingling, Denies gait dysfunction, Denies leg numbness/tingling Integumentary: Denies change in hair/nails, Denies wounds Neurological: Denies balance difficulties, Denies visual changes Psychiatric: Reports anxiety, Denies confusion Endocrine: Denies high blood sugars Hematologic/Lymphatic: Denies easy bruising Allergic/Immunologic: Denies wheezing Past Medical History Past Medical History: Atrial Fibrillation, Coronary Artery Disease (CAD), Diabetes Mellitus, Eye Disorder, GERD/Reflux, Hearing Disorder / Deafness, Hyperlipidemia, Hypertension, Myocardial Infarction ([place]), Osteoarthritis (OA) Additional Past Medical History / Comment(s): Bilateral glaucoma, left ear deaf Last Myocardial Infarction Date:: 01/29/18 History of Any Multi-Drug Resistant Organisms: CRE, Other MDRO Date of last positivie culture/infection: 08/11/20 MDRO Source:: MDRO URINE Past Surgical History: Appendectomy, Section, Heart Catheterization, Heart Catheterization With Stent, Hysterectomy, Tonsillectomy Additional Past Surgical History / Comment(s): PCI with stent 01/29/18, colonoscopy Past Anesthesia/Blood Transfusion Reactions: Postoperative Nausea & Vomiting (PONV) Date of Last Stent Placement:: 01/29/18 Past Psychological History: Anxiety Additional Psychological History / Comment(s): Pt resides with her adult daughter. Her in September,. Pt is independent. Her daughter assists her some with her medications. Smoking Status: Never smoker Past Alcohol Use History: None Reported Past Drug Use History: None Reported - Past Family History Father Family Medical History: Coronary Artery Disease (CAD) Additional Family Medical History / Comment(s): Father was healthy. He after his spouse's "he just gave up on life." Mother Family Medical History: Coronary Artery Disease (CAD), Myocardial Infarction ([place]) Additional Family Medical History / Comment(s): Mother of a Mi at the age of 62 or 63yrs. Brother(s) Family Medical History: Cancer Additional Family Medical History / Comment(s): one brother leukemia. another brother metastatic CA Medications and Allergies Home Medications Medication Instructions Recorded Confirmed Type busPIRone HCl [Buspar] 10 mg PO BID 09/29/15 02/14/22 History Timolol 0.5% Ophth Soln [Timoptic 1 drop BOTH EYES DAILY 09/29/16 02/14/22 History 0.5% Ophth Soln] Clopidogrel [Plavix] 75 mg PO DAILY #30 tab 04/19/17 02/14/22 Rx Doxazosin [Cardura] 4 mg PO DAILY #30 tab 11/03/17 02/14/22 Rx Magnesium Oxide [Mag-Ox] 400 mg PO DAILY #30 tab 11/16/17 02/14/22 Rx Apixaban [Eliquis] 2.5 mg PO BID 02/01/18 02/14/22 History carvediloL [Coreg] 3.125 mg PO AC-BID 06/25/18 02/14/22 History Sodium Bicarbonate Tab 650 mg PO BID #30 tab 09/16/18 02/14/22 Rx Atorvastatin [Lipitor] 40 mg PO DAILY 04/19/19 02/14/22 History Famotidine [Pepcid] 20 mg PO BID 04/19/19 02/14/22 History cloNIDine HCL [Catapres] 0.3 mg PO TID 02/14/22 02/14/22 History hydrALAZINE HCL [Apresoline] 50 mg PO TID 02/14/22 02/14/22 History metFORMIN HCL [Glucophage] 500 mg PO DAILY 02/14/22 02/14/22 History Allergies Allergy/AdvReac Type Severity Reaction Status Date / Time clindamycin Allergy Unknown Verified 02/14/22 17:59 prednisone Allergy Unknown Verified 02/14/22 17:59 adhesive tape AdvReac Severe Skin Verified 02/14/22 17:59 Irritation/Peeling allopurinol AdvReac Severe Nausea & Verified 02/14/22 17:59 Vomiting amlodipine besylate AdvReac Severe Nausea & Verified 02/14/22 17:59 [From Norvasc] Vomiting celecoxib [From Celebrex] AdvReac Severe Nausea & Verified 02/14/22 17:59 Vomiting clonidine HCl [From Catapres] AdvReac Severe Nausea & Verified 02/14/22 17:59 Vomiting diclofenac AdvReac Severe Nausea & Verified 02/14/22 17:59 Vomiting isosorbide AdvReac Severe Nausea & Verified 02/14/22 17:59 Vomiting methylprednisolone AdvReac Severe Nausea & Verified 02/14/22 17:59 Vomiting metoprolol tartrate AdvReac Severe Nausea & Verified 02/14/22 17:59 [From Lopressor] Vomiting misoprostol AdvReac Severe Nausea & Verified 02/14/22 17:59 Vomiting rabeprazole sodium AdvReac Severe Nausea & Verified 02/14/22 17:59 [From Aciphex] Vomiting Sulfa (Sulfonamide AdvReac Severe Nausea & Verified 02/14/22 17:59 Antibiotics) Vomiting oseltamivir AdvReac Unknown Verified 02/14/22 17:59 Physical Exam Vitals: Vital Signs Temp Pulse Pulse Resp BP BP BP 02/15/22 11:32 80 18 149/64 02/15/22 09:23 118/64 02/15/22 07:52 97.9 F 95 18 215/91 02/15/22 06:47 185/78 02/15/22 04:15 98 F 74 18 187/69 187/81 02/15/22 00:00 75 18 129/53 02/14/22 20:00 98.3 F 103 H 18 197/66 02/14/22 17:30 90 16 169/81 02/14/22 16:49 103 H 16 190/80 02/14/22 16:23 96 16 196/95 Pulse Ox 02/15/22 11:32 97 02/15/22 09:23 02/15/22 07:52 96 02/15/22 06:47 02/15/22 04:15 97 02/15/22 00:00 98 02/14/22 20:00 95 02/14/22 17:30 95 02/14/22 16:49 95 02/14/22 16:23 94 L Intake and Output 02/15/22 02/15/22 02/15/22 06:59 14:59 22:59 Intake Total 430 Balance 430 Intake: Oral 430 Other: Voiding Method Toilet # Voids 1 1 - Constitutional General appearance: average body habitus, no acute distress - EENT Eyes: EOMI, PERRLA ENT: normal oropharynx Ears: bilateral: normal - Neck Neck: normal ROM - Respiratory Respiratory: bilateral: diminished - Cardiovascular Heart rate: 80 Rhythm: irregularly irregular Heart sounds: normal: S1, S2 radial pulse Peripheral Pulses: bilateral: Normal - Gastrointestinal General gastrointestinal: normal bowel sounds, soft - Integumentary Integumentary: normal - Neurologic Neurologic: CNII-XII intact - Musculoskeletal Musculoskeletal: gait normal - Psychiatric Psychiatric: A&O x's 3, appropriate affect Results CBC & Chem 7: 02/15/22 09:09 02/15/22 09:09 Labs: Abnormal Lab Results - Last 24 Hours (Table) 02/14/22 02/14/22 02/15/22 Range/Units 14:52 22:03 06:48 Lymphocytes # (1.0-4.8) k/uL Sodium (137-145) mmol/L Glucose (74-99) mg/dL POC Glucose (mg/dL) 138 H 173 H (75-99) mg/dL Hemoglobin A1c 7.3 H (0.0-6.0) % 02/15/22 02/15/22 02/15/22 Range/Units 09:09 09:09 11:25 Lymphocytes # 0.5 L (1.0-4.8) k/uL Sodium 135 L (137-145) mmol/L Glucose 127 H (74-99) mg/dL POC Glucose (mg/dL) 175 H (75-99) mg/dL Hemoglobin A1c (0.0-6.0) % Chest x-ray: report reviewed CT scan - abdomen: report reviewed Thrombosis Risk Factor Assmnt - DVT/VTE Prophylaxis DVT/VTE Prophylaxis: Pharmacologic Prophylaxis ordered - Choose All That Apply Any of the Below Risk Factors Present?: No Each Factor Represents 1 point: Obesity (BMI >25) Other Risk Factors: Yes Each Risk Factor Represents 3 Points: Age 75 years or older Thrombosis Risk Factor Assessment Total Risk Factor Score: 4 Thrombosis Risk Factor Assessment Level: Moderate Risk Assessment and Plan Assessment: Uncontrolled hypertension Acute kidney injury, resolved Atrial fibrillation, controlled, on eliquis Type 2 diabetes Hyperlipidemia Anxiety History of coronary artery disease bilateral glaucoma GERD Plan: Kidney function improved, continue to monitor Blood pressure continues to be elevated, cardiology consult Monitor blood glucose ACHS, metformin and sliding scale Continue to monitor for abdominal pain Further recommendations to come based on clinical course Time with Patient: Greater than 30
[2022-02-15 16:30] LABS: Glucose,Whole Blood 141 mg/dL (75-99)
--- NOTE | 2022-02-15 18:40 | XR ---
EXAMINATION TYPE: XR chest 2V DATE OF EXAM: 02/15/2022 COMPARISON: 02/14/2022 HISTORY: Chest pain TECHNIQUE: 2 views FINDINGS: There is some mild pulmonary increased interstitial density. Heart is borderline enlarged. No definite pleural effusion. No pulmonary consolidation. IMPRESSION: There is some mild pulmonary interstitial edema which is increased slightly compared to y esterday. Mild acute heart failure is possible.
[2022-02-15 20:20] LABS: Glucose,Whole Blood 139 mg/dL (75-99)
[2022-02-16] MEDS: carvediloL 3.125 MG TAB PO SCH ×2 (05:11→16:01)
[2022-02-16 06:06] LABS: Glucose,Whole Blood 163 mg/dL (75-99)
[2022-02-16] MEDS: metFORMIN 500 MG TAB PO SCH (06:53)
[2022-02-16] MEDS: INSULIN ASPART (NovoLOG) 100 UNIT/ML VIAL SQ SCH ×4 (06:54→21:36)
[2022-02-16] MEDS: ATORVASTATIN 40 MG TAB PO SCH (08:53)
[2022-02-16] MEDS: MAGNESIUM OXIDE 400 MG TAB PO SCH (08:53)
[2022-02-16] MEDS: APIXABAN 2.5 MG TABLET PO SCH ×2 (08:53→21:36)
[2022-02-16] MEDS: cloNIDine HCL 0.1 MG TAB PO SCH ×3 (08:53→21:36)
[2022-02-16] MEDS: TIMOLOL 0.5% OPHTH DROPS 5 ML BTL BOTH EYES SCH (08:54)
[2022-02-16] MEDS: FAMOTIDINE 20 MG TAB PO SCH (08:54)
[2022-02-16] MEDS: busPIRone HCl 10 MG TAB PO SCH ×2 (08:54→21:36)
[2022-02-16] MEDS: DOXAZOSIN 4 MG TAB PO SCH (08:54)
[2022-02-16] MEDS: SODIUM BICARBONATE TAB 650 MG TAB PO SCH ×2 (08:54→21:36)
[2022-02-16] MEDS: CLOPIDOGREL 75 MG TAB PO SCH (08:54)
[2022-02-16] MEDS: hydrALAZINE HCL 50 MG TAB PO SCH (08:54)
[2022-02-16] MEDS ORDERED: hydrALAZINE HCL 25 MG TAB PO STA (11:23)
--- NOTE | 2022-02-16 11:37 | P.CRDCN ---
History of Present Illness Consult date: 02/16/22 History of present illness: HISTORY OF PRESENT ILLNESS: This is a 86-year-old female with a past medical history significant for coronary artery disease with previous PCI of LAD, paroxysmal atrial fibrillation, hypertension, hyperlipidemia, and valvular heart disease. Patient follows in the office with Dr. Noel. We have been asked to see the patient in consultation for hypertension. Patient examined at the bedside. Patient presented to the hospital with a chief complaint of shaking and not feeling well. Patient was found to have elevated blood pressure and cardiology was consulted for evaluation. The patient has a known history of hypertension that is somewhat poorly controlled. Per Dr. Pettit office note, the patient has a component of white coat hypertension. The patient does report having anxiety and states that anytime she even thinks about having her blood pressure checked she gets anxious and her blood pressure readings are elevated. the patient states she does not check her blood pressure at home. She denies any chest pain or pressure. She denies any shortness of breath. * EKG reveals atrial fibrillation with controlled ventricular rate * Chest xray there is some mild pulmonary interstitial edema which is slightly increased compared to yesterday. Mild acute heart failure is possible. * Laboratory data: WBC 5.6. Hemoglobin 11.5. platelet count 268. Sodium 135. Potassium 3.7. BUN 16. Creatinine 0.90 * Current home cardiac medications include hydralazine 50 mg 3 times a day, clonidine 0.3 mg 3 times a day, carvedilol 3.125 mg twice a day, Cardura 4 mg daily, Plavix 75 mg daily, Lipitor 40 mg daily, and Eliquis 2.5 mg twice a day * Most recent echocardiogram obtained in April 2021 revealed ejection fraction 60%, mild aortic regurgitation, moderate mitral regurgitation, [id number] tricuspid regurgitation * Cardiac catheterization history: 2018 with PCI to the LAD REVIEW OF SYSTEMS: At the time of my exam: CONSTITUTIONAL: Denies fever or chills. HEENT: Denies blurred vision, vision changes, or eye pain. Denies hemoptysis CARDIOVASCULAR: Denies chest pain. Denies orthopnea. Denies PND. Denies palpitations RESPIRATORY: Denies shortness of breath. GASTROINTESTINAL: Denies abdominal pain. Denies nausea or vomiting. HEMATOLOGIC: Denies bleeding disorders. GENITOURINARY: Denies any blood in urine. SKIN: Denies pruitis. Denies rash. PHYSICAL EXAM: VITAL SIGNS: Reviewed. GENERAL: Well-developed in no acute distress. HEENT: Head is normocephalic. Pupils are equal, round. Sclerae anicteric. Mucous membranes of the mouth are moist. Neck supple. No JVD or thyromegaly LUNGS: Respirations even and unlabored. Lungs essentially clear to auscultation bilaterally. HEART: Irregular rate and rhythm. S1 and S2 heard. ABDOMEN: Soft. Nondistended. Nontender. EXTREMITIES: Normal range of motion. No clubbing or cyanosis. Peripheral pulses intact. No lower extremity edema NEUROLOGIC: Awake and alert. Oriented x 3. ASSESSMENT: Generalized malaise Hypertension, poorly controlled Coronary artery disease with previous PCI of LAD Paroxysmal atrial fibrillation Hyperlipidemia Valvular heart disease PLAN: Obtain 2D echo to assess cardiac structure and function Continue current cardiac medications Increase hydralazine to 75 mg 3 times a day Patient has a component of white coat hypertension and reports anxiety at the time of my examination making it difficult to know what her blood pressures typically runs. Recommend patient keep a log of her blood pressures at home and bring with her to her follow up appointment with Dr. Noel and further adjustments can be made at that time Nurse practitioner note has been reviewed by physician. Signing provider agrees with the documented findings, assessment, and plan of care. Past Medical History Past Medical History: Atrial Fibrillation, Coronary Artery Disease (CAD), Diabetes Mellitus, Eye Disorder, GERD/Reflux, Hearing Disorder / Deafness, Hyperlipidemia, Hypertension, Myocardial Infarction ([place]), Osteoarthritis (OA) Additional Past Medical History / Comment(s): Bilateral glaucoma, left ear deaf Last Myocardial Infarction Date:: 01/29/18 History of Any Multi-Drug Resistant Organisms: CRE, Other MDRO Date of last positivie culture/infection: 08/11/20 MDRO Source:: MDRO URINE Past Surgical History: Appendectomy, Section, Heart Catheterization, Heart Catheterization With Stent, Hysterectomy, Tonsillectomy Additional Past Surgical History / Comment(s): PCI with stent 01/29/18, colonoscopy Past Anesthesia/Blood Transfusion Reactions: Postoperative Nausea & Vomiting (PONV) Date of Last Stent Placement:: 01/29/18 Past Psychological History: Anxiety Additional Psychological History / Comment(s): Pt resides with her adult daughter. Her in September,. Pt is independent. Her daughter assists her some with her medications. Smoking Status: Never smoker Past Alcohol Use History: None Reported Past Drug Use History: None Reported - Past Family History Father Family Medical History: Coronary Artery Disease (CAD) Additional Family Medical History / Comment(s): Father was healthy. He after his spouse's "he just gave up on life." Mother Family Medical History: Coronary Artery Disease (CAD), Myocardial Infarction ([place]) Additional Family Medical History / Comment(s): Mother of a Mi at the age of 62 or 63yrs. Brother(s) Family Medical History: Cancer Additional Family Medical History / Comment(s): one brother leukemia. another brother metastatic CA Medications and Allergies Home Medications Medication Instructions Recorded Confirmed Type busPIRone HCl [Buspar] 10 mg PO BID 09/29/15 02/14/22 History Timolol 0.5% Ophth Soln [Timoptic 1 drop BOTH EYES DAILY 09/29/16 02/14/22 History 0.5% Ophth Soln] Clopidogrel [Plavix] 75 mg PO DAILY #30 tab 04/19/17 02/14/22 Rx Doxazosin [Cardura] 4 mg PO DAILY #30 tab 11/03/17 02/14/22 Rx Magnesium Oxide [Mag-Ox] 400 mg PO DAILY #30 tab 11/16/17 02/14/22 Rx Apixaban [Eliquis] 2.5 mg PO BID 02/01/18 02/14/22 History carvediloL [Coreg] 3.125 mg PO AC-BID 06/25/18 02/14/22 History Sodium Bicarbonate Tab 650 mg PO BID #30 tab 09/16/18 02/14/22 Rx Atorvastatin [Lipitor] 40 mg PO DAILY 04/19/19 02/14/22 History Famotidine [Pepcid] 20 mg PO BID 04/19/19 02/14/22 History cloNIDine HCL [Catapres] 0.3 mg PO TID 02/14/22 02/14/22 History hydrALAZINE HCL [Apresoline] 50 mg PO TID 02/14/22 02/14/22 History metFORMIN HCL [Glucophage] 500 mg PO DAILY 02/14/22 02/14/22 History Allergies Allergy/AdvReac Type Severity Reaction Status Date / Time clindamycin Allergy Unknown Verified 02/14/22 17:59 prednisone Allergy Unknown Verified 02/14/22 17:59 adhesive tape AdvReac Severe Skin Verified 02/14/22 17:59 Irritation/Peeling allopurinol AdvReac Severe Nausea & Verified 02/14/22 17:59 Vomiting amlodipine besylate AdvReac Severe Nausea & Verified 02/14/22 17:59 [From Norvasc] Vomiting celecoxib [From Celebrex] AdvReac Severe Nausea & Verified 02/14/22 17:59 Vomiting clonidine HCl [From Catapres] AdvReac Severe Nausea & Verified 02/14/22 17:59 Vomiting diclofenac AdvReac Severe Nausea & Verified 02/14/22 17:59 Vomiting isosorbide AdvReac Severe Nausea & Verified 02/14/22 17:59 Vomiting methylprednisolone AdvReac Severe Nausea & Verified 02/14/22 17:59 Vomiting metoprolol tartrate AdvReac Severe Nausea & Verified 02/14/22 17:59 [From Lopressor] Vomiting misoprostol AdvReac Severe Nausea & Verified 02/14/22 17:59 Vomiting rabeprazole sodium AdvReac Severe Nausea & Verified 02/14/22 17:59 [From Aciphex] Vomiting Sulfa (Sulfonamide AdvReac Severe Nausea & Verified 02/14/22 17:59 Antibiotics) Vomiting oseltamivir AdvReac Unknown Verified 02/14/22 17:59 Physical Exam Vitals: Vital Signs Temp Pulse Resp BP BP Pulse Ox 02/16/22 11:02 98.3 F 68 18 163/72 95 02/16/22 07:34 98 F 74 20 190/76 97 02/16/22 04:45 98 F 65 18 185/70 95 02/15/22 23:35 97.7 F 67 16 130/53 100 02/15/22 20:35 70 18 175/65 97 02/15/22 18:12 156/74 02/15/22 15:57 98 F 82 16 198/79 96 02/15/22 11:32 80 18 149/64 97 Intake and Output 02/15/22 02/16/22 02/16/22 22:59 06:59 14:59 Intake Total 180 240 Balance 180 240 Intake: Oral 180 240 Other: Voiding Method Toilet Toilet # Voids 1 1 Results 02/16/22 12:14 02/16/22 12:14 Current Medications Generic Name Dose Route Start Last Admin Trade Name Michelle PRN Reason Stop Dose Admin Apixaban 2.5 mg 02/14/22 21:00 02/16/22 08:53 Apixaban 2.5 Mg Tablet PO 2.5 mg BID ALICE Administration Protocol Atorvastatin Calcium 40 mg 02/15/22 09:00 02/16/22 08:53 Atorvastatin 40 Mg Tab PO 40 mg DAILY ALICE Administration Buspirone HCl 10 mg 02/14/22 21:00 02/16/22 08:54 Buspirone Hcl 10 Mg Tab PO 10 mg BID ALICE Administration Carvedilol 3.125 mg 02/15/22 07:30 02/16/22 05:11 Carvedilol 3.125 Mg Tab PO 3.125 mg AC-BID ALICE Administration Clonidine 0.3 mg 02/14/22 22:00 02/16/22 08:53 Clonidine Hcl 0.1 Mg Tab PO 0.3 mg TID ALICE Administration Clopidogrel Bisulfate 75 mg 02/15/22 09:00 02/16/22 08:54 Clopidogrel 75 Mg Tab PO 75 mg DAILY ALICE Administration Doxazosin Mesylate 4 mg 02/15/22 09:00 02/16/22 08:54 Doxazosin 4 Mg Tab PO 4 mg DAILY ALICE Administration Famotidine 20 mg 02/15/22 09:00 02/16/22 08:54 Famotidine 20 Mg Tab PO 20 mg DAILY ALICE Administration Hydralazine HCl 75 mg 02/16/22 16:00 Hydralazine Hcl 25 Mg Tab PO TID ALICE Hydralazine HCl 25 mg 02/16/22 11:23 Hydralazine Hcl 25 Mg Tab PO 02/16/22 11:24 ONCE STA Insulin Aspart 0 unit 02/14/22 21:00 02/16/22 06:54 Insulin Aspart (Novolog) 100 Unit/Ml Vial SQ 1 unit ACHS ALICE Administration Protocol Magnesium Oxide 400 mg 02/15/22 09:00 02/16/22 08:53 Magnesium Oxide 400 Mg Tab PO 400 mg DAILY ALICE Administration Metformin HCl 500 mg 02/16/22 07:30 02/16/22 06:53 Metformin 500 Mg Tab PO 500 mg [id number] ALICE Administration Sodium Bicarbonate 650 mg 02/14/22 21:00 02/16/22 08:54 Sodium Bicarbonate Tab 650 Mg Tab PO 650 mg BID ALICE Administration Timolol Maleate 1 drops 02/15/22 09:00 02/16/22 08:54 Timolol 0.5% Ophth Drops 5 Ml Btl BOTH EYES 1 drops DAILY ALICE Administration Intake and Output 02/15/22 02/16/22 02/16/22 22:59 06:59 14:59 Intake Total 180 240 Balance 180 240 Intake: Oral 180 240 Other: Voiding Method Toilet Toilet # Voids 1 1 02/15/22 09:09 02/15/22 09:09
[2022-02-16 11:52] LABS: Glucose,Whole Blood 165 mg/dL (75-99)
--- NOTE | 2022-02-16 11:55 | P.PN ---
Subjective Progress Note Date: 02/16/22 Principal diagnosis: hypertension Patient is a very pleasant 86-year-old female that presented to the emergency room with nausea and elevated blood pressure. Patient has an extensive medical history that includes atrial fib on Eliquis, diabetes type 2, GERD, hypertension, hyperlipidemia, bilateral glaucoma, anxiety, history of coronary artery disease. Chest x-ray showed borderline heart size, increased interstitial changes compared to prior exam. Abdominal CT shows nothing acute. Kidney function was slightly off with at BUN 21 and creatinine 1.4. Troponin was negative. Patient was admitted for hypertension and acute kidney injury. Cardiology was consulted. We'll continue to monitor for nausea and abdominal pain. Repeat labs from today show improvement in kidney function with BUN of 16 and creatinine of 0.9. Awaiting cardiology recommendation for blood pressure control as patient has multiple drug ALLERGIES. 02/16/2022 Patient was seen and assessed at bedside. Patient reports feeling better, but blood pressure continues to be elevated. Patient denies chest pain, shortness of breath, chills. Repeat chest xray shows mild pulmonary interstitial edema whi ch has increased. Echocardiogram was ordered, results pending. Cardiology recommended increasing hydralazine frequency, will continue to follow with recommendations Objective - Vital Signs Vital signs: Vital Signs Temp 98.3 F 02/16/22 11:02 Pulse 68 02/16/22 11:02 Resp 18 02/16/22 11:02 BP 163/72 02/16/22 11:02 Pulse Ox 95 02/16/22 11:02 Intake & Output 02/15/22 02/16/22 02/16/22 18:59 06:59 18:59 Intake Total 610 240 Balance 610 240 Intake: Oral 610 240 Other: Voiding Method Toilet # Voids 1 1 - Constitutional General appearance: Present: average body habitus, no acute distress - EENT Eyes: Present: EOMI, PERRLA ENT: Present: hard of hearing, normal oropharynx - Neck Neck: Present: normal ROM - Respiratory Respiratory: bilateral: diminished - Cardiovascular Heart rate: 70 Rhythm: irregularly irregular Heart sounds: normal: S1, S2 - Peripheral pulses radial pulse Peripheral Pulses: bilateral: Normal - Gastrointestinal General gastrointestinal: Present: normal bowel sounds, soft - Integumentary Integumentary: Present: normal turgor - Neurologic Neurologic: Present: CNII-XII intact - Musculoskeletal Musculoskeletal: Present: gait normal - Psychiatric Psychiatric: Present: A&O x's 3, appropriate affect - Allied health notes Allied health notes reviewed: nursing - Labs CBC & Chem 7: 02/15/22 09:09 02/15/22 09:09 Labs: Abnormal Lab Results - Last 24 Hours (Table) 02/15/22 02/15/22 02/16/22 Range/Units 16:29 20:19 06:05 POC Glucose (mg/dL) 141 H 139 H 163 H (75-99) mg/dL - Imaging and Cardiology Chest x-ray: report reviewed Assessment and Plan Assessment: Uncontrolled hypertension Acute kidney injury, resolved Atrial fibrillation, controlled, on eliquis Type 2 diabetes Hyperlipidemia Anxiety History of coronary artery disease bilateral glaucoma GERD Plan: Kidney function improved, continue to monitor Blood pressure continues to be elevated, cardiology consult Chest xray shows interstitial edema, ECHO results pending Monitor blood glucose ACHS, metformin and sliding scale Continue to monitor vital signs Further recommendations to come based on clinical course Time with Patient: Greater than 30
[2022-02-16 12:56] LABS: HCT 40.3 % (34.0-46.0); HGB 12.3 gm/dL (11.4-16.0); Hypochromasia Slight; MCH 27.3 pg (25.0-35.0); MCHC 30.4 g/dL (31.0-37.0); MCV 89.6 fL (80.0-100.0); Mean Platelet Volume 7.8; Platelet Count 296 k/uL (150-450); RDW 14.5 % (11.5-15.5); WBC 6.9 k/uL (3.8-10.6)
[2022-02-16 13:07] LABS: Albumin 4.2 g/dL (3.5-5.0); Calcium 9.8 mg/dL (8.4-10.2); Magnesium 1.9 mg/dL (1.6-2.3); Potassium 4.1 mmol/L (3.5-5.1); Total Bilirubin 0.8 mg/dL (0.2-1.3); Total Protein 7.4 g/dL (6.3-8.2)
[2022-02-16] MEDS: hydrALAZINE HCL 25 MG TAB PO SCH ×2 (16:00→21:36)
[2022-02-16 16:43] LABS: Glucose,Whole Blood 133 mg/dL (75-99)
[2022-02-16] MEDS: carvediloL 6.25 MG TAB PO SCH (18:16)
[2022-02-16] MEDS: FUROSEMIDE 20 MG TAB PO SCH (18:16)
[2022-02-16 20:18] LABS: Glucose,Whole Blood 163 mg/dL (75-99)
[2022-02-17 04:32] VITALS: RESP 18
[2022-02-17 05:57] LABS: Glucose,Whole Blood 135 mg/dL (75-99)
[2022-02-17] MEDS: metFORMIN 500 MG TAB PO SCH (06:41)
[2022-02-17] MEDS: carvediloL 6.25 MG TAB PO SCH (06:41)
[2022-02-17] MEDS: INSULIN ASPART (NovoLOG) 100 UNIT/ML VIAL SQ SCH ×2 (06:41→12:09)
[2022-02-17 08:42] VITALS: TEMP 98.7
[2022-02-17] MEDS: MAGNESIUM OXIDE 400 MG TAB PO SCH (08:42)
[2022-02-17] MEDS: DOXAZOSIN 4 MG TAB PO SCH (08:42)
[2022-02-17] MEDS: FAMOTIDINE 20 MG TAB PO SCH (08:42)
[2022-02-17] MEDS: ATORVASTATIN 40 MG TAB PO SCH (08:43)
[2022-02-17] MEDS: SODIUM BICARBONATE TAB 650 MG TAB PO SCH (08:43)
[2022-02-17] MEDS: busPIRone HCl 10 MG TAB PO SCH (08:43)
[2022-02-17] MEDS: APIXABAN 2.5 MG TABLET PO SCH (08:43)
[2022-02-17] MEDS: cloNIDine HCL 0.1 MG TAB PO SCH (08:43)
[2022-02-17] MEDS: CLOPIDOGREL 75 MG TAB PO SCH (08:43)
[2022-02-17] MEDS: hydrALAZINE HCL 25 MG TAB PO SCH (08:44)
[2022-02-17] MEDS: FUROSEMIDE 20 MG TAB PO SCH (08:44)
[2022-02-17] MEDS: TIMOLOL 0.5% OPHTH DROPS 5 ML BTL BOTH EYES SCH (08:47)
--- NOTE | 2022-02-17 11:43 | P.DS ---
Providers Date of admission: 02/16/22 16:36 Expected date of discharge: 02/17/22 Attending physician: Lj Sanchez Consults: 02/15/22 12:13 Consult Physician Routine Consulting Provider: Christophe Hamm Consult Reason/Comments: hypertension Do you want consulting provider notified?: Yes Primary care physician: Lj Sanchez [facility] Course: Patient is a very pleasant 86-year-old female that presented to the emergency room with nausea and elevated blood pressure. Patient has an extensive medical history that includes atrial fib on Eliquis, diabetes type 2, GERD, hypert ension, hyperlipidemia, bilateral glaucoma, anxiety, history of coronary artery disease. Chest x-ray showed borderline heart size, increased interstitial changes compared to prior exam. Abdominal CT shows nothing acute. Kidney function was slightly off with at BUN 21 and creatinine 1.4. Troponin was negative. Patient was admitted for hypertension and acute kidney injury. Cardiology was consulted. We'll continue to monitor for nausea and abdominal pain. Repeat labs from today show improvement in kidney function with BUN of 16 and creatinine of 0.9. Awaiting cardiology recommendation for blood pressure control as patient has multiple drug ALLERGIES. 02/16/2022 Patient was seen and assessed at bedside. Patient reports feeling better, but blood pressure continues to be elevated. Patient denies chest pain, shortness of breath, chills. Repeat chest xray shows mild pulmonary interstitial edema which has increased. Echocardiogram was ordered, results pending. Cardiology recommended increasing hydralazine frequency, will continue to follow with recommendations 02/17/2022 Patient was seen and assessed at bedside. Patient reports not sleeping well last night and wants to go home. Patient denies chest pain, shortness of breath, fever. Echocardiogram results still pending. This morning's blood pressure was 187/77 before medication and came down to 126/60 after. Patient will be educated on medication changes. Patient is stable for discharge once cardiology gives clearance Assessment: Hypertension Acute kidney injury, resolved Atrial fibrillation, controlled, on eliquis Type 2 diabetes Hyperlipidemia Anxiety History of coronary artery disease bilateral glaucoma GERD Health Concerns: Multiple coMorbidities Pertinent Studies: Chest xray found mild pulmonary interstitial edema, mild acute heart failure Abd/pelvis ct- no acute findings ECHO- pending Patient Condition at Discharge: Good Plan - Discharge Summary Discharge Rx Participant: Yes New Discharge Prescriptions: New carvediloL [Coreg] 6.25 mg PO BID #60 tablet Furosemide [Lasix] 20 mg PO DAILY #30 tablet hydrALAZINE HCL 75 mg PO TID #270 tablet Continue busPIRone HCl [Buspar] 10 mg PO BID Timolol 0.5% Ophth Soln [Timoptic 0.5% Ophth Soln] 1 drop BOTH EYES DAILY Clopidogrel [Plavix] 75 mg PO DAILY #30 tab Doxazosin [Cardura] 4 mg PO DAILY #30 tab Magnesium Oxide [Mag-Ox] 400 mg PO DAILY #30 tab Apixaban [Eliquis] 2.5 mg PO BID Sodium Bicarbonate Tab 650 mg PO BID #30 tab Atorvastatin [Lipitor] 40 mg PO DAILY Famotidine [Pepcid] 20 mg PO BID metFORMIN HCL [Glucophage] 500 mg PO DAILY cloNIDine HCL [Catapres] 0.3 mg PO TID Discontinued carvediloL [Coreg] 3.125 mg PO AC-BID hydrALAZINE HCL [Apresoline] 50 mg PO TID Discharge Medication List busPIRone HCl [Buspar] 10 mg PO BID 09/29/15 [History] Timolol 0.5% Ophth Soln [Timoptic 0.5% Ophth Soln] 1 drop BOTH EYES DAILY 09/29/16 [History] Clopidogrel [Plavix] 75 mg PO DAILY #30 tab 04/19/17 [Rx] Doxazosin [Cardura] 4 mg PO DAILY #30 tab 11/03/17 [Rx] Magnesium Oxide [Mag-Ox] 400 mg PO DAILY #30 tab 11/16/17 [Rx] Apixaban [Eliquis] 2.5 mg PO BID 02/01/18 [History] Sodium Bicarbonate Tab 650 mg PO BID #30 tab 09/16/18 [Rx] Atorvastatin [Lipitor] 40 mg PO DAILY 04/19/19 [History] Famotidine [Pepcid] 20 mg PO BID 04/19/19 [History] cloNIDine HCL [Catapres] 0.3 mg PO TID 02/14/22 [History] metFORMIN HCL [Glucophage] 500 mg PO DAILY 02/14/22 [History] Furosemide [Lasix] 20 mg PO DAILY #30 tablet 02/17/22 [Rx] carvediloL [Coreg] 6.25 mg PO BID #60 tablet 02/17/22 [Rx] hydrALAZINE HCL 75 mg PO TID #270 tablet 02/17/22 [Rx] Follow up Appointment(s)/Referral(s): Lj Sanchez MD [Primary Care Provider] - 1-2 days Tab Noel MD [STAFF PHYSICIAN] - 1 Week Patient Instructions/Handouts: Heart Healthy Diet (DC) Discharge Disposition: HOME SELF-CARE
[2022-02-17 12:06] LABS: Glucose,Whole Blood 169 mg/dL (75-99)
[2022-02-17 12:13] VITALS: BP 147/71; PULSE 82
--- NOTE | 2022-02-17 13:18 | P.PN ---
Subjective Progress Note Date: 02/17/22 HISTORY OF PRESENT ILLNESS: This is a 86-year-old female with a past medical history significant for coronary artery disease with previous PCI of LAD, paroxysmal atrial fibrillation, hypertension, hyperlipidemia, and valvular heart disease. Patient follows in the office with Dr. Noel. We have been asked to see the patient in consultation for hypertension. Patient examined at the bedside. Patient presented to the hospital with a chief complaint of shaking and not feeling well. Patient was found to have elevated blood pressure and cardiology was consulted for evaluation. The patient has a known history of hypertension that is somewhat poorly controlled. Per Dr. Pettit office note, the patient has a component of white coat hypertension. The patient does report having anxiety and states that anytime she even thinks about having her blood pressure checked she gets anxious and her blood pressure readings are elevated. the patient states she does not check her blood pressure at home. She denies any chest pain or pressure. She denies any shortness of breath. * EKG reveals atrial fibrillation with controlled ventricular rate * Chest xray there is some mild pulmonary interstitial edema which is slightly increased compared to yesterday. Mild acute heart failure is possible. * Laboratory data: WBC 5.6. Hemoglobin 11.5. platelet count 268. Sodium 135. Potassium 3.7. BUN 16. Creatinine 0.90 * Current home cardiac medications include hydralazine 50 mg 3 times a day, clonidine 0.3 mg 3 times a day, carvedilol 3.125 mg twice a day, Cardura 4 mg daily, Plavix 75 mg daily, Lipitor 40 mg daily, and Eliquis 2.5 mg twice a day * Most recent echocardiogram obtained in April 2021 revealed ejection fraction 60%, mild aortic regurgitation, moderate mitral regurgitation, m [id number] tricuspid regurgitation * Cardiac catheterization history: 2018 with PCI to the LAD 02/17/2022 Patient examined this morning at the bedside. Patient denies chest pain or pressure. She denies shortness of breath. Blood pressures remain labile. PHYSICAL EXAM: VITAL SIGNS: Reviewed. GENERAL: Well-developed in no acute distress. HEENT: Head is normocephalic. Pupils are equal, round. Sclerae anicteric. Mucous membranes of the mouth are moist. Neck supple. No JVD or thyromegaly LUNGS: Respirations even and unlabored. Lungs essentially clear to auscultation bilaterally. HEART: Irregular rate and rhythm. S1 and S2 heard. ABDOMEN: Soft. Nondistended. Nontender. EXTREMITIES: Normal range of motion. No clubbing or cyanosis. Peripheral pulses intact. No lower extremity edema NEUROLOGIC: Awake and alert. Oriented x 3. ASSESSMENT: Generalized malaise Hypertension, poorly controlled Coronary artery disease with previous PCI of LAD Paroxysmal atrial fibrillation Hyperlipidemia Valvular heart disease PLAN: 2D echo ordered. Await results. Continue current cardiac medications Monitor blood pressure Recommend patient keep a log of her blood pressures at home and bring with her to her follow up appointment with Dr. Noel and further adjustments can be made at that time Patient may be discharged this afternoon with outpatient follow up with Dr. Noel Nurse practitioner note has been reviewed by physician. Signing provider agrees with the documented findings, assessment, and plan of care. Objective - Vital Signs Vital signs: Vital Signs Temp 98.7 F 02/17/22 08:39 Pulse 82 02/17/22 12:10 Resp 18 02/17/22 12:10 BP 147/71 02/17/22 12:10 Pulse Ox 98 02/17/22 12:10 Intake & Output 02/16/22 02/17/22 02/17/22 18:59 06:59 18:59 Intake Total 980 240 Balance 980 240 Intake: Oral 980 240 Other: Voiding Method Toilet Toilet # Voids 1 - Labs CBC & Chem 7: 02/16/22 12:14 02/16/22 12:14 Labs: Abnormal Lab Results - Last 24 Hours (Table) 02/16/22 02/16/22 02/17/22 Range/Units 16:42 20:14 05:56 POC Glucose (mg/dL) 133 H 163 H 135 H (75-99) mg/dL 02/17/22 Range/Units 11:45 POC Glucose (mg/dL) 169 H (75-99) mg/dL
== END 2022-02-17 13:52 | disposition home or self-care (01) | DRG 305 ==
LOC: EC 13:48 → INTOOBSV 17:46 → 3SCARD 17:46 → OBSVTOIN 02-16 16:36
PROVIDERS: ADMIT Family Medicine; ATTEND Family Medicine
DX: I16.1 Hypertensive emergency (principal); N17.9 Acute kidney failure, unspecified; J81.1 Chronic pulmonary edema; I25.10 Atherosclerotic heart disease of native coronary artery without angina pectoris; I10 Essential (primary) hypertension; K21.9 Gastro-esophageal reflux disease without esophagitis; E11.9 Type 2 diabetes mellitus without complications; E78.5 Hyperlipidemia, unspecified; F41.9 Anxiety disorder, unspecified; I48.0 Paroxysmal atrial fibrillation; Z20.822 Contact with and (suspected) exposure to COVID-19; M19.90 Unspecified osteoarthritis, unspecified site; I08.3 Combined rheumatic disorders of mitral, aortic and tricuspid valves; H40.9 Unspecified glaucoma; H91.92 Unspecified hearing loss, left ear; I25.2 Old myocardial infarction; Z79.01 Long term (current) use of anticoagulants; Z79.02 Long term (current) use of antithrombotics/antiplatelets; Z79.84 Long term (current) use of oral hypoglycemic drugs; Z79.899 Other long term (current) drug therapy; Z80.6 Family history of leukemia; Z82.49 Family history of ischemic heart disease and other diseases of the circulatory system; Z88.9 Allergy status to unspecified drugs, medicaments and biological substances; Z90.710 Acquired absence of both cervix and uterus; Z91.048 Other nonmedicinal substance allergy status; Z95.5 Presence of coronary angioplasty implant and graft; Z88.1 Allergy status to other antibiotic agents; Z88.2 Allergy status to sulfonamides; Z88.8 Allergy status to other drugs, medicaments and biological substances
CPT/HCPCS: 36415; 71046; 74176; 80048; 80053; 81003; 82150; 83036; 83690; 83735; 84484; 85025; 85027; 85610; 85730; 87635; 93005; 93306; 96374; 96375; 99285

== ENCOUNTER → 2022-04-28 | Outpatient (CLI) | payer MEDICARE, BC ==
[2022-04-28 10:42] LABS: Basophils # (A) 0.02 X 10*3/uL (0.00-0.10); Basophils % (A) 0.3 %; Eosinophils # (A) 0.18 X 10*3/uL (0.04-0.35); Eosinophils % (A) 2.9 %; HCT 34.9 % (37.2-46.3); HGB 10.7 g/dL (12.0-15.0); Immature Grans, Automated 0.7 %; Lymphocytes # (A) 0.76 X 10*3/uL (0.90-5.00); Lymphocytes % (A) 12.4 %; MCHC 30.7 g/dL (32.0-37.0); MCV 87.9 fL (80.0-97.0); Mean Platelet Volume 10.4 fL (9.5-12.2); Monocytes # (A) 0.75 X 10*3/uL (0.20-1.00); Monocytes % (A) 12.2 %; NRBC Per 100 WBC 0 /100 WBCS (0.0-0.0); Neutrophils # (A) 4.39 X 10*3/uL (1.80-7.70); Neutrophils % (A) 71.5 %; Platelet Count 262 X 10*3/uL (140-440); RBC 3.97 X 10*6/uL (4.10-5.20); RDW 16.9 % (11.5-14.5); WBC 6.14 X 10*3/uL (4.50-10.00)
[2022-04-28 11:04] LABS: ALT 20 U/L (8-44); AST 19 U/L (13-35); African American GFR (CKD) 58.3 (60.0-200.0); Albumin 4.2 g/dL (3.8-4.9); Albumin/Globulin Ratio 1.45 (1.60-3.17); Alkaline Phosphatase 74 U/L (41-126); Blood Urea Nitrogen 19.8 mg/dL (9.0-27.0); Calcium 9.7 mg/dL (8.7-10.3); Carbon Dioxide 24.2 mmol/L (20.0-27.5); Chloride 102 mmol/L (96-109); Chol/HDL Ratio 2.36 Ratio; Globulin 2.9 g/dL (1.6-3.3); Glucose 153 mg/dL (70-110); LDL Cholesterol,Calculated 24.1 mg/dL (0.0-131.0); Non-African American GFR(CKD) 50.3 (60.0-200.0); Potassium 3.9 mmol/L (3.5-5.5); Sodium 137 mmol/L (135-145); Total Protein 7.1 g/dL (6.2-8.2)
== END | disposition home or self-care (01) ==
LOC: LABWHC1 07:04
PROVIDERS: ATTEND Family Medicine
DX: E11.9 Type 2 diabetes mellitus without complications (principal)
CPT/HCPCS: 36415; 80053; 80061; 83036; 84439; 84443; 85025

== ENCOUNTER → 2022-06-14 | Outpatient (CLI) | payer MEDICARE, BC ==
[2022-06-14 11:07] LABS: HGB 10.1 g/dL (12.0-15.0); MCH 28.9 pg (27.0-32.0); MCHC 32.6 g/dL (32.0-37.0); MCV 88.6 fL (80.0-97.0); Mean Platelet Volume 10.3 fL (9.5-12.2); NRBC Per 100 WBC 0 /100 WBCS (0.0-0.0); Platelet Count 262 X 10*3/uL (140-440); RDW 14.9 % (11.5-14.5); WBC 6.51 X 10*3/uL (4.50-10.00)
[2022-06-14 11:10] LABS: African American GFR (CKD) 57.8 (60.0-200.0); Anion Gap 14.5 mmol/L (10.00-18.00); Blood Urea Nitrogen 23.1 mg/dL (9.0-27.0); Carbon Dioxide 21.5 mmol/L (20.0-27.5); Non-African American GFR(CKD) 49.9 (60.0-200.0); Potassium 3.8 mmol/L (3.5-5.5)
== END | disposition home or self-care (01) ==
LOC: LABWHC1 06:57
PROVIDERS: ATTEND Family Medicine
DX: I10 Essential (primary) hypertension (principal); I25.10 Atherosclerotic heart disease of native coronary artery without angina pectoris
CPT/HCPCS: 36415; 80051; 82565; 84520; 85027

== ENCOUNTER → 2022-07-22 | Outpatient (CLI) | payer MEDICARE, BC ==
[2022-07-22 11:09] LABS: Basophils # (A) 0.02 X 10*3/uL (0.00-0.10); Basophils % (A) 0.3 %; Eosinophils % (A) 3.4 %; HCT 30.9 % (37.2-46.3); Immature Grans, Automated 0.7 %; Lymphocytes # (A) 0.72 X 10*3/uL (0.90-5.00); Lymphocytes % (A) 12.1 %; MCH 29.2 pg (27.0-32.0); MCHC 32.4 g/dL (32.0-37.0); MCV 90.4 fL (80.0-97.0); Mean Platelet Volume 10.2 fL (9.5-12.2); Monocytes # (A) 0.68 X 10*3/uL (0.20-1.00); Monocytes % (A) 11.4 %; NRBC Per 100 WBC 0 /100 WBCS (0.0-0.0); Neutrophils # (A) 4.28 X 10*3/uL (1.80-7.70); Neutrophils % (A) 72.1 %; Platelet Count 276 X 10*3/uL (140-440); RBC 3.42 X 10*6/uL (4.10-5.20); RDW 14.6 % (11.5-14.5); Reticulocyte % 1.81 % (0.10-1.80); WBC 5.94 X 10*3/uL (4.50-10.00)
[2022-07-22 11:40] LABS: % Iron Saturation 23.98 (12.00-45.00); African American GFR (CKD) 52.7 (60.0-200.0); Albumin/Globulin Ratio 1.32 (1.60-3.17); Anion Gap 12.1 mmol/L (10.00-18.00); BUN/Creat Ratio 18.52 Ratio (12.00-20.00); Carbon Dioxide 23.9 mmol/L (20.0-27.5); Non-African American GFR(CKD) 45.5 (60.0-200.0); Total Bilirubin 0.7 mg/dL (0.30-1.20); Total Protein 6.9 g/dL (6.2-8.2)
== END | disposition home or self-care (01) ==
LOC: LABWHC1 07:11
PROVIDERS: ATTEND Family Medicine
DX: E11.9 Type 2 diabetes mellitus without complications (principal); D64.9 Anemia, unspecified
CPT/HCPCS: 36415; 80053; 82607; 82747; 83036; 83540; 83550; 85025; 85045

== ENCOUNTER → 2022-10-20 | Outpatient (CLI) | payer MEDICARE, BC ==
[2022-10-20 10:33] LABS: Basophils # (A) 0.02 X 10*3/uL (0.00-0.10); Basophils % (A) 0.3 %; Eosinophils # (A) 0.17 X 10*3/uL (0.04-0.35); Eosinophils % (A) 2.6 %; HCT 30.4 % (37.2-46.3); HGB 9.6 g/dL (12.0-15.0); Immature Grans, Automated 0.6 %; Lymphocytes # (A) 0.65 X 10*3/uL (0.90-5.00); MCH 28.3 pg (27.0-32.0); MCHC 31.6 g/dL (32.0-37.0); MCV 89.7 fL (80.0-97.0); Mean Platelet Volume 10.2 fL (9.5-12.2); Monocytes # (A) 0.68 X 10*3/uL (0.20-1.00); Monocytes % (A) 10.5 %; NRBC Per 100 WBC 0 /100 WBCS (0.0-0.0); Neutrophils # (A) 4.92 X 10*3/uL (1.80-7.70); Platelet Count 254 X 10*3/uL (140-440); RBC 3.39 X 10*6/uL (4.10-5.20); RDW 14.8 % (11.5-14.5); WBC 6.48 X 10*3/uL (4.50-10.00)
[2022-10-20 10:44] LABS: African American GFR (CKD) 51.5 (60.0-200.0); Albumin 3.9 g/dL (3.8-4.9); Albumin/Globulin Ratio 1.26 (1.60-3.17); Anion Gap 10.7 mmol/L (10.00-18.00); BUN/Creat Ratio 25.45 Ratio (12.00-20.00); Calcium 10.1 mg/dL (8.7-10.3); Carbon Dioxide 24.3 mmol/L (20.0-27.5); Globulin 3.1 g/dL (1.6-3.3); Non-African American GFR(CKD) 44.5 (60.0-200.0); Potassium 4.2 mmol/L (3.5-5.5); Total Bilirubin 0.6 mg/dL (0.30-1.20)
== END | disposition home or self-care (01) ==
LOC: LABWHC1 07:51
PROVIDERS: ATTEND Family Medicine
DX: E11.9 Type 2 diabetes mellitus without complications (principal)
CPT/HCPCS: 36415; 80053; 83036; 85025

== ENCOUNTER 2023-02-27 11:41 | Inpatient (IN) | payer MEDICARE, BC ==
[2023-02-27] MEDS ORDERED: SODIUM CHLORIDE 0.9% 1,000 ML IV STA (12:26)
[2023-02-27 12:53] LABS: Anisocytosis Slight; Basophils % (A) 0 %; Eosinophils # (A) 0.1 k/uL (0-0.7); Eosinophils % (A) 1 %; Lymphocytes # (A) 0.8 k/uL (1.0-4.8); Lymphocytes % (A) 13 %; MCH 28.5 pg (25.0-35.0); MCHC 33.7 g/dL (31.0-37.0); MCV 84.5 fL (80.0-100.0); Mean Platelet Volume 7.5; Monocytes # (A) 0.4 k/uL (0-1.0); Monocytes % (A) 7 %; Neutrophils # (A) 4.9 k/uL (1.3-7.7); Neutrophils % (A) 77 %; Platelet Count 264 k/uL (150-450); RBC 2.21 m/uL (3.80-5.40); RDW 17.5 % (11.5-15.5); WBC 6.3 k/uL (3.8-10.6)
[2023-02-27 13:01] LABS: HCT 18.7 % (34.0-46.0); HGB 6.3 gm/dL (11.4-16.0)
[2023-02-27 13:04] LABS: INR 1.1 (<1.2); Partial Thromboplastin Time 24.3 sec (22.0-30.0); Prothrombin Time 11.5 sec (9.0-12.0)
[2023-02-27 13:10] LABS: Albumin 3.7 g/dL (3.5-5.0); Calcium 9.7 mg/dL (8.4-10.2); Magnesium 1.6 mg/dL (1.6-2.3); Potassium 3.4 mmol/L (3.5-5.1); Total Bilirubin 0.4 mg/dL (0.2-1.3); Total Protein 6.7 g/dL (6.3-8.2)
[2023-02-27 14:08] LABS: Appearance,Urine Clear (Clear); Bilirubin,Urine Negative (Negative); Blood,Urine Negative (Negative); Color,Urine Light Yellow; Glucose,Urine (UA) Negative (Negative); Ketones,Urine Negative (Negative); Leukocyte Esterase,Urine Small (Negative); Mucus,Urine Rare /hpf; Nitrite,Urine Negative (Negative); PH, Urine 6.5 (5.0-8.0); Protein,Urine Negative (Negative); RBC,Urine 1 /hpf (0-5); Specific Gravity,Urine 1.007 (1.001-1.035); Squamous Epithelial Cell,Urine <1 /hpf (0-4); Urobilinogen,Urine <2.0 mg/dL (<2.0); WBC,Urine 1 /hpf (0-5)
[2023-02-27] MEDS ORDERED: POTASSIUM CHLORIDE ER 20 MEQ TAB.ER PO STA (14:48)
--- NOTE | 2023-02-27 15:00 | CT ---
EXAMINATION TYPE: CT brain wo con DATE OF EXAM: 02/27/2023 COMPARISON: 10/28/2017 INDICATION: Syncope DLP: 1114.4 mGycm, Automated exposure control for dose reduction was used. CONTRAST: None CT of the brain is performed utilizing 3 mm thick sections through the posterior fossa and 3 mm thick sections through the remaining calvarium. Study is performed within 24 hours of arrival to the hosp [facility]. No abnormal hyperdensity is present to suggest an acute intracranial hemorrhage. No mass lesion is evident. No acute infarcts are evident. Minimal periventricular white matter hypodensity is present, likely on the basis of chronic white matter ischemic changes. Ventricles and sulci are appropriate for the patient age. Paranasal sinuses and mastoid air cells within the [id number] are clear. IMPRESSIONS: 1. Minimal anechoic appearing periventricular white matter ischemic-type changes.
--- NOTE | 2023-02-27 15:11 | XR ---
EXAMINATION TYPE: XR chest 2V DATE OF EXAM: 02/27/2023 COMPARISON: 02/15/2022 INDICATION: Syncope TECHNIQUE: Frontal and lateral views of the chest are obtained. FINDINGS: The heart size is borderline enlarged. The pulmonary vasculature is normal. The lungs are clear. IMPRESSION: 1. No acute pulmonary process. 2. Borderline cardiomegaly.
--- NOTE | 2023-02-27 15:19 | ED ---
General Adult HPI - General Chief complaint: Syncope Stated complaint: Near Syncope Time Seen by Provider: 02/27/23 11:45 Source: patient, family, EMS, RN notes reviewed, old records reviewed Mode of arrival: EMS - History of Present Illness Initial comments: Patient is an 87-year-old female who presents emergency Department with vague complaints. Has a history of A. fib on blood thinners, CAD, hypertension, diabetes who has been dealing with diarrhea for the last 7 days. Outpatient workup revealed that the patient did test positive for Giardia and had positive fecal occult blood. She has been having more or less daily episodes of this. Denies any blood in her stool. States it is dark brown in color. Denies any hematemesis episodes of emesis or nausea. Is complaining of left lower quadrant abdominal discomfort. Denies chest pain, shortness of breath, fevers, chills, cough. Denies any urinary complaints. Prior to arrival while the patient was at home today she also had a possible syncopal episode. Patient states he she does remember the entire event and denies hitting her head. She felt somewhat lightheaded when she is standing up and her daughter helped her sit down. She then had an episode where her right arm shook a little bit and she seemed to have passed out. This quickly resolved and she had no confusion afterwards. Patient states she does remember hearing voices during this episode but felt weak. Also is complaining of generalized weakness. Presents for further evaluation at this time. - Related Data Home Medications Medication Instructions Recorded Confirmed Timolol 0.5% Ophth Soln [Timoptic 1 drop BOTH EYES DAILY@0800 09/29/16 02/27/23 0.5% Ophth Soln] Apixaban [Eliquis] 2.5 mg PO BID@0800,209902/01/18 02/27/23 Atorvastatin [Lipitor] 40 mg PO DAILY@0800 04/19/19 02/27/23 Famotidine [Pepcid] 20 mg PO BID@0800,209904/19/19 02/27/23 cloNIDine HCL [Catapres] 0.3 mg PO TID@0800,1400,2100 02/14/22 02/27/23 Clopidogrel [Plavix] 75 mg PO DAILY@0800 02/27/23 02/27/23 Doxazosin [Cardura] 4 mg PO DAILY@0800 02/27/23 02/27/23 Furosemide [Lasix] 20 mg PO DAILY@0800 02/27/23 02/27/23 Irbesartan [Avapro] 75 mg PO DAILY@1200 02/27/23 02/27/23 Magnesium Oxide [Mag-Ox] 400 mg PO DAILY@0800 02/27/23 02/27/23 Sodium Bicarbonate Tab 650 mg PO BID@0800,209902/27/23 02/27/23 busPIRone HCL 15 mg PO BID@0800,209902/27/23 02/27/23 carvediloL [Coreg] 6.25 mg PO BID@0800,209902/27/23 02/27/23 hydrALAZINE HCL 25 mg PO TID@0800,1400,209902/27/23 02/27/23 hydrALAZINE HCL [Apresoline] 50 mg PO TID@0800,1400,209902/27/23 02/27/23 metFORMIN HCL ER [Glucophage XR] 1,000 mg PO DAILY@119902/27/23 02/27/23 Allergies Allergy/AdvReac Type Severity Reaction Status Date / Time clindamycin Allergy Unknown Verified 02/27/23 13:05 prednisone Allergy Unknown Verified 02/27/23 13:05 adhesive tape AdvReac Severe Skin Verified 02/27/23 13:05 Irritation/Peeling allopurinol AdvReac Severe Nausea & Verified 02/27/23 13:05 Vomiting amlodipine besylate AdvReac Severe Nausea & Verified 02/27/23 13:05 [From Norvasc] Vomiting celecoxib [From Celebrex] AdvReac Severe Nausea & Verified 02/27/23 13:05 Vomiting clonidine HCl [From Catapres] AdvReac Severe Nausea & Verified 02/27/23 13:05 Vomiting diclofenac AdvReac Severe Nausea & Verified 02/27/23 13:05 Vomiting isosorbide AdvReac Severe Nausea & Verified 02/27/23 13:05 Vomiting methylprednisolone AdvReac Severe Nausea & Verified 02/27/23 13:05 Vomiting metoprolol tartrate AdvReac Severe Nausea & Verified 02/27/23 13:05 [From Lopressor] Vomiting misoprostol AdvReac Severe Nausea & Verified 02/27/23 13:05 Vomiting rabeprazole sodium AdvReac Severe Nausea & Verified 02/27/23 13:05 [From Aciphex] Vomiting Sulfa (Sulfonamide AdvReac Severe Nausea & Verified 02/27/23 13:05 Antibiotics) Vomiting oseltamivir AdvReac Unknown Verified 02/27/23 13:05 Review of Systems ROS Statement: Those systems with pertinent positive or pertinent negative responses have been documented in the HPI. Review of Systems: CONST: Denies fever EYES: Denies blurry vision ENT: Denies nasal congestion C/V: Denies Chest pain RESP: Denies shortness of breath GI: Endorses left lower quadrant abdominal pain : Denies dysuria SKIN: Denies rash. MSK: Denies joint pain. NEURO: Endorses weakness ROS Other: All systems not noted in ROS Statement are negative. Past Medical History Past Medical History: Atrial Fibrillation, Coronary Artery Disease (CAD), Diabetes Mellitus, Eye Disorder, GERD/Reflux, Hearing Disorder / Deafness, Hyperlipidemia, Hypertension, Myocardial Infarction (NH), Osteoarthritis (OA) Additional Past Medical History / Comment(s): Bilateral glaucoma, left ear deaf Last Myocardial Infarction Date:: 01/29/18 History of Any Multi-Drug Resistant Organisms: CRE, Other MDRO Date of last positivie culture/infection: 08/11/20 MDRO Source:: MDRO URINE Past Surgical History: Appendectomy, Section, Heart Catheterization, Heart Catheterization With Stent, Hysterectomy, Tonsillectomy Additional Past Surgical History / Comment(s): PCI with stent 01/29/18, colonoscopy Past Anesthesia/Blood Transfusion Reactions: Postoperative Nausea & Vomiting (PONV) Date of Last Stent Placement:: 01/29/18 Past Psychological History: Anxiety Smoking Status: Never smoker Past Alcohol Use History: None Reported Past Drug Use History: None Reported - Past Family History Father Family Medical History: Coronary Artery Disease (CAD) Additional Family Medical History / Comment(s): Father was healthy. He after his spouse's "he just gave up on life." Mother Family Medical History: Coronary Artery Disease (CAD), Myocardial Infarction (NH) Additional Family Medical History / Comment(s): Mother of a Mi at the age of 62 or 63yrs. Brother(s) Family Medical History: Cancer Additional Family Medical History / Comment(s): one brother leukemia. another brother metastatic CA General Exam - General Exam Comments Initial Comments: General: Appears in no acute distress. HEAD: Normal with no signs of head trauma. EYES: PERRLA, EOMI, conjunctiva normal, no discharge. ENT: Hearing grossly intact, normal oropharynx. RESPIRATORY: Clear breath sounds bilaterally. No wheezes, rales, or rhonchi. C/V: Regular rate and rhythm. S1 and S2 auscultated, no edema, peripheral pulses 2+ and intact throughout ABD: Abdomen is soft, nondistended. Mild tenderness to palpation the left lower quadrant. No guarding. No rebound tenderness to palpation. Rectal exam showed no gross blood. Dark brown stool. EXT: Normal range of motion, no obvious deformity SKIN: No rashes or lesions observed on exposed skin. NEURO: Alert and oriented x 4. Cranial nerves II-XII intact. No focal sensory or strength deficits. GCS of 15. NIH is 0. Course Vital Signs 02/27/23 02/27/23 02/27/23 11:51 11:55 13:30 Temperature 97.8 F Pulse Rate 71 65 Pulse Rate [ 68 Director Of Development And Marketing ] Respiratory 18 17 Rate Blood Pressure 144/65 150/65 O2 Sat by Pulse 98 96 Oximetry 02/27/23 02/27/23 02/27/23 14:39 15:56 16:08 Temperature 97.6 F 97.9 F Pulse Rate 76 66 68 Pulse Rate [ Director Of Development And Marketing ] Respiratory 15 16 17 Rate Blood Pressure 145/62 159/61 143/57 O2 Sat by Pulse 100 100 100 Oximetry 02/27/23 16:28 Temperature 97.6 F Pulse Rate 71 Pulse Rate [ Director Of Development And Marketing ] Respiratory 16 Rate Blood Pressure 140/49 O2 Sat by Pulse 100 Oximetry Medical Decision Making - Medical Decision Making Was pt. sent in by a medical professional or institution (, PA, [employer], urgent care, hospital, or intermediate...) When possible be specific @ -No Did you speak to anyone other than the patient for history (EMS, parent, family, police, friend...)? What history was obtained from this source @ -Spoke with the patient's daughter who assisted in the history of the patient's syncopal type episode. Did you review nursing and triage notes (agree or disagree)? Why? @ -I reviewed and agree with nursing and triage notes Were old charts reviewed (outside hosp., previous admission, EMS record, old EKG, old radiological studies, urgent care reports/EKG's, intermediate records)? Report findings @ -Old labs reviewed from January 2023. Old EKG reviewed from January 2022. Differential Diagnosis (chest pain, altered mental status, abdominal pain women, abdominal pain men, vaginal bleeding, weakness, fever, dyspnea, syncope, headache, dizziness, GI bleed, back pain, seizure, CVA, palpatations, mental health, musculoskeletal)? @ -Differential Syncope: Valvular disease, hypertrophic cardiomyopathy, pulmonary embolism, tamponade, tachycardia, bradycardia, NH, hypovolemia, hemorrhage, dissection, anemia, intracranial hemorrhage, seizure, hypoglycemia, carbon monoxide poisoning, this is not meant to be an all-inclusive list. Differential abdominal pain EKG interpreted by me (3pts min.). @ -As above X-rays interpreted by me (1pt min.). @ -Chest x-ray reveals no obvious acute cardio pulmonary process. CT interpreted by me (1pt min.). @ -CT brain reveals no obvious acute intracranial process. CT and pelvis reveals no evidence of acute intra-abdominal bleed. U/S interpreted by me (1pt. min.). @ -None done What testing was considered but not performed or refused? (CT, X-rays, U/S, labs)? Why? @ -None What meds were considered but not given or refused? Why? @ -None Did you discuss the management of the patient with other professionals (professionals i.e. , PA, [employer], lab, RT, psych nurse, social work specialist, wheel filler, teacher, youth officer, director case)? Give summary @ -Yes, discussed with Dr. Salvador who is agreement with the consult and plan as well as Dr. Nieto who accepted the admission. Was smoking cessation discussed for >3mins.? @ -No Was critical care preformed (if so, how long)? @ -No Were there social determinants of health that impacted care today? How? (Homelessness, low income, unemployed, alcoholism, drug addiction, transportation, low edu. Level, literacy, decrease access to med. care, prison, rehab)? @ -No Was there de-escalation of care discussed even if they declined (Discuss DNR or withdrawal of care, Hospice)? DNR status @ -No What co-morbidities impacted this encounter? (DM, HTN, Smoking, COPD, CAD, Cancer, CVA, ARF, Chemo, Hep., AIDS, mental health diagnosis, sleep apnea, morbid obesity)? @ -None Was patient admitted / discharged? Hospital course, mention meds given and route, prescriptions, significant lab abnormalities, going to OR and other pertinent info. @ -Based on the patient's presentation and physical exam, appear she had possibly a near syncopal episode at home. He is complaining of left lower quadrant abdominal discomfort. Also complaining of generalized weakness. Was seen outpatient and looks that she tested positive for Giardia as well as positive fecal occult blood. However we will obtain laboratory studies, as well as obtain a rectal exam, obtain basic labs, as well as CT imaging the brain and chest x-ray. Patient was in agreement this plan. Vital signs within acceptable limits. There was a delay in obtaining lab results with a good return and were remarkable for CK D. Patient has mild hypokalemia 3.4 which is replenished. Patient is anemic to 6.3. Troponin is undetectable. Urine is unremarkable. CT brain is unremarkable. Chest x-ray is unremarkable. I updated the patient as well as family regarding the results. Rectal exam was performed in the presence of a staff member was negative for any gross blood. Dark brown stool present. At this time we will obtain a CT abdomen and pelvis with contrast due to her abdominal pain. They were in agreement with this plan. She'll be transfused 1 unit of blood. She'll be admitted to the hospital. CT and pelvis reveals no evidence of acute intra-abdominal bleed. No obvious acute process. No evidence of diverticulitis. I updated the family. Patient will be admitted to the hospital at this time. She'll be started on Flagyl to cover her for her Giardia infection. We will hold her blood thinning medication. I spoke with Dr. Salvador of Gen. surgery who was in agreement with being consulted and agreed in agreement with the plan. Clear liquid diet was ordered for the patient at his request. I spoke with the admitting physician, Dr. nieto who is updated and he accepted the patient. Patient was admitted in stable condition. Undiagnosed new problem with uncertain prognosis? @ -No Drug Therapy requiring intensive monitoring for toxicity (Heparin, Nitro, Insulin, Cardizem)? @ -No Were any procedures done? @ -No Diagnosis/symptom? @ -Symptomatic anemia, near syncopal episode Acute, or Chronic, or Acute on Chronic? @ -Acute Uncomplicated (without systemic symptoms) or Complicated (systemic symptoms)? @ -Complicated Side effects of treatment? @ -none Exacerbation, Progression, or Severe Exacerbation] @ -no Poses a threat to life or bodily function? @ -Yes Diagnosis/symptom? @ -Occult blood positive, on blood thinners Acute, or Chronic, or Acute on Chronic? @ -Acute on chronic Uncomplicated (without systemic symptoms) or Complicated (systemic symptoms)? @ -Uncomplicated Side effects of treatment? @ -none Exacerbation, Progression, or Severe Exacerbation] @ -no Poses a threat to life or bodily function? @ -Potential yes Diagnosis/symptom? @ -Hypomagnesemia Acute, or Chronic, or Acute on Chronic? @ -Acute Uncomplicated (without systemic symptoms) or Complicated (systemic symptoms)? @ -Uncomplicated Side effects of treatment? @ -none Exacerbation, Progression, or Severe Exacerbation] @ -no Poses a threat to life or bodily function? @ -no - Lab Data Result diagrams: 02/27/23 12:36 02/27/23 12:36 Lab Results 02/27/23 02/27/23 02/27/23 Range/Units 00:35 12:36 12:36 WBC 6.3 (3.8-10.6) k/uL RBC 2.21 L (3.80-5.40) m/uL Hgb 6.3 L* (11.4-16.0) gm/dL Hct 18.7 L* (34.0-46.0) % MCV 84.5 (80.0-100.0) fL MCH 28.5 (25.0-35.0) pg MCHC 33.7 (31.0-37.0) g/dL RDW 17.5 H (11.5-15.5) % Plt Count 264 (150-450) k/uL MPV 7.5 Neutrophils % 77 % Lymphocytes % 13 % Monocytes % 7 % Eosinophils % 1 % Basophils % 0 % Neutrophils # 4.9 (1.3-7.7) k/uL Lymphocytes # 0.8 L (1.0-4.8) k/uL Monocytes # 0.4 (0-1.0) k/uL Eosinophils # 0.1 (0-0.7) k/uL Basophils # 0.0 (0-0.2) k/uL Anisocytosis Slight PT 11.5 (9.0-12.0) sec INR 1.1 (<1.2) APTT 24.3 (22.0-30.0) sec Sodium (137-145) mmol/L Potassium (3.5-5.1) mmol/L Chloride (98-107) mmol/L Carbon Dioxide (22-30) mmol/L Anion Gap mmol/L BUN (7-17) mg/dL Creatinine (0.52-1.04) mg/dL Est GFR (CKD-EPI)AfAm (>60 ml/min/1.73 sqM) Est GFR (CKD-EPI)NonAf (>60 ml/min/1.73 sqM) Glucose (74-99) mg/dL Calcium (8.4-10.2) mg/dL Magnesium (1.6-2.3) mg/dL Total Bilirubin (0.2-1.3) mg/dL AST (14-36) U/L ALT (4-34) U/L Alkaline Phosphatase (38-126) U/L Troponin I (0.000-0.034) ng/mL Total Protein (6.3-8.2) g/dL Albumin (3.5-5.0) g/dL Urine Color Urine Appearance (Clear) Urine pH (5.0-8.0) Ur Specific [place] (1.001-1.035) Urine Protein (Negative) Urine Glucose (UA) (Negative) Urine Ketones (Negative) Urine Blood (Negative) Urine Nitrite (Negative) Urine Bilirubin (Negative) Urine Urobilinogen (<2.0) mg/dL Ur Leukocyte Esterase (Negative) Urine RBC (0-5) /hpf Urine WBC (0-5) /hpf Ur Squamous Epith Cells (0-4) /hpf Urine Mucus (None) /hpf Coronavirus (PCR) Not Detected (Not Detectd) Blood Type Blood Type Recheck Bld Type Recheck Status Antibody Screen Crossmatch Spec Expiration Date 02/27/23 02/27/23 02/27/23 Range/Units 12:36 12:36 13:23 WBC (3.8-10.6) k/uL RBC (3.80-5.40) m/uL Hgb (11.4-16.0) gm/dL Hct (34.0-46.0) % MCV (80.0-100.0) fL MCH (25.0-35.0) pg MCHC (31.0-37.0) g/dL RDW (11.5-15.5) % Plt Count (150-450) k/uL MPV Neutrophils % % Lymphocytes % % Monocytes % % Eosinophils % % Basophils % % Neutrophils # (1.3-7.7) k/uL Lymphocytes # (1.0-4.8) k/uL Monocytes # (0-1.0) k/uL Eosinophils # (0-0.7) k/uL Basophils # (0-0.2) k/uL Anisocytosis PT (9.0-12.0) sec INR (<1.2) APTT (22.0-30.0) sec Sodium 134 L (137-145) mmol/L Potassium 3.4 L (3.5-5.1) mmol/L Chloride 99 (98-107) mmol/L Carbon Dioxide 24 (22-30) mmol/L Anion Gap 11 mmol/L BUN 54 H (7-17) mg/dL Creatinine 1.11 H (0.52-1.04) mg/dL Est GFR (CKD-EPI)AfAm 51 (>60 ml/min/1.73 sqM) Est GFR (CKD-EPI)NonAf 44 (>60 ml/min/1.73 sqM) Glucose 151 H (74-99) mg/dL Calcium 9.7 (8.4-10.2) mg/dL Magnesium 1.6 (1.6-2.3) mg/dL Total Bilirubin 0.4 (0.2-1.3) mg/dL AST 22 (14-36) U/L ALT 20 (4-34) U/L Alkaline Phosphatase 58 (38-126) U/L Troponin I <0.012 (0.000-0.034) ng/mL Total Protein 6.7 (6.3-8.2) g/dL Albumin 3.7 (3.5-5.0) g/dL Urine Color Light Yellow Urine Appearance Clear (Clear) Urine pH 6.5 (5.0-8.0) Ur Specific [place] 1.007 (1.001-1.035) Urine Protein Negative (Negative) Urine Glucose (UA) Negative (Negative) Urine Ketones Negative (Negative) Urine Blood Negative (Negative) Urine Nitrite Negative (Negative) Urine Bilirubin Negative (Negative) Urine Urobilinogen <2.0 (<2.0) mg/dL Ur Leukocyte Esterase Small H (Negative) Urine RBC 1 (0-5) /hpf Urine WBC 1 (0-5) /hpf Ur Squamous Epith Cells <1 (0-4) /hpf Urine Mucus Rare H (None) /hpf Coronavirus (PCR) (Not Detectd) Blood Type Blood Type Recheck Bld Type Recheck Status Antibody Screen Crossmatch Spec Expiration Date 02/27/23 Range/Units 13:30 WBC (3.8-10.6) k/uL RBC (3.80-5.40) m/uL Hgb (11.4-16.0) gm/dL Hct (34.0-46.0) % MCV (80.0-100.0) fL MCH (25.0-35.0) pg MCHC (31.0-37.0) g/dL RDW (11.5-15.5) % Plt Count (150-450) k/uL MPV Neutrophils % % Lymphocytes % % Monocytes % % Eosinophils % % Basophils % % Neutrophils # (1.3-7.7) k/uL Lymphocytes # (1.0-4.8) k/uL Monocytes # (0-1.0) k/uL Eosinophils # (0-0.7) k/uL Basophils # (0-0.2) k/uL Anisocytosis PT (9.0-12.0) sec INR (<1.2) APTT (22.0-30.0) sec Sodium (137-145) mmol/L Potassium (3.5-5.1) mmol/L Chloride (98-107) mmol/L Carbon Dioxide (22-30) mmol/L Anion Gap mmol/L BUN (7-17) mg/dL Creatinine (0.52-1.04) mg/dL Est GFR (CKD-EPI)AfAm (>60 ml/min/1.73 sqM) Est GFR (CKD-EPI)NonAf (>60 ml/min/1.73 sqM) Glucose (74-99) mg/dL Calcium (8.4-10.2) mg/dL Magnesium (1.6-2.3) mg/dL Total Bilirubin (0.2-1.3) mg/dL AST (14-36) U/L ALT (4-34) U/L Alkaline Phosphatase (38-126) U/L Troponin I (0.000-0.034) ng/mL Total Protein (6.3-8.2) g/dL Albumin (3.5-5.0) g/dL Urine Color Urine Appearance (Clear) Urine pH (5.0-8.0) Ur Specific [place] (1.001-1.035) Urine Protein (Negative) Urine Glucose (UA) (Negative) Urine Ketones (Negative) Urine Blood (Negative) Urine Nitrite (Negative) Urine Bilirubin (Negative) Urine Urobilinogen (<2.0) mg/dL Ur Leukocyte Esterase (Negative) Urine RBC (0-5) /hpf Urine WBC (0-5) /hpf Ur Squamous Epith Cells (0-4) /hpf Urine Mucus (None) /hpf Coronavirus (PCR) (Not Detectd) Blood Type A Negative Blood Type Recheck A Neg Bld Type Recheck Status No Antibody Screen NEGATIVE Crossmatch See Detail Spec Expiration Date 03/02/20232329 - EKG Data -: EKG Interpreted by Me EKG Comments: 12-lead Electrocardiogram Interpretation Note EKG was reviewed and interpreted by myself. 12-lead ECG performed at 1149 is interpreted by me as revealing atrial fibrillation at a rate of 66 beats per minute. [place] is normal. QRS duration is 87 ms, QTc is 411 ms.. There were no ST or T wave abnormalities to suggest myocardial ischemia or injury. R wave progression across the precordium was satisfactory. By my interpretation this EKG is non-diagnostic for acute ischemia. When compared with EKG from 0 02/14/2022, no significant change. Disposition Clinical Impression: Symptomatic anemia, Giardiasis, Diarrhea, Near syncope, History of atrial fibri llation Disposition: ADMITTED IP TO THIS HOSP Condition: Serious Referrals: Lj Sanchez MD [Primary Care Provider] - 1-2 days Time of Disposition: 16:40
--- NOTE | 2023-02-27 15:40 | CT ---
EXAMINATION TYPE: CT abdomen pelvis w con DATE OF EXAM: 02/27/2023 COMPARISON: 02/14/2022 INDICATION: LLQ pain DLP: 805.3 mGycm, Automated exposure control for dose reduction was used. CONTRAST: 80 mL of Isovue 300. Study performed without Oral Contrast TECHNIQUE: Axial images were obtained from above the diaphragm to the pubic rami in the axial plane a t 5 mm thick sections. Reconstructed images are reviewed on the computer in the coronal plane. FINDINGS: Limited CT sections are obtained the lung bases. There is a posterior left lower lobe infiltrate. Co rrelate for atelectasis.. Coronary artery calcification is present. CT ABDOMEN: Liver: There is diffuse mild fatty infiltration to the liver. No discrete masses Spleen: There is a tiny cyst within the spleen. Pancreas: Mildly atrophic Adrenal glands: There is diffuse thickening of the left adrenal gland 1.3 cm. Milder thickening of th e right adrenal gland is present measuring 1.2 cm. Gallbladder: Normal Kidneys: No masses are evident. No hydronephrosis is present. For renal cysts are present bilateral ly. Delayed images were obtained through the kidneys, which remain unremarkable. Aorta: Vascular calcification is within the aorta. Inferior vena cava: Normal. CT PELVIS: Loops of bowel within the abdomen and pelvis are normal. Scattered diverticula within sigmoid colon w ithout acute diverticulitis. This study is without oral contrast limiting bowel evaluation. Appendix: Not identified. No dilated tubular structure or inflammatory change is evident. Urinary bladder: Normal. Genitourinary structures: Uterus and ovaries are not identified. Osseous structures: No suspicious lytic or sclerotic lesions are evident. IMPRESSIONS: 1. Minimal subsegmental atelectasis left lung base. 2. Mild fatty infiltration of the liver. 3. Mild diffuse thickening through the adrenal glands. 4. Diverticulosis without acute diverticulitis left lower quadrant.
[2023-02-27] MEDS ORDERED: NALOXONE 0.4 MG/ML 1 ML VIAL IV PRN (17:03)
[2023-02-27] MEDS: metroNIDAZOLE-NS PMX 500 MG in SALINE 1 100ML.BAG IVPB SCH ×2 (19:02→23:47)
[2023-02-27] MEDS ORDERED: hydrALAZINE HCL 50 MG TAB PO SCH (21:00)
[2023-02-27 21:17] LABS: Glucose,Whole Blood 135 mg/dL (70-110)
[2023-02-27] MEDS: hydrALAZINE HCL 25 MG TAB PO SCH (21:20)
[2023-02-27] MEDS: carvediloL 6.25 MG TAB PO SCH (21:20)
[2023-02-27] MEDS: busPIRone HCl 5 MG TAB PO SCH (21:20)
[2023-02-27] MEDS: FAMOTIDINE 20 MG TAB PO SCH (21:20)
[2023-02-27] MEDS: cloNIDine HCL 0.1 MG TAB PO SCH (21:20)
[2023-02-27] MEDS: SODIUM BICARBONATE TAB 650 MG TAB PO SCH (21:20)
[2023-02-28 06:22] LABS: Glucose,Whole Blood 146 mg/dL (70-110)
[2023-02-28] MEDS ORDERED: PEG 3350 (236 GM/BTL) + LYTES 4,000 ML BOTTLE PO ONE (08:58)
[2023-02-28] MEDS: metroNIDAZOLE-NS PMX 500 MG in SALINE 1 100ML.BAG IVPB SCH ×3 (09:46→23:31)
[2023-02-28] MEDS: FUROSEMIDE 20 MG TAB PO SCH (09:47)
[2023-02-28] MEDS: cloNIDine HCL 0.1 MG TAB PO SCH ×3 (09:47→21:37)
[2023-02-28] MEDS: ATORVASTATIN 40 MG TAB PO SCH (09:47)
[2023-02-28] MEDS: FAMOTIDINE 20 MG TAB PO SCH (09:47)
[2023-02-28] MEDS: carvediloL 6.25 MG TAB PO SCH ×2 (09:48→21:37)
[2023-02-28] MEDS: MAGNESIUM OXIDE 400 MG TAB PO SCH (09:48)
[2023-02-28] MEDS: SODIUM BICARBONATE TAB 650 MG TAB PO SCH ×2 (09:48→21:37)
[2023-02-28] MEDS: hydrALAZINE HCL 25 MG TAB PO SCH ×3 (09:49→21:37)
[2023-02-28] MEDS: DOXAZOSIN 4 MG TAB PO SCH (09:56)
[2023-02-28] MEDS: busPIRone HCl 5 MG TAB PO SCH ×2 (10:08→21:37)
[2023-02-28] MEDS: LACTATED RINGERS 1,000 ML IV SCH ×2 (10:57→11:04)
[2023-02-28] MEDS: TIMOLOL 0.5% OPHTH DROPS 5 ML BTL BOTH EYES SCH (11:03)
[2023-02-28 11:28] LABS: African American GFR (CKD) 49.4 (60.0-200.0); Anion Gap 9.6 mmol/L (10.00-18.00); BUN/Creat Ratio 33.68 Ratio (12.00-20.00); Blood Urea Nitrogen 38.4 mg/dL (9.0-27.0); Calcium 9.4 mg/dL (8.7-10.3); Carbon Dioxide 20.6 mmol/L (20.0-27.5); Non-African American GFR(CKD) 42.6 (60.0-200.0); Potassium 3.9 mmol/L (3.5-5.5)
--- NOTE | 2023-02-28 11:47 | P.GSCN ---
History of Present Illness Consult date: 02/28/23 History of present illness: CHIEF COMPLAINT: Diarrhea and near syncope HISTORY OF PRESENT ILLNESS: This is a 87-year-old female who presented to hospital with complaints of diarrhea for 7 days. She was seen by her PCP and stool was positive for Giardias and stool for occult blood positive. Hemoglobin on admission was 6.3. Patient did receive 1 unit of blood. Repeat hemoglobin is pending. Patient reports that her stools have all been brown. She denies any blood or black stools. Denies any nausea vomiting. Denies any abdominal pain. She had a near syncopal episode at home. She does have a known history of atrial fibrillation and is on Eliquis and also is on Plavix for coronary disease with cardiac stents. She reports her last colonoscopy was several years ago and was negative. EGD was in 2018 revealing gastritis a patent Chesky's ring and a small hiatal hernia. Computed tomography scan abdomen and pelvis had shown diverticulosis without diverticulitis. Patient denies any fever, chills or sweats. PAST MEDICAL HISTORY: See below PAST SURGICAL HISTORY: See below MEDICATIONS: See below ALLERGIES: See below SOCIAL HISTORY: No illicit drug use. REVIEW OF SYSTEMS: CONSTITUTIONAL: Denies fever or chills. HEENT: Denies blurred vision, vision changes, or eye pain. Denies hemoptysis CARDIOVASCULAR: Denies chest pain or pressure. RESPIRATORY: No shortness of breath. GASTROINTESTINAL: See HPI for pertinent findings HEMATOLOGIC: Denies bleeding disorders. GENITOURINARY: Denies any blood in urine or increased urinary frequency. SKIN: Denies pruitis. Denies rash. PHYSICAL EXAM: VITAL SIGNS: Reviewed GENERAL: Well-developed in no acute distress. HEENT: No sclera icterus. Extraocular movements grossly intact. Moist buccal mucosa. Head is atraumatic, normocephalic. No nasal drainage. ABDOMEN: Soft. Nondistended. Nontender NEUROLOGIC: Alert and oriented. Cranial nerves II through XII grossly intact. LABORATORY DATA: WBC is 6.3 Hgb 6.3 platelets 264. Today's CBC is pending INR 1.1 Sodium 133 potassium 3.4 up to 3.9 creatinine 1.1 Urinalysis negative for infection COVID-19 not detected IMAGING: Computed tomography scan abdomen and pelvis minimal subsegmental atelectasis left lung base. Mild fatty infiltration of the liver. Mild diffuse thickening through the adrenal glands. Diverticulosis without acute diverticulitis left lower quadrant. ASSESSMENT: 1. Anemia with stool for occult blood positive in the outpatient setting 2. History of diverticulosis 3. History of being on blood thinners both Eliquis and Plavix. Last taken 02/27. 4. Diarrhea with stool positive for giardias outpatient on antibiotics 5. Hypokalemia corrected PLAN: -Patient scheduled for EGD and colonoscopy tomorrow with Dr. Salvador -Start GoLYTELY bowel prep today -Continue clear liquid diet -Nothing by mouth after midnight -Continue monitor hemoglobin and transfuse as needed -Continue to hold Eliquis and Plavix for procedure Thank you for this consultation Physician Lead Software Architect note has been reviewed by physician. Signing provider agrees with the documented findings, assessment, and plan of care. Past Medical History Past Medical History: Atrial Fibrillation, Coronary Artery Disease (CAD), Diabetes Mellitus, Eye Disorder, GERD/Reflux, Hearing Disorder / Deafness, Hyperlipidemia, Hypertension, Myocardial Infarction ([place]), Osteoarthritis (OA) Additional Past Medical History / Comment(s): Bilateral glaucoma, left ear deaf Last Myocardial Infarction Date:: 01/29/18 History of Any Multi-Drug Resistant Organisms: CRE, Other MDRO Year Discovered:: 08/11/20 MDRO Source:: MDRO URINE Past Surgical History: Appendectomy, Section, Heart Catheterization, Heart Catheterization With Stent, Hysterectomy, Tonsillectomy Additional Past Surgical History / Comment(s): PCI with stent 01/29/18, colono scopy Past Anesthesia/Blood Transfusion Reactions: Postoperative Nausea & Vomiting (PONV) Date of Last Stent Placement:: 01/29/18 Past Psychological History: Anxiety Additional Psychological History / Comment(s): Pt resides with her adult daughter. Her in September,. Pt is independent. Her daughter assists her some with her medications. Smoking Status: Never smoker Past Alcohol Use History: None Reported Past Drug Use History: None Reported - Past Family History Father Family Medical History: Coronary Artery Disease (CAD) Additional Family Medical History / Comment(s): Father was healthy. He after his spouse's "he just gave up on life." Mother Family Medical History: Coronary Artery Disease (CAD), Myocardial Infarction ([place]) Additional Family Medical History / Comment(s): Mother of a Mi at the age of 62 or 63yrs. Brother(s) Family Medical History: Cancer Additional Family Medical History / Comment(s): one brother leukemia. another brother metastatic CA Medications and Allergies Home Medications Medication Instructions Recorded Confirmed Type Timolol 0.5% Ophth Soln [Timoptic 1 drop BOTH EYES DAILY@0800 09/29/16 02/27/23 History 0.5% Ophth Soln] Apixaban [Eliquis] 2.5 mg PO BID@0800,209902/01/18 02/27/23 History Atorvastatin [Lipitor] 40 mg PO DAILY@0800 04/19/19 02/27/23 History Famotidine [Pepcid] 20 mg PO BID@0800,209904/19/19 02/27/23 History cloNIDine HCL [Catapres] 0.3 mg PO TID@0800,1400,209902/14/22 02/27/23 History Clopidogrel [Plavix] 75 mg PO DAILY@0802/27/23 02/27/23 History Doxazosin [Cardura] 4 mg PO DAILY@0800 02/27/23 02/27/23 History Furosemide [Lasix] 20 mg PO DAILY@0800 02/27/23 02/27/23 History Irbesartan [Avapro] 75 mg PO DAILY@119902/27/23 02/27/23 History Magnesium Oxide [Mag-Ox] 400 mg PO DAILY@0800 02/27/23 02/27/23 History Sodium Bicarbonate Tab 650 mg PO BID@0800,209902/27/23 02/27/23 History busPIRone HCL 15 mg PO BID@0800,209902/27/23 02/27/23 History carvediloL [Coreg] 6.25 mg PO BID@0800,209902/27/23 02/27/23 History hydrALAZINE HCL 25 mg PO TID@0800,1400,209902/27/23 02/27/23 History hydrALAZINE HCL [Apresoline] 50 mg PO TID@0800,1400,209902/27/23 02/27/23 History metFORMIN HCL ER [Glucophage XR] 1,000 mg PO DAILY@119902/27/23 02/27/23 History Allergies Allergy/AdvReac Type Severity Reaction Status Date / Time clindamycin Allergy Unknown Verified 02/27/23 13:05 prednisone Allergy Unknown Verified 02/27/23 13:05 adhesive tape AdvReac Severe Skin Verified 02/27/23 13:05 Irritation/Peeling allopurinol AdvReac Severe Nausea & Verified 02/27/23 13:05 Vomiting amlodipine besylate AdvReac Severe Nausea & Verified 02/27/23 13:05 [From Norvasc] Vomiting celecoxib [From Celebrex] AdvReac Severe Nausea & Verified 02/27/23 13:05 Vomiting clonidine HCl [From Catapres] AdvReac Severe Nausea & Verified 02/27/23 13:05 Vomiting diclofenac AdvReac Severe Nausea & Verified 02/27/23 13:05 Vomiting isosorbide AdvReac Severe Nausea & Verified 02/27/23 13:05 Vomiting methylprednisolone AdvReac Severe Nausea & Verified 02/27/23 13:05 Vomiting metoprolol tartrate AdvReac Severe Nausea & Verified 02/27/23 13:05 [From Lopressor] Vomiting misoprostol AdvReac Severe Nausea & Verified 02/27/23 13:05 Vomiting rabeprazole sodium AdvReac Severe Nausea & Verified 02/27/23 13:05 [From Aciphex] Vomiting Sulfa (Sulfonamide AdvReac Severe Nausea & Verified 02/27/23 13:05 Antibiotics) Vomiting oseltamivir AdvReac Unknown Verified 02/27/23 13:05 Surgical - Exam Vital Signs Temp Pulse Resp BP Pulse Ox 97.8 F 71 18 144/65 98 02/27/23 11:51 02/27/23 11:51 02/27/23 11:51 02/27/23 11:51 02/27/23 11:51 Results - Labs 02/27/23 12:36 02/28/23 06:26 Abnormal Lab Results - Last 24 Hours (Table) 02/27/23 02/27/23 02/27/23 Range/Units 12:36 12:36 13:23 RBC 2.21 L (3.80-5.40) m/uL Hgb 6.3 L* (11.4-16.0) gm/dL Hct 18.7 L* (34.0-46.0) % RDW 17.5 H (11.5-15.5) % Lymphocytes # 0.8 L (1.0-4.8) k/uL Sodium 134 L (137-145) mmol/L Potassium 3.4 L (3.5-5.1) mmol/L BUN 54 H (7-17) mg/dL Creatinine 1.11 H (0.52-1.04) mg/dL Glucose 151 H (74-99) mg/dL POC Glucose (mg/dL) (70-110) mg/dL Ur Leukocyte Esterase Small H (Negative) Urine Mucus Rare H (None) /hpf Crossmatch 02/27/23 02/27/23 02/28/23 Range/Units 13:30 21:14 06:20 RBC (3.80-5.40) m/uL Hgb (11.4-16.0) gm/dL Hct (34.0-46.0) % RDW (11.5-15.5) % Lymphocytes # (1.0-4.8) k/uL Sodium (137-145) mmol/L Potassium (3.5-5.1) mmol/L BUN (7-17) mg/dL Creatinine (0.52-1.04) mg/dL Glucose (74-99) mg/dL POC Glucose (mg/dL) 135 H 146 H (70-110) mg/dL Ur Leukocyte Esterase (Negative) Urine Mucus (None) /hpf Crossmatch See Detail Diabetes panel 02/27/23 Range/Units 12:36 Sodium 134 L (137-145) mmol/L Potassium 3.4 L (3.5-5.1) mmol/L Chloride 99 (98-107) mmol/L Carbon Dioxide 24 (22-30) mmol/L BUN 54 H (7-17) mg/dL Creatinine 1.11 H (0.52-1.04) mg/dL Glucose 151 H (74-99) mg/dL Calcium 9.7 (8.4-10.2) mg/dL AST 22 (14-36) U/L ALT 20 (4-34) U/L Alkaline Phosphatase 58 (38-126) U/L Total Protein 6.7 (6.3-8.2) g/dL Albumin 3.7 (3.5-5.0) g/dL Calcium panel 02/27/23 Range/Units 12:36 Calcium 9.7 (8.4-10.2) mg/dL Albumin 3.7 (3.5-5.0) g/dL Pituitary panel 02/27/23 Range/Units 12:36 Sodium 134 L (137-145) mmol/L Potassium 3.4 L (3.5-5.1) mmol/L Chloride 99 (98-107) mmol/L Carbon Dioxide 24 (22-30) mmol/L BUN 54 H (7-17) mg/dL Creatinine 1.11 H (0.52-1.04) mg/dL Glucose 151 H (74-99) mg/dL Calcium 9.7 (8.4-10.2) mg/dL Adrenal panel 02/27/23 Range/Units 12:36 Sodium 134 L (137-145) mmol/L Potassium 3.4 L (3.5-5.1) mmol/L Chloride 99 (98-107) mmol/L Carbon Dioxide 24 (22-30) mmol/L BUN 54 H (7-17) mg/dL Creatinine 1.11 H (0.52-1.04) mg/dL Glucose 151 H (74-99) mg/dL Calcium 9.7 (8.4-10.2) mg/dL Total Bilirubin 0.4 (0.2-1.3) mg/dL AST 22 (14-36) U/L ALT 20 (4-34) U/L Alkaline Phosphatase 58 (38-126) U/L Total Protein 6.7 (6.3-8.2) g/dL Albumin 3.7 (3.5-5.0) g/dL
[2023-02-28 12:09] LABS: Glucose,Whole Blood 153 mg/dL (70-110)
[2023-02-28 12:14] LABS: Basophils # (A) 0.01 X 10*3/uL (0.00-0.10); Basophils % (A) 0.1 %; Eosinophils # (A) 0.07 X 10*3/uL (0.04-0.35); Eosinophils % (A) 0.9 %; HGB 6.8 g/dL (12.0-15.0); Immature Grans, Automated 0.6 %; Lymphocytes # (A) 0.86 X 10*3/uL (0.90-5.00); Lymphocytes % (A) 10.5 %; MCH 27.1 pg (27.0-32.0); MCHC 30.9 g/dL (32.0-37.0); MCV 87.6 fL (80.0-97.0); Mean Platelet Volume 9.9 fL (9.5-12.2); Monocytes # (A) 0.82 X 10*3/uL (0.20-1.00); NRBC Per 100 WBC 0.4 /100 WBCS (0.0-0.0); Neutrophils # (A) 6.35 X 10*3/uL (1.80-7.70); Neutrophils % (A) 77.9 %; Platelet Count 259 X 10*3/uL (140-440); RBC 2.51 X 10*6/uL (4.10-5.20); RDW 18.5 % (11.5-14.5); WBC 8.16 X 10*3/uL (4.50-10.00)
[2023-02-28] MEDS: LOSARTAN 25 MG TAB PO SCH (12:49)
[2023-02-28] MEDS: metFORMIN 500 MG TAB PO SCH ×2 (12:49→21:58)
[2023-02-28 17:32] LABS: Glucose,Whole Blood 150 mg/dL (70-110)
[2023-02-28 20:28] LABS: Glucose,Whole Blood 143 mg/dL (70-110)
--- NOTE | 2023-03-01 01:02 | P.HPIM ---
History of Present Illness H&P Date: 02/28/23 Chief Complaint: Diarrhea Patient is a 87-year-old female with a known history of atrial fibrillation on anticoagulation with Xarelto, coronary artery disease with prior history of stent placement, GERD, diabetes type 2, hypertension, hyperlipidemia, history of [place] and osteoarthritis and anxiety presents ER with complaints of diarrhea for the past 7 days. Patient was seen by her PCP and was tested positive for Giardia in the stool and also stool occult blood was positive. Patient is also complaining of brown-colored stools. Denies any dark-colored stools or blood clots. Denies any nausea or vomiting. Did have lower abdominal pain. No nausea or vomiting. Patient felt so weak and almost passed out while she was walking towards the kitchen.Patient is a poor historian. She reports her last colonoscopy was several years ago and was negative. EGD was in 2018 revealing gastritis a patent Chesky's ring and a small hiatal hernia. Computed tomography scan abdomen and pelvis had shown diverticulosis without diverticulitis. CT head showed minimal anechoic appearing periventricular white matter ischemic type changes. Chest x-ray showed no acute pulmonary disease. Borderline cardiomegaly. EKG showed atrial fibrillation CT of the abdomen pelvis showed minimal subsegmental atelectasis left lung base. Mild fatty infiltration of the liver. Mild diffuse thickening through the abdominal glands. Diverticulosis without acute diverticulitis left lower quadrant. Laboratory data showed WBC 6.3 hemoglobin 6.3, platelets 263 MCV 84.5 Sodium 134 potassium 3.4 chloride 99 bicarb is 24 BUN 54 creatinine 1.1 and blood sugar 151 liver enzymes are not elevated magnesium 1.6 Urinalysis is negative for infection Coronavirus PCR not detected. Review of Systems Constitutional: Patient denies any fever or chills . Patient does have gene ralized weakness and near syncopal episode. Abdomen: Patient denied any nausea or vomiting or abd. pain. Does have diarrhea. Cardiovascular: Patient denies any chest pain or short of breath no palpit ations. Respiratory: patient denied any cough . no sputum production. No shortness of breath Neurologic: Patient denied any numbness or tingling headache. Musculoskeletal: Patient denies any complaints of joint swelling or deformity. Skin: Negative Psychiatric: Negative Endocrine: No heat or cold intolerance. No recent weight gain. Genitourinary: No dysuria or hematuria. All other 14 point ROS negative except the above Past Medical History Past Medical History: Atrial Fibrillation, Coronary Artery Disease (CAD), Diabetes Mellitus, Eye Disorder, GERD/Reflux, Hearing Disorder / Deafness, Hyperlipidemia, Hypertension, Myocardial Infarction ([place]), Osteoarthritis (OA) Additional Past Medical History / Comment(s): Bilateral glaucoma, left ear deaf Last Myocardial Infarction Date:: 01/29/18 History of Any Multi-Drug Resistant Organisms: CRE, Other MDRO Date of last positivie culture/infection: 08/11/20 MDRO Source:: MDRO URINE Past Surgical History: Appendectomy, Section, Heart Catheterization, Heart Catheterization With Stent, Hysterectomy, Tonsillectomy Additional Past Surgical History / Comment(s): PCI with stent 01/29/18, colonoscopy Past Anesthesia/Blood Transfusion Reactions: Postoperative Nausea & Vomiting (PONV) Date of Last Stent Placement:: 01/29/18 Past Psychological History: Anxiety Additional Psychological History / Comment(s): Pt resides with her adult daughter. Her in September,. Pt is independent. Her daughter assists her some with her medications. Smoking Status: Never smoker Past Alcohol Use History: None Reported Past Drug Use History: None Reported - Past Family History Father Family Medical History: Coronary Artery Disease (CAD) Additional Family Medical History / Comment(s): Father was healthy. He after his spouse's "he just gave up on life." Mother Family Medical History: Coronary Artery Disease (CAD), Myocardial Infarction ([place]) Additional Family Medical History / Comment(s): Mother of a Mi at the age of 62 or 63yrs. Brother(s) Family Medical History: Cancer Additional Family Medical History / Comment(s): one brother leukemia. another brother metastatic CA Medications and Allergies Home Medications Medication Instructions Recorded Confirmed Type Timolol 0.5% Ophth Soln [Timoptic 1 drop BOTH EYES DAILY@0800 09/29/16 02/27/23 History 0.5% Ophth Soln] Apixaban [Eliquis] 2.5 mg PO BID@0800,209902/01/18 02/27/23 History Atorvastatin [Lipitor] 40 mg PO DAILY@0800 04/19/19 02/27/23 History Famotidine [Pepcid] 20 mg PO BID@0800,209904/19/19 02/27/23 History cloNIDine HCL [Catapres] 0.3 mg PO TID@0800,1400,209902/14/22 02/27/23 History Clopidogrel [Plavix] 75 mg PO DAILY@0800 02/27/23 02/27/23 History Doxazosin [Cardura] 4 mg PO DAILY@0800 02/27/23 02/27/23 History Furosemide [Lasix] 20 mg PO DAILY@0800 02/27/23 02/27/23 History Irbesartan [Avapro] 75 mg PO DAILY@1200 02/27/23 02/27/23 History Magnesium Oxide [Mag-Ox] 400 mg PO DAILY@0800 02/27/23 02/27/23 History Sodium Bicarbonate Tab 650 mg PO BID@0800,209902/27/23 02/27/23 History busPIRone HCL 15 mg PO BID@0800,209902/27/23 02/27/23 History carvediloL [Coreg] 6.25 mg PO BID@0800,209902/27/23 02/27/23 History hydrALAZINE HCL 25 mg PO TID@0800,1400,209902/27/23 02/27/23 History hydrALAZINE HCL [Apresoline] 50 mg PO TID@0800,1400,209902/27/23 02/27/23 Hi story metFORMIN HCL ER [Glucophage XR] 1,000 mg PO DAILY@1200 02/27/23 02/27/23 History Allergies Allergy/AdvReac Type Severity Reaction Status Date / Time clindamycin Allergy Unknown Verified 02/27/23 13:05 prednisone Allergy Unknown Verified 02/27/23 13:05 adhesive tape AdvReac Severe Skin Verified 02/27/23 13:05 Irritation/Peeling allopurinol AdvReac Severe Nausea & Verified 02/27/23 13:05 Vomiting amlodipine besylate AdvReac Severe Nausea & Verified 02/27/23 13:05 [From Norvasc] Vomiting celecoxib [From Celebrex] AdvReac Severe Nausea & Verified 02/27/23 13:05 Vomiting clonidine HCl [From Catapres] AdvReac Severe Nausea & Verified 02/27/23 13:05 Vomiting diclofenac AdvReac Severe Nausea & Verified 02/27/23 13:05 Vomiting isosorbide AdvReac Severe Nausea & Verified 02/27/23 13:05 Vomiting methylprednisolone AdvReac Severe Nausea & Verified 02/27/23 13:05 Vomiting metoprolol tartrate AdvReac Severe Nausea & Verified 02/27/23 13:05 [From Lopressor] Vomiting misoprostol AdvReac Severe Nausea & Verified 02/27/23 13:05 Vomiting rabeprazole sodium AdvReac Severe Nausea & Verified 02/27/23 13:05 [From Aciphex] Vomiting Sulfa (Sulfonamide AdvReac Severe Nausea & Verified 02/27/23 13:05 Antibiotics) Vomiting oseltamivir AdvReac Unknown Verified 02/27/23 13:05 Physical Exam Vitals: Vital Signs Temp Pulse Pulse Resp BP BP Pulse Ox 02/28/23 07:34 97.8 F 76 17 154/55 98 02/28/23 02:00 97.9 F 87 138/56 96 02/27/23 21:15 98.4 F 83 17 173/65 97 02/27/23 19:03 98.1 F 84 16 149/73 100 02/27/23 17:00 79 14 147/63 100 02/27/23 16:45 87 16 140/63 99 02/27/23 16:30 75 14 140/49 100 02/27/23 16:28 97.6 F 71 16 140/49 100 02/27/23 16:15 72 12 143/53 99 02/27/23 16:08 97.9 F 68 17 143/57 100 02/27/23 16:00 71 15 159/61 100 02/27/23 15:56 97.6 F 66 16 159/61 100 02/27/23 15:49 71 10 L 159/61 100 02/27/23 14:39 76 15 145/62 100 02/27/23 13:30 65 17 150/65 96 Intake and Output 02/27/23 02/28/23 02/28/23 22:59 06:59 14:59 Intake Total 284 118 Balance 284 118 Intake: Oral 118 Blood Product 284 Rc Pheresis As-3 Unit 284 [id number] Other: # Voids 1 1 Weight 68.039 kg PHYSICAL EXAMINATION: Patient is lying in the bed comfortably, no acute distress, awake alert and oriented.. HEENT: Normocephalic. Neck is supple. Pupils reactive. Nostrils clear. Oral cavity is moist. Neck reveals no JVD, carotid bruits, or thyromegaly. CHEST EXAMINATION: Trachea is central. Symmetrical expansion. Lung aguiar clear to auscultation and percussion. CARDIAC: Normal S1, S2 with no gallops. No murmurs ABDOMEN: Soft. Bowel sounds present. Nontender. No organomegaly. No abdominal bruits. Extremities: reveal no edema. No clubbing or cyanosis Neurologically awake, alert, oriented x1-2 with well-coordinated movements. No focal deficits noted Skin: No rash or skin lesions. Psychiatric: Coperative. Nonsuicidal, Musculoskeletal: No joint swelling or deformity. Normal range of motion. Results CBC & Chem 7: 02/28/23 06:26 02/28/23 06:26 Labs: Abnormal Lab Results - Last 24 Hours (Table) 02/27/23 02/27/23 02/27/23 Range/Units 12:36 12:36 13:23 RBC 2.21 L (3.80-5.40) m/uL Hgb 6.3 L* (11.4-16.0) gm/dL Hct 18.7 L* (34.0-46.0) % MCHC (32.0-37.0) g/dL RDW 17.5 H (11.5-15.5) % Absolute Nucleated RBC (0.00-0.00) X 10*3/uL Immature Gran # (0.00-0.04) X 10*3/uL Lymphocytes # 0.8 L (1.0-4.8) k/uL NRBC/100 WBC Diff (0.0-0.0) /100 WBCS Sodium 134 L (137-145) mmol/L Potassium 3.4 L (3.5-5.1) mmol/L Anion Gap (10.00-18.00) mmol/L BUN 54 H (7-17) mg/dL Creatinine 1.11 H (0.52-1.04) mg/dL Est GFR (CKD-EPI)AfAm (60.0-200.0) Est GFR (CKD-EPI)NonAf (60.0-200.0) BUN/Creatinine Ratio (12.00-20.00) Ratio Glucose 151 H (74-99) mg/dL POC Glucose (mg/dL) (70-110) mg/dL Ur Leukocyte Esterase Small H (Negative) Urine Mucus Rare H (None) /hpf Crossmatch 02/27/23 02/27/23 02/28/23 Range/Units 13:30 21:14 06:20 RBC (3.80-5.40) m/uL Hgb (11.4-16.0) gm/dL Hct (34.0-46.0) % MCHC (32.0-37.0) g/dL RDW (11.5-15.5) % Absolute Nucleated RBC (0.00-0.00) X 10*3/uL Immature Gran # (0.00-0.04) X 10*3/uL Lymphocytes # (1.0-4.8) k/uL NRBC/100 WBC Diff (0.0-0.0) /100 WBCS Sodium (137-145) mmol/L Potassium (3.5-5.1) mmol/L Anion Gap (10.00-18.00) mmol/L BUN (7-17) mg/dL Creatinine (0.52-1.04) mg/dL Est GFR (CKD-EPI)AfAm (60.0-200.0) Est GFR (CKD-EPI)NonAf (60.0-200.0) BUN/Creatinine Ratio (12.00-20.00) Ratio Glucose (74-99) mg/dL POC Glucose (mg/dL) 135 H 146 H (70-110) mg/dL Ur Leukocyte Esterase (Negative) Urine Mucus (None) /hpf Crossmatch See Detail 02/28/23 02/28/23 02/28/23 Range/Units 06:26 06:26 12:08 RBC 2.51 L (3.80-5.40) m/uL Hgb 6.8 L* (11.4-16.0) gm/dL Hct 22.0 L (34.0-46.0) % MCHC 30.9 L (32.0-37.0) g/dL RDW 18.5 H (11.5-15.5) % Absolute Nucleated RBC 0.03 H (0.00-0.00) X 10*3/uL Immature Gran # 0.05 H (0.00-0.04) X 10*3/uL Lymphocytes # 0.86 L (1.0-4.8) k/uL NRBC/100 WBC Diff 0.4 H (0.0-0.0) /100 WBCS Sodium 133 L (137-145) mmol/L Potassium (3.5-5.1) mmol/L Anion Gap 9.60 L (10.00-18.00) mmol/L BUN 38.4 H (7-17) mg/dL Creatinine (0.52-1.04) mg/dL Est GFR (CKD-EPI)AfAm 49.4 L (60.0-200.0) Est GFR (CKD-EPI)NonAf 42.6 L (60.0-200.0) BUN/Creatinine Ratio 33.68 H (12.00-20.00) Ratio Glucose 122 H (74-99) mg/dL POC Glucose (mg/dL) 153 H (70-110) mg/dL Ur Leukocyte Esterase (Negative) Urine Mucus (None) /hpf Crossmatch Thrombosis Risk Factor Assmnt - DVT/VTE Prophylaxis DVT/VTE Prophylaxis: Pharmacologic Prophylaxis ordered Assessment and Plan Assessment: Anemia with patient being on anticoagulation with daily tested occult blood positive in the outpatient setting. Possible GI bleed and symptomatic anemia Diverticulosis Diarrhea and recently tested positive for Giardia Dehydration and volume depletion Hypokalemia Hypovolemic hyponatremia Coronary artery disease with history of stent placement currently on Plavix Diabetes type 2 Chronic atrial fibrillation on anticoagulation with Eliquis Hearing disorder/deafness Hypertension Hyperlipidemia History of [place] Osteoarthritis Anxiety DVT prophylaxis with SCDs Plan: Patient will be continued on IV hydration and transfuse with PRBC to keep hemoglobin greater than 7. Monitor H&H closely. Patient was started on GoLytely and general surgery is planning for EGD and colonoscopy tomorrow. Continue with clear liquid diet and nothing by mouth after midnight. Xarelto held Lasix is on hold. Continue with PPI IV daily. Continue home medications including Coreg and follow-up closely. Discussed with the patient and her family at bedside in detail. Time with Patient: Greater than 30
[2023-03-01 05:58] LABS: Glucose,Whole Blood 134 mg/dL (70-110)
[2023-03-01 07:51] LABS: African American GFR (CKD) 66 (>60 ml/min/1.73 sqM); Anion Gap 8 mmol/L; Blood Urea Nitrogen 22 mg/dL (7-17); Calcium 8.8 mg/dL (8.4-10.2); Carbon Dioxide 25 mmol/L (22-30); Chloride 106 mmol/L (98-107); Glucose 115 mg/dL (74-99); Non-African American GFR(CKD) 57 (>60 ml/min/1.73 sqM); Potassium 3.7 mmol/L (3.5-5.1); Sodium 139 mmol/L (137-145)
[2023-03-01 08:19] LABS: Anisocytosis Slight; HCT 26.4 % (34.0-46.0); Hypochromasia Slight; MCH 28.2 pg (25.0-35.0); MCHC 32.9 g/dL (31.0-37.0); MCV 85.7 fL (80.0-100.0); Mean Platelet Volume 7.7; Platelet Count 263 k/uL (150-450); Poikilocytosis Slight; RBC 3.07 m/uL (3.80-5.40); RDW 17.9 % (11.5-15.5); WBC 5.4 k/uL (3.8-10.6)
[2023-03-01 08:21] LABS: HGB 8.7 gm/dL (11.4-16.0)
[2023-03-01] MEDS: hydrALAZINE HCL 25 MG TAB PO SCH ×3 (09:32→21:01)
[2023-03-01] MEDS: carvediloL 6.25 MG TAB PO SCH ×2 (09:32→21:01)
[2023-03-01] MEDS: FAMOTIDINE 20 MG TAB PO SCH (09:32)
[2023-03-01] MEDS: ATORVASTATIN 40 MG TAB PO SCH (09:33)
[2023-03-01] MEDS: SODIUM BICARBONATE TAB 650 MG TAB PO SCH ×2 (09:33→21:02)
[2023-03-01] MEDS: MAGNESIUM OXIDE 400 MG TAB PO SCH (09:33)
[2023-03-01] MEDS: FUROSEMIDE 20 MG TAB PO SCH (09:33)
[2023-03-01] MEDS: cloNIDine HCL 0.1 MG TAB PO SCH ×3 (09:33→21:00)
[2023-03-01] MEDS: DOXAZOSIN 4 MG TAB PO SCH (09:34)
[2023-03-01] MEDS: busPIRone HCl 5 MG TAB PO SCH ×2 (09:34→21:01)
[2023-03-01] MEDS: metroNIDAZOLE-NS PMX 500 MG in SALINE 1 100ML.BAG IVPB SCH ×3 (09:34→23:46)
[2023-03-01] MEDS: LACTATED RINGERS 1,000 ML IV SCH (09:37)
[2023-03-01] MEDS: TIMOLOL 0.5% OPHTH DROPS 5 ML BTL BOTH EYES SCH (09:38)
[2023-03-01] MEDS ORDERED: IV FLUID CONTINUATION 1,000 ML IV ONE (10:16)
[2023-03-01] MEDS ORDERED: LIDOCAINE 1% INJ 10MG/ML (20 ML MDV) ONE (10:26)
[2023-03-01] MEDS ORDERED: PROPOFOL 10 MG/ML 20 ML VIAL IV ONE (10:26)
--- NOTE | 2023-03-01 10:50 | P.OP ---
Date of Procedure: 03/01/23 Preoperative Diagnosis: GI bleed, anemia Postoperative Diagnosis: Antral gastritis Melanosis of duodenal mucosa Severe diverticulosis Procedure(s) Performed: EGD Colonoscopy Anesthesia: MAC Surgeon: Trung Salvador Pathology: other (Antrum, duodenum) Condition: stable Disposition: PACU Description of Procedure: The patient's placed on the endoscopy table in the lateral position. She received IV sedation. The gastro-/oropharynx passed in the esophagus and stomach. Scope was placed through the pylorus. The first and second portion of the duodenum appeared melanosis of the mucosa. This was biopsied. Scope was back the antrum this appeared minimally inflamed. A biopsies performed. Scope was unretroflexed and remainder the stomach appeared normal. The GE junction was at 40 cm per the distal esophagus appeared normal. Proximal esophagus. Normal. Scope withdrawn for patient. Next digital rectal exam was performed. This revealed no abnormalities. Flexible colonoscope was then placed patient anus and passed throughout the colon. There was extensive diverticular changes of the sigmoid and left colon. Scope appendectomy advanced due to tortuosity valve. Scope was then brought back the visualized left colon had mild diverticular changes. In the; was extensive diverticular changes. Scope was brought back the rectum this appeared normal. Scope withdrawn for patient. There is no evidence of any active lower GI bleed. The patient was scheduled for a barium enema. The patient may have had occult blood positive stool due to gastritis.
[2023-03-01 11:13] LABS: Glucose,Whole Blood 152 mg/dL (70-110)
--- NOTE | 2023-03-01 14:19 | FL ---
EXAMINATION TYPE: FL barium enema w air contrast DATE OF EXAM: 03/01/2023 2:10 PM CLINICAL INDICATION:Female, 87 years old with history of In complete colonoscopy; COMPARISON: CT 02/27/2023 TECHNIQUE: The procedure was explained and patient history elicited. All patient questions were answ ered prior to beginning. Multiple spot fluoroscopic images of the colon were obtained after the recta l administration of liquid barium as the contrast agent. Multiple postprocedural overhead images, w ere obtained and reviewed. Fluoroscopic time: 1 minute 32 seconds Fluoroscopic images: 0 Radiographs taken: 31 FINDINGS: The group leader semiconductor testing abdominal radiograph demonstrates a normal bowel gas pattern without dilated loo ps of small or large bowel. There is no evidence for organomegaly or pneumoperitoneum. The visualiz ed osseous structures are intact. Multilevel disc degeneration changes and mild osteoarthritis change s. The colon demonstrates normal course and contour without evidence of focal stricture, internal fillin g defects. There is multiple abnormal outpouchings consistent with colonic diverticulosis. Views of the cecum with manual compression are unremarkable. Postevacuation images are unremarkable. IMPRESSION: 1. No evidence for abnormal stricture or mass lesion within the sigmoid colon. 2. Colonic diverticulosis.
[2023-03-01] MEDS: LOSARTAN 25 MG TAB PO SCH (14:20)
[2023-03-01] MEDS: metFORMIN 500 MG TAB PO SCH ×2 (14:21→21:02)
[2023-03-01 16:36] LABS: Glucose,Whole Blood 175 mg/dL (70-110)
[2023-03-01 20:29] LABS: Glucose,Whole Blood 188 mg/dL (70-110)
--- NOTE | 2023-03-02 05:13 | P.PN ---
Subjective Progress Note Date: 03/01/23 Patient is a 87-year-old female with a known history of atrial fibrillation on anticoagulation with Xarelto, coronary artery disease with prior history of stent placement, GERD, diabetes type 2, hypertension, hyperlipidemia, history of [place] and osteoarthritis and anxiety presents ER with complaints of diarrhea for the past 7 days. Patient was seen by her PCP and was tested positive for Giardia in the stool and also stool occult blood was positive. Patient is also complaining of brown-colored stools. Denies any dark-colored stools or blood clots. Denies any nausea or vomiting. Did have lower abdominal pain. No nausea or vomiting. Patient felt so weak and almost passed out while she was walking towards the kitchen.Patient is a poor historian. She reports her last colonoscopy was several years ago and was negative. EGD was in 2018 revealing gastritis a patent Chesky's ring and a small hiatal hernia. Computed tomography scan abdomen and pelvis had shown diverticulosis without diverticulitis. CT head showed minimal anechoic appearing periventricular white matter ischemic type changes. Chest x-ray showed no acute pulmonary disease. Borderline cardiomegaly. EKG showed atrial fibrillation CT of the abdomen pelvis showed minimal subsegmental atelectasis left lung base. Mild fatty infiltration of the liver. Mild diffuse thickening through the abdominal glands. Diverticulosis without acute diverticulitis left lower quadrant. Laboratory data showed WBC 6.3 hemoglobin 6.3, platelets 263 MCV 84.5 Sodium 134 potassium 3.4 chloride 99 bicarb is 24 BUN 54 creatinine 1.1 and blood sugar 151 liver enzymes are not elevated magnesium 1.6 Urinalysis is negative for infection Coronavirus PCR not detected. 03/01/2023 Patient is seen and evaluated in follow-up this morning with family at the bedside and patient has undergone EGD/colonoscopy with plans for barium enema study. Hemoglobin is stable above 8 today with no active bleeding noted. Patient is afebrile and reports passing gas with no reports of nausea or vomiting noted. Patient denies chest pain or shortness of breath and will be monitored closely. Will follow-up with repeat labs to monitor hemoglobin closely. We'll need to discuss further with surgery and its report is available. Review of systems: Constitutional: No reports of fatigue, fever, or chills Cardiovascular: No reports of chest pain or palpitations Respiratory: No reports of shortness of breath or cough GI: No reports of nausea, vomiting, or diarrhea : No reports of dysuria or retention Neurovascular: No reports of weakness or numbness All medications have been reviewed Active Medications Atorvastatin Calcium (Atorvastatin 40 Mg Tab) 40 mg PO DAILY@0800 [facility] Last Admin: 03/01/23 09:33 Dose: 40 mg Buspirone HCl (Buspirone Hcl 5 Mg Tab) 15 mg PO BID@0800,2100 [facility] Last Admin: 03/01/23 09:34 Dose: 15 mg Carvedilol (Carvedilol 6.25 Mg Tab) 6.25 mg PO BID@0800,2100 [facility] Last Admin: 03/01/23 09:32 Dose: 6.25 mg Clonidine (Clonidine Hcl 0.1 Mg Tab) 0.3 mg PO TID@0800,1400,2100 [facility] Last Admin: 03/01/23 14:21 Dose: 0.3 mg Doxazosin Mesylate (Doxazosin 4 Mg Tab) 4 mg PO DAILY@0800 [facility] Last Admin: 03/01/23 09:34 Dose: 4 mg Famotidine (Famotidine 20 Mg Tab) 20 mg PO DAILY@0800 [facility] Last Admin: 03/01/23 09:32 Dose: 20 mg Furosemide (Furosemide 20 Mg Tab) 20 mg PO DAILY@0800 [facility] Last Admin: 03/01/23 09:33 Dose: 20 mg Hydralazine HCl (Hydralazine Hcl 25 Mg Tab) 75 mg PO TID@0800,1400,2100 [facility] Last Admin: 03/01/23 14:20 Dose: 75 mg Metronidazole 500 mg/ IV (Solution) 100 mls @ 100 mls/hr IVPB Q8HR [facility]; Protocol Last Admin: 03/01/23 09:34 Dose: 100 mls/hr Lactated Ringer's (Lactated Ringers) 1,000 mls @ 20 mls/hr IV .Q24H [facility] Last Admin: 03/01/23 09:37 Dose: 20 mls/hr Losartan Potassium (Losartan 25 Mg Tab) 25 mg PO DAILY@1200 [facility] Last Admin: 03/01/23 14:20 Dose: 25 mg Magnesium Oxide (Magnesium Oxide 400 Mg Tab) 400 mg PO DAILY@0800 [facility] Last Admin: 03/01/23 09:33 Dose: 400 mg Metformin HCl (Metformin 500 Mg Tab) 500 mg PO BID@1200,2100 [facility] Last Admin: 03/01/23 14:21 Dose: 500 mg Naloxone HCl (Naloxone 0.4 Mg/Ml 1 Ml Vial) 0.2 mg IV Q2M PRN PRN Reason: Opioid Reversal Sodium Bicarbonate (Sodium Bicarbonate Tab 650 Mg Tab) 650 mg PO BID@0800,2100 [facility] Last Admin: 03/01/23 09:33 Dose: 650 mg Timolol Maleate (Timolol 0.5% Ophth Drops 5 Ml Btl) 1 drops BOTH EYES DAILY@0800 [facility] Last Admin: 03/01/23 09:38 Dose: 1 drops PHYSICAL EXAMINATION: Patient is lying in the bed comfortably, no acute distress, awake alert and oriented.. HEENT: Normocephalic. Neck is supple. Pupils reactive. Nostrils clear. Oral cavity is moist. Neck reveals no JVD, carotid bruits, or thyromegaly. CHEST EXAMINATION: Trachea is central. Symmetrical expansion. Lung aguiar clear to auscultation and percussion. CARDIAC: Normal S1, S2 with no gallops. No murmurs ABDOMEN: Soft. Bowel sounds present. Nontender. No organomegaly. No abdominal bruits. Extremities: reveal no edema. No clubbing or cyanosis Neurologically awake, alert, oriented x1-2 with well-coordinated movements. No focal deficits noted Skin: No rash or skin lesions. Psychiatric: Cooperative. Non-suicidal, slightly anxious Musculoskeletal: No joint swelling or deformity. Normal range of motion. Assessment: Anemia with patient being on anticoagulation with daily tested occult blood positive in the outpatient setting. Possible GI bleed and symptomatic anemia Antral gastritis, melanosis of duodenal mucosa with severe diverticulosis as noted on EGD/colonoscopy today with biopsies obtained History of Diverticulosis Diarrhea and recently tested positive for Giardia Dehydration and volume depletion, improving Hypokalemia, improved Hypovolemic hyponatremia Coronary artery disease with history of stent placement currently on Plavix Diabetes type 2 Chronic atrial fibrillation on anticoagulation with Eliquis Hearing disorder/deafness Hypertension Hyperlipidemia History of NM Osteoarthritis Anxiety DVT prophylaxis with SCDs Plan: Patient will be continued on IV hydration and transfuse with PRBC to keep hemoglobin greater than 7. Hemoglobin is above 8 today with no further bleeding noted and underwent EGD colonoscopy with noted antral gastritis, melanosis of the duodenal mucosa with biopsies obtained and severe diverticulosis. Barium enema study with no significant masses noted Recommend to Monitor H&H closely and will transfuse of 7 or less. Will need to discuss further with surgery about resuming anticoagulation and will be outpatient follow-up for biopsy report Recommend repeat labs in the a.m. Possible discharge in the next 24-48 hours The impression and plan of care has been dictated by Roxie Winkler, Nurse Practitioner as directed. Dr. Gerson MD I have performed a history and examination and MDM of this patient, discussed the same with the dictator, and agree with the dictator's assessment and plan as written ,documented as a scribe. Based on total visit time, I have performed more than 50% of the visit. Objective - Vital Signs Vital signs: Vital Signs Temp 97.9 F 03/01/23 07:27 Pulse 77 03/01/23 07:27 Resp 16 03/01/23 07:27 BP 154/62 03/01/23 07:27 Pulse Ox 96 03/01/23 07:27 FiO2 Intake & Output 02/28/23 03/01/23 03/01/23 18:59 06:59 18:59 Intake Total 404 Balance 404 Intake: Oral 118 Blood Product 286 Rc Pheresis As-3 Unit 286 [id number] Other: # Voids 3 2 # Bowel Movements 5 2 - Labs CBC & Chem 7: 03/01/23 06:26 03/01/23 06:26 Labs: Abnormal Lab Results - Last 24 Hours (Table) 02/27/23 02/28/23 02/28/23 Range/Units 13:30 06:26 06:26 RBC 2.51 L (4.10-5.20) X 10*6/uL Hgb 6.8 L* (12.0-15.0) g/dL Hct 22.0 L (37.2-46.3) % MCHC 30.9 L (32.0-37.0) g/dL RDW 18.5 H (11.5-14.5) % Absolute Nucleated RBC 0.03 H (0.00-0.00) X 10*3/uL Immature Gran # 0.05 H (0.00-0.04) X 10*3/uL Lymphocytes # 0.86 L (0.90-5.00) X 10*3/uL NRBC/100 WBC Diff 0.4 H (0.0-0.0) /100 WBCS Sodium 133 L (135-145) mmol/L Anion Gap 9.60 L (10.00-18.00) mmol/L BUN 38.4 H (9.0-27.0) mg/dL Est GFR (CKD-EPI)AfAm 49.4 L (60.0-200.0) Est GFR (CKD-EPI)NonAf 42.6 L (60.0-200.0) BUN/Creatinine Ratio 33.68 H (12.00-20.00) Ratio Glucose 122 H (70-110) mg/dL POC Glucose (mg/dL) (70-110) mg/dL Crossmatch See Detail 02/28/23 02/28/23 02/28/23 Range/Units 12:08 17:30 20:26 RBC (4.10-5.20) X 10*6/uL Hgb (12.0-15.0) g/dL Hct (37.2-46.3) % MCHC (32.0-37.0) g/dL RDW (11.5-14.5) % Absolute Nucleated RBC (0.00-0.00) X 10*3/uL Immature Gran # (0.00-0.04) X 10*3/uL Lymphocytes # (0.90-5.00) X 10*3/uL NRBC/100 WBC Diff (0.0-0.0) /100 WBCS Sodium (135-145) mmol/L Anion Gap (10.00-18.00) mmol/L BUN (9.0-27.0) mg/dL Est GFR (CKD-EPI)AfAm (60.0-200.0) Est GFR (CKD-EPI)NonAf (60.0-200.0) BUN/Creatinine Ratio (12.00-20.00) Ratio Glucose (70-110) mg/dL POC Glucose (mg/dL) 153 H 150 H 143 H (70-110) mg/dL Crossmatch 03/01/23 03/01/23 03/01/23 Range/Units 05:56 06:26 06:26 RBC 3.07 L (4.10-5.20) X 10*6/uL Hgb 8.7 L D (12.0-15.0) g/dL Hct 26.4 L (37.2-46.3) % MCHC (32.0-37.0) g/dL RDW 17.9 H (11.5-14.5) % Absolute Nucleated RBC (0.00-0.00) X 10*3/uL Immature Gran # (0.00-0.04) X 10*3/uL Lymphocytes # (0.90-5.00) X 10*3/uL NRBC/100 WBC Diff (0.0-0.0) /100 WBCS Sodium (135-145) mmol/L Anion Gap (10.00-18.00) mmol/L BUN 22 H (9.0-27.0) mg/dL Est GFR (CKD-EPI)AfAm (60.0-200.0) Est GFR (CKD-EPI)NonAf (60.0-200.0) BUN/Creatinine Ratio (12.00-20.00) Ratio Glucose 115 H (70-110) mg/dL POC Glucose (mg/dL) 134 H (70-110) mg/dL Crossmatch Microbiology - Last 24 Hours (Table) 02/27/23 18:45 Blood Culture - Preliminary Blood No Growth after 24 hours 02/27/23 18:30 Blood Culture - Preliminary Blood No Growth after 24 hours
[2023-03-02 05:59] LABS: Glucose,Whole Blood 152 mg/dL (70-110)
[2023-03-02] MEDS: TIMOLOL 0.5% OPHTH DROPS 5 ML BTL BOTH EYES SCH (07:36)
[2023-03-02] MEDS: cloNIDine HCL 0.1 MG TAB PO SCH (07:36)
[2023-03-02] MEDS: SODIUM BICARBONATE TAB 650 MG TAB PO SCH (07:37)
[2023-03-02] MEDS: FUROSEMIDE 20 MG TAB PO SCH (07:37)
[2023-03-02] MEDS: ATORVASTATIN 40 MG TAB PO SCH (07:37)
[2023-03-02] MEDS: hydrALAZINE HCL 25 MG TAB PO SCH (07:37)
[2023-03-02] MEDS: MAGNESIUM OXIDE 400 MG TAB PO SCH (07:37)
[2023-03-02] MEDS: carvediloL 6.25 MG TAB PO SCH (07:37)
[2023-03-02] MEDS: busPIRone HCl 5 MG TAB PO SCH (07:37)
[2023-03-02] MEDS: FAMOTIDINE 20 MG TAB PO SCH (07:37)
[2023-03-02] MEDS: metroNIDAZOLE-NS PMX 500 MG in SALINE 1 100ML.BAG IVPB SCH (07:38)
[2023-03-02] MEDS: DOXAZOSIN 4 MG TAB PO SCH (07:38)
[2023-03-02 07:43] VITALS: RESP 16; TEMP 98.6
[2023-03-02 10:59] LABS: Basophils # (A) 0.01 X 10*3/uL (0.00-0.10); Basophils % (A) 0.2 %; Eosinophils # (A) 0.14 X 10*3/uL (0.04-0.35); Eosinophils % (A) 2.2 %; HCT 26.6 % (37.2-46.3); HGB 8.3 g/dL (12.0-15.0); Immature Grans, Automated 0.5 %; Lymphocytes # (A) 0.56 X 10*3/uL (0.90-5.00); Lymphocytes % (A) 8.7 %; MCH 27.4 pg (27.0-32.0); MCHC 31.2 g/dL (32.0-37.0); MCV 87.8 fL (80.0-97.0); Mean Platelet Volume 9.6 fL (9.5-12.2); Monocytes % (A) 10.9 %; NRBC Per 100 WBC 0.3 /100 WBCS (0.0-0.0); Neutrophils # (A) 4.97 X 10*3/uL (1.80-7.70); Neutrophils % (A) 77.5 %; Platelet Count 260 X 10*3/uL (140-440); RBC 3.03 X 10*6/uL (4.10-5.20); RDW 18.4 % (11.5-14.5); WBC 6.41 X 10*3/uL (4.50-10.00)
[2023-03-02 11:03] LABS: Glucose,Whole Blood 155 mg/dL (70-110)
[2023-03-02] MEDS: LOSARTAN 25 MG TAB PO SCH (11:34)
[2023-03-02] MEDS: metFORMIN 500 MG TAB PO SCH (11:34)
[2023-03-02 11:36] VITALS: BP 161/67; PULSE 89
--- NOTE | 2023-03-02 14:32 | P.PN ---
Subjective Progress Note Date: 03/02/23 CHIEF COMPLAINT: Anemia HISTORY OF PRESENT ILLNESS: Patient status post EGD and colonoscopy revealing antral gastritis melanosis of the duodenal mucosa and severe diverticulosis. Patient may have had occult blood positive due to gastritis. Due to tortuosity of the colon scope could not be advanced and a barium enema was completed that showed no evidence of abnormal stricture or mass lesion within the sigmoid colon. Colonic diverticulosis. Patient is tolerating diet. She denies any abdominal pain. Afebrile. Hemoglobin is staying stable at 8.3 PHYSICAL EXAM: VITAL SIGNS: Reviewed. GENERAL: Well-developed in no acute distress. HEENT: No sclera icterus. Extraocular movements grossly intact. Moist buccal mucosa. Head is atraumatic, normocephalic. ABDOMEN: Soft. Nondistended. Nontender. NEUROLOGIC: Alert and oriented. Cranial nerves II through XII grossly intact. ASSESSMENT: 1. Anemia with stool for occult blood positive status post EGD and colonoscopy revealing antral gastritis, melanosis of the duodenal mucosa and severe diverticulosis. Patient's anemia likely related to blood thinners, gastritis and Giardia diarrhea 2. Diarrhea recently had tested positive for Giardia outpatient PLAN: -Recommend to hold Eliquis for 3 days and Plavix for another 7 days -Recommend to continue a PPI -Agree with Flagyl for another 7 days to complete treatment of the Giardia -Patient can be discharge from surgical standpoint with outpatient follow up Physician Statement Clerks Supervisor note has been reviewed by physician. Signing provider agrees with the documented findings, assessment, and plan of care. CHIEF COMPLAINT: Anemia HISTORY OF PRESENT ILLNESS: The patient is a 87-year-old female who presents with anemia. Family at bedside. No reports of abdominal pain. ROS: No reports of nausea and vomiting. No fevers or chills. No new chest pain. No productive sputum PHYSICAL EXAM: VITAL SIGNS: Reviewed CONSTITUTIONAL: Well developed and in no acute distress. EYES: Conjuctivae without sclera icterus. Extraocular movements grossly intact. HEAD, EARS, NOSE, THROAT: Moist buccal mucosa. Head is atraumatic, normocephalic. Hears conversational speech. No nasal drainage. RESPIRATORY: Non-labored respirations and equal bilateral excursions. CARDIOVASCULAR: Palpable 2+ radial pulses. ABDOMEN: No peritonitis MUSCULOSKELETAL: No gross deformity of the lower extremities noted. No clubbing. No cyanosis. SKIN: Good skin turgor. Well perfused. NEUROLOGIC: Cranial nerves II through XII grossly intact. No focal or lateralizing signs. PSYCH: Flat affect. Alert to self. CLINICAL LABS: Reviewed. Anemia, hemoglobin stable 8.7 to 8.3. ASSESSMENT: 1. Anemia PLAN: 1. Stable for discharge Objective - Vital Signs Vital signs: Vital Signs Temp 98.6 F 03/02/23 07:05 Pulse 66 03/02/23 09:07 Resp 16 03/02/23 07:05 BP 109/61 03/02/23 09:07 Pulse Ox 96 03/02/23 07:05 FiO2 Intake & Output 03/01/23 03/02/23 03/02/23 18:59 06:59 18:59 Intake Total 100 200 Balance 100 200 Intake: IV 100 Oral 200 Other: Voiding Method Toilet # Voids 3 1 # Bowel Movements 3 - Labs CBC & Chem 7: 03/02/23 05:50 03/01/23 06:26 Labs: Abnormal Lab Results - Last 24 Hours (Table) 03/01/23 03/01/23 03/01/23 Range/Units 11:11 16:34 20:28 POC Glucose (mg/dL) 152 H 175 H 188 H (70-110) mg/dL 03/02/23 Range/Units 05:57 POC Glucose (mg/dL) 152 H (70-110) mg/dL Microbiology - Last 24 Hours (Table) 02/27/23 18:45 Blood Culture - Preliminary Blood No Growth after 48 hours 02/27/23 18:30 Blood Culture - Preliminary Blood No Growth after 48 hours
--- NOTE | 2023-03-05 19:58 | P.DS ---
Providers Date of admission: 02/27/23 17:03 Expected date of discharge: 03/02/23 Attending physician: Ko Nieto Consults: 02/27/23 17:03 Consult Physician Routine Consulting Provider: Trung Salvador Consult Reason/Comments: occult blood positive, concern for gi bleed Do you want consulting provider notified?: Already Contacted Primary care physician: Lj Sanchez Hospital Course: Final diagnosis Anemia with patient being on anticoagulation with daily tested occult blood positive in the outpatient setting. Possible GI bleed and symptomatic anemia Antral gastritis, melanosis of duodenal mucosa with severe diverticulosis as noted on EGD/colonoscopy today with biopsies obtained History of Diverticulosis Diarrhea and recently tested positive for Giardia Dehydration and volume depletion, improving Hypokalemia, improved Hypovolemic hyponatremia Coronary artery disease with history of stent placement currently on Plavix Diabetes type 2 Chronic atrial fibrillation on anticoagulation with Eliquis Hearing disorder/deafness Hypertension Hyperlipidemia History of NM Osteoarthritis Anxiety DVT prophylaxis Discharge disposition Patient is being discharged in a stable condition with guarded prognosis to home . Patient will follow-up with Dr. Sanchez in the outpatient setting upon discharge. Patient is to follow-up with general surgery outpatient for biopsy results as scheduled. Patient is to continue holding anticoagulation for 3 days as well as Plavix for 7 days. Recommend repeat labs and prescription provided to monitor CBC. Total time taken is greater than 35 minutes. Hospital course This is a 87-year-old female who was recently admitted with acute blood loss anemia with possible GI bleed and was evaluated by general surgery. Patient underwent EGD with colonoscopy showing antral gastritis with severe diverticulosis recommend holding anticoagulation for 3 days as well as Plavix for 7 days and following up with general surgery for biopsy results. Hemoglobin is stable with no bleeding noted and patient would like to go home. Patient has been cleared by consultations for discharge today. Please refer to consultation notes for further HPI. Currently no reports of chest pain, shortness of breath, or palpitations. Patient is afebrile. No reports of nausea or vomiting and patient is tolerating diet. Patient will be discharged home today. Physical exam: Gen: This is a 87-year-old female who is awake, alert and oriented 2-3, well- developed, well-nourished HEENT: Head is atraumatic, normocephalic. Pupils equal, round. Sclerae is anicteric. NECK: Supple. No JVD. No lymphadenopathy. No thyromegaly. LUNGS: Clear to auscultation. No wheezes or rhonchi. No intercostal retractions. HEART: Regular rate and rhythm. No murmur. ABDOMEN: Soft. Bowel sounds are present. No masses. No tenderness. EXTREMITIES: No pedal edema. No calf tenderness. NEUROLOGICAL: Patient is awake, alert and oriented x3. Cranial nerves 2 through 12 are grossly intact. Please refer to medication reconciliation sheet for a list of medications. The impression and plan of care has been dictated by Roxie Winkler, Nurse Practitioner as directed. Dr. Gerson MD I have performed a history and examination and MDM of this patient, discussed the same with the dictator, and agree with the dictator's assessment and plan as written ,documented as a scribe. Based on total visit time, I have performed more than 50% of the visit. Patient Condition at Discharge: Stable Plan - Discharge Summary New Discharge Prescriptions: New hydrALAZINE HCL [Apresoline] 75 mg PO TID@0800,1400,2100 #270 tab Omeprazole [PriLOSEC] 20 mg PO AC-BRKFST #30 cap Losartan [Cozaar] 25 mg PO DAILY@1200 #30 tab metroNIDAZOLE [Flagyl] 500 mg PO TID 7 Days #21 tab Continue Timolol 0.5% Ophth Soln [Timoptic 0.5% Ophth Soln] 1 drop BOTH EYES DAILY@080 0 Atorvastatin [Lipitor] 40 mg PO DAILY@0800 Famotidine [Pepcid] 20 mg PO BID@0800,2100 metFORMIN HCL ER [Glucophage XR] 1,000 mg PO DAILY@1200 carvediloL [Coreg] 6.25 mg PO BID@0800,2100 Doxazosin [Cardura] 4 mg PO DAILY@0800 cloNIDine HCL [Catapres] 0.3 mg PO TID@0800,1400,2100 Sodium Bicarbonate Tab 650 mg PO BID@0800,2100 Furosemide [Lasix] 20 mg PO DAILY@0800 hydrALAZINE HCL [Apresoline] 50 mg PO TID@0800,1400,2100 Magnesium Oxide [Mag-Ox] 400 mg PO DAILY@0800 busPIRone HCL 15 mg PO BID@0800,2100 Apixaban [Eliquis] 2.5 mg PO BID@0800,2100 #0 Changed Clopidogrel [Plavix] 75 mg PO DAILY@0800 #0 Discontinued hydrALAZINE HCL 25 mg PO TID@0800,1400,2099 Irbesartan [Avapro] 75 mg PO DAILY@1200 Discharge Medication List Timolol 0.5% Ophth Soln [Timoptic 0.5% Ophth Soln] 1 drop BOTH EYES DAILY@0800 09/29/16 [History] Atorvastatin [Lipitor] 40 mg PO DAILY@0800 04/19/19 [History] Famotidine [Pepcid] 20 mg PO BID@0800,209904/19/19 [History] cloNIDine HCL [Catapres] 0.3 mg PO TID@0800,1400,209902/14/22 [History] Doxazosin [Cardura] 4 mg PO DAILY@0800 02/27/23 [History] Furosemide [Lasix] 20 mg PO DAILY@0800 02/27/23 [History] Magnesium Oxide [Mag-Ox] 400 mg PO DAILY@0800 02/27/23 [History] Sodium Bicarbonate Tab 650 mg PO BID@0800,209902/27/23 [History] busPIRone HCL 15 mg PO BID@0800,209902/27/23 [History] carvediloL [Coreg] 6.25 mg PO BID@0800,209902/27/23 [History] hydrALAZINE HCL [Apresoline] 50 mg PO TID@0800,1400,209902/27/23 [History] metFORMIN HCL ER [Glucophage XR] 1,000 mg PO DAILY@1200 02/27/23 [History] Apixaban [Eliquis] 2.5 mg PO BID@0800,2100 #0 03/02/23 [Rx] Clopidogrel [Plavix] 75 mg PO DAILY@0800 #0 03/02/23 [Rx] Losartan [Cozaar] 25 mg PO DAILY@1200 #30 tab 03/02/23 [Rx] Omeprazole [PriLOSEC] 20 mg PO AC-BRKFST #30 cap 03/02/23 [Rx] hydrALAZINE HCL [Apresoline] 75 mg PO TID@0800,1400,2099 #270 tab 03/02/23 [Rx] metroNIDAZOLE [Flagyl] 500 mg PO TID 7 Days #21 tab 03/02/23 [Rx] Follow up Appointment(s)/Referral(s): Lj Sanchez MD [Primary Care Provider] - 03/06/23 12:10 pm Trung Salvador MD [STAFF PHYSICIAN] - 03/14/23 3:15 pm Ambulatory/Diagnostic Orders: Complete Blood Count w/diff [LAB.AMB] Time Frame: 3 Days, Location: None Selected Patient Instructions/Handouts: Anemia (DC) Activity/Diet/Wound Care/Special Instructions: Activity Limited until follow-up Follow-up with primary care provider on discharge Follow-up with surgery in one week Continue holding eliquis for the next 3 days and also holding Plavix for the next 7 days per surgery recommendations Recommend repeat labs in the next 2-3 days to monitor hemoglobin Continue taking antibiotics until finished Discharge Disposition: HOME SELF-CARE
== END 2023-03-02 13:18 | disposition home or self-care (01) | DRG 378 ==
LOC: EC 11:41 → 4SSUR 17:03
PROVIDERS: ADMIT Internal Medicine; ATTEND Internal Medicine
PROC: 30233N1 Transfusion of Nonautologous Red Blood Cells into Peripheral Vein, Percutaneous Approach (ICD-10-PCS; principal; 2023-02-27)
PROC: 0DJD8ZZ Inspection of Lower Intestinal Tract, Via Natural or Artificial Opening Endoscopic (ICD-10-PCS; 2023-03-01)
PROC: 0DJ08ZZ Inspection of Upper Intestinal Tract, Via Natural or Artificial Opening Endoscopic (ICD-10-PCS; 2023-03-01 15:45)
DX: K29.71 Gastritis, unspecified, with bleeding (principal); A07.1 Giardiasis [lambliasis]; I48.20 Chronic atrial fibrillation, unspecified; E87.1 Hypo-osmolality and hyponatremia; D62 Acute posthemorrhagic anemia; Z20.822 Contact with and (suspected) exposure to COVID-19; E78.5 Hyperlipidemia, unspecified; E86.0 Dehydration; H91.92 Unspecified hearing loss, left ear; H40.9 Unspecified glaucoma; I25.10 Atherosclerotic heart disease of native coronary artery without angina pectoris; E86.1 Hypovolemia; K31.89 Other diseases of stomach and duodenum; E87.6 Hypokalemia; F41.9 Anxiety disorder, unspecified; I10 Essential (primary) hypertension; K57.30 Diverticulosis of large intestine without perforation or abscess without bleeding; M19.90 Unspecified osteoarthritis, unspecified site; T45.525A Adverse effect of antithrombotic drugs, initial encounter; Z90.710 Acquired absence of both cervix and uterus; Z95.5 Presence of coronary angioplasty implant and graft; I25.2 Old myocardial infarction; Z79.02 Long term (current) use of antithrombotics/antiplatelets; Z79.899 Other long term (current) drug therapy; Z79.01 Long term (current) use of anticoagulants; Z82.49 Family history of ischemic heart disease and other diseases of the circulatory system
CPT/HCPCS: 36415; 36430; 43239; 45378; 70450; 71046; 74177; 74280; 80048; 80053; 81001; 83735; 84443; 84484; 85025; 85027; 85610; 85730; 86850; 86900; 86901; 86920; 87040; 87635; 88305; 93005; 94760; 96361; 96365; 96366; 99285

== ENCOUNTER → 2023-04-18 | Outpatient (CLI) | payer MEDICARE, BC ==
[2023-04-18 15:20] LABS: Basophils # (A) 0.02 X 10*3/uL (0.00-0.10); Basophils % (A) 0.3 %; Eosinophils # (A) 0.16 X 10*3/uL (0.04-0.35); Eosinophils % (A) 2.8 %; HCT 30.1 % (37.2-46.3); HGB 9.3 g/dL (12.0-15.0); Immature Grans, Automated 0.5 %; Lymphocytes # (A) 0.72 X 10*3/uL (0.90-5.00); Lymphocytes % (A) 12.5 %; MCH 27.2 pg (27.0-32.0); MCHC 30.9 g/dL (32.0-37.0); Mean Platelet Volume 10.2 fL (9.5-12.2); Monocytes # (A) 0.81 X 10*3/uL (0.20-1.00); Monocytes % (A) 14.1 %; NRBC Per 100 WBC 0 /100 WBCS (0.0-0.0); Neutrophils % (A) 69.8 %; Platelet Count 274 X 10*3/uL (140-440); RBC 3.42 X 10*6/uL (4.10-5.20); RDW 16.7 % (11.5-14.5); Reticulocyte % 1.83 % (0.10-1.80); WBC 5.74 X 10*3/uL (4.50-10.00)
[2023-04-18 16:18] LABS: % Iron Saturation 12.55 (12.00-45.00); ALT 24 U/L (8-44); AST 24 U/L (13-35); African American GFR (CKD) 62.9 (60.0-200.0); Albumin/Globulin Ratio 1.32 (1.60-3.17); Alkaline Phosphatase 71 U/L (41-126); BUN/Creat Ratio 25.29 Ratio (12.00-20.00); Blood Urea Nitrogen 23.6 mg/dL (9.0-27.0); Carbon Dioxide 23.6 mmol/L (20.0-27.5); Chloride 102 mmol/L (96-109); Chol/HDL Ratio 2.39 Ratio; Ferritin 73.9 ng/mL (10.0-291.0); Glucose 137 mg/dL (70-110); Iron 38 ug/dL (50-170); Non-African American GFR(CKD) 54.3 (60.0-200.0); Potassium 3.8 mmol/L (3.5-5.5); Sodium 137 mmol/L (135-145); Total Iron Binding Capacity 300 ug/dL (228-460); VLDL Calculation 19.18 mg/dL (5.00-40.00)
== END | disposition home or self-care (01) ==
LOC: LABWHC1 07:11
PROVIDERS: ATTEND Family Medicine
DX: E11.69 Type 2 diabetes mellitus with other specified complication (principal); D64.9 Anemia, unspecified
CPT/HCPCS: 36415; 80053; 80061; 82607; 82728; 83036; 83540; 83550; 85025; 85045